=== PATIENT | female | born 1945 | race Caucasian/White ===

== ENCOUNTER 2018-08-21 08:25 | Inpatient (IN) | payer MEDICARE, OTHER ==
[~2018-08-21] VITALS: Ht 149.9 cm; Wt 70.9 kg
--- NOTE | 2018-08-21 08:45 | ED Neurological Problem ---
General Chief Complaint: Neurological Problems Stated Complaint: LT SIDE NUMBNESS/TINGLING Nursing Triage Note: Patient reports she woke up this morning at 0400 with tingling in her left foot. She states she also has some numbness on the left side of her face, but this is not new for her. Nursing Sepsis Screen: No Definite Risk Source: patient, EMS Exam Limitations: no limitations History of Present Illness Date Seen by Provider: Aug 21, 2018 Time Seen by Provider: 08:31 Timing/Duration: 4-6 hours Severity: mild 73-year-old female who noticed left ankle numbness and tingling when she woke up approximately 4 AM, prior to going to bed she was normal. She has noted an increase in ankle swelling over the past 1 week. States that she has chronic left facial numbness that is unchanged. She was hospitalized approximately [address] [facility] for chest pain evaluation. At that time her medications were changed, she was not discharged with a diuretic but states that she received one her to transfer up there. Denies any injury to her left ankle or left foot. Her blood sugars have been running "good" described as 120-140, per EMS they were in the 240 range. She denies any left sided weakness , right-sided weakness, visual deficits, speech difficulties, or coordination difficulty. Allergies and Home Medications Allergies Coded Allergies: morphine (Verified Adverse Reaction, Intermediate, sedation, 08/21/18) Uncoded Allergies: TETANUS VACCINATION (Adverse Reaction, Intermediate, swelling, 08/21/18) Patient Home Medication List Home Medication List Reviewed: Yes Review of Systems Review of Systems Constitutional: chills; No fever, No weakness Eyes: Denies Blindness, Denies Blurred Vision, Denies Decreased Acuity, Denies Vision Changes Respiratory: No cough, No dyspnea on exertion, No orthopnea, No short of breath Cardiovascular: No chest pain; edema; No palpitations, No syncope Gastrointestinal: No abdominal pain, No nausea, No vomiting Genitourinary: No dysuria, No nocturia : No Musculoskeletal: No joint pain, No muscle pain Skin: No pruritus, No rash Psychiatric/Neurological: See HPI; Denies Headache; Numbness; Denies Petit Mal Seizures; Tingling; Denies Tonic Clonic Seizures, Denies Unable to Move Lower Ext, Denies Unable to Move Upper Ext, Denies Weakness Endocrine: Intolerance to Cold; Denies Intolerance to Heat, Denies Increased Hunger, Denies Increased Thrist, Denies Increased Urine, Denies Unexplained Weight Gain, Denies Unexplaned Weight Loss Past Uroshda-Dlhasb-Mvjusk Hx Past Med/Social Hx: Reviewed Nursing Past Med/Soc Hx Patient Social History Recent Foreign Travel: No Contact w/Someone Who Travel: No Recent Infectious Disease Expo: No Physical Exam Vital Signs Vital Signs - First Documented 08/21/18 08:38 Temp 96.8 Pulse 76 Resp 22 Pulse Ox 96 O2 Delivery Room Air Capillary Refill : Less Than 3 Seconds Height, Weight, BMI Height: 4'11.00" Weight: 154lbs. oz. 69.057549nl; BMI Method:Stated General Appearance: WD/WN, no apparent distress HEENT: PERRL/EOMI, normal ENT inspection, TMs normal, pharynx normal Neck: non-tender, full range of motion, supple, normal inspection Respiratory: chest non-tender, lungs clear, normal breath sounds, no respiratory distress, no accessory muscle use, respiratory distress Cardiovascular: normal peripheral pulses, regular rate, rhythm, no edema, no gallop, no JVD, no murmur Gastrointestinal: normal bowel sounds, non tender, soft, no organomegaly, no pulsatile mass, hernia (Epigastric region freely reducible, moderate in size, not painful) Back: no CVA tenderness Extremities: normal range of motion, non-tender, normal inspection, no calf tenderness; No calf tenderness; pedal edema (2+ bilateral lower extremity, left leg is slightly larger than the right) Neurologic/Psychiatric: hydro pneumatic tester II-XII nml as tested, no motor/sensory deficits, alert, normal mood/affect, oriented x 3 Coordination/Gait: normal finger to nose, other (Normal leg coordination) Motor/Sensory: no motor deficit, no sensory deficit, no pronator drift Skin: normal color, warm/dry Stroke Onset of Symptoms Symptoms onset unknown: Yes NIH Stroke Scale Assessment Select: Initial Level of Consciousness: 0=Alert (0), Level of Consciousness- Questions: 0=Answers both month/age (0), LOC Commands: 0=Performs both tasks (0) , Visual Glasgow: 0=No visual loss (0), Facial Movement (Facial Paresis): 0= Normal symmetrical mnt (0), Motor Function-Arms Right: 0=No drift (0), Motor Function-Arms Left: 0=No drift (0), Motor Function-Legs Right: 0=No drift (0), Motor Function-Legs Left: 0=No drift (0), Limb Ataxia: 0=Absent (0), Sensory: 0= Normal:no loss (0), Best Language: 0=No aphasia (0), Dysarthria: 0=Normal (0), Extinction & Inattention: 0=No abnormality (0), Total: 0 Stroke Thrombolytic Exclusion TPA Contraindication: Yes (Unknown time of onset) Progress/Results/Core Measures Results/Orders Lab Results Laboratory Tests Test 08/21/18 08:50 Range/Units White Blood Count 6.7 4.3-11.0 10^3/uL Red Blood Count 3.25 L 4.35-5.85 10^6/uL Hemoglobin 10.1 L 11.5-16.0 G/DL Hematocrit 30 L 35-52 % Mean Corpuscular Volume 93 80-99 FL Mean Corpuscular Hemoglobin 31 25-34 PG Mean Corpuscular Hemoglobin Concent 33 32-36 G/DL Red Cell Distribution Width 13.7 10.0-14.5 % Platelet Count 190 130-400 10^3/uL Mean Platelet Volume 10.9 H 7.4-10.4 FL Neutrophils (%) (Auto) 756 H 42-75 % Lymphocytes (%) (Auto) 16 12-44 % Monocytes (%) (Auto) 6 0-12 % Eosinophils (%) (Auto) 3 0-10 % Basophils (%) (Auto) 0 0-10 % Neutrophils # (Auto) 5.1 1.8-7.8 X 10^3 Lymphocytes # (Auto) 1.1 1.0-4.0 X 10^3 Monocytes # (Auto) 0.4 0.0-1.0 X 10^3 Eosinophils # (Auto) 0.2 0.0-0.3 10^3/uL Basophils # (Auto) 0.0 0.0-0.1 10^3/uL Sodium Level 134 L 135-145 MMOL/L Potassium Level 4.5 3.6-5.0 MMOL/L Chloride Level 100 98-107 MMOL/L Carbon Dioxide Level 13 L 21-32 MMOL/L Anion Gap 21 H 5-14 MMOL/L Blood Urea Nitrogen 28 H 7-18 MG/DL Creatinine 1.29 0.60-1.30 MG/DL Estimat Glomerular Filtration Rate 41 BUN/Creatinine Ratio 22 Glucose Level 339 H 70-105 MG/DL Calcium Level 9.1 8.5-10.1 MG/DL Corrected Calcium 9.4 8.5-10.1 MG/DL Total Bilirubin 0.4 0.1-1.0 MG/DL Aspartate Amino Transf (AST/SGOT) 26 5-34 U/L Alanine Aminotransferase (ALT/SGPT) 25 0-55 U/L Alkaline Phosphatase 152 H 40-136 U/L Troponin T 22 H <=10 NG/L B-Type Natriuretic Peptide 1029.0 H <100.0 PG/ML Total Protein 7.4 6.4-8.2 GM/DL Albumin 3.6 3.2-4.5 GM/DL My Orders Orders - REX MORELOS MD Chest 1 View Ap/Pa Only (08/21/18 08:45) Ekg Tracing (08/21/18 08:45) Monitor-Rhythm Ecg Trace Only (08/21/18 08:45) BNP (08/21/18 08:45) Cbc With Automated Diff (08/21/18 08:45) Comprehensive Metabolic Panel (08/21/18 08:45) Urinalysis (08/21/18 08:45) Ankle 3 View Left (08/21/18 08:45) Furosemide Injection (Lasix Injection) (08/21/18 09:30) Medications Given in ED Current Medications Medications Dose Ordered Sig/[place] Route Start Time Stop Time Status Last Admin Dose Admin Furosemide 40 mg ONCE ONCE IVP 08/21/18 09:30 08/21/18 09:31 DC 08/21/18 10:02 40 MG Vital Signs/I&O 08/21/18 08:38 Temp 96.8 Pulse 76 Resp 22 B/P (MAP) Pulse Ox 96 O2 Delivery Room Air Progress Progress Note : Progress Note With left ankle numbness and tingling she noticed when she woke up this morning at 4 AM. Onset could be 4 AM but isn't certain, in any event given the unclear onset and her examination she is not a candidate for TPA. I suspect that her tingling is more likely due to her edema in her legs and her diabetes. Patient with bilateral lower extremity edema, acute pulmonary edema on chest x- ray, elevated BNP. Treat with Lasix 40 mg IV x1. Initial ECG Impression Date: Aug 21, 2018 Initial ECG Impression Time: 09:14 Initial ECG Rate: 70 Initial ECG Comparisson: No Previous ECG Available Comment Sinus rhythm with PACs, 70 bpm, normal axis, normal intervals, no hypertrophy, Q waves in V1 unclear age, poor R to R progression. Departure Communication (Admissions) Time/Spoke to Admitting Phy: 10:10 Family Conversation Discussed with patient results/findings and reason for admission Discussed with Dr. Monahan, of [facility], who accepts the patient for admission. Med/ Tele Impression Primary Impression: Pedal edema Additional Impressions: Acute CHF Numbness and tingling of foot Disposition: ADMITTED INPATIENT Condition: Stable Admissions Decision to Admit Reason: Admit from ER (General) Decision to Admit/Date: Aug 21, 2018 Time/Decision to Admit Time: 10:03 Transfer Method of Transfer: EMS REX MORELOS MD Aug 21, 2018 08:44
[2018-08-21 09:01] LABS: WHITE BLOOD COUNT 6.7 10^3/uL (4.3-11.0)
[2018-08-21 09:02] LABS: BASOPHILS % (AUTO) 0 % (0-10); EOSINOPHILS # (AUTO) 0.2 10^3/uL (0.0-0.3); EOSINOPHILS % (AUTO) 3 % (0-10); HEMATOCRIT 30 % (35-52); HEMOGLOBIN 10.1 G/DL (11.5-16.0); LYMPHOCYTES # (AUTO) 1.1 X 10^3 (1.0-4.0); LYMPHOCYTES % (AUTO) 16 % (12-44); MEAN CORPUSCULAR HEMOGLOBIN 31 PG (25-34); MEAN CORPUSCULAR HGB CONC 33 G/DL (32-36); MEAN CORPUSCULAR VOLUME 93 FL (80-99); MEAN PLATELET VOLUME 10.9 FL (7.4-10.4); MONOCYTES # (AUTO) 0.4 X 10^3 (0.0-1.0); MONOCYTES % (AUTO) 6 % (0-12); NEUTROPHILS # (AUTO) 5.1 X 10^3 (1.8-7.8); NEUTROPHILS % (AUTO) 756 % (42-75); PLATELET COUNT 190 10^3/uL (130-400); RED CELL DISTRIBUTION WIDTH 13.7 % (10.0-14.5)
[2018-08-21 09:30] LABS: CREATININE SERUM 1.29 MG/DL (0.60-1.30); POTASSIUM 4.5 MMOL/L (3.6-5.0)
[2018-08-21] MEDS ORDERED: FUROSEMIDE 40 MG/4 ML INJ (LASIX) IVP ONE (09:30)
[2018-08-21 09:31] LABS: ALBUMIN 3.6 GM/DL (3.2-4.5); BILIRUBIN,TOTAL 0.4 MG/DL (0.1-1.0); CALCIUM 9.1 MG/DL (8.5-10.1); TOTAL PROTEIN 7.4 GM/DL (6.4-8.2)
--- NOTE | 2018-08-21 09:48 | Diagnostic Imaging Report ---
INDICATION: Numbness and tingling left side, shaky. TECHNIQUE: Single view chest 8:59 AM. CORRELATION STUDY: None FINDINGS: Patient is poststernotomy. There is a cardiac enlargement. Sternal wires are fragmented. Presence of pulmonary vascular congestion, mild perihilar edema. Mild prominent interstitial markings favorable of a component of edema. No definitive consolidating infiltrate. IMPRESSION: 1. Findings compatible with congestive heart failure. Patient is poststernotomy. Dictated by: Dictated on workstation # [id number]
--- NOTE | 2018-08-21 09:49 | Diagnostic Imaging Report ---
INDICATION: Swelling and tingling of the left foot and ankle. TECHNIQUE: Three views of the left ankle CORRELATION STUDY: None FINDINGS: There is generalized soft tissue edema present. Vascular clips in the distal medial leg. The visualized distal tibia and fibula intact. Ankle mortise maintained with the talar dome intact. Moderately prominent plantar calcaneal spur formation present. There is suggestion of some pes planus alignment. IMPRESSION: Negative for acute bony abnormality of the ankle. Generalized soft tissue swelling. Dictated by: Dictated on workstation # [id number]
[2018-08-21 11:35] VITALS: BP 167/71
--- NOTE | 2018-08-21 11:35 | NUR ---
MAURICIO SCOTT I admitted to room 405-1, with an admitting diagnosis of chf, on 08/21/18 from [facility] ED, accompanied by ems.MAURICIO SCOTT I introduced to surroundings, call light, bed controls, phone, TV, temperature control, lights, meal times, smoking policy, visitor policy, side rail policy, bathrooms and showers. Patient Rights given to patient in the handbook. MAURICIO SCOTT I verbalizes understanding that [facility] is not responsible for the loss or damage to any personal effects or valuables that are kept in the patients posession during their hospitalization. The Patient's Care Plans were discussed with the patient as well as Discharge Planning. MAURICIO SCOTT I verbalizes understanding of Interdisciplinary Patient Education. Patient and/or family were informed about the Rapid Response Team and its purpose.
[2018-08-21] MEDS ORDERED: CATHETER FLUSH 10 ML SYR IV PRN (14:15)
[2018-08-21] MEDS: inSUlin ASPART (NovoLOG) 1 UNIT/0.01 ML (CHARGE PER UNIT) SC SCH ×3 (15:09→20:43)
[2018-08-21 15:37] VITALS: BP 167/73
[2018-08-21] MEDS ORDERED: GLIP10TA13 PO (16:33)
[2018-08-21] MEDS ORDERED: LATA2.5D5 OD (16:33)
[2018-08-21] MEDS ORDERED: PANT40TA3 PO (16:33)
[2018-08-21] MEDS ORDERED: CARV25TA PO (16:33)
[2018-08-21] MEDS ORDERED: ACET-2267 PO (16:33)
[2018-08-21] MEDS ORDERED: INSU100I29 SC (16:33)
[2018-08-21] MEDS ORDERED: ATOR40TA70 PO (16:33)
[2018-08-21] MEDS ORDERED: AMLO10TA7 PO (16:33)
[2018-08-21] MEDS ORDERED: ASPI-983 PO (16:33)
[2018-08-21] MEDS ORDERED: HYDR-3923 PO (16:33)
--- NOTE | 2018-08-21 16:50 | NUR ---
HAD A MED LIST FAXED OVER FROM [facility] IN [place] WELL THE COPY OF THE DISCHARGE ORDERS FROM THAT [facility] IN [place] HAD ON FILE. I WENT OVER THAT PAPERWORK WITH HER WELL THE EXT MED HX. [facility] STOPPED HER [place] PENDING PCP FOLLOW UP AND IMPROVEMENT OF HER CREATININE, SHE STATES THIS HAS NOT BEEN RESTARTED YET, I DID NOT PUT IT ON THE MED REC. THEY ALSO STOPPED HER METOPROLOL, SHE WAS TAKING 300MG DAILY, 1 200 AND 1 100MG. SHE HAS NOT BEEN TAKING THIS SINCE HER DISCHARGE FROM . SHE WAS STARTED ON AMLODIPINE 10MG DAILY FROM AND AT HER APPOINTMENT WITH [facility] IN [place] THEY TOLD HER TO TAKE 1/2 TAB DAILY TO SEE IF THAT HELPED WITH HER NEGATIVE SYMPTOMS SHE WAS REPORTED. SHE STATES SHE HAS BEEN DOING 1/2 TAB SINCE THEN. SHE HAS NOT NOTICED AN INCREASE IN HER BLOOD PRESSURE BUT HAS NOT NOTICED A DECREASE IN HER NEGATIVE SYMPTOMS EITHER. SHE WAS STARTED ON LIPITOR AND TOLD TO TAKE IT IN THE AM. SHE STATES SHE USED TO TAKE THIS MEDICATION SEVERAL MONTHS TO A YEAR AGO BUT TOOK IT AT NIGHT.
[2018-08-21] MEDS ORDERED: hydrOXYzine (VISTARIL) 25 MG capsule/tablet PO PRN (18:15)
[2018-08-21] MEDS ORDERED: ACETAMINOPHEN 500 MG TAB (TYLENOL) PO PRN (18:30)
[2018-08-21] MEDS ORDERED: ONDANSETRON 4 MG (ZOFRAN) ORAL DISSOLVE TAB PO PRN (19:00)
[2018-08-21 19:09] VITALS: BP 185/81
[2018-08-21] MEDS: CARVEDILOL 12.5 MG (COREG) TABLET PO SCH (21:00)
[2018-08-21] MEDS ORDERED: inSUlin DETERMIR 1 UNIT/0.01 ML (LEVEMIR) CHARGE PER UNIT SQ SCH (21:00)
[2018-08-21] MEDS ORDERED: LATANOPROST 0.005% (XALATAN) OPHTH SOLN 2.5 ML OD SCH (21:00)
[2018-08-21] MEDS: hydrALAZINE (APRESOLINE) 25 MG TAB PO SCH (21:00)
[2018-08-21] MEDS: CATHETER FLUSH 10 ML SYR IV SCH (21:06)
[2018-08-22] VITALS: BP 117/67
[2018-08-22 04:00] VITALS: BP 145/65
[2018-08-22 04:41] LABS: BASOPHILS % (AUTO) 0 % (0-10); EOSINOPHILS # (AUTO) 0.2 10^3/uL (0.0-0.3); EOSINOPHILS % (AUTO) 2 % (0-10); HEMATOCRIT 28 % (35-52); HEMOGLOBIN 9.1 G/DL (11.5-16.0); LYMPHOCYTES % (AUTO) 24 % (12-44); MEAN CORPUSCULAR HEMOGLOBIN 30 PG (25-34); MEAN CORPUSCULAR HGB CONC 33 G/DL (32-36); MEAN CORPUSCULAR VOLUME 92 FL (80-99); MEAN PLATELET VOLUME 11.2 FL (7.4-10.4); MONOCYTES # (AUTO) 0.8 X 10^3 (0.0-1.0); MONOCYTES % (AUTO) 10 % (0-12); NEUTROPHILS # (AUTO) 5.3 X 10^3 (1.8-7.8); NEUTROPHILS % (AUTO) 65 % (42-75); PLATELET COUNT 206 10^3/uL (130-400); RED CELL DISTRIBUTION WIDTH 13.6 % (10.0-14.5); WHITE BLOOD COUNT 8.3 10^3/uL (4.3-11.0)
[2018-08-22 05:21] LABS: POTASSIUM 3.8 MMOL/L (3.6-5.0)
[2018-08-22 05:22] LABS: ALBUMIN 3.3 GM/DL (3.2-4.5); BILIRUBIN,TOTAL 0.3 MG/DL (0.1-1.0); CALCIUM 9.4 MG/DL (8.5-10.1); CREATININE SERUM 1.6 MG/DL (0.60-1.30); TOTAL PROTEIN 6.4 GM/DL (6.4-8.2)
[2018-08-22] MEDS: inSUlin ASPART (NovoLOG) 1 UNIT/0.01 ML (CHARGE PER UNIT) SC SCH ×2 (05:37→12:02)
--- NOTE | 2018-08-22 05:44 | NUR ---
Pt 0400 blood sugar from labs is 70. Pt diaphoretic upon assessment by this RN. 120 mL orange juice et protein snack administered.
[2018-08-22] MEDS: CATHETER FLUSH 10 ML SYR IV SCH ×2 (06:47→15:20)
[2018-08-22 07:51] VITALS: BP 144/64
[2018-08-22] MEDS ORDERED: ENOXAPARIN 30 MG/0.3 ML (LOVENOX) SYR SC SCH (08:30)
[2018-08-22] MEDS ORDERED: ENOXAPARIN 40 MG/0.4 ML (LOVENOX) SYR SC SCH (08:30)
[2018-08-22] MEDS ORDERED: PANTOPRAZOLE 40 MG (PROTONIX) TAB PO SCH (09:00)
[2018-08-22] MEDS ORDERED: amLODIPine 5 MG (NORVASC) TAB PO SCH (09:00)
[2018-08-22] MEDS ORDERED: ASPIRIN E.C. 81 MG (ECOTRIN) TAB PO SCH (09:00)
[2018-08-22] MEDS: hydrALAZINE (APRESOLINE) 25 MG TAB PO SCH (10:07)
[2018-08-22] MEDS: CARVEDILOL 12.5 MG (COREG) TABLET PO SCH (10:07)
[2018-08-22 12:35] VITALS: BP 151/67
[2018-08-22] MEDS ORDERED: FURO-125 PO (12:40)
--- NOTE | 2018-08-22 12:43 | Discharge Instructions ---
Discharge [facility] Discharge Medications New, Converted or Re-Newed RX: Transmitted to Pharmacy New Medications: Furosemide (Lasix) 20 Mg Tablet 20 MG PO DAILY, #7 TAB 0 Refills Continued Medications: Acetaminophen (Tylenol Extra Strength) 500 Mg Tablet 1000 MG PO Q6H PRN for PAIN-MILD, TAB TAKES 2 (500MG) TABLETS Amlodipine Besylate (Amlodipine Besylate) 10 Mg Tablet 5 MG PO DAILY, TAB TAKES 1/2 (10MG) TABLET Aspirin (Aspirin EC) 81 Mg Tablet.dr 81 MG PO DAILY, TAB Atorvastatin Calcium (Atorvastatin Calcium) 40 Mg Tablet 40 MG PO DAILY, TAB Carvedilol (Carvedilol) 25 Mg Tablet 25 MG PO BID, TAB Glipizide (Glipizide) 10 Mg Tablet 20 MG PO BID, TAB TAKES 2 (10MG) TABLETS Hydralazine HCl (Hydralazine HCl) 25 Mg Tablet 75 MG PO BID, TAB TAKES 3 (25MG) TABLETS Insulin Detemir (Levemir Flextouch) 100 Unit/1 Ml Insuln.pen 15 UNITS SC HS, EA Latanoprost (Latanoprost) 2.5 Ml Drops 1 DROP OD HS, EA Pantoprazole Sodium (Pantoprazole Sodium) 40 Mg Tablet.dr 40 MG PO DAILY, TAB Patient Instructions Goal/Follow Up Appt: Follow up with Diana Christopher at [facility] on Monday at 9:20 am. Patient Instructions: Have labs drawn at clinic tomorrow or Monday to recheck kidney function and heart numbers to determine whether to continue lasix. Return to The Hospital For: Fever, inability to keep down medications, chest pain, shortness of breath, decreased urination Activity & Diet Discharge Diet: ADA Diet, Cardiac Diet Copy Copies To 1: JULISSA Holland BETHANY N MD Aug 22, 2018 12:43
[2018-08-22] MEDS ORDERED: HYDR-3923 PO (12:45)
--- NOTE | 2018-08-22 14:22 | Short Stay Summary ---
History of Present Illness History of Present Illness Reason for visit/HPI 73 yo female went to ER due to tingling in her right foot. She was found to have swelling and acute exacerbation of CHF. She states she has had some intermittent tingling, currently has none. She was recently hospitalized at [facility] and had negative stress testing and echo with combined systolic and diastolic dysfunction. She is not on diuretics in general. She has an appointment with Cardiology at in about 2 weeks, as well as follow up CT and visit with Surgery for her hernia. She does note chronic renal insufficiency, but does not recall having been told she had anemia in the past. Date of Admission Aug 21, 2018 at 12:45 Date of Discharge Aug 22, 2018 Time Seen by Provider: 11:05 Attending Physician Di Monahan MD Admitting Physician Sherry,Local Physician Consult Allergies and Home Medications Allergies Coded Allergies: morphine (Verified Adverse Reaction, Intermediate, sedation, 08/21/18) Uncoded Allergies: TETANUS VACCINATION (Adverse Reaction, Intermediate, swelling, 08/21/18) Home Medications Acetaminophen 500 Mg Tablet, 1,000 MG PO Q6H PRN for PAIN-MILD, (Reported) TAKES 2 (500MG) TABLETS Amlodipine Besylate 10 Mg Tablet, 5 MG PO DAILY, (Reported) TAKES 1/2 (10MG) TABLET Aspirin 81 Mg Tablet.dr, 81 MG PO DAILY, (Reported) Atorvastatin Calcium 40 Mg Tablet, 40 MG PO DAILY, (Reported) Carvedilol 25 Mg Tablet, 25 MG PO BID, (Reported) Furosemide 20 Mg Tablet, 20 MG PO DAILY Prescribed by: DI MONAHAN on 08/22/18 1240 Glipizide 10 Mg Tablet, 20 MG PO BID, (Reported) TAKES 2 (10MG) TABLETS Hydralazine HCl 25 Mg Tablet, 75 MG PO BID, (Reported) TAKES 3 (25MG) TABLETS Hydralazine HCl 25 Mg Tablet, 25 MG PO TID PRN for ANXIETY Prescribed by: DI MONAHAN on 08/22/18 1245 Insulin Detemir 100 Unit/1 Ml Insuln.pen, 15 UNITS SC HS, (Reported) Latanoprost 2.5 Ml Drops, 1 DROP OD HS, (Reported) Pantoprazole Sodium 40 Mg Tablet., 40 MG PO DAILY, (Reported) Patient Home Medication List Home Medication List Reviewed: Yes Past Dooabqq-Vnmkbv-Jivshd Hx Patient Social History Alcohol Use: Denies Use Recreational Drug Use: No Smoking Status: Never a Smoker 2nd Hand Smoke Exposure: No Recent Foreign Travel: No Contact w/other who traveled: No Recent Hopitalizations: No Recent Infectious Disease Expo: No Immunizations Up To Date Date of Pneumonia Vaccine: Apr 23, 2018 Date of Influenza Vaccine: Apr 23, 2018 Seasonal Allergies Seasonal Allergies: No Surgeries Yes Cardiac Respiratory No Cardiovascular Yes Chronic Edema/Swelling, Coronary Artery Disease, Hypertension Neurological No Genitourinary No Gastrointestinal Yes Abdominal Hernia Musculoskeletal Yes Arthritis Endocrine History of Endocrine Disorders: Yes Endocrine Disorders: Diabetes, Insulin dep Are Your Blood Sugars Over 250: No HEENT History of HEENT Disorders: Yes HEENT Disorders: Glaucoma Loss of Vision: Denies Hearing Impairment: Denies Cancer No Psychosocial History of Psychiatric Problem: No Integumentary History of Skin or Integumenta: No Blood Transfusions History of Blood Disorders: No Family Medical History Significant Family History: No Pertinent Family Hx Review of Systems Constitutional: No fever EENTM: No nose congestion Respiratory: No cough, No short of breath Cardiovascular: No chest pain Gastrointestinal: No abdominal pain, No constipation, No diarrhea, No nausea, No vomiting Genitourinary: no symptoms reported Musculoskeletal: no symptoms reported Skin: no symptoms reported Psychiatric/Neurological: Anxiety Physical Exam Vital Signs Vital Signs - First Documented 08/21/18 08:38 Temp 96.8 Pulse 76 Resp 22 Pulse Ox 96 O2 Delivery Room Air Capillary Refill : Less Than 3 Seconds Height, Weight, BMI Height: 4'11.00" Weight: 156lbs. 6.0oz. 70.851257lj; 31.5 BMI Method:Stated General Appearance: No Apparent Distress Respiratory: Lungs Clear, Normal Breath Sounds Cardiovascular: Regular Rate, Rhythm, No Murmur, Normal Peripheral Pulses (2+ pedal pulses bilaterally) Gastrointestinal: Normal Bowel Sounds, Soft, Other (large bulbous epigastric region hernia) Extremity: Pedal Edema (trace) Neurologic/Psychiatric: Alert, Normal Mood/Affect Skin: Normal Color, Warm/Dry Clinical Quality Measures AMI/AHF: Ejection Fraction %: 50 D/C Medications Addressed: Beta frankie, Diuretic Reason ANKIT-I/ARB not given: Renal Function-worsening, Renal Disease/dysfunction DVT/VTE Risk/Contraindication: Risk Factor Score Per Nursin RFS Level Per Nursing on Admit: 4+=Very High Stroke: Symptoms onset unknown: Yes Short Stay Diagnosis Discharge Diagnosis-Short Stay Admission Diagnosis: CHF exacerbation Chronic kidney disease Anemia Neuropathy Final Discharge Diagnosis: CHF exacerbation- BNP elevated, initial troponin slightly elevated, recheck normal, no hypoxia, minimal edema after lasix given. Had negative ischemic work-up last month at and has Cardiology follow up scheduled there in the next 2 weeks. Will d/c with 20 mg lasix daily for the next week, but recheck labs in a couple of days due to chronic renal insufficiency. CKD- initially had high anion gap acidosis, resolved this am, recheck labs outpatient given lasix use. Anemia- she does not recall previous work-up, suspect is related to CKD/chronic disease, but needs further evaluation outpatient. Neuropathy- believe her tingling in her leg may have been related to mechanical stretch from swelling, resolved this am. Conclusion Labs Laboratory Tests 08/21/18 17:15: Glucometer 185H 08/21/18 20:40: Glucometer 153H 08/21/18 20:59: Troponin I < 0.028 08/22/18 04:05: White Blood Count 8.3, Red Blood Count 3.00L, Hemoglobin 9.1L, Hematocrit 28L, Mean Corpuscular Volume 92, Mean Corpuscular Hemoglobin 30, Mean Corpuscular Hemoglobin Concent 33, Red Cell Distribution Width 13.6, Platelet Count 206, Mean Platelet Volume 11.2H, Neutrophils (%) (Auto) 65, Lymphocytes (%) (Auto) 24 , Monocytes (%) (Auto) 10, Eosinophils (%) (Auto) 2, Basophils (%) (Auto) 0, Neutrophils # (Auto) 5.3, Lymphocytes # (Auto) 2.0, Monocytes # (Auto) 0.8, Eosinophils # (Auto) 0.2, Basophils # (Auto) 0.0, Sodium Level 137, Potassium Level 3.8, Chloride Level 105, Carbon Dioxide Level 23, Anion Gap 9, Blood Urea Nitrogen 30H, Creatinine 1.60H, Estimat Glomerular Filtration Rate 32, BUN/ Creatinine Ratio 19, Glucose Level 70, Calcium Level 9.4, Corrected Calcium 10.0 , Total Bilirubin 0.3, Aspartate Amino Transf (AST/SGOT) 31, Alanine Aminotransferase (ALT/SGPT) 24, Alkaline Phosphatase 109, Total Protein 6.4, Albumin 3.3 08/22/18 06:26: Glucometer 109 08/22/18 11:47: Glucometer 179H Conclusion/Plan See discharge diagnosis Copy Copies To 1: JULISSA Holladn BETHANY N MD Aug 22, 2018 14:22
--- NOTE | 2018-08-23 13:27 | Physician Query Clarification ---
PQ-CHF Specificity The medical record reflects the following clinical scenario: History/Risk Factors: Per records from [facility] [place] - Acute on Chronic combined systolic/diastolic CHF Clinical Findings: BNP 1029.0 Treatment: Lasix 40 mg IV Question: Can you further specify the acuity &/or type of CHF per the clinical indicators above? Please document a response below PHYSICIAN RESPONSE Acuity: Acute on Chronic Type: Systolic & Diastolic In responding to this query, please exercise your independent professional judgment. The purpose of this communication is to more accurately reflect the complexity of your patients condition. The fact that a question is asked does not imply that any particular answer is desired or expected. Thank you for your timely response to this clarification. Requestors name: Magalie Tavarez THIS PHYSICIAN QUERY FORM IS A PERMANENT PART OF THE MEDICAL RECORD DUSTY TAVAREZ Aug 23, 2018 13:27 DI PUTNAM MD Aug 23, 2018 20:49
== END 2018-08-22 16:30 | disposition home or self-care (01) | DRG 291 ==
LOC: ER FS 08:30 → 4TH 12:45
PROVIDERS: ADMIT Family Medicine; ATTEND Family Medicine
DX: I13.0 Hypertensive heart and chronic kidney disease with heart failure and stage 1 through stage 4 chronic kidney disease, or unspecified chronic kidney disease (principal); I50.43 Acute on chronic combined systolic (congestive) and diastolic (congestive) heart failure; N18.9 Chronic kidney disease, unspecified; D63.1 Anemia in chronic kidney disease; I25.10 Atherosclerotic heart disease of native coronary artery without angina pectoris; E11.9 Type 2 diabetes mellitus without complications; Z79.4 Long term (current) use of insulin; G62.9 Polyneuropathy, unspecified
CPT/HCPCS: 36415; 71045; 73610; 80053; 82962; 83880; 84484; 85025; 93005; 93041; G0378

== ENCOUNTER 2019-08-27 11:17 | Emergency (ER) | payer MEDICARE ==
[~2019-08-27] VITALS: Ht 152.4 cm; Wt 67.0 kg
[~2019-08-27 11:17] MED LIST: ACET-2267 PO; AMLO10TA7 PO; ASPI-983 PO; ATOR40TA70 PO; CARV25TA PO; FURO-125 PO; GLIP10TA13 PO; HYDR-3923 PO; INSU100I29 SC; LATA2.5D5 OD; PANT40TA3 PO
[2019-08-27] MEDS ORDERED: ASPIRIN 81 MG CHEW (CHILDREN'S ASA) PO ONE (11:30)
[2019-08-27 11:43] LABS: BASOPHILS % (AUTO) 0 % (0-10); EOSINOPHILS % (AUTO) 2 % (0-10); HEMATOCRIT 30 % (35-52); LYMPHOCYTES % (AUTO) 14 % (12-44); MEAN CORPUSCULAR HEMOGLOBIN 31 PG (25-34); MEAN CORPUSCULAR HGB CONC 33 G/DL (32-36); MEAN CORPUSCULAR VOLUME 92 FL (80-99); MEAN PLATELET VOLUME 10.8 FL (7.4-10.4); MONOCYTES % (AUTO) 5 % (0-12); NEUTROPHILS % (AUTO) 80 % (42-75); PLATELET COUNT 213 10^3/uL (130-400); RED CELL DISTRIBUTION WIDTH 13.2 % (10.0-14.5); WHITE BLOOD COUNT 8.2 10^3/uL (4.3-11.0)
[2019-08-27 11:44] LABS: EOSINOPHILS # (AUTO) 0.1 10^3/uL (0.0-0.3); LYMPHOCYTES # (AUTO) 1.1 X 10^3 (1.0-4.0); MONOCYTES # (AUTO) 0.4 X 10^3 (0.0-1.0); NEUTROPHILS # (AUTO) 6.5 X 10^3 (1.8-7.8)
--- NOTE | 2019-08-27 11:45 | ED Chest Pain ---
General Chief Complaint: Chest Pain Stated Complaint: AG ARM PAIN; CHEST PAIN Source: patient Exam Limitations: no limitations History of Present Illness Date Seen by Provider: Aug 27, 2019 Time Seen by Provider: 11:25 Initial Comments The patient is a 74-year-old female with history of hypertension, hyperlipidemia, and insulin-dependent diabetes who states that she workup today and noticed some epigastric slight discomfort as well as some soreness to her left arm. She reports a history of CABG. She says that she has a history of a hernia in her upper abdomen and does sometimes have a similar discomfort and also says that she has arthritis in both of her arms and sometimes have a similar discomfort in her arms. Took a single 81 mg aspirin this morning. She denies diaphoresis, nausea or vomiting, chest pain, fevers or chills, shortness of breath currently, dizziness, palpitations, or syncope. She says that when she was walking yesterday she felt a little short of breath. She denies any shortness of breath currently. 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 NTG SL ORNAMENTAL IRON WORKER APPRENTICE: No Associated Symptoms: shortness of breath (yesterday not today) Allergies and Home Medications Allergies Coded Allergies: morphine (Verified Adverse Reaction, Intermediate, sedation, 08/21/18) Uncoded Allergies: TETANUS VACCINATION (Adverse Reaction, Intermediate, swelling, 08/21/18) Home Medications Acetaminophen 500 Mg Tablet, 1,000 MG PO Q6H PRN for PAIN-MILD, (Reported) TAKES 2 (500MG) TABLETS Amlodipine Besylate 10 Mg Tablet, 5 MG PO DAILY, (Reported) TAKES 1/2 (10MG) TABLET Aspirin 81 Mg Tablet.dr, 81 MG PO DAILY, (Reported) Atorvastatin Calcium 40 Mg Tablet, 40 MG PO DAILY, (Reported) Carvedilol 25 Mg Tablet, 25 MG PO BID, (Reported) Furosemide 20 Mg Tablet, 20 MG PO DAILY Prescribed by: DI PUTNAM on 08/22/18 1240 Glipizide 10 Mg Tablet, 20 MG PO BID, (Reported) TAKES 2 (10MG) TABLETS Hydralazine HCl 25 Mg Tablet, 75 MG PO BID, (Reported) TAKES 3 (25MG) TABLETS Hydralazine HCl 25 Mg Tablet, 25 MG PO TID PRN for ANXIETY Prescribed by: DI PUTNAM on 08/22/18 1245 Insulin Detemir 100 Unit/1 Ml Insuln.pen, 15 UNITS SC HS, (Reported) Latanoprost 2.5 Ml Drops, 1 DROP OD HS, (Reported) Pantoprazole Sodium 40 Mg Tablet.dr, 40 MG PO DAILY, (Reported) Patient Home Medication List Home Medication List Reviewed: Yes Review of Systems Review of Systems Constitutional: no symptoms reported EENTM: No Symptoms Reported Respiratory: Shortness of Air (yesterday, not currently) Gastrointestinal: Abdominal Pain (epigastric abdominal discomfort) Genitourinary: No Symptoms Reported Musculoskeletal: no symptoms reported Skin: no symptoms reported Psychiatric/Neurological: No Symptoms Reported Endocrine: No Symptoms Reported Hematologic/Lymphatic: No Symptoms Reported All Other Systems Reviewed Negative Unless Noted: Yes Past Hnhqgjl-Imbhug-Eiiyxl Hx Past Med/Social Hx: Reviewed Nursing Past Med/Soc Hx Patient Social History 2nd Hand Smoke Exposure: No Recent Foreign Travel: No Contact w/Someone Who Travel: No Recent Hopitalizations: No Immunizations Up To Date Date of Pneumonia Vaccine: Apr 23, 2018 Date of Influenza Vaccine: Apr 23, 2018 Seasonal Allergies Seasonal Allergies: No Past Medical History Surgeries: Yes Cardiac Respiratory: No Cardiac: Yes Chronic Edema/Swelling, Coronary Artery Disease, Hypertension Neurological: No Genitourinary: No Gastrointestinal: Yes Abdominal Hernia Musculoskeletal: Yes Arthritis Endocrine: Yes Diabetes, Insulin dep HEENT: Yes Glaucoma Loss of Vision: Denies Hearing Impairment: Denies Cancer: No Psychosocial: No Integumentary: No Blood Disorders: No Family Medical History No Pertinent Family Hx Physical Exam Vital Signs Vital Signs - First Documented Capillary Refill : Height, Weight, BMI Height: 4'11.00" Weight: 156lbs. 6.0oz. 70.983377bh; 31.5 BMI Method:Stated General Appearance: No Apparent Distress, WD/WN HEENT: PERRL/EOMI, Pharynx Normal Respiratory: Chest Non Tender, Lungs Clear, Normal Breath Sounds, No Accessory Muscle Use, No Respiratory Distress Cardiovascular: Regular Rate, Rhythm, No Edema, No JVD Gastrointestinal: Normal Bowel Sounds, No Organomegaly, No Pulsatile Mass, Non Tender, Soft Extremity: Normal Capillary Refill, Non Tender, No Calf Tenderness, Pedal Edema (2+ b/l) Neurologic/Psychiatric: Alert, Oriented x3, No Motor/Sensory Deficits, Normal Mood/Affect Skin: Normal Color, Warm/Dry Progress/Results/Core Measures Results/Orders Lab Results Laboratory Tests Test 08/27/19 11:25 08/27/19 14:10 Range/Units White Blood Count 8.2 4.3-11.0 10^3/uL Red Blood Count 3.24 L 4.35-5.85 10^6/uL Hemoglobin 10.0 L 11.5-16.0 G/DL Hematocrit 30 L 35-52 % Mean Corpuscular Volume 92 80-99 FL Mean Corpuscular Hemoglobin 31 25-34 PG Mean Corpuscular Hemoglobin Concent 33 32-36 G/DL Red Cell Distribution Width 13.2 10.0-14.5 % Platelet Count 213 130-400 10^3/uL Mean Platelet Volume 10.8 H 7.4-10.4 FL Neutrophils (%) (Auto) 80 H 42-75 % Lymphocytes (%) (Auto) 14 12-44 % Monocytes (%) (Auto) 5 0-12 % Eosinophils (%) (Auto) 2 0-10 % Basophils (%) (Auto) 0 0-10 % Neutrophils # (Auto) 6.5 1.8-7.8 X 10^3 Lymphocytes # (Auto) 1.1 1.0-4.0 X 10^3 Monocytes # (Auto) 0.4 0.0-1.0 X 10^3 Eosinophils # (Auto) 0.1 0.0-0.3 10^3/uL Basophils # (Auto) 0.0 0.0-0.1 10^3/uL Prothrombin Time 12.9 12.2-14.7 SEC INR Comment 0.9 0.8-1.4 Activated Partial Thromboplast Time 32 24-35 SEC Sodium Level 135 135-145 MMOL/L Potassium Level 4.6 3.6-5.0 MMOL/L Chloride Level 101 98-107 MMOL/L Carbon Dioxide Level 19 L 21-32 MMOL/L Anion Gap 15 H 5-14 MMOL/L Blood Urea Nitrogen 25 H 7-18 MG/DL Creatinine 1.48 H 0.60-1.30 MG/DL Estimat Glomerular Filtration Rate 34 BUN/Creatinine Ratio 17 Glucose Level 210 H 70-105 MG/DL Calcium Level 9.8 8.5-10.1 MG/DL Corrected Calcium 9.8 8.5-10.1 MG/DL Magnesium Level 1.6 1.6-2.4 MG/DL Total Bilirubin 0.4 0.1-1.0 MG/DL Aspartate Amino Transf (AST/SGOT) 19 5-34 U/L Alanine Aminotransferase (ALT/SGPT) 17 0-55 U/L Alkaline Phosphatase 158 H 40-136 U/L Troponin I < 0.30 < 0.30 <0.30 NG/ML Pro-B-Type Natriuretic Peptide 1634.0 H <75.0 PG/ML Total Protein 7.9 6.4-8.2 GM/DL Albumin 4.0 3.2-4.5 GM/DL My Orders Orders - CHERRY FUENTES DO Cbc With Automated Diff (08/27/19 11:23) Magnesium (08/27/19 11:23) Chest 1 View Ap/Pa Only (08/27/19 11:23) Ekg Tracing (08/27/19 11:23) Comprehensive Metabolic Panel (08/27/19 11:23) Protime With Inr (08/27/19 11:23) Partial Thromboplastin Time (08/27/19 11:23) O2 (08/27/19 11:23) Monitor-Rhythm Ecg Trace Only (08/27/19 11:23) Ed Iv/Invasive Line Start (08/27/19 11:23) Creatine Kinase Mb (08/27/19 11:23) Troponin I Fs (08/27/19 11:23) Probnp Fs (08/27/19 11:23) Aspirin Chewable Tablet (Baby Aspirin Ch (08/27/19 11:30) Troponin I Fs (08/27/19 14:02) Furosemide Injection (Lasix Injection) (08/27/19 15:15) Medications Given in ED Current Medications Medications Dose Ordered Sig/[place] Route Start Time Stop Time Status Last Admin Dose Admin Aspirin 243 mg ONCE ONCE PO 08/27/19 11:30 08/27/19 12:35 DC 08/27/19 11:36 243 MG Vital Signs/I&O 08/27/19 08/27/19 11:20 11:20 Temp 36.1 Pulse 72 Resp 16 B/P (MAP) 124/93 (103) Pulse Ox 95 O2 Delivery Room Air Room Air Progress Progress Note : Progress Note @1510 - Patient updated on lab and imaging results. She has not had any chest pain since arrival and is asking to go home. Workup today fails to reveal any emergent pathology. The patient is smiling and appears comfortable. Advised the patient to follow up with her PCP in the next 1-2 days and to return to the Emergency Department immediately for new or worsening symptoms. EKG : Comment @1125 - Normal sinus rhythm, rate of 71, left axis deviation is present, no acute ischemic findings noted, no STEMI, reviewed and interpreted by myself Departure Impression Primary Impression: Atypical chest pain Disposition: HOME, SELF-CARE Condition: Stable Departure-Patient Inst. Decision time for Depature: 15:16 Referrals: NO,LOCAL PHYSICIAN (PCP) Primary Care Physician [facility] Patient Instructions: Chest Pain That Is Not Caused by the Heart (DC) Add. Discharge Instructions: Follow-up with your composite laminator and/or PCP in the next 1-2 days. Return to the emergency Department immediately for new or worsening symptoms. Continue to take your home medications as prescribed. CHERRY FUENTES DO Aug 27, 2019 11:45
[2019-08-27] MEDS ORDERED: BRIN8DRO (11:53)
[2019-08-27] MEDS ORDERED: LOSA25TA41 (11:53)
[2019-08-27 12:08] LABS: INR 0.9 (0.8-1.4); PROTHROMBIN TIME PATIENT 12.9 SEC (12.2-14.7)
--- NOTE | 2019-08-27 12:16 | Diagnostic Imaging Report ---
INDICATION: Chest pain. Frontal chest obtained at 11:59 a.m. and compared to 08/21/2018. There is poststernotomy change with borderline cardiomegaly. There is mild central vascular prominence. There is no sacha consolidation or pneumothorax or pleural fluid. IMPRESSION: Stable chronic changes compared to 08/21/2018. No acute abnormality. Dictated by: Dictated on workstation # [id number]
[2019-08-27 12:27] LABS: BILIRUBIN,TOTAL 0.4 MG/DL (0.1-1.0); CALCIUM 9.8 MG/DL (8.5-10.1); CREATININE SERUM 1.48 MG/DL (0.60-1.30); MAGNESIUM 1.6 MG/DL (1.6-2.4); POTASSIUM 4.6 MMOL/L (3.6-5.0); TOTAL PROTEIN 7.9 GM/DL (6.4-8.2)
[2019-08-27] MEDS ORDERED: NS IV 1000 ML 1,000 ML IV SCH (12:30)
[2019-08-27] MEDS ORDERED: methylPREDNISolone 125 MG (Solu-MEDROL) VIAL IVP ONE (12:30)
[2019-08-27] MEDS ORDERED: RT-ALBUTEROL/IPRATROPIUM 3 ML (DUONEB) VIAL INH ONE (12:30)
[2019-08-27] MEDS ORDERED: cefTRIAXone FOR IV USE 1,000 MG in WATER (STERILE) FOR INJECTION 10 ML IV ONE (12:30)
[2019-08-27] MEDS ORDERED: AZITHROMYCIN 250 MG TAB (ZITHROMAX) PO ONE (12:30)
[2019-08-27] MEDS ORDERED: FUROSEMIDE 40 MG/4 ML INJ (LASIX) IVP ONE (15:15)
[2019-08-27 15:25] LABS: CREATINE KINASE MB 1.3 NG/ML (<6.6)
[2019-08-27 15:53] VITALS: BP 141/51
--- OUTSIDE RECORDS SUMMARY | 2019-08-29 13:25 | XMS REPORT ---
Author Author Sara OMER Organization [facility] Address [address] [place] [address] Care Team Providers Care Speech Language Specialist Name Role Phone HEATHER OMER Unavailable PROBLEMS Type Condition ICD9-CM Code ZQX50-RX Code Onset Dates Condition S tatus SNOMED Code Problem Hypertension 401.9 Aug, 0 3834 1003 Problem CAD (coronary artery disease) 414.00 Aug, 14 0 06841298 Problem Hypertension I10 Aug, 0 3834 1003 Problem CAD (coronary artery disease) I25.10 Aug, 14 0 41492992 Problem Chronic diastolic congestive heart failure I50.32 Active 794596694 Problem OA (osteoarthritis) M19.90 Aug, 0 265218709 Problem Hypertensive urgency I16.0 Jan, 0 493800279 Problem Chronic systolic congestive heart failure I50.22 Active 233306010 Problem Diabetes mellitus with hyperglycemia 250.00 Jun, 0 991897303 Problem Diabetes mellitus with hyperglycemia E11.65 Jun, 0 [id number] Problem Diabetes mellitus type 2, controlled, without complica tions E11.9 October, 0 775105218 Problem Type 2 diabetes mellitus with other specified complication E11.69 Active 13482499 Problem Hypertensive urgency 401.9 Jan, 0 652252073 Problem OA (osteoarthritis) 715.90 Aug, 0 392370824 Problem Anxiety F41.9 Active 76860036 Problem S/P CABG x 3 Z95.1 Aug, 0 3992 73541 Problem S/P CABG x 3 V45.81 Aug, 0 3992 29530 Problem Diabetes mellitus type 2, controlled, without complica tions 250.00 October, 0 754659963 Problem retirement current use of insulin Z79.4 Active 718559145 Problem Pure hypercholesterolemia E78.00 Acti ve 827561004 Problem CKD (chronic kidney disease) stage 3, GFR 30-59 ml/min N18.3 Active 726964533 Problem Essential hypertension I10 Active 35731246 ALLERGIES No Information ENCOUNTERS Encounter Location Date Diagnosis [facility] [place] [facility] [address] [place] [address] Sep, UTI (lower urinary tract infection) N39. 0 and UTI symptoms R39.[address] [address] Sep, [facility] [address] [place] [address] Sep, [address] [address] Sep, [facility] [address] [facility] [id number] [address] [place] [phone] Aug, [address] [address] Aug, Essential hypertension I10 ; Diabetes me llitus type 2, controlled, without complications E11.9 ; Chronic diastolic congestive heart failure I50.32 and Anxiety F41.[address] [address] Aug, CKD (chronic kidney disease) stage 3, GF R 30-59 ml/min N18.3 and Chronic systolic congestive heart failure I50.22 [facility] [address] [facility] [id number] [address] [place] [phone] Aug, CKD (chronic kidney disease) stage 3, GFR 30-59 ml/min N18.3 and Chronic systolic congestive heart failure I50.[address] [address] Aug, [address] [address] Jul, [address] [address] Jul, [address] [address] Jul, Essential hypertension I10 ; Vanesa morton R45.0 ; Type 2 diabetes mellitus with other specified complication E11.69 ; retirement current use of insulin Z79.4 ; CKD (chronic kidney disease) stage 3, GFR 30-59 ml/min N18.3 and Pure hypercholesterolemia E78.00 [facility] [address] [place] [address] Jul, Jittery feeling R45.0 [facility] [address] [id number] [address] [place] [phone] Jul, [facility] [address] [id number] [address] [place] [phone] Jul, [facility] [address] [facility] [id number] [address] [place] [phone] Jun, [facility] [address] [id number] [address] [place] [phone] Jun, [facility] [address] [facility] [id number] [address] [place] [phone] Jun, [facility] [address] [id number] [address] [place] [phone] May, [facility] [address] [facility] [id number] [address] [place] [phone] May, [facility] [address] [facility] [id number] [address] [place] [phone] Apr, IMMUNIZATIONS No Known Immunizations SOCIAL HISTORY Never Assessed REASON FOR VISIT Lab (walk-in) PLAN OF CARE VITAL SIGNS MEDICATIONS No Known Medications RESULTS No Results PROCEDURES Procedure Date Ordered Result Body Site NATRIURETIC PEPTIDE August 24, 2018 BASIC METABOLIC PANEL August 24, 2018 INSTRUCTIONS MEDICATIONS ADMINISTERED No Known Medications MEDICAL (GENERAL) HISTORY Type Description Date Medical History congestive heart failure Medical History coronary artery disease Medical History type II diabetes Medical History hyperlipidemia Medical History hypertension Medical History osteoarthritis Medical History hernia Medical History Chronic Kidney disease stage 3 Medical History Glaucoma Medical History History of coronary artery bypass graft x 3 Surgical History coronary artery bypass graft Surgical History tubal ligation Surgical History cataract-lens implants Surgical History hernia repair=-- abd mesh 2018 Hospitalization History [facility] 07/18/2018 Hospitalization History acute HCF, pleural edema 08/21/18
--- OUTSIDE RECORDS SUMMARY | 2019-08-29 13:25 | XMS REPORT | Continuity of Care Document ---
Author Organization Unknown Address Unknown Phone Unavailable Allergies Active Description Code Type Severity Reaction Onset Reported/Identified Relationship to Patient Clinical Status Yes morphine [id number] Drug Allergy Moderate sedation 08/21/2018 Yes TETANUS VACCINATION TETANUS VACCINATIO N Moderate swelling 08/21/2018 Medications There is no data. 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 08/22/2018 DI PUTNAM MD, Ot N18 .9 CHRONIC KIDNEY DISEASE, UNSPECIFIED 08/22/2018 DI PUTNAM MD Ot R20 .0 ANESTHESIA OF SKIN 08/22/2018 DI PUTNAM MD Ot Z79 .4 LONGTERM (CURRENT) USE OF INSULIN 08/22/2018 DI PUTNAM MD, Ot D63 .1 ANEMIA IN CHRONIC KIDNEY DISEASE 08/22/2018 DI PUTNAM MD, Ot E11.40 TYPE 2 DIABETES MELLITUS WITH DIABETIC N 08/22/2018 DI PUTNAM MD, Ot E11 .9 TYPE 2 DIABETES MELLITUS WITHOUT COMPLIC 08/22/2018 DI PUTNAM MD, Ot G62 .9 POLYNEUROPATHY, UNSPECIFIED 08/22/2018 DI PUTNAM MD Ot 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 Results Test Result Range Complete blood count (CBC) with automate d white blood cell (WBC) differential - 08/21/18 08:50 Blood leukocytes automated count (number/volume) 6.7 10*3/uL 4.3-11.0 Blood erythrocytes automated count (number/volume) 3.25 10*6/uL 4.35-5.85 Venous blood hemoglobin measurement (mass/volume) 10.1 g/dL 11.5-16.0 Blood hematocrit (volume fraction) 30 % 35-52 Automated erythrocyte mean corpuscular volume 93 [ foz_us] 80-99 Automated erythrocyte mean corpuscular h emoglobin (mass per erythrocyte) 31 pg 25-34 Automated erythrocyte mean corpuscular h emoglobin concentration measurement (mass/volume) 33 g/dL 32-36 Automated erythrocyte distribution width ratio 13. 7 % 10.0- 14.5 Automated blood platelet count (count/volume) 190 10*3/uL 130-400 Automated blood platelet mean volume measurement 10.9 [foz_us] 7.4-10.4 Automated blood neutrophils/100 leukocytes 756 % 42-75 Automated blood lymphocytes/100 leukocytes 16 % 12-44 Blood monocytes/100 leukocytes 6 % 0-12 Automated blood eosinophils/100 leukocytes 3 % 0-10 Automated blood basophils/100 leukocytes 0 % 0-10 Blood neutrophils automated count (number/volume) 5.1 10*3 1.8-7.8 Blood lymphocytes automated count (number/volume) 1.1 10*3 1.0-4.0 Blood monocytes automated count (number/volume) 0. 4 10*3 0.0-1.0 Automated eosinophil count 0.2 10*3/uL 0 .0-0.3 Automated blood basophil count (count/volume) 0.0 10*3/uL 0.0-0.1 Comprehensive metabolic panel - 08/21/18 08:50 Serum or plasma sodium measurement (moles/volume) 134 mmol/L 135-145 Serum or plasma potassium measurement (moles/volume) 4.5 mmol/L 3.6-5.0 Serum or plasma chloride measurement (moles/volume) 100 mmol/L 98-107 Carbon dioxide 13 mmol/L 21-32 Serum or plasma anion gap determination (moles/volume) 21 mmol/L 5-14 Serum or plasma urea nitrogen measurement (mass/volume ) 28 mg/dL 7-18 Serum or plasma creatinine measurement (mass/volume) 1.29 mg/dL 0.60-1.30 Serum or plasma urea nitrogen/creatinine mass ratio 22 NRG Serum or plasma creatinine measurement w ith calculation of estimated glomerular filtration rate 41 NRG Serum or plasma glucose measurement (mass/volume) 339 mg/dL 70-105 Serum or plasma calcium measurement (mass/volume) 9.1 mg/dL 8.5-10.1 Serum or plasma total bilirubin measurement (mass/volu me) 0.4 mg/dL 0.1-1.0 Serum or plasma alkaline phosphatase lila surement (enzymatic activity/volume) 152 U/L 40-136 Serum or plasma aspartate aminotransfera se measurement (enzymatic activity/volume) 26 U/L 5-34 Serum or plasma alanine aminotransferase measurement (enzymatic activity/volume) 25 U/L 0-55 Serum or plasma protein measurement (mass/volume) 7.4 g/dL 6.4-8.2 Serum or plasma albumin measurement (mass/volume) 3.6 g/dL 3.2-4.5 CALCIUM CORRECTED 9.4 mg/dL 8.5-10.1 TROPONIN T - 08/21/18 08:50 TROPONIN T 22 % <=10 Serum or plasma lithium measurement (mol es/volume) - 08/21/18 08:50 BNP level 1029.0 pg/mL <100.0 Capillary blood glucose measurement by g lucometer (mass/volume) - 08/21/18 13:50 Capillary blood glucose measurement by glucometer (mas s/volume) 220 mg/dL 70-110 Capillary blood glucose measurement by g lucometer (mass/volume) - 08/21/18 17:15 Capillary blood glucose measurement by glucometer (mas s/volume) 185 mg/dL 70-110 Capillary blood glucose measurement by g lucometer (mass/volume) - 08/21/18 20:40 Capillary blood glucose measurement by glucometer (mas s/volume) 153 mg/dL 70-110 Serum or plasma troponin i.cardiac measu rement (mass/volume) - 08/21/18 20:59 Serum or plasma troponin i.cardiac measurement (mass/v olume) < ng/mL <0.028 Complete blood count (CBC) with automate d white blood cell (WBC) differential - 08/22/18 04:05 Blood leukocytes automated count (number/volume) 8.3 10*3/uL 4.3-11.0 Blood erythrocytes automated count (number/volume) 3.00 10*6/uL 4.35-5.85 Venous blood hemoglobin measurement (mass/volume) 9.1 g/dL 11.5-16.0 Blood hematocrit (volume fraction) 28 % 35-52 Automated erythrocyte mean corpuscular volume 92 [ foz_us] 80-99 Automated erythrocyte mean corpuscular h emoglobin (mass per erythrocyte) 30 pg 25-34 Automated erythrocyte mean corpuscular h emoglobin concentration measurement (mass/volume) 33 g/dL 32-36 Automated erythrocyte distribution width ratio 13. 6 % 10.0- 14.5 Automated blood platelet count (count/volume) 206 10*3/uL 130-400 Automated blood platelet mean volume measurement 11.2 [foz_us] 7.4-10.4 Automated blood neutrophils/100 leukocytes 65 % 42-75 Automated blood lymphocytes/100 leukocytes 24 % 12-44 Blood monocytes/100 leukocytes 10 % 0-12 Automated blood eosinophils/100 leukocytes 2 % 0-10 Automated blood basophils/100 leukocytes 0 % 0-10 Blood neutrophils automated count (number/volume) 5.3 10*3 1.8-7.8 Blood lymphocytes automated count (number/volume) 2.0 10*3 1.0-4.0 Blood monocytes automated count (number/volume) 0. 8 10*3 0.0-1.0 Automated eosinophil count 0.2 10*3/uL 0 .0-0.3 Automated blood basophil count (count/volume) 0.0 10*3/uL 0.0-0.1 Comprehensive metabolic panel - 03/06/19 04:05 Serum or plasma sodium measurement (moles/volume) 137 mmol/L 135-145 Serum or plasma potassium measurement (moles/volume) 3.8 mmol/L 3.6-5.0 Serum or plasma chloride measurement (moles/volume) 105 mmol/L 98-107 Carbon dioxide 23 mmol/L 21-32 Serum or plasma anion gap determination (moles/volume) 9 mmol/L 5-14 Serum or plasma urea nitrogen measurement (mass/volume ) 30 mg/dL 7-18 Serum or plasma creatinine measurement (mass/volume) 1.60 mg/dL 0.60-1.30 Serum or plasma urea nitrogen/creatinine mass ratio 19 NRG Serum or plasma creatinine measurement w ith calculation of estimated glomerular filtration rate 32 NRG Serum or plasma glucose measurement (mass/volume) 70 mg/dL 70-105 Serum or plasma calcium measurement (mass/volume) 9.4 mg/dL 8.5-10.1 Serum or plasma total bilirubin measurement (mass/volu me) 0.3 mg/dL 0.1-1.0 Serum or plasma alkaline phosphatase lila surement (enzymatic activity/volume) 109 U/L 40-136 Serum or plasma aspartate aminotransfera se measurement (enzymatic activity/volume) 31 U/L 5-34 Serum or plasma alanine aminotransferase measurement (enzymatic activity/volume) 24 U/L 0-55 Serum or plasma protein measurement (mass/volume) 6.4 g/dL 6.4-8.2 Serum or plasma albumin measurement (mass/volume) 3.3 g/dL 3.2-4.5 CALCIUM CORRECTED 10.0 mg/dL 8.5-10.1 Capillary blood glucose measurement by g lucometer (mass/volume) - 08/22/18 06:26 Capillary blood glucose measurement by glucometer (mas s/volume) 109 mg/dL 70-110 Capillary blood glucose measurement by g lucometer (mass/volume) - 08/22/18 11:47 Capillary blood glucose measurement by glucometer (mas s/volume) 179 mg/dL 70-110 BMP - 08/24/18 08:00 GLUCOSE 54 mg/dL 65-139 UREA NITROGEN (BUN) 29 mg/dL 7-25 CREATININE 1.55 mg/dL 0.60-0.93 eGFR NON-AFR. MOLDOVAN 33 mL/min/1.73m2 > OR = 60 eGFR 38 mL/min/1.73m2 > OR = 60 BUN/CREATININE RATIO 19 (calc) 6-22 SODIUM 141 mmol/L 135-146 POTASSIUM 4.5 mmol/L 3.5-5.3 CHLORIDE 103 mmol/L 98-110 CARBON DIOXIDE 26 mmol/L 20-32 CALCIUM 9.0 mg/dL 8.6-10.4 BNP - 08/24/18 08:00 B TYPE NATRIURETIC PEPTIDE (BNP) 115 pg/mL <100 CULTURE, URINE - 10/05/18 09:31 CULTURE, URINE, ROUTINE SEE NOTE NRG LIPID PANEL - 12/12/18 08:18 CHOLESTEROL, TOTAL 113 mg/dL <200 HDL CHOLESTEROL 46 mg/dL >50 TRIGLYCERIDES 141 mg/dL <150 LDL-CHOLESTEROL 45 mg/dL (calc) NRG CHOL/HDLC RATIO 2.5 (calc) <5.0 NON HDL CHOLESTEROL 67 mg/dL (calc) <130 CMP - 12/12/18 08:18 GLUCOSE 79 mg/dL 65-99 UREA NITROGEN (BUN) 23 mg/dL 7-25 CREATININE 1.74 mg/dL 0.60-0.93 eGFR NON-AFR. MOLDOVAN 29 mL/min/1.73m2 > OR = 60 eGFR 33 mL/min/1.73m2 > OR = 60 BUN/CREATININE RATIO 13 (calc) 6-22 SODIUM 137 mmol/L 135-146 POTASSIUM 4.1 mmol/L 3.5-5.3 CHLORIDE 103 mmol/L 98-110 CARBON DIOXIDE 23 mmol/L 20-32 CALCIUM 8.3 mg/dL 8.6-10.4 PROTEIN, TOTAL 7.1 g/dL 6.1-8.1 ALBUMIN 3.7 g/dL 3.6-5.1 GLOBULIN 3.4 g/dL (calc) 1.9-3.7 ALBUMIN/GLOBULIN RATIO 1.1 (calc) 1.0-2. 5 BILIRUBIN, TOTAL 0.5 mg/dL 0.2-1.2 ALKALINE PHOSPHATASE 99 U/L 33-130 AST 18 U/L 10-35 ALT 12 U/L 6-29 CBC - 12/12/18 08:18 WHITE BLOOD CELL COUNT 7.0 Thousand/uL 3 .8-10.8 RED BLOOD CELL COUNT 3.23 Million/uL 3.8 0-5.10 HEMOGLOBIN 10.0 g/dL 11.7-15.5 HEMATOCRIT 30.1 % 35.0-45.0 MCV 93.2 fL 80.0-100.0 MCH 31.0 pg 27.0-33.0 MCHC 33.2 g/dL 32.0-36.0 RDW 12.7 % 11.0-15.0 PLATELET COUNT 235 Thousand/uL 140-400 MPV 11.6 fL 7.5-12.5 ABSOLUTE NEUTROPHILS 4627 cells/uL 1500- 7800 ABSOLUTE LYMPHOCYTES 1533 cells/uL 850-3 900 ABSOLUTE MONOCYTES 574 cells/uL 200-950 ABSOLUTE EOSINOPHILS 224 cells/uL 15-500 ABSOLUTE BASOPHILS 42 cells/uL 0-200 NEUTROPHILS 66.1 % NRG LYMPHOCYTES 21.9 % NRG MONOCYTES 8.2 % NRG EOSINOPHILS 3.2 % NRG BASOPHILS 0.6 % NRG LIPID PANEL - 08/06/19 08:57 CHOLESTEROL, TOTAL 113 mg/dL <200 HDL CHOLESTEROL 48 mg/dL > OR = 50 TRIGLYCERIDES 148 mg/dL <150 LDL-CHOLESTEROL 42 mg/dL (calc) NRG CHOL/HDLC RATIO 2.4 (calc) <5.0 NON HDL CHOLESTEROL 65 mg/dL (calc) <130 CMP - 08/06/19 08:57 GLUCOSE 63 mg/dL 65-99 UREA NITROGEN (BUN) 18 mg/dL 7-25 CREATININE 1.64 mg/dL 0.60-0.93 eGFR NON-AFR. MOLDOVAN 30 mL/min/1.73m2 > OR = 60 eGFR 35 mL/min/1.73m2 > OR = 60 BUN/CREATININE RATIO 11 (calc) 6-22 SODIUM 141 mmol/L 135-146 POTASSIUM 3.7 mmol/L 3.5-5.3 CHLORIDE 107 mmol/L 98-110 CARBON DIOXIDE 23 mmol/L 20-32 CALCIUM 9.5 mg/dL 8.6-10.4 PROTEIN, TOTAL 7.7 g/dL 6.1-8.1 ALBUMIN 4.2 g/dL 3.6-5.1 GLOBULIN 3.5 g/dL (calc) 1.9-3.7 ALBUMIN/GLOBULIN RATIO 1.2 (calc) 1.0-2. 5 BILIRUBIN, TOTAL 0.4 mg/dL 0.2-1.2 ALKALINE PHOSPHATASE 158 U/L 37-153 AST 17 U/L 10-35 ALT 13 U/L 6-29 CBC - 08/06/19 08:57 WHITE BLOOD CELL COUNT 8.3 Thousand/uL 3 .8-10.8 RED BLOOD CELL COUNT 3.69 Million/uL 3.8 0-5.10 HEMOGLOBIN 11.2 g/dL 11.7-15.5 HEMATOCRIT 34.2 % 35.0-45.0 MCV 92.7 fL 80.0-100.0 MCH 30.4 pg 27.0-33.0 MCHC 32.7 g/dL 32.0-36.0 RDW 12.5 % 11.0-15.0 PLATELET COUNT 215 Thousand/uL 140-400 MPV 12.2 fL 7.5-12.5 ABSOLUTE NEUTROPHILS 6018 cells/uL 1500- 7800 ABSOLUTE LYMPHOCYTES 1610 cells/uL 850-3 900 ABSOLUTE MONOCYTES 440 cells/uL 200-950 ABSOLUTE EOSINOPHILS 183 cells/uL 15-500 ABSOLUTE BASOPHILS 50 cells/uL 0-200 NEUTROPHILS 72.5 % NRG LYMPHOCYTES 19.4 % NRG MONOCYTES 5.3 % NRG EOSINOPHILS 2.2 % NRG BASOPHILS 0.6 % NRG A1C - 08/06/19 08:57 HEMOGLOBIN A1c 6.7 % of total Hgb <5.7 Complete blood count (CBC) with automate d white blood cell (WBC) differential - 08/27/19 11:25 Blood leukocytes automated count (number/volume) 8.2 10*3/uL 4.3-11.0 Blood erythrocytes automated count (number/volume) 3.24 10*6/uL 4.35-5.85 Venous blood hemoglobin measurement (mass/volume) 10.0 g/dL 11.5-16.0 Blood hematocrit (volume fraction) 30 % 35-52 Automated erythrocyte mean corpuscular volume 92 [ foz_us] 80-99 Automated erythrocyte mean corpuscular h emoglobin (mass per erythrocyte) 31 pg 25-34 Automated erythrocyte mean corpuscular h emoglobin concentration measurement (mass/volume) 33 g/dL 32-36 Automated erythrocyte distribution width ratio 13. 2 % 10.0- 14.5 Automated blood platelet count (count/volume) 213 10*3/uL 130-400 Automated blood platelet mean volume measurement 10.8 [foz_us] 7.4-10.4 Automated blood neutrophils/100 leukocytes 80 % 42-75 Automated blood lymphocytes/100 leukocytes 14 % 12-44 Blood monocytes/100 leukocytes 5 % 0-12 Automated blood eosinophils/100 leukocytes 2 % 0-10 Automated blood basophils/100 leukocytes 0 % 0-10 Blood neutrophils automated count (number/volume) 6.5 10*3 1.8-7.8 Blood lymphocytes automated count (number/volume) 1.1 10*3 1.0-4.0 Blood monocytes automated count (number/volume) 0. 4 10*3 0.0-1.0 Automated eosinophil count 0.1 10*3/uL 0 .0-0.3 Automated blood basophil count (count/volume) 0.0 10*3/uL 0.0-0.1 PT panel in platelet poor plasma by coag ulation assay - 08/27/19 11:25 Prothrombin time (PT) in platelet poor plasma by coagu lation assay 12.9 s 12.2-14.7 INR in platelet poor plasma or blood by coagulation as say 0.9 0.8-1.4 Activated partial thromboplastin time (a PTT) in platelet poor plasma bycoagulation assay - 08/27/19 11:25 Activated partial thromboplastin time (a PTT) in platelet poor plasma bycoagulation assay 32 s 24-35 TROPONIN I FS - 08/27/19 11:25 TROPONIN I FS < 0.30 <0.30 PROBNP FS - 08/27/19 11:25 PROBNP FS 1634.0 pg/mL <75.0 Comprehensive metabolic panel - 08/27/19 11:25 Serum or plasma sodium measurement (moles/volume) 135 mmol/L 135-145 Serum or plasma potassium measurement (moles/volume) 4.6 mmol/L 3.6-5.0 Serum or plasma chloride measurement (moles/volume) 101 mmol/L 98-107 Carbon dioxide 19 mmol/L 21-32 Serum or plasma anion gap determination (moles/volume) 15 mmol/L 5-14 Serum or plasma urea nitrogen measurement (mass/volume ) 25 mg/dL 7-18 Serum or plasma creatinine measurement (mass/volume) 1.48 mg/dL 0.60-1.30 Serum or plasma urea nitrogen/creatinine mass ratio 17 NRG Serum or plasma creatinine measurement w ith calculation of estimated glomerular filtration rate 34 NRG Serum or plasma glucose measurement (mass/volume) 210 mg/dL 70-105 Serum or plasma calcium measurement (mass/volume) 9.8 mg/dL 8.5-10.1 Serum or plasma total bilirubin measurement (mass/volu me) 0.4 mg/dL 0.1-1.0 Serum or plasma alkaline phosphatase lila surement (enzymatic activity/volume) 158 U/L 40-136 Serum or plasma aspartate aminotransfera se measurement (enzymatic activity/volume) 19 U/L 5-34 Serum or plasma alanine aminotransferase measurement (enzymatic activity/volume) 17 U/L 0-55 Serum or plasma protein measurement (mass/volume) 7.9 g/dL 6.4-8.2 Serum or plasma albumin measurement (mass/volume) 4.0 g/dL 3.2-4.5 CALCIUM CORRECTED 9.8 mg/dL 8.5-10.1 Magnesium - 08/27/19 11:25 Magnesium 1.6 mg/dL 1.6-2.4 Serum or plasma creatine kinase MB measu rement (enzymatic activity/volume) - 08/27/19 11:25 Serum or plasma creatine kinase MB measu rement (enzymatic activity/volume) 1.3 ng/mL <6.6 TROPONIN I FS - 08/27/19 14:10 TROPONIN I FS < 0.30 <0.30 Encounters ACCT No. Visit Date/Time Discharge Status Pt. Type Provider Facility Loc./Unit Complaint [id number] 08/06/2019 07:30:00 08/06/2019 23:59: 59 [facility] Outpatient MARIA EUGENIA HURLEY [facility] [id number] 08/06/2019 07:30:00 Document Registration [id number] 12/12/2018 13:20:00 Document Registration [id number] 10/05/2018 09:00:00 Document Registration [id number] 08/24/2018 08:15:00 Document Registration [id number] 08/27/2019 11:21:00 020 15:53:00 DIS Emergency GINA CAREY DO [facility] ER FS AG ARM PAIN; CHEST ISI N [id number] 08/21/2018 11:35:00 019 12:45:00 DIS Inpatient DI PUTNAM MD [facility] 4TH ACUTE HCF,PLEURAL EDEMA
== END 2019-08-27 15:53 | disposition home or self-care (01) ==
LOC: EDUNIT# 11:17 → ER FS 11:21
DX: R07.89 Other chest pain (principal); I10 Essential (primary) hypertension; I25.10 Atherosclerotic heart disease of native coronary artery without angina pectoris; E11.9 Type 2 diabetes mellitus without complications; Z88.5 Allergy status to narcotic agent; Z88.7 Allergy status to serum and vaccine; Z79.82 Long term (current) use of aspirin; Z79.4 Long term (current) use of insulin
CPT/HCPCS: 36415; 71045; 80053; 82553; 83735; 83880; 84484; 85025; 85610; 85730; 93005; 93041

== ENCOUNTER → 2019-10-03 | Outpatient (CLI) | payer MEDICARE ==
[~2019-10-03] MED LIST changes: +BRIN8DRO; +LOSA25TA41
--- NOTE | 2019-10-03 09:02 | Diagnostic Imaging Report ---
Indication: Fall 2 weeks ago with right hip and shoulder pain. Time of exam 8:51 AM 2 views right shoulder were obtained. There is significant glenohumeral joint degenerative change. Acromial humeral space is maintained. The acromial clavicular line are normal. No fracture or dislocation is detected. IMPRESSION: Degenerative changes. No acute bony abnormality is detected. Dictated by: Dictated on workstation # [id number]
--- NOTE | 2019-10-03 09:02 | Diagnostic Imaging Report ---
INDICATION: Right hip pain status post recent fall COMPARISON: None. FINDINGS: 2 views of the right hip were obtained and show no fractures, dislocations, or other acute bony abnormalities. Joint spaces are well maintained throughout. The soft tissues appear unremarkable. No radiopaque foreign bodies are identified. IMPRESSION: Unremarkable radiographic exam of the right hip. Dictated by: Dictated on workstation # [id number]
== END ==
LOC: RAD FS 08:38
PROVIDERS: ATTEND Nurse Practitioner
DX: M79.604 Pain in right leg (principal); M19.011 Primary osteoarthritis, right shoulder; W19.XXXA Unspecified fall, initial encounter
CPT/HCPCS: 73030; 73502

== ENCOUNTER 2021-02-14 05:17 | Emergency (ER) | payer MEDICARE ==
[~2021-02-14 05:17] MED LIST changes: +AMLO-251 PO; -AMLO10TA7 PO; +ASPI-1238 PO; -ASPI-983 PO; -PANT40TA3 PO; +PANT40TA52 PO
--- OUTSIDE RECORDS SUMMARY | 2021-02-14 05:22 | XMS REPORT | Clinical Summary ---
Author Author [facility] Organization [facility] Address Unknown Phone Unavailable Care Team Providers Care Utility Division Project Manager Name Role Phone EstradaMarilee Unavailable Unavailable Diana Greene APRN PCP Source Comments Some departments are not documenting in the electronic medical record. If you d o not see the information that you expected, contact Release of Information in [facility] [place] Information Management department at [phone] for further assistan ce in locating additional records.[facility] Allergies Comments Active Allergy Reactions Severity Noted Date Metformin DIARRHEA Low 04/03/2014 Tetanus Vaccines And ANAPHYLAXIS High 4 Toxoid Medications End Date Status Medication Sig Dispensed Refills Start Date Active aspirin EC 81 mg tablet Take 81 mg by 0 mouth daily. Active pantoprazole DR Take 40 mg by 0 (PROTONIX) 40 mg tablet mouth daily. Active glipiZIDE (GLUCOTROL) 10 Take 20 mg by 0 mg tablet mouth twice daily. Active hydrALAZINE (APRESOLINE) Take 100 mg 0 07/05 25 mg tablet by mouth 9 twice daily. Active latanoprost (XALATAN) Apply 1 drop 0 07/16/19 1 0.005 % ophthalmic to right eye 9 solution as directed at bedtime daily. Active insulin detemir(+) Inject 15 0 (LEVEMIR U-100 INSULIN) Units under 100 unit/mL the skin at bedtime daily. Active acetaminophen (TYLENOL) Take 1,000 mg 0 500 mg tablet by mouth every 6 hours as needed for Pain. Max of 4,000 mg of acetaminophen in 24 hours. Active furosemide (LASIX) 20 mg Take 1 tablet 0 08/27 tablet by mouth as 9 Needed. Active sodium chloride (SALINE Apply 1-2 0 NASAL MIST) 0.65 % nasal sprays to spray each nostril as directed as Needed. Active bisacodyl (DULCOLAX) 10 Insert or 10 0 mg rectal suppository Apply one suppository 9 suppository to rectal area as directed daily. Active lidocaine (LIDODERM) 5 % Apply one 30 patch 0 0 topical patch patch to two 9 patches topically to affected area daily. Apply patch for 12 hours, then remove for 12 hours before repeating. Active oxyCODONE (ROXICODONE, Take one 40 tablet 0 OXY-IR) 5 mg tablet tablet to 9 three tablets by mouth every 4 hours as needed Active polyethylene glycol 3350 Take one 12 each 3 0 (MIRALAX) 17 g packet packet by 9 mouth twice daily. Active senna (SENOKOT) 8.6 mg Take two 90 tablet 3 tablet tablets by 9 mouth twice daily. Active atorvastatin (LIPITOR) 40 Take one 90 tablet 0 08/05/202 mg tablet tablet by 0 mouth daily. PLEASE MAKE APPT WITH DR. DIAZ FOR MORE REFILLS Active amLODIPine (NORVASC) 10 Take 1 tablet 30 tablet 0 09/08/202 mg tablet by mouth once 0 daily Active carvediloL (COREG) 25 mg TAKE 1 TABLET 60 tablet 0 tablet BY MOUTH 0 TWICE DAILY WITH FOOD PLEASE MAKE APPOINTMENT WITH DR. 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 09/21/15 KELLE's: Bilaterally resting AB I were borderline normal. After exercise bilaterally, KELLE became mildly reduced. Palpitations 10/07/2015 Overview: Formatting of this note might be differ ent from the original. 09/21/15 Holter Monitor: Predominantly sinus rhythm with average heart rate of 76 beats per minute. Rare PVC' s and PAC's. No sustained arrhythmias noted. . CAD (coronary artery disease) 08/27/2015 Overview: Formatting of this note might be differ ent from the original. 07/24/12 Lexiscan ([facility]): Small partia lly reversible perfusion defect in the intra apical wall of the left ventr icle with EF 49%. 07/25/12 Cath ([facility]): Multivessel CAD 07/26/12 CABG X 3 ([facility]): SALINAS to LAD, LISS 'T' to OMB, SVG from aorta to PDA (2 arterial, 1 venous graft) 09/21/15 Carotid Doppler: No significa nt stenosis in B/L common and internal carotid arteries. Mild plaque in both carotid arteries. 09/21/15 Echo: EF 45% with abnormal se ptal motion. Mild LA dilatation. Mild MV regurgitation. Equivocal PFO. PAP=35 mmHg. Immunizations Name Administration Dates Next Due Flu Vaccine =>3 YO 03/20/2009 (Historical) Pneumococcal Vaccine 05/05/2003 (23-Caitlyn Adult) Surgical History Surgery Date Site/Laterality Comments CATARACT REMOVAL left eye/ summer 2002 UPPER GASTROINTESTINAL ENDOSCOPY FRACTURE SURGERY distal L rain 03-11-09 TUBAL LIGATION HERNIA REPAIR 09/24/2018 N/A OPEN INCISIONAL HERNIA REPAIR WITH MESH performed by [facility] Medical devices from this surgery are i n the Implants section. DEBRIDEMENT 09/24/2018 N/A IMPLANTATION OF MESH performed by Micah [facility] MD [facility] Medical devices from this surgery are i n the Implants section. Medical History Medical History Date Comments Glaucoma Hypertension Hyperlipidemia Diabetes 1.5, managed as type 2 (HCC) DJD (degenerative joint disease) knee, back, and ne ck Cataract Spinal stenosis OA (osteoarthritis) Family History Medical History Relation Name Comments Heart Failure Brother Heart Failure Brother Hypertension Brother Stroke Father Stroke Mother Cancer Sister Relation Name Status Comments Brother Alive Brother Alive Brother Brother Brother Father CVA (Age 80) Mother CVA (Age 80) Sister Alive Sister Social History Date Tobacco Use Types Packs/Day Years Used Quit: 07/19/1975 Former Smoker Cigarettes Smokeless Tobacco: Never Used Comments Alcohol Use Standard Drinks/Week Never 0 (1 standard drink = 0.6 o z pure alcohol) Alcohol Habits Answer Date Recorded How often do you have a drink containing alcohol? Never 09/14/2018 How many drinks containing alcohol do you have on No t asked a typical day when you are drinking? How often do you have six or more drinks on one Not asked occasion? Sex Assigned at Date Recorded Not on file Last Filed Vital Signs Reading Time Taken Comments Vital Sign 148/59 10/09/2018 1:04 PM CDT Blood Pressure 78 10/09/2018 1:04 PM CDT Pulse 36.4 C (97.6 F) 10/09/2018 1:04 PM CDT Temperature 18 10/09/2018 1:04 PM CDT Respiratory Rate 94% 10/09/2018 1:04 PM CDT Oxygen Saturation - - Inhaled Oxygen Concentration 65.8 kg (145 lb) 10/09/2018 1:04 PM CDT Weight 152.4 cm (5') 10/09/2018 1:04 PM CDT Height 28.32 10/09/2018 1:04 PM CDT Body Mass Index Plan of Treatment Health Maintenance Due Date Last Done Comments DILATED EYE EXAM 1963 DTAP/TDAP VACCINES (1 - 1963 Tdap) FOOT EXAM 1963 HEPATITIS C SCREENING 1963 SHINGLES RECOMBINANT 1995 VACCINE (1 of 2) PHYSICAL (COMPREHENSIVE) 06/28/2008 06/28/2007 EXAM OSTEOPOROSIS 2010 SCREENING/MONITORING PNEUMONIA (PPSV23) 2010 05/05/2003 VACCINE (2 of 2 - PPSV23) HBA1C 01/15/2019 07/18/2018, 07/16/2015 INFLUENZA VACCINE 03/19/2021 03/20/2009, 03/20/2009 Implants Device Identifier Shelf Expiration Date Model / Serial / L ot Implanted Type Area Manufactur er 10/16/2022 [id number] / [id number] / [id number] Mesh [employer] Parietene [id number] N/A: Abdomen COVID IEN Monofilament Sterile - [id number] Implanted: Qty: 1 on 09/24/2018 by Micah Gunter Jr., MD at [facility] Results Not on filefrom Last 3 Months Advance Directives Patient Counsel Explanation Type Date Recorded Advance Directive/DPOA Date Inactivated Comments Code Status Date Activated 09/27/2018 5:57 PM Full Code 09/24/2018 5:30 PM Provider has discussed Code Status No, more discussi on w/Patient or Family? needed 07/21/2018 4:25 PM Full Code 07/18/2018 4:56 PM Provider has discussed Code Status No, more discussi on w/Patient or Family? needed
--- OUTSIDE RECORDS SUMMARY | 2021-02-14 05:22 | XMS REPORT | Encounter Summary ---
Author Author [facility] Organization [facility] Address Unknown Phone Unavailable Care Team Providers Care Planer Chain Offbearer Name Role Phone PCP Unavailable Encounter Details Care Team Description Date Type Department Provider, Generic External Data 01/19/2021 [facility] DW Load [facility] Social History Date Tobacco Use Types Packs/Day Years Used Never Assessed Sex Assigned at Date Recorded Not on file documented as of this encounter Last Filed Vital Signs Not on filedocumented in this encounter Functional Status Date of Assessment Functional Status Response Is the person deaf or does he/she have serious difficulty hearing? Is this person blind or does he/she hav e serious difficulty seeing even when wearing gla sses? Does this person have serious difficult y walking or climbing stairs? Does this person have difficulty dressi ng or bathing? Because of a physical, mental, or emoti onal condition, does this person have diffic ulty doing errands alone such as visiting a doctor 's office or shopping? Date of Assessment Cognitive Status Response Because of a physical, mental, or emoti onal condition, does this person have seriou s difficulty concentrating, remembering, or making decisions? documented as of this encounter Patient Instructions Not on filedocumented in this encounter Miscellaneous Notes * [facility] Clinical Documentation - Generic External Data Provider - 01/19/2021 12:00 AM EDT KAYLIE Data load Electronically signed by Interface, [facility] Incoming General Repair Mechanic Interface at 08/2020 1:24 PM EDT * Case Communication - Generic External Data Provider - 01/19/2021 12:00 AM EDT The member [phone], 75 years, female, CKD Stage 3, last eGFR not available, last ACR not available has these comorbidities: [ Congestive Heart Failure, Ischemic Heart Disease, Hypertension, Diabetes ]. The member has medium risk of Renal Replacement Therapy and medium risk of hospitalization in the coming three years. The member had 1 emergency department visits in the past two years. Their risk of emergency department visit in the coming six months is low. Watch for [ Complications of Diabetes,]. Electronically signed by Antwon, Polly Incoming General Repair Mechanic Interface at 08/2020 1:24 PM EDT documented in this encounter Plan of Treatment Not on filedocumented as of this encounter Goals Not on filedocumented as of this encounter Procedures Not on filedocumented in this encounter Results Not on filedocumented in this encounter Visit Diagnoses Not on filedocumented in this encounter Administered Medications Not on filedocumented in this encounter Additional Health Concerns Not on filedocumented as of this encounter
--- NOTE | 2021-02-14 05:30 | ED Back Pain ---
General Chief Complaint: Back Problems Stated Complaint: LOWER BACK PAIN History of Present Illness Date Seen by Provider: Feb 14, 2021 Time Seen by Provider: 05:25 Initial Comments 76-year-old female presents with left back/flank pain. Pain started yesterday. She tried Aleve and a muscle relaxer with no relief. Reports the pain scan in the mid upper back. She has some pain down in her left leg. Patient denies any dysuria, fever, chills, nausea or vomiting. Patient reports that she is having a hard time getting comfortable and sleeping. She denies any fever, cough, diarrhea or constipation. She reports she has had some back pain in the past but this is a little bit worse. Allergies and Home Medications Allergies Coded Allergies: morphine (Verified Adverse Reaction, Intermediate, sedation, 08/21/18) Uncoded Allergies: TETANUS VACCINATION (Adverse Reaction, Intermediate, swelling, 08/21/18) Home Medications Acetaminophen 500 Mg Tablet, 1,000 MG PO Q6H PRN for PAIN-MILD, (Reported) TAKES 2 (500MG) TABLETS Amlodipine Besylate 10 Mg Tablet, 5 MG PO DAILY, (Reported) TAKES 1/2 (10MG) TABLET Aspirin 81 Mg Tablet.dr, 81 MG PO DAILY, (Reported) Atorvastatin Calcium 40 Mg Tablet, 40 MG PO DAILY, (Reported) Carvedilol 25 Mg Tablet, 25 MG PO BID, (Reported) Furosemide 20 Mg Tablet, 20 MG PO DAILY Prescribed by: DI PUTNAM on 08/22/18 1240 Glipizide 10 Mg Tablet, 20 MG PO BID, (Reported) TAKES 2 (10MG) TABLETS Hydralazine HCl 25 Mg Tablet, 75 MG PO BID, (Reported) TAKES 3 (25MG) TABLETS Hydralazine HCl 25 Mg Tablet, 25 MG PO TID PRN for ANXIETY Prescribed by: DI PUTNAM on 08/22/18 1245 Insulin Detemir 100 Unit/1 Ml Insuln.pen, 15 UNITS SC HS, (Reported) Latanoprost 2.5 Ml Drops, 1 DROP OD HS, (Reported) Pantoprazole Sodium 40 Mg Tablet.dr, 40 MG PO DAILY, (Reported) Patient Home Medication List Home Medication List Reviewed: Yes Review of Systems Constitutional: No chills, No fever Respiratory: No cough, No short of breath Cardiovascular: No chest pain, No palpitations Gastrointestinal: No nausea, No vomiting Genitourinary: No dysuria Musculoskeletal: back pain Skin: no symptoms reported Psychiatric/Neurological: No Symptoms Reported Past Ajxtkxw-Tssfvb-Vjzosj Hx Seasonal Allergies Seasonal Allergies: No Past Medical History Surgeries: Yes Cardiac, CABG, Orthopedic Respiratory: No Cardiac: Yes (CHF?) Chronic Edema/Swelling, Coronary Artery Disease, Hypertension Neurological: No Genitourinary: No Gastrointestinal: Yes Abdominal Hernia Musculoskeletal: Yes Arthritis Endocrine: Yes Diabetes, Insulin dep HEENT: Yes Glaucoma Loss of Vision: Denies Hearing Impairment: Denies Cancer: No Psychosocial: No Integumentary: No Blood Disorders: No Family Medical History No Pertinent Family Hx Physical Exam Vital Signs Vital Signs - First Documented 02/14/21 05:18 Temp 36.4 Pulse 77 Resp 18 B/P (MAP) 167/62 (97) Pulse Ox 95 O2 Delivery Room Air Capillary Refill : Height, Weight, BMI Height: 4'11.00" Weight: 156lbs. 6.0oz. 70.798071gj; 28.00 BMI Method:Stated General Appearance: No Apparent Distress, WD/WN HEENT: Moist Mucous Membranes Neck: Non Tender, Supple Cardiovascular: Regular Rate, Rhythm, No Edema Respiratory: Lungs Clear, Normal Breath Sounds Gastrointestinal: Non Tender, Soft Back: No Vertebral Tenderness, CVA Tenderness (L) Extremity: Normal Capillary Refill Neurologic/Psychiatric: Alert, Normal Mood/Affect, stonemason helper II-XII Norm as Tested Skin: Normal Color, Warm/Dry Progress/Results/Core Measures Results/Orders Lab Results Laboratory Tests Test 02/14/21 05:31 02/14/21 06:00 Range/Units White Blood Count 11.3 H 4.3-11.0 10^3/uL Red Blood Count 3.52 L 3.80-5.11 10^6/uL Hemoglobin 10.8 L 11.5-16.0 g/dL Hematocrit 33 L 35-52 % Mean Corpuscular Volume 93 80-99 fL Mean Corpuscular Hemoglobin 31 25-34 pg Mean Corpuscular Hemoglobin Concent 33 32-36 g/dL Red Cell Distribution Width 12.3 10.0-14.5 % Platelet Count 184 130-400 10^3/uL Mean Platelet Volume 11.6 9.0-12.2 fL Immature Granulocyte % (Auto) 0 % Neutrophils (%) (Auto) 87 H 42-75 % Lymphocytes (%) (Auto) 8 L 12-44 % Monocytes (%) (Auto) 4 0-12 % Eosinophils (%) (Auto) 1 0-10 % Basophils (%) (Auto) 0 0-10 % Neutrophils # (Auto) 9.9 H 1.8-7.8 X 10^3 Lymphocytes # (Auto) 0.9 L 1.0-4.0 X 10^3 Monocytes # (Auto) 0.4 0.0-1.0 X 10^3 Eosinophils # (Auto) 0.1 0.0-0.3 10^3/uL Basophils # (Auto) 0.0 0.0-0.1 10^3/uL Immature Granulocyte # (Auto) 0.0 0.0-0.1 10^3/uL Neutrophils % (Manual) 86 % Lymphocytes % (Manual) 14 % Sodium Level 130 L 135-145 MMOL/L Potassium Level 5.0 3.6-5.0 MMOL/L Chloride Level 98 98-107 MMOL/L Carbon Dioxide Level 17 L 21-32 MMOL/L Anion Gap 15 H 5-14 MMOL/L Blood Urea Nitrogen 23 H 7-18 MG/DL Creatinine 1.27 0.60-1.30 MG/DL Estimat Glomerular Filtration Rate 41 BUN/Creatinine Ratio 18 Glucose Level 192 H 70-105 MG/DL Calcium Level 8.7 8.5-10.1 MG/DL Corrected Calcium 9.0 8.5-10.1 MG/DL Total Bilirubin 0.6 0.1-1.0 MG/DL Aspartate Amino Transf (AST/SGOT) 28 5-34 U/L Alanine Aminotransferase (ALT/SGPT) 17 0-55 U/L Alkaline Phosphatase 112 40-136 U/L C-Reactive Protein 15.45 H <0.50 MG/DL Total Protein 7.8 6.4-8.2 GM/DL Albumin 3.6 3.2-4.5 GM/DL Urine Color YELLOW Urine Clarity CLOUDY Urine pH 5.5 5-9 Urine Specific Cecil <=1.005 1.016-1.022 Urine Protein TRACE H NEGATIVE Urine Glucose (UA) NEGATIVE NEGATIVE Urine Ketones NEGATIVE NEGATIVE Urine Nitrite NEGATIVE NEGATIVE Urine Bilirubin NEGATIVE NEGATIVE Urine Urobilinogen 0.2 < = 1.0 MG/DL Urine Leukocyte Esterase 3+ H NEGATIVE Urine RBC (Auto) NEGATIVE NEGATIVE Urine RBC NONE /HPF Urine WBC >100 H /HPF Urine Squamous Epithelial Cells 10-25 H /HPF Urine Crystals NONE /LPF Urine Bacteria MODERATE H /HPF Urine Casts NONE /LPF Urine Mucus MODERATE H /LPF Urine Culture Indicated YES My Orders Orders - DIAMOND,IMMANUEL L DO Cbc With Automated Diff (02/14/21 05:31) Ua Culture If Indicated (02/14/21 05:31) Crp Fs (02/14/21 05:31) Ct Abdomen/Pelvis Wo (02/14/21 05:31) Ketorolac Injection (Toradol Injection) (02/14/21 05:31) Manual Differential (02/14/21 05:31) Comprehensive Metabolic Panel (02/14/21 06:16) Urine Culture (02/14/21 06:00) Vital Signs/I&O 02/14/21 05:18 Temp 36.4 Pulse 77 Resp 18 B/P (MAP) 167/62 (97) Pulse Ox 95 O2 Delivery Room Air Progress Progress Note : Progress Note Patient's pain seems to be more flank than actually low back pain. She did get significantly better with the Toradol and pain is resolved. Patient's urine is suspicious for a urinary tract infection. I will treat her for UTI with the pain being probably a combination of a UTI and osteoarthritis in her back. Patient should follow-up with her primary care provider if her symptoms become more recurrent and worsening. Patient stable discharged home Departure Impression Primary Impression: Lumbar radiculopathy Additional Impression: Acute cystitis Qualified Codes: N30.01 - Acute cystitis with hematuria Disposition: HOME, SELF-CARE Condition: Stable Departure-Patient Inst. Referrals: [facility] (PCP/Family) Primary Care Physician Patient Instructions: Urinary Tract Infections in Adults, Low Back Pain (DC) Add. Discharge Instructions: Voltaren (diclofenac) cream as directed on package 4% lidocaine with menthol cream gel or patch as directed on package as needed for pain Follow-up with your primary care provider in a couple days if symptoms or not im proving or worsen All discharge instructions reviewed with patient and/or family. Voiced understanding. Scripts Nitrofurantoin Macrocrystal (Nitrofurantoin) 100 Mg Capsule 100 MG PO BID, #14 CAP 0 Refills Prov: DIAMOND,IMMANUEL L DO 02/14/21 IMMANUEL DIAMOND DO Feb 14, 2021 05:30
[2021-02-14] MEDS ORDERED: KETOROLAC 30 MG/ML VIAL IVP STA (05:31)
[2021-02-14 05:54] LABS: BASOPHILS % (AUTO) 0 % (0-10); EOSINOPHILS # (AUTO) 0.1 10^3/uL (0.0-0.3); EOSINOPHILS % (AUTO) 1 % (0-10); HEMATOCRIT 33 % (35-52); HEMOGLOBIN 10.8 g/dL (11.5-16.0); LYMPHOCYTES # (AUTO) 0.9 X 10^3 (1.0-4.0); LYMPHOCYTES % (AUTO) 8 % (12-44); MEAN CORPUSCULAR HEMOGLOBIN 31 pg (25-34); MEAN CORPUSCULAR HGB CONC 33 g/dL (32-36); MEAN CORPUSCULAR VOLUME 93 fL (80-99); MEAN PLATELET VOLUME 11.6 fL (9.0-12.2); MONOCYTES # (AUTO) 0.4 X 10^3 (0.0-1.0); MONOCYTES % (AUTO) 4 % (0-12); NEUTROPHILS # (AUTO) 9.9 X 10^3 (1.8-7.8); NEUTROPHILS % (AUTO) 87 % (42-75); PLATELET COUNT 184 10^3/uL (130-400); WHITE BLOOD COUNT 11.3 10^3/uL (4.3-11.0)
[2021-02-14 06:15] LABS: COLOR,URINE YELLOW
[2021-02-14 06:16] LABS: BACTERIA,URINE MODERATE /HPF; BILIRUBIN,URINE NEGATIVE (NEGATIVE); CLARITY,URINE CLOUDY; GLUCOSE, URINE (UA) NEGATIVE (NEGATIVE); KETONES,URINE NEGATIVE (NEGATIVE); LEUKOCYTE ESTERASE ,URINE 3+ (NEGATIVE); NITRITE,URINE NEGATIVE (NEGATIVE); PH,URINE 5.5 (5-9); PROTEIN,URINE TRACE (NEGATIVE); WBC,URINE >100 /HPF
[2021-02-14 06:21] LABS: LYMPHOCYTES % (MANUAL) 14 %; NEUTROPHILS % (MANUAL) 86 %
[2021-02-14 06:31] LABS: ALBUMIN 3.6 GM/DL (3.2-4.5); BILIRUBIN,TOTAL 0.6 MG/DL (0.1-1.0); CALCIUM 8.7 MG/DL (8.5-10.1); CREATININE SERUM 1.27 MG/DL (0.60-1.30); TOTAL PROTEIN 7.8 GM/DL (6.4-8.2)
[2021-02-14] MEDS ORDERED: NITR100C PO (06:54)
[2021-02-14 07:07] VITALS: BP 162/63
--- NOTE | 2021-02-14 07:21 | Diagnostic Imaging Report ---
PROCEDURE: CT abdomen and pelvis without contrast. TECHNIQUE: Multiple contiguous axial images were obtained through the abdomen and pelvis without the use of intravenous contrast. Auto Exposure Controls were utilized during the CT exam to meet ALARA standards for radiation dose reduction. INDICATION: Left flank pain COMPARISON: None FINDINGS: There is dependent atelectasis and scarring in the lung bases. There is a moderate sized hiatal hernia. The liver demonstrates no focal lesions. The spleen appears normal. The pancreas appears normal. The gallbladder demonstrates calcified stones, the largest measuring up to 1.9 cm in diameter. The gallbladder appears distended but no surrounding edema is seen. The adrenal glands appear normal. The kidneys demonstrate no hydronephrosis or calculi. No hydroureter is seen. The left kidney is externally rotated. The bowel loops are nondistended without obstruction. The appendix is not definitively seen but no secondary findings of appendicitis are identified. There is diverticulosis of the colon without diverticulitis. No free air is seen. There are degenerative changes in the spine with right convex curvature. There is a small amount of free fluid in the pelvis. No free air seen. IMPRESSION: 1. Cholelithiasis without pericholecystic edema. 2. Moderate hiatal hernia. 3. Colonic diverticulosis without diverticulitis. 4. Small amount of free fluid. Dictated by: Dictated on workstation # [id number]
== END 2021-02-14 06:59 | disposition home or self-care (01) ==
LOC: ER FS 05:17
DX: M54.16 Radiculopathy, lumbar region (principal); N30.00 Acute cystitis without hematuria; I10 Essential (primary) hypertension; I25.10 Atherosclerotic heart disease of native coronary artery without angina pectoris; E11.9 Type 2 diabetes mellitus without complications; Z79.82 Long term (current) use of aspirin; Z79.899 Other long term (current) drug therapy; Z79.4 Long term (current) use of insulin
CPT/HCPCS: 36415; 74176; 80053; 81000; 85007; 85027; 86141; 87088; 96374

== ENCOUNTER 2021-02-18 17:38 | Emergency (ER) | payer MEDICARE ==
--- NOTE | 2021-02-18 18:01 | ED General ---
General Chief Complaint: Glucose Problems Stated Complaint: LOW BLOOD SUGAR Nursing Triage Note: NOT RESPONDING. PTS FAMILY CALLED EMS BC PT WAS NOT VERBAL AND RESPONDING BUT AWAKE. PTS BLOOD SUGAR WAS 43. SHE HAD NOT EATEN A MEAL SINCE 100 THIS AM AND HAD A BANANA AND CANDY BAR THIS AFTERNOON. History of Present Illness Date Seen by Provider: Feb 18, 2021 Time Seen by Provider: 17:45 Initial Comments 76-year-old female brought in by EMS. Patient was called because she was not right responding and awake and was nonverbal. When EMS arrived her blood sugar was 43. Patient was treated with 1 amp of D50. Upon arrival to the ER patient is back to her baseline. Patient admits she is not eating a meal since 10:00 this morning. Around 1 1 she had a banana and a candy bar. Patient took her diabetic medication at 10:00. She denies any other systemic complaints. Allergies and Home Medications Allergies Coded Allergies: morphine (Verified Adverse Reaction, Intermediate, sedation, 08/21/18) Uncoded Allergies: TETANUS VACCINATION (Adverse Reaction, Intermediate, swelling, 08/21/18) Patient Home Medication List Home Medication List Reviewed: Yes Acetaminophen (Tylenol Extra Strength) 500 Mg Tablet, 1,000 MG PO Q6H PRN for PAIN-MILD, (Reported) Entered as Reported by: HEATHER PEARL on 08/21/18 1633 Amlodipine Besylate (Amlodipine Besylate) 10 Mg Tablet, 5 MG PO DAILY, (Reported) Entered as Reported by: HEATHER PEARL on 08/21/18 1633 Aspirin (Aspirin EC) 81 Mg Tablet.dr, 81 MG PO DAILY, (Reported) Entered as Reported by: HEATHER PEARL on 08/21/18 1633 Atorvastatin Calcium (Atorvastatin Calcium) 40 Mg Tablet, 40 MG PO DAILY, (Reported) Entered as Reported by: HEATHER PEARL on 08/21/18 1633 Brinzolamide/Brimonidine Tart (Simbrinza 1%-0.2% Eye Drops) 8 Ml Drops.susp, (Reported) Entered as Reported by: SOFIA SMITH on 08/27/19 1153 Carvedilol (Carvedilol) 25 Mg Tablet, 25 MG PO BID, (Reported) Entered as Reported by: HEATHER PEARL on 08/21/18 1633 Furosemide (Lasix) 20 Mg Tablet, 20 MG PO DAILY Prescribed by: DI PUTNAM on 08/22/18 1240 Glipizide (Glipizide) 10 Mg Tablet, 20 MG PO BID, (Reported) Entered as Reported by: HEATHER PEARL on 08/21/18 1633 Hydralazine HCl (Hydralazine HCl) 25 Mg Tablet, 75 MG PO BID, (Reported) Entered as Reported by: HEATHER PEARL on 08/21/18 1633 Hydralazine HCl (Hydralazine HCl) 25 Mg Tablet, 25 MG PO TID PRN for ANXIETY Prescribed by: DI PUTNAM on 08/22/18 1245 Insulin Detemir (Levemir Flextouch) 100 Unit/1 Ml Insuln.pen, 15 UNITS SC HS, (Reported) Entered as Reported by: HEATHER PEARL on 08/21/18 1633 Latanoprost (Latanoprost) 2.5 Ml Drops, 1 DROP OD HS, (Reported) Entered as Reported by: HEATHER PEARL on 08/21/18 1633 Losartan Potassium (Losartan Potassium) 25 Mg Tablet, (Reported) Entered as Reported by: SOFIA SMITH on 08/27/19 1153 Nitrofurantoin Macrocrystal (Nitrofurantoin) 100 Mg Capsule, 100 MG PO BID Prescribed by: IMMANUEL DIAMOND on 02/14/21 0654 Pantoprazole Sodium (Pantoprazole Sodium) 40 Mg Tablet.dr, 40 MG PO DAILY, (Reported) Entered as Reported by: HEATHER PEARL on 08/21/18 1633 Review of Systems Review of Systems Constitutional: see HPI EENTM: no symptoms reported Respiratory: no symptoms reported Cardiovascular: no symptoms reported Gastrointestinal: no symptoms reported Musculoskeletal: no symptoms reported Skin: no symptoms reported Psychiatric/Neurological: See HPI Hematologic/Lymphatic: No Symptoms Reported Immunological/Allergic: no symptoms reported Past Roozihz-[id number]-Wklhkr Hx Seasonal Allergies Seasonal Allergies: No Past Medical History Surgeries: Yes Cardiac, CABG, Orthopedic Respiratory: No Cardiac: Yes (CHF?) Chronic Edema/Swelling, Coronary Artery Disease, Hypertension Neurological: No Genitourinary: No Gastrointestinal: Yes Abdominal Hernia Musculoskeletal: Yes Arthritis Endocrine: Yes Diabetes, Insulin dep HEENT: Yes Glaucoma Loss of Vision: Denies Hearing Impairment: Denies Cancer: No Psychosocial: No Integumentary: No Blood Disorders: No Family Medical History No Pertinent Family Hx Physical Exam Vital Signs Vital Signs - First Documented 02/18/21 17:44 Temp 35.4 Pulse 67 Resp 18 B/P (MAP) 148/49 (82) Pulse Ox 94 O2 Delivery Room Air Capillary Refill : Less Than 3 Seconds Height, Weight, BMI Height: 4'11.00" Weight: 156lbs. 6.0oz. 70.930745mg; 28.00 BMI Method:Stated General Appearance: No Apparent Distress, WD/WN HEENT: PERRL/EOMI, TMs Normal Neck: Non Tender, Supple Respiratory: Lungs Clear, Normal Breath Sounds Cardiovascular: Regular Rate, Rhythm, No Edema Gastrointestinal: Non Tender, Soft Extremity: Normal Capillary Refill, Normal Inspection Neurologic/Psychiatric: Alert, Oriented x3, No Motor/Sensory Deficits Skin: Normal Color, Warm/Dry Progress/Results/Core Measures Suspected Sepsis SIRS Temperature: Pulse: 67 Respiratory Rate: 18 Laboratory Tests 02/18/21 16:52: White Blood Count 6.4 Blood Pressure 148 /49 Mean: 82 Laboratory Tests 02/18/21 16:52: Platelet Count 202 02/18/21 18:28: Creatinine 1.47H, Total Bilirubin 0.4 Results/Orders Lab Results Laboratory Tests Test 02/18/21 16:52 02/18/21 17:43 02/18/21 18:03 02/18/21 18:28 Range/Units White Blood Count 6.4 4.3-11.0 10^3/uL Red Blood Count 3.37 L 3.80-5.11 10^6/uL Hemoglobin 10.3 L 11.5-16.0 g/dL Hematocrit 31 L 35-52 % Mean Corpuscular Volume 91 80-99 fL Mean Corpuscular Hemoglobin 31 25-34 pg Mean Corpuscular Hemoglobin Concent 34 32-36 g/dL Red Cell Distribution Width 12.1 10.0-14.5 % Platelet Count 202 130-400 10^3/uL Mean Platelet Volume 10.5 9.0-12.2 fL Immature Granulocyte % (Auto) 1 % Neutrophils (%) (Auto) 75 42-75 % Lymphocytes (%) (Auto) 13 12-44 % Monocytes (%) (Auto) 9 0-12 % Eosinophils (%) (Auto) 2 0-10 % Basophils (%) (Auto) 0 0-10 % Neutrophils # (Auto) 4.8 1.8-7.8 X 10^3 Lymphocytes # (Auto) 0.8 L 1.0-4.0 X 10^3 Monocytes # (Auto) 0.6 0.0-1.0 X 10^3 Eosinophils # (Auto) 0.2 0.0-0.3 10^3/uL Basophils # (Auto) 0.0 0.0-0.1 10^3/uL Immature Granulocyte # (Auto) 0.0 0.0-0.1 10^3/uL Glucometer 173 H 70-110 MG/DL Urine Color YELLOW Urine Clarity SL CLOUDY Urine pH 6.0 5-9 Urine Specific [place] 1.015 L 1.016-1.022 Urine Protein 2+ H NEGATIVE Urine Glucose (UA) TRACE H NEGATIVE Urine Ketones NEGATIVE NEGATIVE Urine Nitrite NEGATIVE NEGATIVE Urine Bilirubin NEGATIVE NEGATIVE Urine Urobilinogen 0.2 < = 1.0 MG/DL Urine Leukocyte Esterase 2+ H NEGATIVE Urine RBC (Auto) NEGATIVE NEGATIVE Urine RBC NONE /HPF Urine WBC 25-50 H /HPF Urine Squamous Epithelial Cells 10-25 H /HPF Urine Crystals NONE /LPF Urine Bacteria FEW H /HPF Urine Casts NONE /LPF Urine Mucus NEGATIVE /LPF Urine Culture Indicated YES Sodium Level 131 L 135-145 MMOL/L Potassium Level 4.0 3.6-5.0 MMOL/L Chloride Level 96 L 98-107 MMOL/L Carbon Dioxide Level 22 21-32 MMOL/L Anion Gap 13 5-14 MMOL/L Blood Urea Nitrogen 25 H 7-18 MG/DL Creatinine 1.47 H 0.60-1.30 MG/DL Estimat Glomerular Filtration Rate 35 BUN/Creatinine Ratio 17 Glucose Level 213 H 70-105 MG/DL Calcium Level 8.4 L 8.5-10.1 MG/DL Corrected Calcium 9.0 8.5-10.1 MG/DL Total Bilirubin 0.4 0.1-1.0 MG/DL Aspartate Amino Transf (AST/SGOT) 88 H 5-34 U/L Alanine Aminotransferase (ALT/SGPT) 73 H 0-55 U/L Alkaline Phosphatase 285 H 40-136 U/L Total Protein 7.4 6.4-8.2 GM/DL Albumin 3.2 3.2-4.5 GM/DL My Orders Orders - IMMANUEL DIAMOND DO Accucheck Stat ONCE (02/18/21 17:42) Cbc With Automated Diff (02/18/21 17:42) Comprehensive Metabolic Panel (02/18/21 17:42) Ua Culture If Indicated (02/18/21 17:42) Urine Culture (02/18/21 18:03) Vital Signs/I&O 02/18/21 02/18/21 17:44 19:25 Temp 35.4 35.4 Pulse 67 62 Resp 18 18 B/P (MAP) 148/49 (82) 146/51 Pulse Ox 94 93 O2 Delivery Room Air Room Air Capillary Refill : Less Than 3 Seconds Blood Pressure Mean: 82 Point of Care Testing Finger Stick Blood Glucose: 173 Progress Note : Progress Note Patient's blood sugar remained in appropriate range while in the ER. We did give her something to eat. I also discussed with her the need to take her prescribed antibiotics for her urinary tract infection. She is to follow with her primary care provider in the next few days for recheck of her symptoms. Patient stable and discharged home Departure Impression Primary Impression: Hypoglycemia associated with diabetes Additional Impression: Acute cystitis Qualified Codes: N30.00 - Acute cystitis without hematuria Disposition: HOME, SELF-CARE Condition: Stable Departure-Patient Inst. Referrals: [facility] [place] Primary Care Physician Patient Instructions: HYPOGLYCEMIA, Urinary Tract Infection, Adult ED Add. Discharge Instructions: Please take your already prescribed medication for your urinary tract infection Be sure to eat balanced meals to keep your blood sugar up while taking diabetic medication All discharge instructions reviewed with patient and/or family. Voiced understanding. IMMANUEL DIAMOND DO Feb 18, 2021 18:00
[2021-02-18 18:02] LABS: HEMATOCRIT 31 % (35-52); HEMOGLOBIN 10.3 g/dL (11.5-16.0); MEAN CORPUSCULAR HEMOGLOBIN 31 pg (25-34); MEAN CORPUSCULAR HGB CONC 34 g/dL (32-36); MEAN CORPUSCULAR VOLUME 91 fL (80-99); WHITE BLOOD COUNT 6.4 10^3/uL (4.3-11.0)
[2021-02-18 18:03] LABS: BASOPHILS % (AUTO) 0 % (0-10); EOSINOPHILS # (AUTO) 0.2 10^3/uL (0.0-0.3); EOSINOPHILS % (AUTO) 2 % (0-10); LYMPHOCYTES # (AUTO) 0.8 X 10^3 (1.0-4.0); LYMPHOCYTES % (AUTO) 13 % (12-44); MEAN PLATELET VOLUME 10.5 fL (9.0-12.2); MONOCYTES # (AUTO) 0.6 X 10^3 (0.0-1.0); MONOCYTES % (AUTO) 9 % (0-12); NEUTROPHILS # (AUTO) 4.8 X 10^3 (1.8-7.8); NEUTROPHILS % (AUTO) 75 % (42-75); PLATELET COUNT 202 10^3/uL (130-400)
[2021-02-18 18:09] LABS: BILIRUBIN,URINE NEGATIVE (NEGATIVE); CLARITY,URINE SL CLOUDY; COLOR,URINE YELLOW; GLUCOSE, URINE (UA) TRACE (NEGATIVE); KETONES,URINE NEGATIVE (NEGATIVE); LEUKOCYTE ESTERASE ,URINE 2+ (NEGATIVE); NITRITE,URINE NEGATIVE (NEGATIVE); PROTEIN,URINE 2+ (NEGATIVE)
[2021-02-18 18:17] LABS: BACTERIA,URINE FEW /HPF; WBC,URINE 25-50 /HPF
[2021-02-18 18:58] LABS: BILIRUBIN,TOTAL 0.4 MG/DL (0.1-1.0); CALCIUM 8.4 MG/DL (8.5-10.1); CREATININE SERUM 1.47 MG/DL (0.60-1.30); TOTAL PROTEIN 7.4 GM/DL (6.4-8.2)
[2021-02-18 18:59] LABS: ALBUMIN 3.2 GM/DL (3.2-4.5)
[2021-02-18 19:25] VITALS: BP 146/51
== END 2021-02-18 19:25 | disposition home or self-care (01) ==
LOC: EDUNIT# 17:38 → ER FS 17:39
DX: E11.649 Type 2 diabetes mellitus with hypoglycemia without coma (principal); N30.00 Acute cystitis without hematuria; I10 Essential (primary) hypertension; H40.9 Unspecified glaucoma; I25.10 Atherosclerotic heart disease of native coronary artery without angina pectoris; Z79.4 Long term (current) use of insulin; Z79.82 Long term (current) use of aspirin; Z79.899 Other long term (current) drug therapy
CPT/HCPCS: 36415; 80053; 81000; 82947; 85025; 87088

== ENCOUNTER → 2021-02-18 | Outpatient (CLI) | payer MEDICARE ==
[~2021-02-18] MED LIST changes: +NITR100C PO
--- NOTE | 2021-02-23 13:03 | Holter Monitor ---
HOLTER MONITOR DATE OF PROCEDURE: 02/18/2021. INDICATION: Irregular heartbeat. PROCEDURE: A 24-hour Holter monitor was obtained for a total of 24 hours. The study quality is adequate. RESULTS: 1. Baseline sinus rhythm with an average heart rate of 64 bpm, ranging from 45- 89 bpm while in sinus rhythm. 2. There were rare (133), isolated premature supraventricular complexes, 2 supraventricular couplets and one 5 beat run of paroxysmal atrial tachycardia at a heart rate of 141 bpm. 3. There were occasional (577), isolated premature ventricular complexes and one ventricular couplet. 4. There were no pauses exceeding 2 seconds in duration. 5. No cardiac symptoms were reported in the patient diary. IMPRESSION: 1. This is a 24-hour Holter monitor report. 2. Baseline sinus rhythm with an average heart rate of 64 bpm, ranging from 45- 89 bpm while in sinus rhythm with rare, isolated premature supraventricular complexes and occasional, isolated premature ventricular complexes as well as 2 supraventricular couplets, one ventricular couplet, and one 5 beat run of paroxysmal atrial tachycardia at a heart rate of 141 bpm. 3. No cardiac symptoms were reported in the patient diary. Certain portions of this document may have been dictated utilizing voice recognition technology. Inherent to this technology, typographical and grammatical errors may exist. As much as I am diligent to identify and correct these mistakes, some errors may remain in the document. COSTA AGUIAR JR, MD Feb 23, 2021 13:03
== END ==
LOC: CARD 09:00
PROVIDERS: ATTEND Internal Medicine Cardiovascular Disease
DX: I08.3 Combined rheumatic disorders of mitral, aortic and tricuspid valves (principal); I25.10 Atherosclerotic heart disease of native coronary artery without angina pectoris
CPT/HCPCS: 93225; 93226; 93306

== ENCOUNTER 2021-02-28 10:04 | Inpatient (IN) | payer MEDICARE ==
[~2021-02-28] VITALS: Ht 152 cm; Wt 62.7 kg
[~2021-02-28 10:04] MED LIST changes: -BRIN8DRO; +BRIN8DRO OU
--- NOTE | 2021-02-28 10:32 | ED General ---
General Chief Complaint: General Problems/Pain Stated Complaint: PREV FALL,PAIN IN LEGS,NO APET,N/V,PREV UTI Source of Information: Patient, Other (DAUGHTER) History of Present Illness Date Seen by Provider: Feb 28, 2021 Time Seen by Provider: 10:12 Initial Comments PT ARRIVES VIA POV FROM HOME, WITH DAUGHTER PT LIVES ALONE, DAUGHTER LIVES IN , BUT COMES DOWN ON WEEKENDS AND STAYS WITH HER PT WAS DX WITH UTI A COUPLE OF WEEKS AGO--SEEN AT [facility] 02/14/21 AND GIVEN RX FOR MACROBID PT ONLY TOOK ABOUT HALF OF THE MEDICATIONS BECAUSE SHE HAS BEEN HAVING NAUSEA AND VOMITING AND CAN'T KEEP ANYTHING DOWN, AND IS NOT EATING. DAUGHTER DID GET HER TO DRINK AN ENSURE YESTERDAY PT HAS FALLEN 3 TIMES IN THE LAST FEW DAYS--PT DENIES HITTING HER HEAD AT ANY TIME OR HAVING ANY INJURIES FROM THE FALLS PT WALKS WITH A CANE, AND STATES THAT BOTH OF HER LEGS HURT--BUT STATES SHE HAS ARTHRITIS AND THEY ALWAYS HURT, AND DENIES ANY INJURY TO HER LEGS FROM THE FALLS. STATES HER LEGS JUST GET WEAK AND SHE FALLS PT IS ON ASPIRIN 81 MG BUT NO OTHER BLOOD THINNERS PT WAS SEEN AT [facility] 02/18/21 FOR HYPOGLYCEMIA--PT IS DIABETIC ON GLIPIZIDE--HAD TAKEN HER MEDICATION BUT HAD NOT BEEN EATING PT HAS NOT BEEN TAKING HER GLIPIZIDE SINCE THAT VISIT. 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 AGUIAR Allergies and Home Medications Allergies Coded Allergies: morphine (Verified Adverse Reaction, Intermediate, sedation, 08/21/18) Uncoded Allergies: TETANUS VACCINATION (Adverse Reaction, Intermediate, swelling, 08/21/18) Patient Home Medication List Home Medication List Reviewed: Yes Acetaminophen (Tylenol Extra Strength) 500 Mg Tablet, 1,000 MG PO Q6H PRN for PAIN-MILD, (Reported) Entered as Reported by: HEATHER PEARL on 08/21/18 5315 Amlodipine Besylate (Amlodipine Besylate) 10 Mg Tablet, 5 MG PO DAILY, (Reported) Entered as Reported by: HEATHER PEARL on 08/21/18 163 Aspirin (Aspirin EC) 81 Mg Tablet.dr, 81 MG PO DAILY, (Reported) Entered as Reported by: HEATHER PEARL on 08/21/18 163 Atorvastatin Calcium (Atorvastatin Calcium) 40 Mg Tablet, 40 MG PO DAILY, (Reported) Entered as Reported by: HEATHER PEARL on 08/21/18 163 Brinzolamide/Brimonidine Tart (Simbrinza 1%-0.2% Eye Drops) 8 Ml Drops.susp, (Reported) Entered as Reported by: SOFIA SMITH on 08/27/19 1153 Carvedilol (Carvedilol) 25 Mg Tablet, 25 MG PO BID, (Reported) Entered as Reported by: HEATHER PEARL on 08/21/18 163 Furosemide (Lasix) 20 Mg Tablet, 20 MG PO DAILY Prescribed by: DI PUTNAM on 08/22/18 1240 Glipizide (Glipizide) 10 Mg Tablet, 20 MG PO BID, (Reported) Entered as Reported by: HEATHER PEARL on 08/21/18 163 Hydralazine HCl (Hydralazine HCl) 25 Mg Tablet, 75 MG PO BID, (Reported) Entered as Reported by: HEATHER PEARL on 08/21/18 163 Hydralazine HCl (Hydralazine HCl) 25 Mg Tablet, 25 MG PO TID PRN for ANXIETY Prescribed by: DI PUTNAM on 08/22/18 1245 Insulin Detemir (Levemir Flextouch) 100 Unit/1 Ml Insuln.pen, 15 UNITS SC HS, (Reported) Entered as Reported by: HEATHER PEARL on 08/21/18 163 Latanoprost (Latanoprost) 2.5 Ml Drops, 1 DROP OD HS, (Reported) Entered as Reported by: HEATHER PEARL on 08/21/18 163 Losartan Potassium (Losartan Potassium) 25 Mg Tablet, (Reported) Entered as Reported by: SOFIA SMITH on 08/27/19 1153 Nitrofurantoin Macrocrystal (Nitrofurantoin) 100 Mg Capsule, 100 MG PO BID Prescribed by: IMMANUEL DIAMOND on 02/14/21 0654 Pantoprazole Sodium (Pantoprazole Sodium) 40 Mg Tablet.dr, 40 MG PO DAILY, (Reported) Entered as Reported by: HEATHER PEARL on 08/21/18 1873 Review of Systems Review of Systems Constitutional: see HPI; No dizziness, No fever; weakness EENTM: no symptoms reported Respiratory: no symptoms reported; No cough, No short of breath Cardiovascular: no symptoms reported; No chest pain Gastrointestinal: see HPI, loss of appetite, nausea, vomiting Musculoskeletal: see HPI Skin: no symptoms reported Psychiatric/Neurological: No Symptoms Reported; Denies Headache, Denies Numbness, Denies Paresthesia Hematologic/Lymphatic: No Symptoms Reported Immunological/Allergic: no symptoms reported Past Nvnpjlm-Kdtivo-Aeqcpc Hx Seasonal Allergies Seasonal Allergies: No Past Medical History Surgery/Hospitalization HX: HOLTER MONITOR 02/18/21 IMPRESSION: 1. This is a 24-hour Holter monitor report. 2. Baseline sinus rhythm with an average heart rate of 64 bpm, ranging from 45-89 bpm while in sinus rhythm with rare, isolated premature supraventricular complexes and occasional, isolated premature ventricular complexes as well as 2 supraventricular couplets, one ventricular couplet, and one 5 beat run of paroxysmal atrial tachycardia at a heart rate of 141 bpm. 3. No cardiac symptoms were reported in the patient diary. Certain portions of this document may have been dictated utilizing voice recognition technology. Inherent to this technology, typographical and grammatical errors may exist. As much as I am diligent to identify and correct these mistakes, some errors may remain in the document. 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 History: Menopausal Genitourinary: Yes Bladder Infection Gastrointestinal: Yes (GALLSTONES NOTED ON CT; KNOWN HERNIA-NO SURGERY) Abdominal Hernia, Gall Bladder Disease Musculoskeletal: Yes (WALKS WITH CANE) Arthritis Endocrine: Yes (ON INSULIN IN PAST, BUT NOT TAKEN IT FOR SEVERAL MONTHS, PER PT 02/28/21) Diabetes, Insulin dep, Diabetes, Non-Insulin dep HEENT: Yes Glaucoma Loss of Vision: Denies Hearing Impairment: Denies Cancer: No Psychosocial: No Integumentary: No Blood Disorders: No Family Medical History No Pertinent Family Hx Physical Exam Vital Signs Vital Signs - First Documented 02/28/21 10:09 Temp 36.5 Pulse 67 Resp 18 B/P (MAP) 129/53 (78) Pulse Ox 94 Capillary Refill : Height, Weight, BMI Height: 4'11.00" Weight: 156lbs. 6.0oz. 70.470328ig; 28.00 BMI Method:Stated General Appearance: No Apparent Distress, WD/WN, Other (SOME MILD GENERALIZED WEAKNESS) HEENT: PERRL/EOMI, Other (ORAL MUCOSA SLIGHTLY DRY) Neck: Full Range of Motion, Normal Inspection, Non Tender, Supple Respiratory: Chest Non Tender, Normal Breath Sounds, No Accessory Muscle Use, No Respiratory Distress Cardiovascular: Regular Rate, Rhythm, No Edema, No JVD, No Murmur, Normal Peripheral Pulses Gastrointestinal: Non Tender, Soft Back: No CVA Tenderness Extremity: Normal Inspection, Non Tender, No Pedal Edema Neurologic/Psychiatric: Alert, Oriented x3, No Motor/Sensory Deficits, Normal Mood/Affect, 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 II-XII Norm as Tested Skin: Normal Color, Warm/Dry Progress/Results/Core Measures Suspected Sepsis SIRS Temperature: Pulse: Respiratory Rate: Laboratory Tests 02/28/21 10:14: White Blood Count 11.7H Blood Pressure / Mean: Laboratory Tests 02/28/21 10:14: Creatinine 2.41H, INR Comment 0.9, Platelet Count 154, Total Bilirubin 0.9 Results/Orders Lab Results Laboratory Tests Test 02/28/21 10:14 02/28/21 10:20 02/28/21 10:33 02/28/21 10:34 Range/Units White Blood Count 11.7 H 4.3-11.0 10^3/uL Red Blood Count 3.54 L 3.80-5.11 10^6/uL Hemoglobin 10.8 L 11.5-16.0 g/dL Hematocrit 32 L 35-52 % Mean Corpuscular Volume 92 80-99 fL Mean Corpuscular Hemoglobin 31 25-34 pg Mean Corpuscular Hemoglobin Concent 33 32-36 g/dL Red Cell Distribution Width 12.5 10.0-14.5 % Platelet Count 154 130-400 10^3/uL Mean Platelet Volume 11.6 9.0-12.2 fL Immature Granulocyte % (Auto) 1 % Neutrophils (%) (Auto) 82 H 42-75 % Lymphocytes (%) (Auto) 13 12-44 % Monocytes (%) (Auto) 2 0-12 % Eosinophils (%) (Auto) 2 0-10 % Basophils (%) (Auto) 0 0-10 % Neutrophils # (Auto) 9.6 H 1.8-7.8 10^3/uL Lymphocytes # (Auto) 1.5 1.0-4.0 10^3/uL Monocytes # (Auto) 0.2 0.0-1.0 10^3/uL Eosinophils # (Auto) 0.2 0.0-0.3 10^3/uL Basophils # (Auto) 0.0 0.0-0.1 10^3/uL Immature Granulocyte # (Auto) 0.1 0.0-0.1 10^3/uL Erythrocyte Sedimentation Rate 33 H 0-30 MM/HR Prothrombin Time 13.0 12.2-14.7 SEC INR Comment 0.9 0.8-1.4 Activated Partial Thromboplast Time 49 H 24-35 SEC Sodium Level 130 L 135-145 MMOL/L Potassium Level 4.4 3.6-5.0 MMOL/L Chloride Level 96 L 98-107 MMOL/L Carbon Dioxide Level 20 L 21-32 MMOL/L Anion Gap 14 5-14 MMOL/L Blood Urea Nitrogen 71 H 7-18 MG/DL Creatinine 2.41 H 0.60-1.30 MG/DL Estimat Glomerular Filtration Rate 20 BUN/Creatinine Ratio 29 Glucose Level 121 H 70-105 MG/DL Calcium Level 8.1 L 8.5-10.1 MG/DL Corrected Calcium 8.8 8.5-10.1 MG/DL Magnesium Level 1.7 1.6-2.4 MG/DL Total Bilirubin 0.9 0.1-1.0 MG/DL Aspartate Amino Transf (AST/SGOT) 25 5-34 U/L Alanine Aminotransferase (ALT/SGPT) 47 0-55 U/L Alkaline Phosphatase 270 H 40-136 U/L Troponin I < 0.028 <0.028 NG/ML C-Reactive Protein High Sensitivity 19.28 H 0.00-0.50 MG/DL Total Protein 7.3 6.4-8.2 GM/DL Albumin 3.1 L 3.2-4.5 GM/DL Amylase Level 58 25-125 U/L Lipase 27 8-78 U/L Beta-Hydroxybutyrate (Chem panel) 0.75 H 0.00-0.27 MMOL/L Procalcitonin 46.70 H <0.10 NG/ML TSH [place] Testing 1.86 0.35-4.94 UIU/ML Urine Color YELLOW Urine Clarity CLEAR Urine pH 6.0 5-9 Urine Specific [place] 1.010 L 1.016-1.022 Urine Protein NEGATIVE NEGATIVE Urine Glucose (UA) NEGATIVE NEGATIVE Urine Ketones NEGATIVE NEGATIVE Urine Nitrite NEGATIVE NEGATIVE Urine Bilirubin NEGATIVE NEGATIVE Urine Urobilinogen 0.2 < = 1.0 MG/DL Urine Leukocyte Esterase NEGATIVE NEGATIVE Urine RBC (Auto) NEGATIVE NEGATIVE Urine RBC NONE /HPF Urine WBC RARE /HPF Urine Squamous Epithelial Cells 0-2 /HPF Urine Crystals NONE /LPF Urine Bacteria NEGATIVE /HPF Urine Casts NONE /LPF Urine Mucus NEGATIVE /LPF Urine Culture Indicated NO Glucometer 111 H 70-110 MG/DL SARS-CoV-2 RNA (RT-PCR) Not Detected Not Detecte My Orders Orders - ASHLI MATUTE DO Accucheck Stat ONCE (02/28/21 10:24) Ed Iv/Invasive Line Start (02/28/21 10:24) Ekg Tracing (02/28/21 10:24) Monitor-Rhythm Ecg Trace Only (02/28/21 10:24) Straight Cath For Spec.-Adult (02/28/21 10:24) Chest 1 View, Ap/Pa Only (02/28/21 10:24) Amylase (02/28/21 10:24) Cbc With Automated Diff (02/28/21 10:24) Comprehensive Metabolic Panel (02/28/21 10:24) Lipase (02/28/21 10:24) Magnesium (02/28/21 10:24) Protime With Inr (02/28/21 10:24) Partial Thromboplastin Time (02/28/21 10:24) Thyroid Analyzer (02/28/21 10:24) Ua Culture If Indicated (02/28/21 10:24) Troponin I (02/28/21 10:24) Ed Iv/Invasive Line Start (02/28/21 10:24) Procalcitonin (Pct) (02/28/21 10:24) Hs C Reactive Protein (02/28/21 10:24) Erythrocyte Sedimentation Rate (02/28/21 10:24) Covid 19 Inhouse Test (02/28/21 10:24) Isolation Central Supply Req (02/28/21 10:24) Pelvis (02/28/21 10:41) Ed Iv/Invasive Line Start (02/28/21 10:42) Ns Iv 1000 Ml (Sodium Chloride 0.9%) (02/28/21 10:45) Beta Hydroxybutyrate (02/28/21 10:42) Hemoglobin A1c (02/28/21 10:42) Ct Head Wo (02/28/21 10:53) Vital Signs/I&O 02/28/21 10:09 Temp 36.5 Pulse 67 Resp 18 B/P (MAP) 129/53 (78) Pulse Ox 94 Capillary Refill : Progress Note : Progress Note COVID-19 TESTING PERFORMED ACCUCHECK 111 IV FLUIDS GIVEN NO COMPLAINTS OF NAUSEA OR ANY COMPLAINTS OF ANY KIND DURING ER STAY NO DETERIORATION IN PT'S CONDITION DURING ER STAY VITALS STABLE REVIEWED CT OF ABDOMEN/PELVIS FROM 02/14/21--CHOLELITHIASIS NOTED, HIATAL HERNIA, BUT NO ACUTE FINDINGS. ECG Initial ECG Impression Date: Feb 28, 2021 Initial ECG Impression Time: 10:29 Initial ECG Rate: 64 Initial ECG Rhythm: Normal Sinus Diagnostic Imaging Comments CT HEAD--PER RADIOLOGIST REPORT AT 1136 Discussion: Diffuse brain volume loss is likely age related. White matter hypoattenuation is nonspecific though not greater than expected for age related chronic small vessel ischemic disease. Chronic lacunar infarct noted within the left basal ganglia. No acute intracranial hemorrhage, mass, midline shift, hydrocephalus. The orbits, sinuses, left mastoid air cell, and calvarium are unremarkable. Right mastoid air cell effusion, otomastoiditis not excluded. There does appear to be fluid within the inner also on the right. Impression: 1. Suspect right-sided otomastoiditis. 2. No acute intracranial abnormality identified. PELVIS XRAY--PER RADIOLOGIST REPORT AT 1149 Discussion: 2 AP views of the pelvis were obtained. Degenerative disease is noted within the lumbar spine. Probable cholelithiasis is present. Phleboliths are noted within the pelvis. Extensive vascular calcifications are noted diffusely. No displaced fracture or dislocation. Impression: 1. Chronic changes as discussed. No fracture identified within the pelvis. CXR--PER RADIOLOGIST REPORT AT 1149 FINDINGS: Postsurgical changes of a median sternotomy again noted. The cardiac silhouette is at upper limits of normal in size, though stable. No significant pulmonary vascular congestion. The lungs are clear of focal pulmonary opacity. No significant pleural effusion. No pneumothorax. Scattered osseous degenerative changes. Several calcifications are seen within the right upper abdomen, felt to relate to gallstones. IMPRESSION: Cholelithiasis. No acute cardiopulmonary abnormality with postsurgical and chronic findings as above. Reviewed: Reviewed by Me Departure Communication (Admissions) 1100--SPOKE WITH DR. BEAN, ACCEPTS PT FOR ADMIT. Impression Primary Impression: Acute renal failure Additional Impressions: Dehydration Nausea & vomiting Diabetes mellitus, type 2 CAD WITH HX OF CABG Hyponatremia Generalized weakness Frequent falls POSSIBLE RIGHT MASTOIDITIS Cholelithiasis Disposition: ADMITTED INPATIENT Condition: Stable Admissions Decision to Admit Reason: Admit from ER (General) Decision to Admit/Date: Feb 28, 2021 Time/Decision to Admit Time: 11:00 Departure-Patient Inst. Referrals: [facility] (PCP/Family) Primary Care Physician ASHLI MATUTE DO Feb 28, 2021 10:32
[2021-02-28 10:33] LABS: BASOPHILS % (AUTO) 0 % (0-10); EOSINOPHILS # (AUTO) 0.2 10^3/uL (0.0-0.3); EOSINOPHILS % (AUTO) 2 % (0-10); HEMATOCRIT 32 % (35-52); HEMOGLOBIN 10.8 g/dL (11.5-16.0); LYMPHOCYTES # (AUTO) 1.5 10^3/uL (1.0-4.0); LYMPHOCYTES % (AUTO) 13 % (12-44); MEAN CORPUSCULAR HEMOGLOBIN 31 pg (25-34); MEAN CORPUSCULAR HGB CONC 33 g/dL (32-36); MEAN CORPUSCULAR VOLUME 92 fL (80-99); MEAN PLATELET VOLUME 11.6 fL (9.0-12.2); MONOCYTES # (AUTO) 0.2 10^3/uL (0.0-1.0); MONOCYTES % (AUTO) 2 % (0-12); NEUTROPHILS # (AUTO) 9.6 10^3/uL (1.8-7.8); NEUTROPHILS % (AUTO) 82 % (42-75); PLATELET COUNT 154 10^3/uL (130-400); WHITE BLOOD COUNT 11.7 10^3/uL (4.3-11.0)
[2021-02-28 10:38] LABS: ALBUMIN 3.1 GM/DL (3.2-4.5); CHLORIDE 96 MMOL/L (98-107); POTASSIUM 4.4 MMOL/L (3.6-5.0); SODIUM 130 MMOL/L (135-145)
[2021-02-28 10:38] LABS: BILIRUBIN,URINE NEGATIVE (NEGATIVE); CLARITY,URINE CLEAR; COLOR,URINE YELLOW; GLUCOSE, URINE (UA) NEGATIVE (NEGATIVE); KETONES,URINE NEGATIVE (NEGATIVE); LEUKOCYTE ESTERASE ,URINE NEGATIVE (NEGATIVE); NITRITE,URINE NEGATIVE (NEGATIVE); PROTEIN,URINE NEGATIVE (NEGATIVE)
[2021-02-28 10:39] LABS: CALCIUM 8.1 MG/DL (8.5-10.1); INR 0.9 (0.8-1.4)
[2021-02-28 10:40] LABS: AMYLASE 58 U/L (25-125); GLUCOSE 121 MG/DL (70-105)
[2021-02-28 10:41] LABS: TOTAL PROTEIN 7.3 GM/DL (6.4-8.2)
[2021-02-28 10:42] LABS: BILIRUBIN,TOTAL 0.9 MG/DL (0.1-1.0); CARBON DIOXIDE 20 MMOL/L (21-32)
[2021-02-28 10:44] LABS: ALKALINE PHOSPHATASE 270 U/L (40-136); CREATININE SERUM 2.41 MG/DL (0.60-1.30); GFR ESTIMATED 20
[2021-02-28 10:45] LABS: BUN/CREATININE RATIO 29
[2021-02-28] MEDS ORDERED: NS IV 1000 ML 1,000 ML IV SCH (10:45)
[2021-02-28 10:47] LABS: ALANINE AMINOTRANSFERASE 47 U/L (0-55); MAGNESIUM 1.7 MG/DL (1.6-2.4)
[2021-02-28 10:48] LABS: LIPASE 27 U/L (8-78)
[2021-02-28 10:48] LABS: BACTERIA,URINE NEGATIVE /HPF; WBC,URINE RARE /HPF
[2021-02-28 10:49] LABS: SQUAMOUS EPITHELIAL CELL,UR 0-2 /HPF
[2021-02-28 10:59] LABS: ERYTHROCYTE SEDIMENTATION RATE 33 MM/HR (0-30)
[2021-02-28 11:08] LABS: TSH (THYROID ANALYZER) 1.86 UIU/ML (0.35-4.94)
--- NOTE | 2021-02-28 11:29 | Diagnostic Imaging Report ---
Procedure: CT head without contrast. Technique: Multiple contiguous axial images were obtained through the brain without the use of intravenous contrast. Auto Exposure Controls were utilized during the CT exam to meet ALARA standards for radiation dose reduction. Indication: History of urinary tract infections with worsening weakness and falls, altered mental status. Comparison: None. Discussion: Diffuse brain volume loss is likely age related. White matter hypoattenuation is nonspecific though not greater than expected for age related chronic small vessel ischemic disease. Chronic lacunar infarct noted within the left basal ganglia. No acute intracranial hemorrhage, mass, midline shift, hydrocephalus. The orbits, sinuses, left mastoid air cell, and calvarium are unremarkable. Right mastoid air cell effusion, otomastoiditis not excluded. There does appear to be fluid within the inner also on the right. Impression: 1. Suspect right-sided otomastoiditis. 2. No acute intracranial abnormality identified. Dictated by: Dictated on workstation # [id number]
--- NOTE | 2021-02-28 11:48 | Diagnostic Imaging Report ---
INDICATION: Weakness, nausea, vomiting COMPARISON: 08/27/2019 TECHNIQUE: Single radiograph of the chest dated 02/28/2021. FINDINGS: Postsurgical changes of a median sternotomy again noted. The cardiac silhouette is at upper limits of normal in size, though stable. No significant pulmonary vascular congestion. The lungs are clear of focal pulmonary opacity. No significant pleural effusion. No pneumothorax. Scattered osseous degenerative changes. Several calcifications are seen within the right upper abdomen, felt to relate to gallstones. IMPRESSION: Cholelithiasis. No acute cardiopulmonary abnormality with postsurgical and chronic findings as above. Dictated by: Dictated on workstation # [id number]
--- NOTE | 2021-02-28 11:48 | Diagnostic Imaging Report ---
Indication: Pelvic pain with urinary tract infection. Comparison: None. Discussion: 2 AP views of the pelvis were obtained. Degenerative disease is noted within the lumbar spine. Probable cholelithiasis is present. Phleboliths are noted within the pelvis. Extensive vascular calcifications are noted diffusely. No displaced fracture or dislocation. Impression: 1. Chronic changes as discussed. No fracture identified within the pelvis. Dictated by: Dictated on workstation # [id number]
--- NOTE | 2021-02-28 11:55 | History & Physical-Hospitalist ---
History of Present Illness HPI/Chief Complaint Chief complaint: Acute renal failure History of present illness: This is a 76-year-old white female who lives alone who presents to the ER with nausea and vomiting since Macrobid initiated for UTI at the [facility]. She was found to be severely volume depleted with nausea and vomiting and acute kidney injury requiring IV fluid and supportive care. Repeat UA showed no evidence of infection. Source: patient Exam Limitations: no limitations Date Seen 02/28/21 Time Seen by a Provider: 12:00 Attending Physician Tiff Gonzalez DO [facility] [place] Referring Physician Date of Admission Feb 28, 2021 at 11:00 Home Medications & Allergies Home Medications Reviewed patient Home Medication Reconciliation performed by pharmacy medication reconciliations is technician and/or nursing. Patients Allergies have been reviewed. Allergies Allergies Coded Allergies morphine (Verified Adverse Reaction, Intermediate, sedation, 02/28/21) Uncoded Allergies TETANUS VACCINATION ( Adverse Reaction, Intermediate, swelling, 08/21/18) Past Utnapnl-Btgqey-Bciimh Hx Patient Social History Marrital Status: single Employed/Student: retired Tobacco Use?: No Smoking Status: Never a Smoker Substance use?: No Alcohol Use?: No Pt feels they are or have been: No Immunizations Up To Date Date of Influenza Vaccine: Apr 09, 2019 First/Initial COVID19 Vaccinat: 09/06 Second COVID19 Vaccination Dinesh: 09/19 Date of Pneumonia Vaccine: Apr 23, 2018 Seasonal Allergies Seasonal Allergies: No Current Status Advance Directives: No Primary Language: Ivorian Preferred Spoken Language: Ivorian Sensory deficits: Vision impairment Implanted or Applied Medical D: None Past Medical History Surgeries: Cardiac, CABG, Orthopedic Chronic Edema/Swelling, Coronary Artery Disease, High Cholesterol, Hypertension [employer] History: Menopausal Bladder Infection Abdominal Hernia, Gall Bladder Disease Arthritis Diabetes, Insulin dep, Diabetes, Non-Insulin dep Glaucoma Loss of Vision: Denies Hearing Impairment: Denies Blood Disorders: No Family Medical History No Pertinent Family Hx Review of Systems Constitutional: see HPI EENTM: no symptoms reported Respiratory: no symptoms reported Cardiovascular: no symptoms reported Gastrointestinal: nausea, vomiting Genitourinary: no symptoms reported Musculoskeletal: no symptoms reported Skin: no symptoms reported Psychiatric/Neurological: No Symptoms Reported All Other Systems Reviewed Negative Unless Noted: Yes Physical Exam Physical Exam Vital Signs Vital Signs - First Documented 02/28/21 02/28/21 10:09 12:00 Temp 36.5 Pulse 67 Resp 18 B/P (MAP) 129/53 (78) Pulse Ox 94 O2 Delivery Room Air Capillary Refill : Less Than 3 Seconds Height, Weight, BMI Height: 4'11.00" Weight: 156lbs. 6.0oz. 70.377473uz; 24.00 BMI Method:Stated General Appearance: No Apparent Distress, Chronically ill Eyes: Right Eye Normal Inspection, Right Eye PERRL HEENT: PERRL/EOMI, Normal ENT Inspection, Pharynx Normal, Moist Mucous Membranes Neck: Full Range of Motion, Normal Inspection, Non Tender Respiratory: Chest Non Tender, Lungs Clear, Normal Breath Sounds, No Accessory Muscle Use, No Respiratory Distress Cardiovascular: Regular Rate, Rhythm, No Edema, No Gallop, No JVD, No Murmur, Normal Peripheral Pulses Gastrointestinal: Normal Bowel Sounds, No Organomegaly, No Pulsatile Mass, Non Tender, Soft Back: Normal Inspection, No CVA Tenderness, No Vertebral Tenderness Extremity: Normal Capillary Refill, Normal Inspection, Normal Range of Motion, Non Tender, No Calf Tenderness, No Pedal Edema Neurologic/Psychiatric: Alert, Oriented x3, No Motor/Sensory Deficits, Normal Mood/Affect Skin: Normal Color, Warm/Dry Lymphatic: No Adenopathy Results Results/Procedures Labs Laboratory Tests 02/28/21 10:14 Patient resulted labs reviewed. Assessment/Plan Admission Diagnosis Assessment: Acute kidney injury Nausea and vomiting Recent UTI Acute mastoiditis with elevated pro calcitonin initiated Rocephin Gallstones on CT scan consulting Dr. Gunn Plan: IV fluids Supportive care Arun Gunn consult Admission Status: Inpatient Order (span 2 midnights) Reason for Inpatient Admission: Acute kidney injury TIFF GONZALEZ DO Feb 28, 2021 11:55
[2021-02-28 12:00] VITALS: BP 132/58
[2021-02-28] MEDS ORDERED: ONDANSETRON 4 MG/2 ML (SDV) Z0FRAN IV PRN (12:15)
[2021-02-28] MEDS: NS IV 1000 ML 1,000 ML IV SCH ×3 (13:00→20:00)
[2021-02-28] MEDS ORDERED: MELATONIN 3 MG TABLET PO PRN (13:30)
[2021-02-28] MEDS ORDERED: ACETAMINOPHEN 500 MG TAB (TYLENOL) PO PRN (13:30)
[2021-02-28] MEDS ORDERED: LOPERAMIDE 2 MG (IMODIUM) TABLET PO PRN (13:30)
[2021-02-28] MEDS ORDERED: DOCUSATE SODIUM 100 MG (COLACE) CAP PO PRN (13:30)
[2021-02-28] MEDS ORDERED: ALPRAZolam 0.25 MG (XANAX) TAB PO PRN (13:30)
[2021-02-28] MEDS ORDERED: HYDROcodone/APAP 5 MG/325 MG (LORTAB) TAB PO PRN (13:30)
[2021-02-28] MEDS ORDERED: diphenhydrAMINE 25 MG TAB (BENADRYL) PO PRN (13:30)
[2021-02-28] MEDS: cefTRIAXone 1,000 MG in WATER (STERILE) FOR INJECTION 10 ML IV SCH (13:43)
[2021-02-28] MEDS ORDERED: ACETAMINOPHEN 325 MG TABLET PO PRN (13:45)
--- NOTE | 2021-02-28 15:45 | Consultation - Surgery ---
CISCO DONAHUE MED STUDENT 02/28/21 1545: History of Present Illness History of Present Illness Patient Consulted On(nikki/time) 02/28/21 15:39 Date Seen by Provider: Feb 28, 2021 Time Seen by Provider: 15:30 Reason for Visit: weakness History of Present Illness surgery consult for: cholelithiasis 76 y/o female presented to ED with a chief complaint of weakness that started a couple of days ago. She states she was trying to go the the bathroom but couldn't make it and had an accident on the floor. She mopped the floor then slipped. She states she landed on her back and denies losing consciousness. She states she has a history of falls and fell 4-5 mo ago when she took a misstep off the stairs of her porch. She also complaints of N/V due to her UTI medications that she had 2 weeks ago. She has decreased appetite due to nausea. She is not taking her diabetic medication because she's been having low blood sugars recently. She complains of pain in her knees from arthritis. Patient aaron es abdominal pains or N/V associated with eating. Allergies and Home Medications Allergies Coded Allergies: morphine (Verified Adverse Reaction, Intermediate, sedation, 02/28/21) Uncoded Allergies: TETANUS VACCINATION (Adverse Reaction, Intermediate, swelling, 08/21/18) Patient Home Medication List Acetaminophen (Tylenol Extra Strength) 500 Mg Tablet, 1,000 MG PO Q6H PRN for PAIN-MILD, (Reported) Entered as Reported by: HEATHER PEARL on 08/21/18 1633 Amlodipine Besylate (Amlodipine Besylate) 10 Mg Tablet, 5 MG PO DAILY, (Reported) Entered as Reported by: HEATHER PEARL on 08/21/18 1633 Aspirin (Aspirin EC) 81 Mg Tablet.dr, 81 MG PO DAILY, (Reported) Entered as Reported by: HEATHER PEARL on 08/21/18 1633 Atorvastatin Calcium (Atorvastatin Calcium) 40 Mg Tablet, 40 MG PO DAILY, (Reported) Entered as Reported by: HEATHER PEARL on 08/21/18 1633 Brinzolamide/Brimonidine Tart (Simbrinza 1%-0.2% Eye Drops) 8 Ml Drops.susp, (Reported) Entered as Reported by: SOFIA SMITH on 08/27/19 1153 Carvedilol (Carvedilol) 25 Mg Tablet, 25 MG PO BID, (Reported) Entered as Reported by: HEATHER PAERL on 08/21/18 1633 Furosemide (Lasix) 20 Mg Tablet, 20 MG PO DAILY Prescribed by: DI PUTNAM on 08/22/18 1240 Glipizide (Glipizide) 10 Mg Tablet, 20 MG PO BID, (Reported) Entered as Reported by: HEATHER PEARL on 08/21/18 1633 Hydralazine HCl (Hydralazine HCl) 25 Mg Tablet, 75 MG PO BID, (Reported) Entered as Reported by: HEATHER PEARL on 08/21/18 1633 Hydralazine HCl (Hydralazine HCl) 25 Mg Tablet, 25 MG PO TID PRN for ANXIETY Prescribed by: DI PUTNAM on 08/22/18 1245 Insulin Detemir (Levemir Flextouch) 100 Unit/1 Ml Insuln.pen, 15 UNITS SC HS, (Reported) Entered as Reported by: HEATHER PEARL on 08/21/18 1633 Latanoprost (Latanoprost) 2.5 Ml Drops, 1 DROP OD HS, (Reported) Entered as Reported by: HEATHER PEARL on 08/21/18 1633 Losartan Potassium (Losartan Potassium) 25 Mg Tablet, (Reported) Entered as Reported by: SOFIA SMITH on 08/27/19 1153 Nitrofurantoin Macrocrystal (Nitrofurantoin) 100 Mg Capsule, 100 MG PO BID Prescribed by: IMMANUEL DIAMOND on 02/14/21 0654 Pantoprazole Sodium (Pantoprazole Sodium) 40 Mg Tablet.dr, 40 MG PO DAILY, (Reported) Entered as Reported by: HEATHER PEARL on 08/21/18 1633 Past Daitwxl-Oybytj-Sdpzgf Hx Patient Social History Smoking Status: Former Smoker (1ppd for 16 yrs) Former Smoker, Quit: Jun 19, 1979 Type Used: Cigarettes 2nd Hand Smoke Exposure: No Recent Hopitalizations: No Alcohol Use?: No Have you traveled recently?: No Immunizations Up To Date Date of Pneumonia Vaccine: Apr 23, 2018 Date of Influenza Vaccine: Apr 09, 2019 Seasonal Allergies Seasonal Allergies: No Surgeries History of Surgeries: Yes Surgeries: Cardiac, CABG, Orthopedic Respiratory History of Respiratory Disorde: No Cardiovascular History of Cardiac Disorders: Yes (CHF?; CABG) Cardiac Disorders: Chronic Edema/Swelling, Coronary Artery Disease, High Cholesterol, Hypertension Neurological History of Neurological Disord: No Reproductive System : No 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 (in 30's) Genitourinary History of Genitourinary Disor: Yes Genitourinary Disorders: Bladder Infection Gastrointestinal History of Gastrointestinal Di: Yes (GALLSTONES NOTED ON CT; KNOWN HERNIA-NO SURGERY; kidney disease) Gastrointestinal Disorders: Abdominal Hernia, Gall Bladder Disease Musculoskeletal History of Musculoskeletal Dis: Yes (WALKS WITH CANE) Musculoskeletal Disorders: Arthritis Endocrine History of Endocrine Disorders: Yes (ON INSULIN IN PAST, BUT NOT TAKEN IT FOR SEVERAL MONTHS, PER PT 02/28/21) Endocrine Disorders: Diabetes, Insulin dep, Diabetes, Non-Insulin dep HEENT History of HEENT Disorders: Yes HEENT Disorders: Glaucoma Loss of Vision: Denies Hearing Impairment: Denies Cancer History of Cancer: No Psychosocial History of Psychiatric Problem: No Integumentary History of Skin or Integumenta: No Blood Transfusions History of Blood Disorders: No Family Medical History Significant Family History: Heart Disease (brother - [place]), Lung Disease (sister), Stroke (mom and dad at 82 y/o) Review of Systems-General Constitutional: No chills, No diaphoresis, No dizziness, No fever; weakness, other (decreased appetite) EENTM: hearing loss, blurred vision (d/t glaucoma) Respiratory: cough (allergies); No dyspnea on exertion, No short of breath Cardiovascular: No chest pain; edema (ankles) Gastrointestinal: No abdominal pain, No constipation; diarrhea; No hematemesis Genitourinary: No dysuria, No frequency Musculoskeletal: joint pain (arthritis), muscle pain (arms), neck pain Skin: No change in color Psychiatric/Neurological: Denies Anxiety, Denies Depressed; Headache Physical Exam-General Problems Physical Exam Vital Signs Vital Signs - First Documented 02/28/21 02/28/21 10:09 12:00 Temp 36.5 Pulse 67 Resp 18 B/P (MAP) 129/53 (78) Pulse Ox 94 O2 Delivery Room Air Capillary Refill : Less Than 3 Seconds General Appearance: no apparent distress Eyes: Bilateral Eye PERRL, Bilateral Eye EOMI HEENT: No scleral icterus (R), No scleral icterus (L); other (hard of hearing) Neck: non-tender, full range of motion, supple Respiratory: chest non-tender, lungs clear, normal breath sounds, no respiratory distress, no accessory muscle use Cardiovascular: regular rate, rhythm, no murmur Gastrointestinal: normal bowel sounds, non tender, soft Extremities: non-tender, no pedal edema, no calf tenderness, normal capillary refill Neurologic/Psychiatric: roller stainer II-XII nml as tested, no motor/sensory deficits, alert, normal mood/affect, oriented x 3 Skin: warm/dry (loose skin), ecchymosis (bruising on back of hands from IV needles) Data Review Labs Laboratory Tests 02/28/21 10:14: White Blood Count 11.7H, Red Blood Count 3.54L, Hemoglobin 10.8L, Hematocrit 32L , Mean Corpuscular Volume 92, Mean Corpuscular Hemoglobin 31, Mean Corpuscular Hemoglobin Concent 33, Red Cell Distribution Width 12.5, Platelet Count 154, Mean Platelet Volume 11.6, Immature Granulocyte % (Auto) 1, Neutrophils (%) (Auto) 82H, Lymphocytes (%) (Auto) 13, Monocytes (%) (Auto) 2, Eosinophils (%) (Auto) 2, Basophils (%) (Auto) 0, Neutrophils # (Auto) 9.6H, Lymphocytes # (Auto) 1.5, Monocytes # (Auto) 0.2, Eosinophils # (Auto) 0.2, Basophils # (Auto) 0.0, Immature Granulocyte # (Auto) 0.1, Erythrocyte Sedimentation Rate 33H, Prothrombin Time 13.0, INR Comment 0.9, Activated Partial Thromboplast Time 49H, Sodium Level 130L, Potassium Level 4.4, Chloride Level 96L, Carbon Dioxide Level 20L, Anion Gap 14, Blood Urea Nitrogen 71H, Creatinine 2.41H, Estimat Glomerular Filtration Rate 20, BUN/Creatinine Ratio 29, Glucose Level 121H, Calcium Level 8.1L, Corrected Calcium 8.8, Magnesium Level 1.7, Total Bilirubin 0.9, Aspartate Amino Transf (AST/SGOT) 25, Alanine Aminotransferase (ALT/SGPT) 47, Alkaline Phosphatase 270H, Troponin I < 0.028, C-Reactive Protein High Sensitivity 19.28H , Total Protein 7.3, Albumin 3.1L, Amylase Level 58, Lipase 27, Beta- Hydroxybutyrate (Chem panel) 0.75H, Procalcitonin 46.70H, TSH [place] Testing 1.86 02/28/21 10:20: Urine Color YELLOW, Urine Clarity CLEAR, Urine pH 6.0, Urine Specific [place] 1.010L, Urine Protein NEGATIVE, Urine Glucose (UA) NEGATIVE, Urine Ketones NEGATIVE, Urine Nitrite NEGATIVE, Urine Bilirubin NEGATIVE, Urine Urobilinogen 0.2, Urine Leukocyte Esterase NEGATIVE, Urine RBC (Auto) NEGATIVE, Urine RBC NONE, Urine WBC RARE, Urine Squamous Epithelial Cells 0-2, Urine Crystals NONE, Urine Bacteria NEGATIVE, Urine Casts NONE, Urine Mucus NEGATIVE, Urine Culture Indicated NO 02/28/21 10:33: Glucometer 111H 02/28/21 10:34: SARS-CoV-2 RNA (RT-PCR) Not Detected Radiology [facility] REC#: [id number] PT STATUS: ADM IN : 1945 PHYSICIAN: ASHLI MATUTE DO ADMIT DATE: 02/28/21 Signed Date of Exam:02/28/21 CHEST 1 VIEW, AP/PA ONLY INDICATION: Weakness, nausea, vomiting COMPARISON: 08/27/2019 TECHNIQUE: Single radiograph of the chest dated 02/28/2021. FINDINGS: Postsurgical changes of a median sternotomy again noted. The cardiac silhouette is at upper limits of normal in size, though stable. No significant pulmonary vascular congestion. The lungs are clear of focal pulmonary opacity. No significant pleural effusion. No pneumothorax. Scattered osseous degenerative changes. Several calcifications are seen within the right upper abdomen, felt to relate to gallstones. IMPRESSION: Cholelithiasis. No acute cardiopulmonary abnormality with postsurgical and chronic findings as above. Dictated by: Dictated on workstation # [id number] Dict: 02/28/21 1130 Trans: 02/28/21 142 [facility] [id number] Interpreted by: ANYI GONZALES MD Electronically signed by: ANYI GONZALES MD 02/28/21 142 NAME: [facility] REC#: [id number] PT STATUS: ADM IN : 1945 PHYSICIAN: ASHLI MATUTE DO ADMIT DATE: 02/28/21 Signed Date of Exam:02/28/21 PELVIS Indication: Pelvic pain with urinary tract infection. Comparison: None. Discussion: 2 AP views of the pelvis were obtained. Degenerative disease is noted within the lumbar spine. Probable cholelithiasis is present. Phleboliths are noted within the pelvis. Extensive vascular calcifications are noted diffusely. No displaced fracture or dislocation. Impression: 1. Chronic changes as discussed. No fracture identified within the pelvis. Dictated by: Dictated on workstation # [id number] Dict: 02/28/21 1131 Trans: 02/28/21 1545 CV [id number] Interpreted by: COSTA BRAVO MD Electronically signed by: COSTA BRAVO MD 02/28/21 1545 NAME: MAURICIO SCOTT I [facility] REC#: [id number] PT STATUS: ADM IN : 1945 PHYSICIAN: ASHLI MATUTE DO ADMIT DATE: 02/28/21 Signed Date of Exam:02/28/21 CT HEAD WO Procedure: CT head without contrast. Technique: Multiple contiguous axial images were obtained through the brain without the use of intravenous contrast. Auto Exposure Controls were utilized during the CT exam to meet ALARA standards for radiation dose reduction. Indication: History of urinary tract infections with worsening weakness and falls, altered mental status. Comparison: None. Discussion: Diffuse brain volume loss is likely age related. White matter hypoattenuation is nonspecific though not greater than expected for age related chronic small vessel ischemic disease. Chronic lacunar infarct noted within the left basal ganglia. No acute intracranial hemorrhage, mass, midline shift, hydrocephalus. The orbits, sinuses, left mastoid air cell, and calvarium are unremarkable. Right mastoid air cell effusion, otomastoiditis not excluded. There does appear to be fluid within the inner also on the right. Impression: 1. Suspect right-sided otomastoiditis. 2. No acute intracranial abnormality identified. Dictated by: Dictated on workstation # [id number] Dict: 02/28/21 1119 Trans: 02/28/21 1544 CVB [id number] Interpreted by: COSTA BRAVO MD Electronically signed by: COSTA BRAVO MD 02/28/21 1544 Assessment/Plan Assessment/Plan Assessment/Plan weakness/fall leukocytosis, elevated CRP, elevated procal, hypoalbuminemia incidental gallstones as seen on imaging hx of arthritis, DM, HTN, HLD, decreased kidney fxn (GFR 20) Plan is no surgery at this time. CXR and pelvic x-ray showed incidental gallstones. Patient has no symptoms related to cholecystitis such as N/V related to eating and stones on previous CT are smaller than 3 cm. If patient develops symptoms, consider surgery. WINIFRED MAY DO 02/28/21 1640: History of Present Illness History of Present Illness Time Seen by Provider: 16:22 History of Present Illness Surgery asked to consult regarding N/V and cholelithiasis. HPI per ED: PT ARRIVES VIA POV FROM HOME, WITH DAUGHTER. PT LIVES ALONE, DAUGHTER LIVES IN , BUT COMES DOWN ON WEEKENDS AND STAYS WITH HER PT WAS DX WITH UTI A COUPLE OF WEEKS AGO--SEEN AT [facility] 02/14/21 AND GIVEN RX FOR MACROBID. PT ONLY TOOK ABOUT HALF OF THE MEDICATIONS BECAUSE SHE HAS BEEN HAVING NAUSEA AND VOMITING AND CAN'T KEEP ANYTHING DOWN, AND IS NOT EATING. DAUGHTER DID GET HER TO DRINK AN ENSURE YESTERDAY PT HAS FALLEN 3 TIMES IN THE LAST FEW DAYS--PT DENIES HITTING HER HEAD AT ANY TIME OR HAVING ANY INJURIES FROM THE FALLS PT WALKS WITH A CANE, AND STATES THAT BOTH OF HER LEGS HURT--BUT STATES SHE HAS ARTHRITIS AND THEY ALWAYS HURT, AND DENIES ANY INJURY TO HER LEGS FROM THE FALLS. STATES HER LEGS JUST GET WEAK AND SHE FALLS, PT IS ON ASPIRIN 81 MG BUT NO OTHER BLOOD THINNERS PT WAS SEEN AT [facility] 02/18/21 FOR HYPOGLYCEMIA--PT IS DIABETIC ON GLIPIZIDE--HAD TAKEN HER MEDICATION BUT HAD NOT BEEN EATING PT HAS NOT BEEN TAKING HER GLIPIZIDE SINCE THAT VISIT. PT HAS BEEN ON INSULIN IN THE PAST, BUT NOT TAKEN IT FOR SEVERAL MONTHS When seen, pt denied any current abdominal pain of nausea/vomiting. Allergies and Home Medications Allergies Coded Allergies: morphine (Verified Adverse Reaction, Intermediate, sedation, 02/28/21) Uncoded Allergies: TETANUS VACCINATION (Adverse Reaction, Intermediate, swelling, 08/21/18) Patient Home Medication List Home Medication List Reviewed: Yes Acetaminophen (Tylenol Extra Strength) 500 Mg Tablet, 1,000 MG PO Q6H PRN for PAIN-MILD, (Reported) Entered as Reported by: HEATHER PEARL on 08/21/18 1633 Amlodipine Besylate (Amlodipine Besylate) 10 Mg Tablet, 5 MG PO DAILY, (Reported) Entered as Reported by: HEATHER PEARL on 08/21/18 1633 Aspirin (Aspirin EC) 81 Mg Tablet.dr, 81 MG PO DAILY, (Reported) Entered as Reported by: HEATHER PEARL on 08/21/18 163 Atorvastatin Calcium (Atorvastatin Calcium) 40 Mg Tablet, 40 MG PO DAILY, (Reported) Entered as Reported by: HEATHER PEARL on 08/21/18 1633 Brinzolamide/Brimonidine Tart (Simbrinza 1%-0.2% Eye Drops) 8 Ml Drops.susp, (Reported) Entered as Reported by: SOFIA SMITH on 08/27/19 1153 Carvedilol (Carvedilol) 25 Mg Tablet, 25 MG PO BID, (Reported) Entered as Reported by: HEATHER PEARL on 08/21/18 1633 Furosemide (Lasix) 20 Mg Tablet, 20 MG PO DAILY Prescribed by: DI PUTNAM on 08/22/18 1240 Glipizide (Glipizide) 10 Mg Tablet, 20 MG PO BID, (Reported) Entered as Reported by: HEATHER PEARL on 08/21/18 163 Hydralazine HCl (Hydralazine HCl) 25 Mg Tablet, 75 MG PO BID, (Reported) Entered as Reported by: HEATHER PEARL on 08/21/18 163 Hydralazine HCl (Hydralazine HCl) 25 Mg Tablet, 25 MG PO TID PRN for ANXIETY Prescribed by: DI PUTNAM on 08/22/18 1245 Insulin Detemir (Levemir Flextouch) 100 Unit/1 Ml Insuln.pen, 15 UNITS SC HS, (Reported) Entered as Reported by: HEATHER PEARL on 08/21/18 1633 Latanoprost (Latanoprost) 2.5 Ml Drops, 1 DROP OD HS, (Reported) Entered as Reported by: HEATHER PEARL on 08/21/18 1633 Losartan Potassium (Losartan Potassium) 25 Mg Tablet, (Reported) Entered as Reported by: SOFIA SMITH on 08/27/19 1153 Nitrofurantoin Macrocrystal (Nitrofurantoin) 100 Mg Capsule, 100 MG PO BID Prescribed by: IMMANUEL DIAMOND on 02/14/21 0654 Pantoprazole Sodium (Pantoprazole Sodium) 40 Mg Tablet.dr, 40 MG PO DAILY, (Reported) Entered as Reported by: HEATHER PEARL on 08/21/18 1633 Past Jsqjbzy-Azbrda-Ovlxgd Hx Patient Social History Smoking Status: Former Smoker (1ppd for 16 yrs) Type Used: Cigarettes Surgeries History of Surgeries: Yes Surgeries: Abdominal, CABG, Orthopedic, Tubal Ligation Respiratory History of Respiratory Disorde: No Cardiovascular History of Cardiac Disorders: Yes Cardiac Disorders: Coronary Artery Disease, High Cholesterol, Hypertension Neurological History of Neurological Disord: No Genitourinary History of Genitourinary Disor: No Gastrointestinal History of Gastrointestinal Di: Yes (GALLSTONES NOTED ON CT; KNOWN HERNIA-NO SURGERY; kidney disease) Gastrointestinal Disorders: Abdominal Hernia Musculoskeletal History of Musculoskeletal Dis: Yes Musculoskeletal Disorders: Arthritis Endocrine History of Endocrine Disorders: Yes Endocrine Disorders: Diabetes, Insulin dep HEENT History of HEENT Disorders: Yes HEENT Disorders: Glaucoma Hearing Impairment: Hard of Hearing Cancer History of Cancer: No Psychosocial History of Psychiatric Problem: No Integumentary History of Skin or Integumenta: No Family Medical History Significant Family History: Heart Disease (brother - [place]), Lung Disease (sister), Stroke (mom and dad at 82 y/o) Review of Systems-General Constitutional: No chills, No diaphoresis, No dizziness, No fever; weakness, other (decreased appetite) EENTM: hearing loss Respiratory: cough (allergies); No dyspnea on exertion, No short of breath Cardiovascular: No chest pain; edema (ankles) Gastrointestinal: No abdominal pain, No constipation; diarrhea; No hematemesis Genitourinary: No dysuria, No frequency; other (recent UTI) Musculoskeletal: joint pain (arthritis), muscle pain (arms), neck pain Skin: No change in color, No change in hair/nails Psychiatric/Neurological: Denies Anxiety, Denies Depressed; Headache; Denies Tremors Physical Exam-General Problems Physical Exam General Appearance: no apparent distress, thin Eyes: Bilateral Eye PERRL, Bilateral Eye EOMI HEENT: No scleral icterus (R), No scleral icterus (L); other (hard of hearing) Neck: non-tender, supple Respiratory: chest non-tender, lungs clear, normal breath sounds, no respiratory distress, no accessory muscle use Cardiovascular: regular rate, rhythm, no murmur Gastrointestinal: normal bowel sounds, non tender, soft Rectal: deferred Back: no CVA tenderness, no vertebral tenderness Extremities: non-tender, no pedal edema, no calf tenderness, normal capillary refill Neurologic/Psychiatric: roller stainer II-XII nml as tested, no motor/sensory deficits, alert, normal mood/affect, oriented x 3 Skin: warm/dry (loose skin), ecchymosis (bruising on back of hands from IV needles) Lymphatic: no adenopathy (neck, axilla or groin) Assessment/Plan Assessment/Plan Assessment/Plan Weakness/fall Leukocytosis, elevated CRP, elevated procal, hypoalbuminemia Cholelithiasis without Cholecystitis hx of arthritis, DM, HTN, HLD, decreased kidney fxn (GFR 20) Pt had incidental finding of gallstones, no signs or symptoms due to cholecystitis. N/V secondary to UTI meds. No indication for surgery at this time. CXR and pelvic x-ray showed incidental gallstones. CT showed stones 1.9cm; if stones were 3 cm or larger that would be an indication for surgery even without symptoms. If patient develops symptoms, consider surgery. Supervisory-Addendum Brief Verification & Attestation Participated in pt care: history, MDM, physical Personally performed: exam, history, MDM, supervision of care Care discussed with: Medical Student Procedures: n/a Verification and Attestation of Medical Student E/M Service A medical student performed and documented this service. I then reviewed and verified all information documented by the medical student and made modifications to such information, when appropriate. I personally performed a physical exam, medical decision making and then discussed any differences between the notes and made revisions as necessary to create one note. Winifred May , 02/28/21 , 16:43 CISCO DONAHUE MED STUDENT Feb 28, 2021 15:45 WINIFRED MAY DO Feb 28, 2021 16:40
[2021-02-28 15:59] VITALS: BP 130/60
[2021-02-28] MEDS: inSUlin ASPART (NovoLOG) 1 UNIT/0.01 ML (CHARGE PER UNIT) SC SCH ×2 (16:06→21:40)
[2021-02-28] MEDS: CALCIUM CARBONATE 500 MG (TUMS) TAB.CHEW PO PRN (19:54)
[2021-02-28] MEDS: polyethylene glycoL POWDER 17 GM (MIRALAX) PACK PO SCH (19:55)
[2021-02-28] MEDS: SENNA W/DOCUSATE (SENOKOT S) TABLET PO SCH (19:55)
[2021-02-28 21:00] VITALS: BP 129/58
[2021-02-28 23:37] VITALS: BP 125/69
[2021-03-01] MEDS: NS IV 1000 ML 1,000 ML IV SCH ×3 (02:42→17:29)
[2021-03-01 03:29] VITALS: BP 119/66
[2021-03-01] MEDS: inSUlin ASPART (NovoLOG) 1 UNIT/0.01 ML (CHARGE PER UNIT) SC SCH ×4 (05:08→20:39)
[2021-03-01 06:37] LABS: BASOPHILS % (AUTO) 0 % (0-10); LYMPHOCYTES # (AUTO) 1.4 10^3/uL (1.0-4.0)
[2021-03-01 06:39] LABS: EOSINOPHILS # (AUTO) 0.1 10^3/uL (0.0-0.3); EOSINOPHILS % (AUTO) 2 % (0-10); HEMATOCRIT 25 % (35-52); LYMPHOCYTES % (AUTO) 21 % (12-44); MEAN CORPUSCULAR HEMOGLOBIN 30 pg (25-34); MEAN CORPUSCULAR HGB CONC 32 g/dL (32-36); MEAN CORPUSCULAR VOLUME 93 fL (80-99); MEAN PLATELET VOLUME 11.8 fL (9.0-12.2); MONOCYTES # (AUTO) 0.3 10^3/uL (0.0-1.0); MONOCYTES % (AUTO) 4 % (0-12); NEUTROPHILS # (AUTO) 4.9 10^3/uL (1.8-7.8); NEUTROPHILS % (AUTO) 73 % (42-75); PLATELET COUNT 134 10^3/uL (130-400); WHITE BLOOD COUNT 6.7 10^3/uL (4.3-11.0)
[2021-03-01 06:55] LABS: HEMOGLOBIN 8.2 g/dL (11.5-16.0)
[2021-03-01 07:00] LABS: CALCIUM 7.3 MG/DL (8.5-10.1)
[2021-03-01 07:05] LABS: CREATININE SERUM 1.77 MG/DL (0.60-1.30)
[2021-03-01 07:39] VITALS: BP 158/72
--- NOTE | 2021-03-01 07:47 | Progress Note ---
JULIAN LUNDY 03/01/21 0747: Subjective Date Seen by a Provider: Mar 01, 2021 Time Seen by a Provider: 07:56 Subjective/Events-last exam Patient is 76 yo female hospitalized yesterday morning for acute kidney injury after starting antibiotics to treat a UTI. The antibiotics the patient was taking caused her to vomit and she arrived to the [facility] yesterday dehydrated and with acute kidney injury. Patient has a history of arthritis, CAD, bypass surgery, glaucoma, diabetes, hearing loss. Had echocardiography done and was diagnosed with arotic sclerosis, pulmonary valve regurgitation, tricuspid valve regurgitation, and enlarged atria. Last time the patient threw up was about 22:00 last night. Is receiving normal saline. Was diagnosed with mastoiditis after a CT was done and started on IV ceftriaxone yesterday. Patient says she had an ear infection a few weeks ago that was treated with antibiotics. Patient states they are having some acid reflux but says they are feeling much better today. Patient understands why they are in the hospital and did not have any concerns at this time. Review of Systems General: No Chills, No Fatigue HEENT: No Head Aches, No Visual Changes, No Eye Pain, No Ear Pain, No Sinus Congestion Pulmonary: No Dyspnea, No Cough Cardiovascular: No: Chest Pain, Palpitations, Orthopnea Gastrointestinal: No: Nausea, Vomiting, Abdominal Pain, Diarrhea, Constipation Genitourinary: No Dysuria, No Retention Musculoskeletal: leg pain (Patient has arthritis in the back of her leg that has bothered her for years); No: arm pain, back pain Neurological: No: Weakness Focused Exam Respiratory: Lungs Clear, Normal Breath Sounds, No Accessory Muscle Use, No Respiratory Distress Cardiovascular: Systolic Murmur Capillary Refill: Less Than 3 Seconds Peripheral Pulses: 3+ Radial Pulses (R) Skin: normal color Objective Exam Last Set of Vital Signs Vital Signs Date Time Temp Pulse Resp B/P (MAP) Pulse Ox O2 Delivery O2 Flow Rate FiO2 03/01/21 03:29 36.6 69 18 119/66 (83) 95 Room Air Capillary Refill : Less Than 3 Seconds I&O Intake and Output 03/01/21 00:00 Intake Total 1795 ml Output Total 200 ml Balance 1595 ml Intake Oral 785 ml IV Total 1010 ml Output Urine Total 200 ml # Bowel Movements 1 Daily Weight Change Unsure General: Alert, Oriented X3, Cooperative, No Acute Distress HEENT: Atraumatic Neck: Supple Lungs: Clear to Auscultation Heart: Other (Patient had a systolic murmur most likely due to her aortic sclerosis) Abdomen: Normal Bowel Sounds Extremities: No Clubbing, No Cyanosis, Normal Pulses Skin: No Rashes Neuro: Normal Speech Psych/Mental Status: Mental Status NL, Mood NL Results Lab Laboratory Tests 02/28/21 10:14: White Blood Count 11.7H, Red Blood Count 3.54L, Hemoglobin 10.8L, Hematocrit 32L , Mean Corpuscular Volume 92, Mean Corpuscular Hemoglobin 31, Mean Corpuscular Hemoglobin Concent 33, Red Cell Distribution Width 12.5, Platelet Count 154, Mean Platelet Volume 11.6, Immature Granulocyte % (Auto) 1, Neutrophils (%) (Auto) 82H, Lymphocytes (%) (Auto) 13, Monocytes (%) (Auto) 2, Eosinophils (%) (Auto) 2, Basophils (%) (Auto) 0, Neutrophils # (Auto) 9.6H, Lymphocytes # (Auto) 1.5, Monocytes # (Auto) 0.2, Eosinophils # (Auto) 0.2, Basophils # (Auto) 0.0, Immature Granulocyte # (Auto) 0.1, Erythrocyte Sedimentation Rate 33H, Prothrombin Time 13.0, INR Comment 0.9, Activated Partial Thromboplast Time 49H, Sodium Level 130L, Potassium Level 4.4, Chloride Level 96L, Carbon Dioxide Level 20L, Anion Gap 14, Blood Urea Nitrogen 71H, Creatinine 2.41H, Estimat Glomerular Filtration Rate 20, BUN/Creatinine Ratio 29, Glucose Level 121H, Calcium Level 8.1L, Corrected Calcium 8.8, Magnesium Level 1.7, Total Bilirubin 0.9, Aspartate Amino Transf (AST/SGOT) 25, Alanine Aminotransferase (ALT/SGPT) 47, Alkaline Phosphatase 270H, Troponin I < 0.028, C-Reactive Protein High Sensitivity 19.28H , Total Protein 7.3, Albumin 3.1L, Amylase Level 58, Lipase 27, Beta- Hydroxybutyrate (Chem panel) 0.75H, Procalcitonin 46.70H, TSH [place] Testing 1.86 02/28/21 10:20: Urine Color YELLOW, Urine Clarity CLEAR, Urine pH 6.0, Urine Specific [place] 1.010L, Urine Protein NEGATIVE, Urine Glucose (UA) NEGATIVE, Urine Ketones NEGATIVE, Urine Nitrite NEGATIVE, Urine Bilirubin NEGATIVE, Urine Urobilinogen 0.2, Urine Leukocyte Esterase NEGATIVE, Urine RBC (Auto) NEGATIVE, Urine RBC NONE, Urine WBC RARE, Urine Squamous Epithelial Cells 0-2, Urine Crystals NONE, Urine Bacteria NEGATIVE, Urine Casts NONE, Urine Mucus NEGATIVE, Urine Culture Indicated NO 02/28/21 10:33: Glucometer 111H 02/28/21 10:34: SARS-CoV-2 RNA (RT-PCR) Not Detected 02/28/21 16:02: Glucometer 154H 02/28/21 21:24: Glucometer 173H 03/01/21 05:01: Glucometer 116H 03/01/21 06:00: White Blood Count 6.7, Red Blood Count 2.72L, Hemoglobin 8.2#L, Hematocrit 25L, Mean Corpuscular Volume 93, Mean Corpuscular Hemoglobin 30, Mean Corpuscular Hemoglobin Concent 32, Red Cell Distribution Width 12.8, Platelet Count 134, [place] n Platelet Volume 11.8, Immature Granulocyte % (Auto) 1, Neutrophils (%) (Auto) 73, Lymphocytes (%) (Auto) 21, Monocytes (%) (Auto) 4, Eosinophils (%) (Auto) 2, Basophils (%) (Auto) 0, Neutrophils # (Auto) 4.9, Lymphocytes # (Auto) 1.4, Monocytes # (Auto) 0.3, Eosinophils # (Auto) 0.1, Basophils # (Auto) 0.0, Immature Granulocyte # (Auto) 0.0, Percent Immature Platelet Fraction 6.1, Sodium Level 135, Potassium Level 4.0, Chloride Level 106, Carbon Dioxide Level 18L, Anion Gap 11, Blood Urea Nitrogen 55H, Creatinine 1.77H, Estimat Glomerular Filtration Rate 28, BUN/Creatinine Ratio 31, Glucose Level 124H, Calcium Level 7.3L Assessment/Plan Assessment/Plan Assess & Plan/Chief Complaint Acute kidney injury: Decrease her normal saline because her creatine has gone down and she is no longer dehydrated. Will continue to monitor kidney function. Mastoiditis: Patient will be treated with IV ceftriaxone while she is in the hospital. Diagnosis/Problems Diagnosis/Problems (1) Acute renal failure Onset Date: ~ 02/28/2021 Status: Acute Assessment & Plan: IV normal saline was decreased Qualifiers: Qualified Codes: N17.9 - Acute kidney failure, unspecified (2) Mastoiditis of right side Onset Date: ~ 02/28/2021 Status: Acute Assessment & Plan: Patient will continue to take IV ceftriaxone. DI PUTNAM MD 03/01/21 1346: Supervisory-Addendum Brief Verification & Attestation Participated in pt care: history, MDM, physical Personally performed: exam, history, MDM Care discussed with: Medical Student Procedures: n/a I personally saw and examined patient today and agree with documentation. Patient has systolic murmur and doesn't recall being told of that in past, but chart review shows echo 02/19/2021 with aortic sclerosis and multiple valve regurg and normal EF. She also has history of combined systolic and diastolic CHF in the past which appears stable at this time. MATT improving, but not yet resolved, decrease IVF to avoid pulmonary edema. JULIAN LUNDY Mar 01, 2021 07:47 DI PUTNAM MD Mar 01, 2021 13:46
--- NOTE | 2021-03-01 08:11 | Progress Note - Surgery ---
CISCO DONAHUE MED STUDENT 03/01/21 0811: Subjective Date Seen by a Provider: Mar 01, 2021 Time Seen by a Provider: 07:30 Subjective/Events-last exam surgery consult for: incidental gallstones seen on imaging (CT and x-ray) Patient is resting comfortably in bed. She complains of poor sleep and not being able to get comfortable due to back and leg pain. She states she vomited last night. She has been eating solid food. She denies weakness, PANG, or SOB. Her last BM was 2d ago and she denies any blood in her stool at that time. She is ambulating and has no difficulty with urination. She has required blood products after her coronary bypass. Review of Systems General: No Chills, No Fatigue, No Malaise HEENT: No Head Aches, No Visual Changes, No Eye Pain Pulmonary: No Dyspnea, No Cough Cardiovascular: No: Chest Pain, Palpitations Gastrointestinal: Vomiting; No: Abdominal Pain, Diarrhea, Constipation, Melena Genitourinary: No Dysuria, No Frequency Musculoskeletal: neck pain, back pain (from fall), leg pain (from fall) Neurological: No: Weakness, Numbness Objective Exam Vital Signs Date Time Temp Pulse Resp B/P (MAP) Pulse Ox O2 Delivery O2 Flow Rate FiO2 03/01/21 07:10 53 03/01/21 03:29 36.6 69 18 119/66 (83) 95 Room Air 03/01/21 01:00 62 02/28/21 23:37 36.4 72 18 125/69 (87) 95 Room Air 02/28/21 21:00 36.6 68 18 129/58 (81) 93 Room Air 02/28/21 19:45 Room Air 02/28/21 19:00 62 02/28/21 15:59 36.5 67 18 130/60 (83) 93 Room Air 02/28/21 14:23 Room Air 02/28/21 12:00 36.4 61 18 132/58 (82) 94 Room Air 02/28/21 11:25 36.5 67 18 129/53 94 02/28/21 10:09 36.5 67 18 129/53 (78) 94 I & O 03/01/21 07:00 Intake Total 2995 ml Output Total 600 ml Balance 2395 ml Capillary Refill : Less Than 3 Seconds General Appearance: No Apparent Distress, Chronically ill HEENT: PERRL/EOMI, Other ([place]) Neck: Full Range of Motion, Normal Inspection, Non Tender, Supple Respiratory: Chest Non Tender, Lungs Clear, Normal Breath Sounds, No Accessory Muscle Use, No Respiratory Distress Cardiovascular: Regular Rate, Rhythm, No Edema, No Murmur, Normal Peripheral Pulses Gastrointestinal: normal bowel sounds, non tender, soft Extremity: Normal Capillary Refill, Normal Inspection, Normal Range of Motion, Non Tender, No Calf Tenderness, No Pedal Edema Neurologic/Psychiatric: Alert, Oriented x3, No Motor/Sensory Deficits, Normal Mood/Affect Skin: Normal Color, Warm/Dry Lymphatic: No Adenopathy Results Lab Laboratory Tests 02/28/21 10:14: White Blood Count 11.7H, Red Blood Count 3.54L, Hemoglobin 10.8L, Hematocrit 32L , Mean Corpuscular Volume 92, Mean Corpuscular Hemoglobin 31, Mean Corpuscular Hemoglobin Concent 33, Red Cell Distribution Width 12.5, Platelet Count 154, Mean Platelet Volume 11.6, Immature Granulocyte % (Auto) 1, Neutrophils (%) (Auto) 82H, Lymphocytes (%) (Auto) 13, Monocytes (%) (Auto) 2, Eosinophils (%) (Auto) 2, Basophils (%) (Auto) 0, Neutrophils # (Auto) 9.6H, Lymphocytes # (Auto) 1.5, Monocytes # (Auto) 0.2, Eosinophils # (Auto) 0.2, Basophils # (Auto) 0.0, Immature Granulocyte # (Auto) 0.1, Erythrocyte Sedimentation Rate 33H, Prothrombin Time 13.0, INR Comment 0.9, Activated Partial Thromboplast Time 49H, Sodium Level 130L, Potassium Level 4.4, Chloride Level 96L, Carbon Dioxide Level 20L, Anion Gap 14, Blood Urea Nitrogen 71H, Creatinine 2.41H, Estimat Glomerular Filtration Rate 20, BUN/Creatinine Ratio 29, Glucose Level 121H, Calcium Level 8.1L, Corrected Calcium 8.8, Magnesium Level 1.7, Total Bilirubin 0.9, Aspartate Amino Transf (AST/SGOT) 25, Alanine Aminotransferase (ALT/SGPT) 47, Alkaline Phosphatase 270H, Troponin I < 0.028, C-Reactive Protein High Sensitivity 19.28H , Total Protein 7.3, Albumin 3.1L, Amylase Level 58, Lipase 27, Beta- Hydroxybutyrate (Chem panel) 0.75H, Procalcitonin 46.70H, TSH [place] Testing 1.86 02/28/21 10:20: Urine Color YELLOW, Urine Clarity CLEAR, Urine pH 6.0, Urine Specific [place] 1.010L, Urine Protein NEGATIVE, Urine Glucose (UA) NEGATIVE, Urine Ketones NEGATIVE, Urine Nitrite NEGATIVE, Urine Bilirubin NEGATIVE, Urine Urobilinogen 0.2, Urine Leukocyte Esterase NEGATIVE, Urine RBC (Auto) NEGATIVE, Urine RBC NONE, Urine WBC RARE, Urine Squamous Epithelial Cells 0-2, Urine Crystals NONE, Urine Bacteria NEGATIVE, Urine Casts NONE, Urine Mucus NEGATIVE, Urine Culture Indicated NO 02/28/21 10:33: Glucometer 111H 02/28/21 10:34: SARS-CoV-2 RNA (RT-PCR) Not Detected 02/28/21 16:02: Glucometer 154H 02/28/21 21:24: Glucometer 173H 03/01/21 05:01: Glucometer 116H 03/01/21 06:00: White Blood Count 6.7, Red Blood Count 2.72L, Hemoglobin 8.2#L, Hematocrit 25L, Mean Corpuscular Volume 93, Mean Corpuscular Hemoglobin 30, Mean Corpuscular Hemoglobin Concent 32, Red Cell Distribution Width 12.8, Platelet Count 134, Mean Platelet Volume 11.8, Immature Granulocyte % (Auto) 1, Neutrophils (%) (Auto) 73, Lymphocytes (%) (Auto) 21, Monocytes (%) (Auto) 4, Eosinophils (%) (Auto) 2, Basophils (%) (Auto) 0, Neutrophils # (Auto) 4.9, Lymphocytes # (Auto) 1.4, Monocytes # (Auto) 0.3, Eosinophils # (Auto) 0.1, Basophils # (Auto) 0.0, Immature Granulocyte # (Auto) 0.0, Percent Immature Platelet Fraction 6.1, Sodium Level 135, Potassium Level 4.0, Chloride Level 106, Carbon Dioxide Level 18L, Anion Gap 11, Blood Urea Nitrogen 55H, Creatinine 1.77H, Estimat Glomerular Filtration Rate 28, BUN/Creatinine Ratio 31, Glucose Level 124H, Calcium Level 7.3L Assessment/Plan Assessment/Plan Assessment/Plan Weakness/fall Leukocytosis, elevated CRP, elevated procal, hypoalbuminemia Cholelithiasis without Cholecystitis anemia - significant trend down from 10.8 to 8.2 hx of arthritis, DM, HTN, HLD, decreased kidney fxn (GFR 20) Plan is to trend Hgb. If it continues to decline, consider colonoscopy to look for source of bleed. Pt had incidental finding of gallstones on pelvic and CXR, no signs or symptoms due to cholecystitis. N/V secondary to UTI meds. No indication for gallbladder surgery at this time. CT showed stones 1.9cm; if stones were 3 cm or larger that would be an indication for surgery even without symptoms. If patient develops symptoms, consider surgery. NICO MAY DO 03/01/21 1644: Subjective Time Seen by a Provider: 15:21 Subjective/Events-last exam Pt seen and examined, sitting up in chair; comfortable. Stated she had some vomiting today, but said it was due to the salad and strawberries. Review of Systems General: No Chills HEENT: No Head Aches, No Visual Changes Pulmonary: No Dyspnea, No Cough Cardiovascular: No: Chest Pain, Palpitations Gastrointestinal: Vomiting; No: Abdominal Pain, Diarrhea, Constipation, Melena Objective Exam General Appearance: No Apparent Distress, Chronically ill Respiratory: Lungs Clear, Normal Breath Sounds, No Accessory Muscle Use, No Respiratory Distress Cardiovascular: Regular Rate, Rhythm, No Murmur Gastrointestinal: non tender, soft, no organomegaly Assessment/Plan Assessment/Plan Assessment/Plan Cholelithiasis without Cholecystitis Nausea and vomiting - I am not convinced this is from her gallstones, will monitor continue soft diet Weakness/fall Leukocytosis, elevated CRP, elevated procal, hypoalbuminemia anemia - significant trend down from 10.8 to 8.2 hx of arthritis, DM, HTN, HLD, decreased kidney fxn (GFR 20) Plan is to trend Hgb. If it continues to decline, consider colonoscopy to look for source of bleed. Pt had incidental finding of gallstones on pelvic and CXR, no signs or symptoms due to cholecystitis. N/V secondary to UTI meds. No indication for gallbladder surgery at this time. CT showed stones 1.9cm; if stones were 3 cm or larger that would be an indication for surgery even without symptoms. If patient develops symptoms, consider surgery. Supervisory-Addendum Brief Verification & Attestation Participated in pt care: history, MDM, physical Personally performed: exam, history, MDM, supervision of care Care discussed with: Medical Student Procedures: n/a Verification and Attestation of Medical Student E/M Service A medical student performed and documented this service. I then reviewed and verified all information documented by the medical student and made modifications to such information, when appropriate. I personally performed a physical exam, medical decision making and then discussed any differences between the notes and made revisions as necessary to create one note. Nico May , 03/01/21 , 16:44 CISCO DONAHUE MED STUDENT Mar 01, 2021 08:11 NICO MAY DO Mar 01, 2021 16:44
[2021-03-01] MEDS: polyethylene glycoL POWDER 17 GM (MIRALAX) PACK PO SCH ×2 (09:22→20:39)
[2021-03-01] MEDS: SENNA W/DOCUSATE (SENOKOT S) TABLET PO SCH ×2 (09:23→20:41)
[2021-03-01] MEDS: CALCIUM CARBONATE 500 MG (TUMS) TAB.CHEW PO PRN (09:37)
[2021-03-01] MEDS ORDERED: GLIP10TA13 PO (10:13)
[2021-03-01] MEDS ORDERED: LATA7.5D OD (10:13)
[2021-03-01] MEDS ORDERED: BRIN8DRO OD (10:13)
[2021-03-01] MEDS ORDERED: LOSA50TA63 PO (10:13)
[2021-03-01] MEDS ORDERED: FLUT9.9S NS (10:13)
[2021-03-01] MEDS ORDERED: TIZA-169 PO (10:13)
[2021-03-01] MEDS ORDERED: MONT10TA32 PO (10:13)
[2021-03-01] MEDS ORDERED: FAMO40TA6 PO (10:13)
--- NOTE | 2021-03-01 10:54 | Progress Note ---
JULIAN LUNDY Mar 01, 2021 10:54
[2021-03-01 11:00] VITALS: BP 145/68
[2021-03-01] MEDS ORDERED: FLUTICASONE NASAL SPRAY (FLONASE) 16 GM BTL NS PRN (12:00)
[2021-03-01] MEDS: cefTRIAXone 1,000 MG in WATER (STERILE) FOR INJECTION 10 ML IV SCH (12:46)
--- NOTE | 2021-03-01 13:25 | Occupational Therapy Eval ---
OT Evaluation-General/PLF Medical Diagnosis Admission Date Feb 28, 2021 at 11:00 Medical Diagnosis: Acute renal failure, n/v, dehydration Onset Date: Feb 28, 2021 Therapy Diagnosis Therapy Diagnosis: Mod I ADLs Height/Weight Height (Feet): 4 Height (Inches): 11.00 Weight (Pounds): 156 Weight (Ounces): 6.0 Precautions Precautions/Isolations: Fall Prevention, Standard Precautions Referral Physician: Elly Monahan MD Referral Reason: Evaluation/Treatment Medical History Pertinent Medical History: Arthritis, CABG, CAD, DM, HTN Additional Medical History Glaucoma Current History Pt presents to ER with nausea and vomiting. Found to be severely volume depleted with n/v and acute kidney injury. Per patient, she lives alone in a single story home with a ramp entrance. She was indep with I/ADLs and was not using any AD prior to admission. She still drives. She has supportive family in the area. Social History Home: Single Level Current Living Status: Alone Entry Into Home: Ramp ADL-Prior Level of Function SCALE: Activities may be completed with or without assistive devices. 3-Wwqfwytkvw-hkurvmz completes the activity by him/herself with no assistance from a helper. 5-Set-up or Clean-up Assistance-helper sets up or cleans up; patient completes activity. [place] assists only prior to or following the activity. 4-Supervision or Touching Assistance-helper provides verbal cues and/or touching/steadying and/or contact guard assistance as patient completes activity. Assistance may be provided throughout the activity or intermittently. 3-Partial/Moderate Assistance-helper does LESS THAN HALF the effort. [place] lifts, holds or supports trunk or limbs, but provides less than half the effort. 2-Substantial/Maximal Assistance-helper does MORE THAN HALF the effort. [place] lifts or holds trunk or limbs and provides more than half the effort. 5-Huetcfmxy-lfsipz does ALL the effort. Patient does none of the effort to complete the activity. Or, the assistance of 2 or more helpers is required for the patient to complete the activity. If activity was not attempted, code reason: 7-Patient Refused. 9-Not Applicable-not attempted and the patient did not perform the activity before the current illness, exacerbation or injury. 10-Not Attempted due to Environmental Limitations-(lack of equipment, weather restraints, etc.). 88-Not Attempted due to Medical Conditions or Safety Concerns. Self Care: Independent Functional Cognition: Independent DME/Equipment Comments Pt reports that she does not have any grab bars in her bathroom, but the landlord has agreed to install them if she wants them. Drive Self: Yes OT Current Status Subjective Pt denies any pain but does report discomfort in the back of her knees, L>R. Upon palpation, pt with significant lumps on back of knees, L>R. Mental Status/Objective Patient Orientation: Person, Place, Time, Situation Attachments: IV Current Glasses/Contacts: Yes Hearing Aids: No Hand Dominance: Right Upper Extremity ROM WFL Upper Extremity Strength 4/5 throughout ADL-Treatment Eating (QC): 6 Lower Body Dressing (QC): 4 (supervision) On/Off Footwear (QC): 6 Toileting Hygiene (QC): 4 (supervison) Pt sitting in chair eating lunch at OT arrival. Agreeable to eval. Pt able to demonstrate ability to don/doff socks with use of figure 4 method, no assist needed. Sit<>stand, indep. No unsteadiness noted with zero UE support. Pt able to ambulate to/from bathroom with use of walker and SBA for management of IV pole. Cues for walker management, yet pt does not use at home. Pt able to ambulate short distance without assistive device with close supervision for safety only. Education OT Patient Education: Energy conservation, Progress toward Goal/Update tx plan, Purpose of tx/functional activities Teaching Recipient: Patient Teaching Methods: Discussion Response to Teaching: Verbalize Understanding, Return Demonstration OT Fci Goals Fci Goals 1=Demonstrate adherence to instructed precautions during ADL tasks. 2=Patient will verbalize/demonstrate understanding of assistive devices/modifications for ADL. 3=Patient will improve strength/tolerance for activity to enable patient to perform ADL's. OT Education/Plan Problem List/Assessment Assessment: No Skilled OT Needs ID'd At this time Pt is SBA/supervision secondary to IV pole/management. No skilled OT services warranted. Discharge Recommendations Plan/Recommendations: Discharge/Goals Met Therapy Discharge Recommendati: Home & Family Equpiment Recommendations-D/C: Rails on Tub/Shower Treatment Plan/Plan of Care Treatment,Training & Education: Yes Patient would benefit from OT for education, treatment and training to promote independence in ADL's, mobility, safety and/or upper extremity function for ADL's. Plan of Care: ADL Retraining, Functional Mobility Comment Education on energy conservation and shower safety. Treatment Duration: Mar 01, 2021 Frequency: 1 time per week Estimated Hrs Per Day: .25 hour per day Agreement: Yes Time/GCodes Start Time: 13:00 Stop Time: 13:15 Total Time Billed (hr/min): 15 Billed Treatment Time 1 visit, Zoila Duval OT Mar 01, 2021 13:25
--- NOTE | 2021-03-01 15:07 | Physical Therapy Evaluation ---
PT Evaluation-General Medical Diagnosis Admission Date Feb 28, 2021 at 11:00 Medical Diagnosis: Acute renal failure, n/v, dehydration Onset Date: Feb 28, 2021 Therapy Diagnosis Therapy Diagnosis: impaired mobility, strength, endurance Height/Weight Height (Feet): 4 Height (Inches): 11.00 Weight (Pounds): 156 Weight (Ounces): 6.0 Precautions Precautions/Isolations: Fall Prevention, Standard Precautions Referral Physician: Elly Monahan MD Reason for Referral: Evaluation/Treatment Medical History Pertinent Medical History: Arthritis, CABG, CAD, DM, HTN Additional Medical History Past Medical History Surgeries: Cardiac, CABG, Orthopedic Chronic Edema/Swelling, Coronary Artery Disease, High Cholesterol, Hypertension 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 4-Ynpvaaurdb-dymwuyt completes the activity by him/herself with no assistance from a helper. 5-Set-up or Clean-up Assistance-helper sets up or cleans up; patient completes activity. Bracey assists only prior to or following the activity. 4-Supervision or Touching Assistance-helper provides verbal cues and/or touching/steadying and/or contact guard assistance as patient completes activity. Assistance may be provided throughout the activity or intermittently. 3-Partial/Moderate Assistance-helper does LESS THAN HALF the effort. Bracey lifts, holds or supports trunk or limbs, but provides less than half the effort. 2-Substantial/Maximal Assistance-helper does MORE THAN HALF the effort. Bracey lifts or holds trunk or limbs and provides more than half the effort. 4-Lqxqdodni-ibliqp does ALL the effort. Patient does none of the effort to complete the activity. Or, the assistance of 2 or more helpers is required for the patient to complete the activity. If activity was not attempted, code reason: 7-Patient Refused. 9-Not Applicable-not attempted and the patient did not perform the activity before the current illness, exacerbation or injury. 10-Not Attempted due to Environmental Limitations-(lack of equipment, weather restraints, etc.). 88-Not Attempted due to Medical Conditions or Safety Concerns. Bed Mobility: 6 Transfers (B,C,W/C): 6 Gait: 6 Prior Devices Use: Walker PT Evaluation-Current Subjective Patient in recliner pre tx, agrees to PT, has no pain at rest. Patient states she has a lump behind her left knee, upon palpation it seems to be a Batuista's cyst. Pt/Family Goals to be independent at home Objective Patient Orientation: Person, Place, Situation Attachments: Hazel Catheter, IV ROM/Strength ROM Lower Extremities WNL Strength Lower Extremities LLE (hip flexion 3/5, knee flexion 3+/5, knee extension 3+/5, dorsiflexion 4/5), RLE (hip flexion 3/5, knee flexion 3+/5, knee extension 3+/5, dorsiflexion 4/5) Sensory Hearing: Functional Hand Dominance: Right Sensation Right Lower Extremit: Intact Sensation Left Lower Extremity: Intact Transfers Sit to Stand (QC): 4 Chair/Dia-jk-Rxhvo Xfer(QC): 4 Gait Does the Patient Walk?: Yes Mode of Locomotion: Walk Anticipated Mode of Locomotion: Walk Walk 10 feet (QC): 4 Walk 50 ft with 2 Turns(QC): 4 Walk 150 ft (QC): 4 Distance: 180' Gait Assistive Device: FWW Comments/Gait Description slow but steady ambulation, after getting back to her chair she states she is glad she is back because she feels like her legs are about to "give out". Balance Sitting Static: Normal Sitting Dynamic: Normal Standing Static: Good Standing Dynamic: Good Treatment BLE seated exercises x20 (AP, LAQ) Assessment/Needs Patient in recliner post tx with nurse call, phone, tray, all needs met. Patient has impaired mobility, strength, endurance. CGA with transfers and ambulation. 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 Time Frame: Mar 08, 2021 Roll Left & Right (QC): 6 Sit to Lying (QC): 6 Lying-Sitting on Side/Bed(QC): 6 Sit to Stand (QC): 5 Chair/Qhm-zw-Vygss Xfer(QC): 5 Walk 10 feet (QC): 5 Walk 50ft with 2 Turns (QC): 5 Walk 150 ft (QC): 5 PT Plan Problem List Problem List: Activity Tolerance, Functional Strength, Safety, Balance, Gait, Transfer, Bed Mobility, ROM Treatment/Plan Treatment Plan: Continue Plan of Care Treatment Plan: Bed Mobility, Education, Functional Activity José Antonio, Functional Strength, Gait, Safety, Therapeutic Exercise, Transfers Treatment Duration: Mar 08, 2021 Frequency: 6 times per week Estimated Hrs Per Day: .25 hour per day Patient and/or Family Agrees t: Yes Safety Risks/Education Patient Education: Gait Training, Transfer Techniques, Correct Positioning, Safety Issues Teaching Recipient: Patient Teaching Methods: Demonstration, Discussion Response to Teaching: Reinforcement Needed Discharge Recommendations Plan Patient will perform bed mobility and transfer training, balance and endurance training, functional strengthening, gait training, and education, to improve functional mobility and independence at home. Therapy Discharge Recommendati: Scheduled Assistance, Home & Family, Post Acute PT Time/GCodes Time In: 1355 Time Out: 1408 Total Billed Treatment Time: 13 Total Billed Treatment 1 visit WILLAM ROSE PT Mar 01, 2021 15:07
[2021-03-01 16:00] VITALS: BP 141/66
[2021-03-01 20:00] VITALS: BP 124/62
[2021-03-01] MEDS: MONTELUKAST 10 MG (SINGULAIR) TAB PO SCH (20:41)
[2021-03-01] MEDS ORDERED: FAMOTIDINE 20 MG (PEPCID) TABLET PO SCH (21:00)
[2021-03-02] VITALS (7 sets, daily range): BP systolic 130–167; BP diastolic 54–92
[2021-03-02] MEDS: NS IV 1000 ML 1,000 ML IV SCH ×2 (04:24→17:29)
[2021-03-02] MEDS: inSUlin ASPART (NovoLOG) 1 UNIT/0.01 ML (CHARGE PER UNIT) SC SCH ×4 (05:26→20:48)
[2021-03-02 06:04] LABS: HEMOGLOBIN 7.8 g/dL (11.5-16.0); MEAN PLATELET VOLUME 11.3 fL (9.0-12.2); WHITE BLOOD COUNT 5.5 10^3/uL (4.3-11.0)
[2021-03-02 06:16] LABS: ALBUMIN 2.6 GM/DL (3.2-4.5); POTASSIUM 3.9 MMOL/L (3.6-5.0)
[2021-03-02 06:17] LABS: CALCIUM 7.6 MG/DL (8.5-10.1)
[2021-03-02 06:18] LABS: TOTAL PROTEIN 5.8 GM/DL (6.4-8.2)
[2021-03-02 06:20] LABS: BILIRUBIN,TOTAL 0.5 MG/DL (0.1-1.0)
[2021-03-02 06:22] LABS: CREATININE SERUM 1.39 MG/DL (0.60-1.30)
[2021-03-02] MEDS: SENNA W/DOCUSATE (SENOKOT S) TABLET PO SCH ×2 (08:34→20:48)
[2021-03-02] MEDS: polyethylene glycoL POWDER 17 GM (MIRALAX) PACK PO SCH ×2 (08:34→20:48)
[2021-03-02] MEDS: LATANOPROST 0.005% (XALATAN) OPHTH SOLN 2.5 ML OD SCH (08:34)
[2021-03-02] MEDS: ASPIRIN E.C. 81 MG (ECOTRIN) TAB PO SCH (08:34)
--- NOTE | 2021-03-02 08:54 | Progress Note - Surgery ---
CISCO DONAHUE MED STUDENT 03/02/21 0854: Subjective Date Seen by a Provider: Mar 02, 2021 Time Seen by a Provider: 08:30 Subjective/Events-last exam surgery consult for: weakness/fall/ N/V Patient is sitting comfortably in bed. She states she slept very well and had no acute events over night. She vomited yesterday after eating a salad but denies any N/V or abdominal pain today. She states spicy foods such as sausage feel like they get stuck in her throat on the way down and scrape the sides. She will cough a little with it. She denies previous occurrences and states it has only happened while in the hospital. She had an EGD 20 years ago that showed reflux when she was having reflux symptoms. She takes [id number] at home. She denies having a prior colonoscopy. She denies a family history of colon cancer. She lives at home by herself. Review of Systems General: No Chills, No Night Sweats, No Fatigue, No Malaise HEENT: No Head Aches, No Visual Changes, No Eye Pain, No Ear Pain Pulmonary: No Dyspnea; Cough Cardiovascular: No: Chest Pain, Palpitations, Orthopnea Gastrointestinal: Other (sensation of food caught in throat but no sensation of swelling); No: Nausea, Vomiting, Abdominal Pain Genitourinary: No Dysuria, No Frequency Musculoskeletal: back pain (from fall) Neurological: No: Weakness, Numbness Objective Exam Vital Signs Date Time Temp Pulse Resp B/P (MAP) Pulse Ox O2 Delivery O2 Flow Rate FiO2 03/02/21 08:00 35.5 65 24 156/68 (97) 95 Room Air 03/02/21 06:40 51 03/02/21 04:08 36.4 65 18 130/65 (86) 94 03/02/21 01:00 64 03/02/21 00:28 36.4 67 18 131/54 (79) 96 03/01/21 20:56 Room Air 03/01/21 20:00 36.6 65 16 124/62 (82) 94 03/01/21 19:00 76 03/01/21 16:00 36.4 63 16 141/66 (91) 93 03/01/21 13:37 63 03/01/21 11:00 36.8 68 18 145/68 (93 95 Room Air I & O 03/02/21 07:00 Intake Total 1150 ml Output Total 2325 ml Balance -1175 ml Capillary Refill : Less Than 3 Seconds General Appearance: No Apparent Distress, Chronically ill HEENT: PERRL/EOMI, Other ([place]) Neck: Full Range of Motion, Normal Inspection, Non Tender, Supple Respiratory: Lungs Clear, Normal Breath Sounds, No Accessory Muscle Use, No Respiratory Distress Cardiovascular: Regular Rate, Rhythm, No Murmur Peripheral Pulses: 3+ Radial Pulses (R) Gastrointestinal: non tender, soft, no organomegaly Extremity: Normal Capillary Refill, Normal Inspection, Normal Range of Motion, Non Tender, No Calf Tenderness, No Pedal Edema Neurologic/Psychiatric: Alert, Oriented x3, No Motor/Sensory Deficits, Normal Mood/Affect Skin: Normal Color, Warm/Dry Lymphatic: No Adenopathy Results Lab Laboratory Tests 03/01/21 10:51: Glucometer 138H 03/01/21 15:39: Glucometer 154H 03/01/21 20:38: Glucometer 136H 03/02/21 05:17: Glucometer 85 03/02/21 05:45: White Blood Count 5.5, Red Blood Count 2.57L, Hemoglobin 7.8L, Hematocrit 24L, Mean Corpuscular Volume 95, Mean Corpuscular Hemoglobin 30, Mean Corpuscular Hemoglobin Concent 32, Red Cell Distribution Width 12.7, Platelet Count 125L, Mean Platelet Volume 11.3, Percent Immature Platelet Fraction 5.1, Sodium Level 137, Potassium Level 3.9, Chloride Level 110H, Carbon Dioxide Level 19L, Anion Gap 8, Blood Urea Nitrogen 35H, Creatinine 1.39H, Estimat Glomerular Filtration Rate 37, BUN/Creatinine Ratio 25, Glucose Level 87, Calcium Level 7.6L, Corrected Calcium 8.7, Total Bilirubin 0.5, Aspartate Amino Transf (AST/SGOT) 19, Alanine Aminotransferase (ALT/SGPT) 24, Alkaline Phosphatase 168H, Total Protein 5.8L, Albumin 2.6L Assessment/Plan Assessment/Plan Assessment/Plan Cholelithiasis without Cholecystitis Nausea and vomiting and throat irritation - I am not convinced this is from her gallstones, will monitor continue soft diet. avoid spicy/triggering foods Weakness/fall Leukocytosis, elevated CRP, elevated procal, hypoalbuminemia anemia - trending down 8.2 -> 7.8 hx of arthritis, DM, HTN, HLD, decreased kidney fxn (GFR 20) Plan is to trend Hgb. If it continues to decline, consider colonoscopy to look for source of bleed. If stable, can preform as outpatient as no hx of colonoscopies. Restart famotidine for reflux symptoms. Pt had incidental finding of gallstones on pelvic and CXR, no signs or symptoms due to cholecystitis. N/V secondary to UTI meds. No indication for gallbladder surgery at this time. CT showed stones 1.9cm; if stones were 3 cm or larger that would be an indication for surgery even without symptoms. If patient develops symptoms, consider surgery. NICO GUNN DO 03/02/21 1334: Subjective Time Seen by a Provider: 11:44 Subjective/Events-last exam Pt seen and examined, was sleeping but easily arousable. States she was doing fine today. Nurse states Hg dropped a little and they are trying to get Hemoccult on pt. Review of Systems General: Fatigue Pulmonary: No Dyspnea; Cough Cardiovascular: No: Chest Pain, Palpitations Gastrointestinal: Other (sensation of food caught in throat but no sensation of swelling); No: Nausea, Vomiting, Abdominal Pain Objective Exam General Appearance: No Apparent Distress, Chronically ill Respiratory: Lungs Clear, Normal Breath Sounds, No Accessory Muscle Use, No Respiratory Distress Cardiovascular: Regular Rate, Rhythm, No Murmur Gastrointestinal: non tender, soft, no organomegaly Assessment/Plan Assessment/Plan Assessment/Plan Cholelithiasis without Cholecystitis Nausea and vomiting and throat irritation - I am not convinced this is from her gallstones, will monitor continue soft diet. avoid spicy/triggering foods Weakness/fall Leukocytosis, elevated CRP, elevated procal, hypoalbuminemia anemia - trending down 8.2 -> 7.8 hx of arthritis, DM, HTN, HLD, decreased kidney fxn (GFR 20) Plan is to trend Hgb. If it continues to decline, consider EGD/colonoscopy to look for source of bleed. If stable, can preform as outpatient. Restart famotidine for reflux symptoms. Pt had incidental finding of gallstones on pelvic and CXR, no signs or symptoms due to cholecystitis. N/V secondary to UTI meds. No indication for gallbladder surgery at this time. CT showed stones 1.9cm; if stones were 3 cm or larger that would be an indication for surgery even without symptoms. If patient develops symptoms, consider surgery. Supervisory-Addendum Brief Verification & Attestation Participated in pt care: history, MDM, physical Personally performed: exam, history, MDM, supervision of care Care discussed with: Medical Student Procedures: n/a Verification and Attestation of Medical Student E/M Service A medical student performed and documented this service. I then reviewed and verified all information documented by the medical student and made modifications to such information, when appropriate. I personally performed a physical exam, medical decision making and then discussed any differences between the notes and made revisions as necessary to create one note. Nico Gunn , 03/02/21 , 13:34 CISCO DONAHUE MED STUDENT Mar 02, 2021 08:54 NICO GUNN DO Mar 02, 2021 13:34
[2021-03-02] MEDS ORDERED: NON-FORMULARY MEDICATION 1 EA EA (Latanoprost/Pf (Latanoprost 0.005% Eye Drop) 1 DROP) OD SCH (09:00)
[2021-03-02] MEDS ORDERED: DORZOLAMIDE 2% 10 ML BTL (TRUSOPT) OD SCH (09:00)
--- NOTE | 2021-03-02 12:55 | Progress Note ---
JULIAN LUNDY 03/02/21 1255: Subjective Subjective/Events-last exam The patients is 76yo female who was hospitalized due to acute kidney injury and dehydration. Her kidney function continues to improve and she is more hydrated now. She was also diagnosed with mastoiditis when she was in the hospital and was started on antibiotics for that. Patient says she is feeling better today and seemed to have more energy. She is wanting to get out of the hospital before she leaves for a family trip on 03/06. She says she has been having mild right ear pain as well as hearing loss. Denies any congestion or other facial pain. She was started on antibiotics for the mastoiditis two days ago. Review of Systems General: No Chills, No Fatigue; Appetite HEENT: No Head Aches, No Visual Changes, No Eye Pain; Ear Pain (Right ear pain that comes and goes which the patient says is mild) Pulmonary: No Cough Cardiovascular: No: Chest Pain, Palpitations Gastrointestinal: Vomiting (Patient vomited 600 ml last night after having heart burn), Constipation (Hasn't had a bowel movement since Monday); No: Nausea Genitourinary: No Dysuria, No Incontinence Musculoskeletal: other (Left knee pain that is tolerable) Neurological: No: Weakness, Confusion Focused Exam Respiratory: Lungs Clear, Normal Breath Sounds, No Accessory Muscle Use Cardiovascular: Systolic Murmur Capillary Refill: Less Than 3 Seconds Peripheral Pulses: 3+ Radial Pulses (L) Skin: normal color Objective Exam Last Set of Vital Signs Vital Signs Date Time Temp Pulse Resp B/P (MAP) Pulse Ox O2 Delivery O2 Flow Rate FiO2 03/02/21 12:00 35.2 65 16 162/72 (102) 94 Room Air Capillary Refill : Less Than 3 Seconds I&O Intake and Output 03/02/21 00:00 Intake Total 2150 ml Output Total 2425 ml Balance -275 ml Intake Oral 1150 ml IV Total 1000 ml Output Urine Total 1825 ml Emesis 600 ml # Emeses 1 General: Alert, Oriented X3, Cooperative HEENT: Atraumatic Neck: Supple Lungs: Clear to Auscultation Heart: Regular Rate, Other (Systolic murmur) Abdomen: Normal Bowel Sounds Extremities: No Clubbing, No Cyanosis Skin: No Rashes Neuro: Normal Speech Psych/Mental Status: Mental Status NL, Mood NL Results/Procedures Lab Laboratory Tests 03/01/21 15:39: Glucometer 154H 03/01/21 20:38: Glucometer 136H 03/02/21 05:17: Glucometer 85 03/02/21 05:45: White Blood Count 5.5, Red Blood Count 2.57L, Hemoglobin 7.8L, Hematocrit 24L, Mean Corpuscular Volume 95, Mean Corpuscular Hemoglobin 30, Mean Corpuscular Hemoglobin Concent 32, Red Cell Distribution Width 12.7, Platelet Count 125L, Mean Platelet Volume 11.3, Percent Immature Platelet Fraction 5.1, Sodium Level 137, Potassium Level 3.9, Chloride Level 110H, Carbon Dioxide Level 19L, Anion G ap 8, Blood Urea Nitrogen 35H, Creatinine 1.39H, Estimat Glomerular Filtration Rate 37, BUN/Creatinine Ratio 25, Glucose Level 87, Calcium Level 7.6L, Corrected Calcium 8.7, Total Bilirubin 0.5, Aspartate Amino Transf (AST/SGOT) 19, Alanine Aminotransferase (ALT/SGPT) 24, Alkaline Phosphatase 168H, Total Protein 5.8L, Albumin 2.6L 03/02/21 11:04: Glucometer 138H Radiology Assessment/Plan Assessment/Plan Admission Dx Acute kidney injury Admission Status: Inpatient Order (span 2 midnights) (1) Acute renal failure Onset Date: ~ 02/28/2021 Status: Acute Assessment & Plan: Patient kidney function continues to improve. The third and final day of antibiotics was today. Qualifiers: Qualified Codes: N17.9 - Acute kidney failure, unspecified (2) Dehydration Onset Date: ~ 02/28/2021 Status: Acute Assessment & Plan: Patient is on 125 ml of normal saline and continues to drink water as well. Saline will be decreased to 100 ml. (3) Mastoiditis of right side Onset Date: ~ 02/28/2021 Status: Acute Assessment & Plan: IV ceftriaxone was finished today. ENT is being consulted to see if patient can be discharged today. ELLY MONAHAN MD 03/02/21 1710: Objective Exam General: Alert, No Acute Distress Lungs: Clear to Auscultation, Normal Air Movement Heart: Regular Rate, Other (systolic murmur with no radiation) Neuro: Normal Speech, Other (facial movement and strength intact) Psych/Mental Status: Mood NL Assessment/Plan Assessment/Plan (1) Acute renal failure Onset Date: ~ 02/28/2021 Status: Acute Assessment & Plan: Patient kidney function continues to improve. Decrease NS to 75 mls/hr to avoid fluid overload. Qualifiers: Qualified Codes: N17.9 - Acute kidney failure, unspecified (2) Dehydration Onset Date: ~ 02/28/2021 Status: Acute Assessment & Plan: Improved, decreasing IVF to 75 mls/hr. (3) Mastoiditis of right side Onset Date: ~ 02/28/2021 Status: Acute Assessment & Plan: IV ceftriaxone. Given that she has continued vomiting last night and her intermittent right ear pain and hearing loss and falls, will consult ENT to see if any further recommendations at this time. (4) Cholelithiasis Status: Acute Assessment & Plan: Surgery consulted, symptoms not thought to be related, no treatment at this time. (5) Nausea & vomiting Status: Acute Assessment & Plan: Thought to be related to outpatient antibiotics, but did have a recurrent episode last night. ENT eval as noted above. (6) Diabetes mellitus, type 2 Status: Chronic Assessment & Plan: Sliding scale insulin only initiated given vomiting and poor intake initially and MATT on glipizide at home. (7) Hypertension Status: Chronic Permanent Comment: 06/2018 Renal artery doppler unremarkable at [facility]. Last Edited By: Elly Monahan on Aug 21, 2018 21:03 Assessment & Plan: Blood pressure initially low, home meds held. Resume carvedilol today, resume others as tolerated. (8) Anemia Status: Chronic Assessment & Plan: Chronic anemia noted, but has acute worsening this hospitalization. Check stool occult blood and monitor closely. Qualifiers: Qualified Codes: N18.31 - Chronic kidney disease, stage 3a; D63.1 - Anemia in chronic kidney disease (9) GERD (gastroesophageal reflux disease) Status: Chronic Assessment & Plan: Resumed home famotidine. (10) Coronary artery disease Status: Chronic Permanent Comment: Stress testing at [facility] 07/19/2018 unremarkable. Last Edited By: Elly Monahan on Aug 21, 2018 21:01 Assessment & Plan: Aspirin. Carvedilol. (11) Chronic renal insufficiency Assessment & Plan: Cr 1.43 outpatient in November 2020 Qualifiers: Qualified Codes: N18.31 - Chronic kidney disease, stage 3a (12) DVT prophylaxis Status: Acute Assessment & Plan: Heparin Supervisory-Addendum Brief Verification & Attestation Participated in pt care: history, MDM, physical Personally performed: exam, history, MDM Care discussed with: Medical Student Procedures: n/a I personally saw and examined patient, see my exam and problem list for my exam and assessment/plan today. Agree with student documentation of subjective section. JULIAN LUNDY Mar 02, 2021 12:55 ELLY MONAHAN MD Mar 02, 2021 17:10
[2021-03-02] MEDS: cefTRIAXone 1,000 MG in WATER (STERILE) FOR INJECTION 10 ML IV SCH (13:44)
--- NOTE | 2021-03-02 20:31 | Progress Note ---
Standard Progress Note Progress Notes/Assess & Plan Date Seen by a Provider: Mar 02, 2021 Time Seen by a Provider: 20:00 Progress/Assessment & Plan ENT-Michele Patient seen and evaluated ct- head of 02/28 reviewed-ct showed right greater than left fluid in middle ear and mastoid. NO evidence of inctracranial extension no swelling seen on ct Patient reports symptoms started two months ago with ear infection and subsequent decreased hearing bilaterally stilll has intermittent sharp shooting pains on right side treated with z-ofelia initially and now with IV ceftriaxone which is a great choice. Overall pain better, emesis better in hospital for treatment of uti and kidney problems-probably going home in am Exam Ears-no swelling or tenderness seen in mastoid region on either side. Canals showed no swelling or drainage Tm's intact with fluid bilaterally-more on the right side-no sign of acute infection IMP: Bilatearl Serous OM Rec: 1. HOme on antbiotics-ceftin 250mg bid for ten days 2. I can see in the office around noon on monday and place tubes in her ears. She is planning on flying on monday and the tubes would help her hear better and also equalie the pressure with descent 3. 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
[2021-03-02] MEDS: MONTELUKAST 10 MG (SINGULAIR) TAB PO SCH (20:46)
[2021-03-02] MEDS ORDERED: NON-FORMULARY MEDICATION 1 EA EA (Carvedilol 25 MG) PO SCH (21:00)
[2021-03-02] MEDS ORDERED: FAMOTIDINE 20 MG (PEPCID) TABLET PO SCH (21:00)
[2021-03-03 03:40] VITALS: BP 154/65
[2021-03-03] MEDS: inSUlin ASPART (NovoLOG) 1 UNIT/0.01 ML (CHARGE PER UNIT) SC SCH ×2 (05:30→10:46)
[2021-03-03 05:52] LABS: HEMOGLOBIN 7.7 g/dL (11.5-16.0); MEAN PLATELET VOLUME 11.2 fL (9.0-12.2); WHITE BLOOD COUNT 4.8 10^3/uL (4.3-11.0)
[2021-03-03 06:01] LABS: POTASSIUM 3.9 MMOL/L (3.6-5.0)
[2021-03-03 06:02] LABS: CALCIUM 7.5 MG/DL (8.5-10.1)
[2021-03-03 06:06] LABS: CREATININE SERUM 1.11 MG/DL (0.60-1.30)
[2021-03-03] MEDS: NS IV 1000 ML 1,000 ML IV SCH (06:10)
[2021-03-03 07:22] VITALS: BP 169/71
--- NOTE | 2021-03-03 07:23 | Progress Note - Surgery ---
CISCO DONAHUE MED STUDENT 03/03/21 0723: Subjective Date Seen by a Provider: Mar 03, 2021 Time Seen by a Provider: 07:20 Subjective/Events-last exam surgery consult for: fall/gallstones/anemia Patient is resting comfortably in bed. She states her only complaint is increased frequency and softness of BM due to stool softeners. She denies N/V, SOB, or weakness. She is tolerating her diet without any more sensations of food scratching down her throat. She is ambulating and urinating without difficulty. She states Dr. Bautista spoke to her yesterday about fluid behind her ears and he would place tubes in around noon today. She was told she may be discharged today to see Dr. Bautista then go on vacation in a couple of days. Review of Systems General: No Chills, No Night Sweats, No Fatigue, No Malaise HEENT: No Head Aches, No Visual Changes, No Eye Pain Pulmonary: No Dyspnea, No Cough Cardiovascular: No: Chest Pain, Palpitations Gastrointestinal: Diarrhea (due to stool softeners); No: Nausea, Vomiting, Abdominal Pain Genitourinary: No Dysuria, No Frequency Musculoskeletal: back pain Neurological: No: Weakness, Numbness Objective Exam Vital Signs Date Time Temp Pulse Resp B/P (MAP) Pulse Ox O2 Delivery O2 Flow Rate FiO2 03/03/21 03:40 36.5 62 18 154/65 (94) 95 Room Air 03/03/21 01:00 58 03/02/21 23:36 36.6 71 20 155/92 (113) 94 Room Air 03/02/21 20:45 Room Air 03/02/21 19:52 90 03/02/21 19:47 36.5 70 18 167/81 (109) 94 Room Air 03/02/21 16:00 36.2 68 18 158/76 (103) 95 Room Air 03/02/21 13:00 80 03/02/21 12:00 35.2 65 16 162/72 (102) 94 Room Air 03/02/21 09:00 Room Air 03/02/21 08:00 35.5 65 24 156/68 (97) 95 Room Air I & O 03/03/21 07:00 Intake Total 1110 ml Output Total 700 ml Balance 410 ml Capillary Refill : Less Than 3 Seconds General Appearance: No Apparent Distress, Chronically ill HEENT: PERRL/EOMI, Other ([place]) Neck: Full Range of Motion, Normal Inspection, Non Tender, Supple Respiratory: Lungs Clear, Normal Breath Sounds, No Accessory Muscle Use, No Respiratory Distress Cardiovascular: Regular Rate, Rhythm, No Murmur Peripheral Pulses: 3+ Radial Pulses (R), 3+ Radial Pulses (L) Gastrointestinal: non tender, soft, no organomegaly Extremity: Normal Capillary Refill, Normal Inspection, Normal Range of Motion, Non Tender, No Calf Tenderness, No Pedal Edema Neurologic/Psychiatric: Alert, Oriented x3, No Motor/Sensory Deficits, Normal Mood/Affect Skin: Normal Color, Warm/Dry Lymphatic: No Adenopathy Results Lab Laboratory Tests 03/02/21 11:04: Glucometer 138H 03/02/21 13:40: Stool Occult Blood Immunoassay NEGATIVE 03/02/21 15:14: Glucometer 130H 03/02/21 20:05: Glucometer 148H 03/03/21 05:24: Glucometer 99 03/03/21 05:25: White Blood Count 4.8, Red Blood Count 2.54L, Hemoglobin 7.7L, Hematocrit 24L, Mean Corpuscular Volume 95, Mean Corpuscular Hemoglobin 30, Mean Corpuscular Hemoglobin Concent 32, Red Cell Distribution Width 12.8, Platelet Count 119L, Mean Platelet Volume 11.2, Percent Immature Platelet Fraction 4.6, Sodium Level 136, Potassium Level 3.9, Chloride Level 112H, Carbon Dioxide Level 16L, Anion Gap 8, Blood Urea Nitrogen 21H, Creatinine 1.11, Estimat Glomerular Filtration Rate 48, BUN/Creatinine Ratio 19, Glucose Level 107H, Calcium Level 7.5L Assessment/Plan Assessment/Plan Assessment/Plan Cholelithiasis without Cholecystitis Nausea and vomiting and throat irritation - I am not convinced this is from her gallstones, will monitor continue soft diet. avoid spicy/triggering foods Weakness/fall Leukocytosis, elevated CRP, elevated procal, hypoalbuminemia anemia - stable 12/24 ->7.7 serous otitis media - followed by Dr. Bautista hx of arthritis, DM, HTN, HLD, decreased kidney fxn (GFR 20) Stool occult blood negative and Hgb stable at 7.7. No surgery is needed at this time. Patient was told she would be discharged to see Dr. Bautista today in his office for tube placement. If Hgb continues to decline, consider EGD/colonoscopy to look for source of bleed. If stable, can preform as outpatient. Continue famotidine for reflux symptoms. Pt had incidental finding of gallstones on pelvic and CXR, no signs or symptoms due to cholecystitis. N/V secondary to UTI meds. No indication for gallbladder surgery at this time. CT showed stones 1.9cm; if stones were 3 cm or larger that would be an indication for surgery even without symptoms. If patient develops symptoms, consider surgery. WINIFRED MAY DO 03/03/21 1835: Supervisory-Addendum Brief Verification & Attestation Participated in pt care: other (pt left before I saw her) Personally performed: other (pt left before I saw her) Care discussed with: Medical Student Procedures: n/a pt left before I saw her CISCO DONAHUE Ming MED STUDENT Mar 03, 2021 07:23 WINIFRED MAY DO Mar 03, 2021 18:35
--- NOTE | 2021-03-03 08:05 | Progress Note ---
JULIAN LUNDY 03/03/21 0805: Subjective Subjective/Events-last exam Sara is a 76yo F patient being hospitalized for dehydration and acute kidney injury. She was also being treated for mastoiditis while in the hospital. Patient says she is feeling better today. Is wanting to get out of the hospital today to go to the ENT for an appointment. Patient spoke to the ENT yesterday who said she was okay to be discharged but she needed to have tubes placed in her ears. She is feeling much better today but is still having some right ear pain that is tolerable. Patient denies any new symptoms. She is wanting to go home so that she is able to go on a family trip this Monday. A surgeon talked to her yesterday about having a colonoscopy done to see if that is causing her anemia. Patient was given an oral laxative yesterday because she had not had a bowel movement since the 12, patient says she normally goes to the bathroom once every few days so she wasn't concerned. Review of Systems HEENT: No Head Aches, No Visual Changes; Ear Pain (Right ear will hurt every now and then but it is tolerable), Sinus Congestion (From allergies) Pulmonary: No Cough Cardiovascular: No: Chest Pain, Palpitations Gastrointestinal: No: Nausea, Vomiting, Diarrhea, Constipation Genitourinary: No Dysuria, No Incontinence Neurological: No: Weakness, Change in speech, Confusion Focused Exam Respiratory: Chest Non Tender, Lungs Clear, Normal Breath Sounds, No Accessory Muscle Use Cardiovascular: Regular Rate, Rhythm, No Edema, Systolic Murmur Capillary Refill: Less Than 3 Seconds Peripheral Pulses: 3+ Radial Pulses (L) Skin: normal color Objective Exam Last Set of Vital Signs Vital Signs Date Time Temp Pulse Resp B/P (MAP) Pulse Ox O2 Delivery O2 Flow Rate FiO2 03/03/21 07:22 36.1 78 16 169/71 (103) 96 Room Air Capillary Refill : Less Than 3 Seconds I&O Intake and Output 03/03/21 00:00 Intake Total 1110 ml Output Total 1000 ml Balance 110 ml Intake Oral 1100 ml IV Total 10 ml Output Urine Total 1000 ml General: Alert, Oriented X3, Cooperative HEENT: Atraumatic Neck: Supple Lungs: Clear to Auscultation, Normal Air Movement Heart: Regular Rate, Other (Systolic murmur) Abdomen: Normal Bowel Sounds Extremities: No Clubbing, No Cyanosis, No Edema Skin: No Rashes Neuro: Normal Speech, Normal Tone Psych/Mental Status: Mental Status NL, Mood NL Results/Procedures Lab Laboratory Tests 03/02/21 11:04: Glucometer 138H 03/02/21 13:40: Stool Occult Blood Immunoassay NEGATIVE 03/02/21 15:14: Glucometer 130H 03/02/21 20:05: Glucometer 148H 03/03/21 05:24: Glucometer 99 03/03/21 05:25: White Blood Count 4.8, Red Blood Count 2.54L, Hemoglobin 7.7L, Hematocrit 24L, Mean Corpuscular Volume 95, Mean Corpuscular Hemoglobin 30, Mean Corpuscular Hemoglobin Concent 32, Red Cell Distribution Width 12.8, Platelet Count 119L, Mean Platelet Volume 11.2, Percent Immature Platelet Fraction 4.6, Sodium Level 136, Potassium Level 3.9, Chloride Level 112H, Carbon Dioxide Level 16L, Anion Gap 8, Blood Urea Nitrogen 21H, Creatinine 1.11, Estimat Glomerular Filtration Rate 48, BUN/Creatinine Ratio 19, Glucose Level 107H, Calcium Level 7.5L Radiology Assessment/Plan Assessment/Plan Admission Dx Dehydration and acute kidney injury Admission Status: Other (Patient being discharged today) (1) Acute renal failure Onset Date: ~ 02/28/2021 Status: Resolved Assessment & Plan: Patient kidney function continues to improve. Patient was taken off of IV fluids today to avoid fluid overload. Qualifiers: Qualified Codes: N17.9 - Acute kidney failure, unspecified (2) Dehydration Onset Date: ~ 02/28/2021 Status: Resolved Assessment & Plan: Improved, taking patient off of IV fluids as stated above. (3) Mastoiditis of right side Onset Date: ~ 02/28/2021 Status: Acute Assessment & Plan: IV ceftriaxone. ENT was consulted and thought the patient could be discharged on 03/03. ENT was concerned about the fluid in the patients ear so an appointment was set up for the patient to come to the ENT office in [place] on 03/03 to have tubes placed in her ears. (4) Cholelithiasis Status: Acute Assessment & Plan: Surgery consulted, symptoms not thought to be related, no treatment at this time. (5) Nausea & vomiting Status: Resolved Assessment & Plan: Has not had nausea or vomitting since Monday evening. ENT was evaluated and will be seeing the patient in the ENT office. (6) Diabetes mellitus, type 2 Status: Chronic Assessment & Plan: Sliding scale insulin only initiated given vomiting and poor intake initially and MATT on glipizide at home. (7) Hypertension Status: Chronic Permanent Comment: 06/2018 Renal artery doppler unremarkable at [facility]. Last Edited By: Di Monahan on Aug 21, 2018 21:03 Assessment & Plan: Blood pressure was elevated this morning. Carvedilol, amlodipine, and losartan were resumed today from her home medications. (8) Anemia Status: Chronic Assessment & Plan: Stool occult was negative. Surgery met with the patient to discuss setting up a colonoscopy. An EGD might be done as well if the colonoscopy is inconclusive. Qualifiers: Qualified Codes: N18.31 - Chronic kidney disease, stage 3a; D63.1 - Anemia in chronic kidney disease (9) GERD (gastroesophageal reflux disease) Status: Chronic Assessment & Plan: Resumed home famotidine. (10) Coronary artery disease Status: Chronic Permanent Comment: Stress testing at [facility] 07/19/2018 unremarkable. Last Edited By: Di Monahan on Aug 21, 2018 21:01 Assessment & Plan: Aspirin. Carvedilol. (11) Chronic renal insufficiency Status: Chronic Assessment & Plan: The patient's Cr was 1.43 as an outpatient in November 2020 which seems to be her baseline. Patient was at Cr 1.11 today and it seems appropriate for discharge. Qualifiers: Qualified Codes: N18.31 - Chronic kidney disease, stage 3a (12) DVT prophylaxis Status: Acute Assessment & Plan: Heparin DI MONAHAN MD 03/06/21 1621: Supervisory-Addendum Brief Verification & Attestation Participated in pt care: history, MDM, physical Personally performed: exam, history, MDM Care discussed with: Medical Student Procedures: n/a I did not confirm this note, please see discharge summary for my notes today. JULIAN LUNDY Mar 03, 2021 08:05 DI MONAHAN MD Mar 06, 2021 16:21
[2021-03-03] MEDS ORDERED: BRIMONIDINE 0.2% (ALPHAGAN) OPHTH SOLN 5 ML BTL OD SCH (09:00)
[2021-03-03] MEDS ORDERED: DORZOLAMIDE 2% 10 ML BTL (TRUSOPT) OD SCH (09:00)
[2021-03-03] MEDS ORDERED: LOSARTAN 50 MG (COZAAR) TAB PO SCH (09:00)
--- NOTE | 2021-03-03 09:07 | Physical Therapy Daily Note ---
PT Daily Note-Current Subjective Pt in recliner upon arrival w/ nursing in room. Pt agrees to tx and has no c/o pain. Mental Status Patient Orientation: Person, Place, Time, Situation Transfers SCALE: Activities may be completed with or without assistive devices. 8-Qznbpkffiu-ycfnykq completes the activity by him/herself with no assistance from a helper. 5-Set-up or Clean-up Assistance-helper sets up or cleans up; patient completes activity. [place] assists only prior to or following the activity. 4-Supervision or Touching Assistance-helper provides verbal cues and/or touching/steadying and/or contact guard assistance as patient completes activity. Assistance may be provided throughout the activity or intermittently. 3-Partial/Moderate Assistance-helper does LESS THAN HALF the effort. [place] lifts, holds or supports trunk or limbs, but provides less than half the effort. 2-Substantial/Maximal Assistance-helper does MORE THAN HALF the effort. [place] lifts or holds trunk or limbs and provides more than half the effort. 6-Cjkzcdjoz-ubcrha does ALL the effort. Patient does none of the effort to complete the activity. Or, the assistance of 2 or more helpers is required for the patient to complete the activity. If activity was not attempted, code reason: 7-Patient Refused. 9-Not Applicable-not attempted and the patient did not perform the activity before the current illness, exacerbation or injury. 10-Not Attempted due to Environmental Limitations-(lack of equipment, weather restraints, etc.). 88-Not Attempted due to Medical Conditions or Safety Concerns. Sit to Stand (QC): 5 Gait Training Does the Patient Walk?: Yes Distance: 200' Walk 10 feet (QC): 5 Walk 50 ft with 2 Turns(QC): 5 Walk 150 ft (QC): 5 Gait Persons Needed: 1 Gait Assistive Device: FWW Pt amb w/ FWW and SBA. Pt has shuffling gait, but overall stable. Treatments Pt sit to stand from recliner SBA, and amb 200' in hallways w/ TUBE LANCER following w/ IV. Pt returns to recliner post amb, at this time her breakfast is brought in. Pt stays in recliner and was left with all needs met, call light in hand. 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 PT Nursing Home Goals Time Frame: Mar 08, 2021 Roll Left & Right (QC): 6 Sit to Lying (QC): 6 Lying-Sitting on Side/Bed(QC): 6 Sit to Stand (QC): 5 Chair/Lyh-vr-Dfwom Xfer(QC): 5 Walk 10 feet (QC): 5 Walk 50ft with 2 Turns (QC): 5 Walk 150 ft (QC): 5 PT Plan Treatment/Plan Treatment Plan: Continue Plan of Care Treatment Plan: Bed Mobility, Education, Functional Activity José Antonio, Functional Strength, Gait, Safety, Therapeutic Exercise, Transfers Treatment Duration: Mar 08, 2021 Frequency: 6 times per week Estimated Hrs Per Day: .25 hour per day Patient and/or Family Agrees t: Yes Time/GCodes Time In: 835 Time Out: 843 Total Billed Treatment Time: 8 Total Billed Treatment 1, GT SHRUTI MARINO TUBE LANCER Mar 03, 2021 09:07
[2021-03-03] MEDS: SENNA W/DOCUSATE (SENOKOT S) TABLET PO SCH (09:08)
[2021-03-03] MEDS: ASPIRIN E.C. 81 MG (ECOTRIN) TAB PO SCH (09:08)
[2021-03-03] MEDS: polyethylene glycoL POWDER 17 GM (MIRALAX) PACK PO SCH (09:08)
[2021-03-03] MEDS: LATANOPROST 0.005% (XALATAN) OPHTH SOLN 2.5 ML OD SCH (09:10)
[2021-03-03] MEDS ORDERED: CEFU250T80 PO (09:52)
--- NOTE | 2021-03-03 09:53 | Discharge Summary ---
Discharge [facility] Discharge Medications New, Converted or Re-Newed RX: Transmitted to Pharmacy New Medications: Cefuroxime Axetil (Cefuroxime) 250 Mg Tablet 250 MG PO BID, #20 TAB 0 Refills Continued Medications: Acetaminophen (Tylenol Extra Strength) 500 Mg Tablet 1000 MG PO Q6H PRN for PAIN-MILD, TAB TAKES 2 (500MG) TABLETS Amlodipine Besylate (Amlodipine Besylate) 10 Mg Tablet 10 MG PO HS, TAB Aspirin (Aspirin EC) 81 Mg Tablet.dr 81 MG PO DAILY, TAB Brinzolamide/Brimonidine Tart (Simbrinza 1%-0.2% Eye Drops) 8 Ml Drops.susp 1 DROP OU DAILY, DROP Brinzolamide/Brimonidine Tart (Simbrinza 1%-0.2% Eye Drops) 8 Ml Drops.susp 1 DROP OD HS, DROPS Carvedilol (Carvedilol) 25 Mg Tablet 25 MG PO BID, TAB Famotidine (Famotidine) 40 Mg Tablet 40 MG PO HS, TAB Fluticasone Propionate (Flonase Allergy Relief) 9.9 Ml [place].susp 1 SPRAY NS DAILY PRN for CONGESTION, #1 EACH Glipizide (Glipizide) 10 Mg Tablet 20 MG PO DAILY PRN for BLOOD SUGAR, TAB TAKES 2 (10MG) TABLETS Glipizide (Glipizide) 10 Mg Tablet 10 MG PO HS PRN for BLOOD SUGAR, TAB Hydralazine HCl (Hydralazine HCl) 25 Mg Tablet 75 MG PO BID, TAB TAKES 3 (25MG) TABLETS Latanoprost/Pf (Latanoprost 0.005% Eye Drop) 7.5 Ml Drops 1 DROP OD DAILY, DROP Losartan Potassium (Losartan Potassium) 50 Mg Tablet 50 MG PO DAILY, TAB Montelukast Sodium (Montelukast Sodium) 10 Mg Tablet 10 MG PO HS, TAB Tizanidine HCl (Tizanidine HCl) 2 Mg Tablet 2 MG PO DAILY PRN for MUSCLE SPASMS, TAB Patient Instructions Goal/Follow Up Appt: Follow up with primary doctor within 7 days of discharge. Follow up with Dr. Bautista today as planned. Return to The [facility] For: Fever, inability to keep down medications, dizziness, headache Activity & Diet Discharge Diet: ADA Diet Activity as Tolerated: Yes DI PUTNAM MD Mar 03, 2021 09:53
[2021-03-03 10:55] VITALS: BP 169/71
[2021-03-03] MEDS ORDERED: amLODIPine 10 MG (NORVASC) TAB PO SCH (21:00)
--- NOTE | 2021-03-04 22:50 | Discharge Summary ---
Discharge Summary Hospital Course Problems/Diagnosis: (1) Acute renal failure Onset Date: ~ 02/28/2021 Status: Resolved Resolution Date/Time: 03/03/21 @ 15:58 Assessment & Plan: Resolved with IV rehydration. Qualifiers: Qualified Codes: N17.9 - Acute kidney failure, unspecified (2) Dehydration Onset Date: ~ 02/28/2021 Status: Resolved Resolution Date/Time: 03/03/21 @ 15:59 Assessment & Plan: Resolved with IV rehydration. (3) Mastoiditis of right side Onset Date: ~ 02/28/2021 Status: Acute Assessment & Plan: IV ceftriaxone. ENT was consulted and thought the patient could be discharged on 03/03. ENT was concerned about the fluid in the patients ear so an appointment was set up for the patient to come to the ENT office in [place] on 03/03 to have tubes placed in her ears. (4) Cholelithiasis Status: Acute Assessment & Plan: Surgery consulted, symptoms not thought to be related, no treatment at this time. (5) Nausea & vomiting Status: Resolved Resolution Date/Time: 03/02/21 @ 16:00 Assessment & Plan: Has not had nausea or vomitting since Monday evening. ENT was evaluated and will be seeing the patient in the ENT office. (6) Diabetes mellitus, type 2 Status: Chronic Assessment & Plan: Sliding scale insulin only initiated given vomiting and poor intake initially and MATT on glipizide at home. (7) Hypertension Status: Chronic Assessment & Plan: Blood pressure was elevated this morning. Carvedilol, amlodipine, and losartan were resumed today from her home medications when blood pressure improved. (8) Anemia Status: Chronic Assessment & Plan: Stool occult was negative. Surgery met with the patient to discuss setting up a colonoscopy. An EGD might be done as well if the colonoscopy is inconclusive. Qualifiers: Qualified Codes: N18.31 - Chronic kidney disease, stage 3a; D63.1 - Anemia in chronic kidney disease (9) GERD (gastroesophageal reflux disease) Status: Chronic Assessment & Plan: Resumed home famotidine. (10) Coronary artery disease Status: Chronic Assessment & Plan: Aspirin. Carvedilol. (11) Chronic renal insufficiency Status: Chronic Assessment & Plan: The patient's Cr was 1.43 as an outpatient in November 2020 which seems to be her baseline. Patient was at Cr 1.11 today and it seems appropriate for discharge. Qualifiers: Qualified Codes: N18.31 - Chronic kidney disease, stage 3a Hospital Course Date of Admission: Feb 28, 2021 at 11:00 Admission Diagnosis : [facility] Date of Discharge: 03/04/21 Discharge Diagnosis: See problem list Hospital Course: See problem list Labs and Pending Lab Test: Home Meds Active Cefuroxime (Cefuroxime Axetil) 250 Mg Tablet 250 Mg PO BID Reported Tizanidine HCl 2 Mg Tablet 2 Mg PO DAILY PRN Losartan Potassium 50 Mg Tablet 50 Mg PO DAILY Famotidine 40 Mg Tablet 40 Mg PO HS Montelukast Sodium 10 Mg Tablet 10 Mg PO HS Flonase Allergy Relief (Fluticasone Propionate) 9.9 Ml [place].susp 1 [place] NS DAILY PRN Latanoprost 0.005% Eye Drop (Latanoprost/Pf) 7.5 Ml Drops 1 Drop OD DAILY Simbrinza 1%-0.2% Eye Drops (Brinzolamide/Brimonidine Tart) 8 Ml Drops.susp 1 Drop OD HS Glipizide 10 Mg Tablet 10 Mg PO HS PRN Simbrinza 1%-0.2% Eye Drops (Brinzolamide/Brimonidine Tart) 8 Ml Drops.susp 1 Drop OU DAILY Tylenol Extra Strength (Acetaminophen) 500 Mg Tablet 1,000 Mg PO Q6H PRN TAKES 2 (500MG) TABLETS Aspirin EC (Aspirin) 81 Mg Tablet.dr 81 Mg PO DAILY Glipizide 10 Mg Tablet 20 Mg PO DAILY PRN TAKES 2 (10MG) TABLETS Carvedilol 25 Mg Tablet 25 Mg PO BID Amlodipine Besylate 10 Mg Tablet 10 Mg PO HS Hydralazine HCl 25 Mg Tablet 75 Mg PO BID TAKES 3 (25MG) TABLETS Assessment/Pt DC Instructions Follow up with ENT same day as d/c. Follow up with primary provider within a week of discharge. Discharge Diet: ADA Diet Activity as Tolerated: Yes Discharge Physical Examination Allergies: Coded Allergies: morphine (Verified Adverse Reaction, Intermediate, sedation, 02/28/21) Uncoded Allergies: TETANUS VACCINATION (Adverse Reaction, Intermediate, swelling, 08/21/18) General Appearance: No Apparent Distress, WD/WN Respiratory: Lungs Clear, Normal Breath Sounds Cardiovascular: Regular Rate, Rhythm, No Murmur Neurologic/Psychiatric: Alert, Normal Mood/Affect DI PUTNAM MD Mar 04, 2021 22:50
== END 2021-03-03 10:55 | disposition home or self-care (01) | DRG 683 ==
LOC: EDUNIT# 10:04 → ER 10:09 → 4TH 11:00
PROVIDERS: ADMIT Internal Medicine; ATTEND Family Medicine
DX: N17.9 Acute kidney failure, unspecified (principal); H70.001 Acute mastoiditis without complications, right ear; I13.0 Hypertensive heart and chronic kidney disease with heart failure and stage 1 through stage 4 chronic kidney disease, or unspecified chronic kidney disease; I50.40 Unspecified combined systolic (congestive) and diastolic (congestive) heart failure; E86.0 Dehydration; H65.93 Unspecified nonsuppurative otitis media, bilateral; D64.9 Anemia, unspecified; E11.22 Type 2 diabetes mellitus with diabetic chronic kidney disease; Z20.822 Contact with and (suspected) exposure to COVID-19; N18.9 Chronic kidney disease, unspecified; K80.80 Other cholelithiasis without obstruction; R11.2 Nausea with vomiting, unspecified; E88.09 Other disorders of plasma-protein metabolism, not elsewhere classified; H90.6 Mixed conductive and sensorineural hearing loss, bilateral; I25.10 Atherosclerotic heart disease of native coronary artery without angina pectoris; E78.00 Pure hypercholesterolemia, unspecified; E78.5 Hyperlipidemia, unspecified; H40.9 Unspecified glaucoma; M17.0 Bilateral primary osteoarthritis of knee; Z79.4 Long term (current) use of insulin; Z87.891 Personal history of nicotine dependence; Z91.81 History of falling; Z95.1 Presence of aortocoronary bypass graft; Z79.82 Long term (current) use of aspirin; T37.8X5A Adverse effect of other specified systemic anti-infectives and antiparasitics, initial encounter; Z88.6 Allergy status to analgesic agent; Z88.7 Allergy status to serum and vaccine
CPT/HCPCS: 36415; 51701; 70450; 71045; 72170; 80048; 80053; 81000; 82010; 82150; 82274; 82947; 83036; 83690; 83735; 84145; 84443; 84484; 85025; 85027; 85610; 85652; 85730; 86141; 87636; 93005; 93041

== ENCOUNTER → 2021-09-27 | Outpatient (CLI) | payer MEDICARE ==
[~2021-09-27] MED LIST changes: +BRIN8DRO OD; +CEFU250T80 PO; +FAMO40TA6 PO; +FLUT9.9S NS; +LATA7.5D OD; +LOSA50TA63 PO; +MONT-40 PO; +TIZA-169 PO
== END ==
LOC: CARD 11:00
PROVIDERS: ATTEND Internal Medicine Cardiovascular Disease
DX: R00.8 Other abnormalities of heart beat (principal)
CPT/HCPCS: 93225; 93226

== ENCOUNTER 2021-10-24 13:55 | Emergency (ER) | payer MEDICARE ==
[~2021-10-24] VITALS: Ht 154.9 cm; Wt 59.8 kg
--- NOTE | 2021-10-24 13:58 | ED Neurological Problem ---
General Stated Complaint: SLURRED SPEECH; AMS History of Present Illness Date Seen by Provider: October 24, 2021 Time Seen by Provider: 13:57 Initial Comments 76-year-old female brought in by family because she seems like she is having some difficulty getting through her sentences when she is speaking. They describe it as slurred however is more that she is just having difficulty get through them. Patient reports that for the last couple days she is just felt terrible. She is got cough, some generalized malaise, generalized body aches seems just a little off per family. Patient's had a little bit of diarrhea. Patient reports that she feels really warm and febrile with some chills. Denies any chest pain. That she does not have any focal weakness. Occasional nausea but no vomiting. Allergies and Home Medications Allergies Coded Allergies: morphine (Verified Adverse Reaction, Intermediate, sedation, 02/28/21) Uncoded Allergies: TETANUS VACCINATION (Adverse Reaction, Intermediate, swelling, 08/21/18) Patient Home Medication List Home Medication List Reviewed: Yes Acetaminophen (Tylenol Extra Strength) 500 Mg Tablet, 1,000 MG PO Q6H PRN for PAIN-MILD, (Reported) Entered as Reported by: HEATHER PEARL on 08/21/18 1633 Amlodipine Besylate (Amlodipine Besylate) 10 Mg Tablet, 10 MG PO HS, (Reported) Entered as Reported by: HEATHER PEARL on 08/21/18 1633 Aspirin (Aspirin EC) 81 Mg Tablet.dr, 81 MG PO DAILY, (Reported) Entered as Reported by: HEATHER PEARL on 08/21/18 1633 Brinzolamide/Brimonidine Tart (Simbrinza 1%-0.2% Eye Drops) 8 Ml Drops.susp, 1 DROP OU DAILY, (Reported) Entered as Reported by: SOFIA SMITH on 08/27/19 1153 Brinzolamide/Brimonidine Tart (Simbrinza 1%-0.2% Eye Drops) 8 Ml Drops.susp, 1 DROP OD HS, (Reported) Entered as Reported by: RON SMITH on 03/01/21 1013 Carvedilol (Carvedilol) 25 Mg Tablet, 25 MG PO BID, (Reported) Entered as Reported by: HEATHER PEARL on 08/21/18 1633 Cefuroxime Axetil (Cefuroxime) 250 Mg Tablet, 250 MG PO BID Prescribed by: DI PUTNAM on 03/03/21 0952 Famotidine (Famotidine) 40 Mg Tablet, 40 MG PO HS, (Reported) Entered as Reported by: RON SMITH on 03/01/21 1013 Fluticasone Propionate (Flonase Allergy Relief) 9.9 Ml [place].susp, 1 SPRAY NS DAILY PRN for CONGESTION, (Reported) Entered as Reported by: RON SMITH on 03/01/21 1013 Glipizide (Glipizide) 10 Mg Tablet, 20 MG PO DAILY PRN for BLOOD SUGAR, (Reported) Entered as Reported by: HEATHER PEARL on 08/21/18 163 Glipizide (Glipizide) 10 Mg Tablet, 10 MG PO HS PRN for BLOOD SUGAR, (Reported) Entered as Reported by: RON SMITH on 03/01/21 101 Hydralazine HCl (Hydralazine HCl) 25 Mg Tablet, 75 MG PO BID, (Reported) Entered as Reported by: HEATHER PEARL on 08/21/18 1633 Latanoprost/Pf (Latanoprost 0.005% Eye Drop) 7.5 Ml Drops, 1 DROP OD DAILY, (Reported) Entered as Reported by: RON SMITH on 03/01/21 101 Losartan Potassium (Losartan Potassium) 50 Mg Tablet, 50 MG PO DAILY, (Reported) Entered as Reported by: RON SMITH on 03/01/21 101 Montelukast Sodium (Montelukast Sodium) 10 Mg Tablet, 10 MG PO HS, (Reported) Entered as Reported by: RON SMITH on 03/01/21 101 Tizanidine HCl (Tizanidine HCl) 2 Mg Tablet, 2 MG PO DAILY PRN for MUSCLE SPASMS, (Reported) Entered as Reported by: RON SMITH on 03/01/21 101 Review of Systems Review of Systems Constitutional: fever, malaise, weakness Eyes: No Symptoms Reported Respiratory: cough, short of breath Cardiovascular: No chest pain, No palpitations Gastrointestinal: No abdominal pain, No nausea, No vomiting Genitourinary: no symptoms reported Musculoskeletal: no symptoms reported Skin: no symptoms reported Psychiatric/Neurological: No Symptoms Reported Endocrine: No Symptoms Reported Hematologic/Lymphatic: No Symptoms Reported Physical Exam Vital Signs Vital Signs - First Documented 10/24/21 14:00 Temp 37.9 Pulse 87 Resp 24 B/P (MAP) 143/57 (85) Pulse Ox 92 O2 Delivery Nasal Cannula Capillary Refill : Height, Weight, BMI Height: '" Weight: lbs. oz. kg; BMI Method: General Appearance: mild distress Neck: full range of motion, supple Respiratory: no respiratory distress, no accessory muscle use, decreased breath sounds (mild bases ), crackles (RLL ), other (Get some mild dysmetric with activity or talking) Cardiovascular: normal peripheral pulses, regular rate, rhythm Gastrointestinal: non tender, soft Extremities: normal range of motion Neurologic/Psychiatric: alert, normal mood/affect, oriented x 3 [place] Nerves: normal speech Motor/Sensory: other (generalized weakness ) Skin: normal color, warm/dry Focused Exam Lactate Level 10/24/21 14:10: Lactic Acid Level 1.47 Lactic Acid Level Laboratory Tests Test 10/24/21 14:10 Lactic Acid Level 1.47 MMOL/L (0.50-2.00) Progress/Results/Core Measures Results/Orders Lab Results Laboratory Tests Test 10/24/21 14:10 Range/Units White Blood Count 17.8 H 4.3-11.0 10^3/uL Red Blood Count 3.01 L 3.80-5.11 10^6/uL Hemoglobin 9.1 L 11.5-16.0 g/dL Hematocrit 27 L 35-52 % Mean Corpuscular Volume 91 80-99 fL Mean Corpuscular Hemoglobin 30 25-34 pg Mean Corpuscular Hemoglobin Concent 33 32-36 g/dL Red Cell Distribution Width 14.6 H 10.0-14.5 % Platelet Count 173 130-400 10^3/uL Mean Platelet Volume 10.6 9.0-12.2 fL Immature Granulocyte % (Auto) 0 % Neutrophils (%) (Auto) 87 H 42-75 % Lymphocytes (%) (Auto) 8 L 12-44 % Monocytes (%) (Auto) 5 0-12 % Eosinophils (%) (Auto) 0 0-10 % Basophils (%) (Auto) 0 0-10 % Neutrophils # (Auto) 15.5 H 1.8-7.8 10^3/uL Lymphocytes # (Auto) 1.4 1.0-4.0 10^3/uL Monocytes # (Auto) 0.8 0.0-1.0 10^3/uL Eosinophils # (Auto) 0.0 0.0-0.3 10^3/uL Basophils # (Auto) 0.0 0.0-0.1 10^3/uL Immature Granulocyte # (Auto) 0.1 0.0-0.1 10^3/uL Neutrophils % (Manual) 86 % Lymphocytes % (Manual) 10 % Monocytes % (Manual) 1 % Band Neutrophils 3 % Sodium Level 139 135-145 MMOL/L Potassium Level 4.0 3.6-5.0 MMOL/L Chloride Level 107 98-107 MMOL/L Carbon Dioxide Level 20 L 21-32 MMOL/L Anion Gap 12 5-14 MMOL/L Blood Urea Nitrogen 32 H 7-18 MG/DL Creatinine 1.56 H 0.60-1.30 MG/DL Estimat Glomerular Filtration Rate 34 BUN/Creatinine Ratio 21 Glucose Level 139 H 70-105 MG/DL Lactic Acid Level 1.47 0.50-2.00 MMOL/L Calcium Level 8.4 L 8.5-10.1 MG/DL Corrected Calcium 9.0 8.5-10.1 MG/DL Total Bilirubin 0.7 0.1-1.0 MG/DL Aspartate Amino Transf (AST/SGOT) 28 5-34 U/L Alanine Aminotransferase (ALT/SGPT) 17 0-55 U/L Alkaline Phosphatase 95 40-136 U/L C-Reactive Protein 3.34 H <0.50 MG/DL Total Protein 7.2 6.4-8.2 GM/DL Albumin 3.2 3.2-4.5 GM/DL Influenza Type A Antigen NEGATIVE NEGATIVE Influenza Type B Antigen NEGATIVE NEGATIVE My Orders Orders - DIAMOND,IMMANUEL L DO Cbc With Automated Diff (10/24/21 14:04) Comprehensive Metabolic Panel (10/24/21 14:04) Lactic Acid Analyzer (10/24/21 14:04) Ua Culture If Indicated (10/24/21 14:04) Blood Culture (10/24/21 14:04) Crp Fs (10/24/21 14:04) Influenza A & B Antigens (10/24/21 14:04) Chest 1 View Ap/Pa Only (10/24/21 14:04) Acetaminophen Tablet (Tylenol Tablet) (10/24/21 14:30) Manual Differential (10/24/21 14:10) Azithromycin Injection (Zithromax Inject (10/24/21 14:31) Ceftriaxone 1 Gm Pre-Mix (Rocephin 1 Gm (10/24/21 14:31) Medications Given in ED Current Medications Medications Dose Ordered Sig/[place] Route Start Time Stop Time Status Last Admin Dose Admin Acetaminophen 500 mg ONCE ONCE PO 10/24/21 14:30 10/24/21 14:31 DC 10/24/21 14:48 500 MG Vital Signs/I&O 10/24/21 14:00 Temp 37.9 Pulse 87 Resp 24 B/P (MAP) 143/57 (85) Pulse Ox 92 O2 Delivery Nasal Cannula Progress Progress Note : Progress Note Patient with a right lower lobe pneumonia. Patient is feeling significantly better following placing some oxygen. Patient no longer gets her a couple sentences and needs to take a break to get her breath. Patient was given Rocephin and azithromycin in the ER for her community-acquired pneumonia. Patient to be transferred to [facility] to be admitted to Dr. Gonzalez. Patient stable upon transfer Diagnostic Imaging Diagonstic Imaging: Xray Plain Films/CT/US/NM/MRI: chest Comments Date of Exam:10/24/21 CHEST 1 VIEW AP/PA ONLY INDICATION: Cough and shortness of breath. TECHNIQUE: Single view chest 2:16 PM. CORRELATION STUDY: 02/28/2021 FINDINGS: Poststernotomy change. Superior sternal wires are fragmented but stable. Cardiac enlargement prominent mediastinum. Vasculature overall increased. Scattered bilateral pulmonary infiltrate-like opacities noted most pronounced at the right lower lung field. Probable small effusions. IMPRESSION: 1. Cardiac enlargement and pulmonary vascular congestion and perihilar edema suggestive of fluid overload or failure. 2. Asymmetric bilateral pulmonary parenchymal opacities most pronounced right lung base. While may reflect asymmetric edema does raise concern for potential multilobe pneumonia but most pronounced at the right lung base. Departure Impression Primary Impression: Right lower lobe pneumonia Qualified Codes: J18.9 - Pneumonia, unspecified organism Disposition: 62 DISC/XFER TO IRF Condition: Stable Transfer Transfer Reason: Patient preference Time Spoke to Accepting Phy: 15:40 Transfer Facility: [facility] Method of Transfer: EMS IMMANUEL DIAMOND DO October 24, 2021 13:58
[2021-10-24 14:25] LABS: BASOPHILS % (AUTO) 0 % (0-10); EOSINOPHILS % (AUTO) 0 % (0-10); HEMATOCRIT 27 % (35-52); HEMOGLOBIN 9.1 g/dL (11.5-16.0); LYMPHOCYTES # (AUTO) 1.4 10^3/uL (1.0-4.0); LYMPHOCYTES % (AUTO) 8 % (12-44); MEAN CORPUSCULAR HEMOGLOBIN 30 pg (25-34); MEAN CORPUSCULAR HGB CONC 33 g/dL (32-36); MEAN CORPUSCULAR VOLUME 91 fL (80-99); MEAN PLATELET VOLUME 10.6 fL (9.0-12.2); MONOCYTES # (AUTO) 0.8 10^3/uL (0.0-1.0); MONOCYTES % (AUTO) 5 % (0-12); NEUTROPHILS # (AUTO) 15.5 10^3/uL (1.8-7.8); NEUTROPHILS % (AUTO) 87 % (42-75); PLATELET COUNT 173 10^3/uL (130-400); WHITE BLOOD COUNT 17.8 10^3/uL (4.3-11.0)
[2021-10-24] MEDS ORDERED: ACETAMINOPHEN 500 MG TAB (TYLENOL) PO ONE (14:30)
[2021-10-24] MEDS ORDERED: AZITHROMYCIN INJECTION 500 MG in NS (IVPB) 250 ML IV STA (14:31)
[2021-10-24] MEDS ORDERED: cefTRIAXone 1 GM PRE-MIX 50 ML IV STA (14:31)
--- NOTE | 2021-10-24 14:36 | Diagnostic Imaging Report ---
INDICATION: Cough and shortness of breath. TECHNIQUE: Single view chest 2:16 PM. CORRELATION STUDY: 02/28/2021 FINDINGS: Poststernotomy change. Superior sternal wires are fragmented but stable. Cardiac enlargement prominent mediastinum. Vasculature overall increased. Scattered bilateral pulmonary infiltrate-like opacities noted most pronounced at the right lower lung field. Probable small effusions. IMPRESSION: 1. Cardiac enlargement and pulmonary vascular congestion and perihilar edema suggestive of fluid overload or failure. 2. Asymmetric bilateral pulmonary parenchymal opacities most pronounced right lung base. While may reflect asymmetric edema does raise concern for potential multilobe pneumonia but most pronounced at the right lung base. Dictated by: Dictated on workstation # [id number]
[2021-10-24 14:42] LABS: CREATININE SERUM 1.56 MG/DL (0.60-1.30)
[2021-10-24 14:43] LABS: ALBUMIN 3.2 GM/DL (3.2-4.5); BILIRUBIN,TOTAL 0.7 MG/DL (0.1-1.0); CALCIUM 8.4 MG/DL (8.5-10.1); TOTAL PROTEIN 7.2 GM/DL (6.4-8.2)
[2021-10-24 15:40] LABS: BAND NEUTROPHILS 3 %; LYMPHOCYTES % (MANUAL) 10 %; NEUTROPHILS % (MANUAL) 86 %
[2021-10-24 15:41] LABS: MONOCYTES % (MANUAL) 1 %
[2021-10-24] MEDS ORDERED: LACTATED RINGERS 1,000 ML IV STA (15:43)
[2021-10-24 16:38] VITALS: BP 134/56
== END 2021-10-24 16:35 | disposition short-term general hospital (02) ==
LOC: EDUNIT# 13:55 → ER FS 13:57
DX: J18.9 Pneumonia, unspecified organism (principal)
CPT/HCPCS: 36415; 71045; 80053; 83605; 85007; 85027; 86141; 87040; 87804

== ENCOUNTER 2021-11-10 17:31 | Emergency (ER) | payer MEDICARE ==
[2021-11-10 17:59] LABS: BASOPHILS % (AUTO) 0 % (0-10); EOSINOPHILS % (AUTO) 0 % (0-10); HEMATOCRIT 29 % (35-52); HEMOGLOBIN 9.4 g/dL (11.5-16.0); LYMPHOCYTES # (AUTO) 1.9 10^3/uL (1.0-4.0); LYMPHOCYTES % (AUTO) 10 % (12-44); MEAN CORPUSCULAR HEMOGLOBIN 30 pg (25-34); MEAN CORPUSCULAR HGB CONC 33 g/dL (32-36); MEAN CORPUSCULAR VOLUME 92 fL (80-99); MEAN PLATELET VOLUME 10.4 fL (9.0-12.2); MONOCYTES # (AUTO) 0.9 10^3/uL (0.0-1.0); MONOCYTES % (AUTO) 4 % (0-12); NEUTROPHILS # (AUTO) 16.8 10^3/uL (1.8-7.8); NEUTROPHILS % (AUTO) 85 % (42-75); PLATELET COUNT 274 10^3/uL (130-400); WHITE BLOOD COUNT 19.8 10^3/uL (4.3-11.0)
[2021-11-10] MEDS ORDERED: FUROSEMIDE 40 MG/4 ML INJ (LASIX) IVP ONE (18:00)
--- NOTE | 2021-11-10 18:04 | Diagnostic Imaging Report ---
INDICATION: Shortness of breath. EXAMINATION: Frontal chest was obtained at 5:357 p.m. COMPARISON: 10/24/2021. FINDINGS: There is cardiomegaly and post sternotomy change with central vascular congestion and interstitial edema. The right infrahilar infiltrate is improved compared to the prior study. There is no pneumothorax or gross pleural fluid. IMPRESSION: Cardiomegaly with central vascular congestion with chronic interstitial edema. Consolidation in right base has improved compared to the prior study. Dictated by: Dictated on workstation # [id number]
[2021-11-10 18:11] LABS: PROTHROMBIN TIME PATIENT 13.9 SEC (12.2-14.7)
--- NOTE | 2021-11-10 18:14 | ED Respiratory ---
General Chief Complaint: Respiratory Problems Stated Complaint: SOA Nursing Triage Note: PTS OXYGEN TANK RAN OUT AT SOME POINT WHILE AT THE CLINIC AND HER OXYGEN SATS WERE LOW AND SHE WAS BROUGHT TO THE ER. SHE REPORTS SOME SOB AT HOME SO SHE DROVE TO THE CLINIC. SHE HAS NO IDEA WHEN HER PORTABLE TANK RAN OUT OF OXYGEN. SATS 97% ON HER NORMAL 2L. Source: patient Exam Limitations: no limitations History of Present Illness Date Seen by Provider: November 10, 2021 Time Seen by Provider: 17:34 Initial Comments 76-year-old female with past medical history of diabetes, hypertension, CAD, and chronic hypoxic respiratory failure on 2 L baseline oxygen coming in feeling more short of breath. She previously was not on oxygen prior to last month. She was admitted to the hospital early October for pneumonia. She is still taking cefdinir and says she has roughly 3 days left. She presented to the clinic today to be seen because she is still feeling short of breath, and only brought 1 oxygen tank with her. Unfortunately, that did not have any providers to see her, and they only had mental health today. Her oxygen tank ran out and she began feeling more short of breath so she presented to the ER. Says she had a mild cough which is slightly improving. Denies any chest pain, fever, abdominal pain, nausea, vomiting, diarrhea, focal weakness or numbness, rash, or any other concerns. She believes she takes a water pill, says she is never had a blood clot, and says she does not take any blood thinners. Allergies and Home Medications Allergies Coded Allergies: morphine (Verified Adverse Reaction, Intermediate, sedation, 02/28/21) Uncoded Allergies: TETANUS VACCINATION (Adverse Reaction, Intermediate, swelling, 08/21/18) Patient Home Medication List Home Medication List Reviewed: Yes Acetaminophen (Tylenol Extra Strength) 500 Mg Tablet, 1,000 MG PO Q6H PRN for PAIN-MILD, (Reported) Entered as Reported by: HEATHER PEARL on 08/21/18 1633 Amlodipine Besylate (Amlodipine Besylate) 10 Mg Tablet, 10 MG PO HS, (Reported) Entered as Reported by: HEATHER PEARL on 08/21/18 1633 Aspirin (Aspirin EC) 81 Mg Tablet.dr, 81 MG PO DAILY, (Reported) Entered as Reported by: HEATHER PEARL on 08/21/18 1633 Brinzolamide/Brimonidine Tart (Simbrinza 1%-0.2% Eye Drops) 8 Ml Drops.susp, 1 DROP OU DAILY, (Reported) Entered as Reported by: SOFIA SMITH on 08/27/19 1153 Brinzolamide/Brimonidine Tart (Simbrinza 1%-0.2% Eye Drops) 8 Ml Drops.susp, 1 DROP OD HS, (Reported) Entered as Reported by: RON SMITH on 03/01/21 1013 Carvedilol (Carvedilol) 25 Mg Tablet, 25 MG PO BID, (Reported) Entered as Reported by: HEATHER PEARL on 08/21/18 1633 Cefuroxime Axetil (Cefuroxime) 250 Mg Tablet, 250 MG PO BID Prescribed by: DI PUTNAM on 03/03/21 0952 Famotidine (Famotidine) 40 Mg Tablet, 40 MG PO HS, (Reported) Entered as Reported by: RON SMITH on 03/01/21 1013 Fluticasone Propionate (Flonase Allergy Relief) 9.9 Ml Everest.susp, 1 SPRAY NS DAILY PRN for CONGESTION, (Reported) Entered as Reported by: RON SMITH on 03/01/21 1013 Glipizide (Glipizide) 10 Mg Tablet, 20 MG PO DAILY PRN for BLOOD SUGAR, (Reported) Entered as Reported by: HEATHER PEARL on 08/21/18 1633 Glipizide (Glipizide) 10 Mg Tablet, 10 MG PO HS PRN for BLOOD SUGAR, (Reported) Entered as Reported by: RON SMITH on 03/01/21 1013 Hydralazine HCl (Hydralazine HCl) 25 Mg Tablet, 75 MG PO BID, (Reported) Entered as Reported by: HEATHER PEARL on 08/21/18 1633 Latanoprost/Pf (Latanoprost 0.005% Eye Drop) 7.5 Ml Drops, 1 DROP OD DAILY, (Reported) Entered as Reported by: RON SMITH on 03/01/21 1013 Losartan Potassium (Losartan Potassium) 50 Mg Tablet, 50 MG PO DAILY, (Reported) Entered as Reported by: RON SMITH on 03/01/21 1013 Montelukast Sodium (Montelukast Sodium) 10 Mg Tablet, 10 MG PO HS, (Reported) Entered as Reported by: RON SMITH on 03/01/21 1013 Tizanidine HCl (Tizanidine HCl) 2 Mg Tablet, 2 MG PO DAILY PRN for MUSCLE SPASMS, (Reported) Entered as Reported by: RON SMITH on 03/01/21 1013 Review of Systems Review of Systems Constitutional: No chills, No fever EENTM: No blurred vision Respiratory: cough, short of breath Cardiovascular: No chest pain Gastrointestinal: No abdominal pain, No nausea, No vomiting Genitourinary: no symptoms reported Musculoskeletal: no symptoms reported Skin: no symptoms reported Psychiatric/Neurological: No Symptoms Reported Hematologic/Lymphatic: No Symptoms Reported Immunological/Allergic: no symptoms reported All Other Systems Reviewed Negative Unless Noted: Yes Past Emoekaf-Tsaubd-Qkhfxh Hx Patient Social History Tobacco Use?: Yes Tobacco type used: Cigarettes Smoking Status: Former Smoker Use of E-Cig and/or Vaping dev: No Substance use?: No Alcohol Use?: No Pt feels they are or have been: No Immunizations Up To Date First/Initial COVID19 Vaccinat: August 2020 Second COVID19 Vaccination Dinesh: September 2020 Third COVID19 Vaccination Date: August 2020 Seasonal Allergies Seasonal Allergies: No Past Medical History Surgery/Hospitalization HX: DM, CAD Surgeries: Yes Abdominal, CABG, Orthopedic, Tubal Ligation Respiratory: No Cardiac: Yes Coronary Artery Disease, High Cholesterol, Hypertension Neurological: No MANAGER ANALYTICAL History: Menopausal Genitourinary: No Bladder Infection Gastrointestinal: Yes (GALLSTONES NOTED ON CT; KNOWN HERNIA-NO SURGERY; kidney disease) Abdominal Hernia Musculoskeletal: Yes Arthritis Endocrine: Yes Diabetes, Insulin dep HEENT: Yes Glaucoma Loss of Vision: Denies Hearing Impairment: Hard of Hearing Cancer: No Psychosocial: No Integumentary: No Blood Disorders: No Family Medical History Heart Disease, Lung Disease, Stroke Physical Exam Vital Signs - First Documented Capillary Refill : Less Than 3 Seconds Height: 4'11.00" Weight: 156lbs. 6.0oz. [id number]; 24.00 BMI Method:Stated General Appearance: WD/WN, no apparent distress Eyes: Bilateral Eye Normal Inspection HEENT: PERRL/EOMI, normal ENT inspection, pharynx normal Neck: non-tender, full range of motion, supple, normal inspection Respiratory: chest non-tender, no respiratory distress, no accessory muscle use, crackles Cardiovascular: no murmur, tachycardia Gastrointestinal: normal bowel sounds, non tender, soft; No distended, No guarding, No rebound Extremities: normal range of motion, non-tender, no calf tenderness, normal capillary refill, pedal edema (2+) Neurologic/Psychiatric: no motor/sensory deficits, alert, normal mood/affect Skin: normal color, warm/dry Lymphatic: no adenopathy Progress/Results/Core Measures Suspected Sepsis SIRS Temperature: Pulse: 123 Respiratory Rate: 16 Laboratory Tests 11/10/21 17:52: White Blood Count 19.8H Blood Pressure 154 /76 Mean: 102 Laboratory Tests 11/10/21 17:52: Creatinine 1.71H, INR Comment 1.0, Platelet Count 274, Total Bilirubin 0.6 Results/Orders Lab Results Laboratory Tests Test 11/10/21 17:52 11/10/21 19:19 Range/Units White Blood Count 19.8 H 4.3-11.0 10^3/uL Red Blood Count 3.10 L 3.80-5.11 10^6/uL Hemoglobin 9.4 L 11.5-16.0 g/dL Hematocrit 29 L 35-52 % Mean Corpuscular Volume 92 80-99 fL Mean Corpuscular Hemoglobin 30 25-34 pg Mean Corpuscular Hemoglobin Concent 33 32-36 g/dL Red Cell Distribution Width 14.7 H 10.0-14.5 % Platelet Count 274 130-400 10^3/uL Mean Platelet Volume 10.4 9.0-12.2 fL Immature Granulocyte % (Auto) 1 % Neutrophils (%) (Auto) 85 H 42-75 % Lymphocytes (%) (Auto) 10 L 12-44 % Monocytes (%) (Auto) 4 0-12 % Eosinophils (%) (Auto) 0 0-10 % Basophils (%) (Auto) 0 0-10 % Neutrophils # (Auto) 16.8 H 1.8-7.8 10^3/uL Lymphocytes # (Auto) 1.9 1.0-4.0 10^3/uL Monocytes # (Auto) 0.9 0.0-1.0 10^3/uL Eosinophils # (Auto) 0.0 0.0-0.3 10^3/uL Basophils # (Auto) 0.0 0.0-0.1 10^3/uL Immature Granulocyte # (Auto) 0.1 0.0-0.1 10^3/uL Neutrophils % (Manual) 75 % Lymphocytes % (Manual) 8 % Monocytes % (Manual) 3 % Eosinophils % (Manual) 0 % Basophils % (Manual) 0 % Band Neutrophils 14 % Platelet Estimate NORMAL Macrocytosis 1+ Prothrombin Time 13.9 12.2-14.7 SEC INR Comment 1.0 0.8-1.4 Activated Partial Thromboplast Time 38 H 24-35 SEC D-Dimer 3.35 H 0.00-0.49 UG/ML Sodium Level 137 135-145 MMOL/L Potassium Level 4.6 3.6-5.0 MMOL/L Chloride Level 102 98-107 MMOL/L Carbon Dioxide Level 20 L 21-32 MMOL/L Anion Gap 15 H 5-14 MMOL/L Blood Urea Nitrogen 36 H 7-18 MG/DL Creatinine 1.71 H 0.60-1.30 MG/DL Estimat Glomerular Filtration Rate 31 BUN/Creatinine Ratio 21 Glucose Level 115 H 70-105 MG/DL Calcium Level 8.8 8.5-10.1 MG/DL Corrected Calcium 9.1 8.5-10.1 MG/DL Total Bilirubin 0.6 0.1-1.0 MG/DL Aspartate Amino Transf (AST/SGOT) 26 5-34 U/L Alanine Aminotransferase (ALT/SGPT) 14 0-55 U/L Alkaline Phosphatase 99 40-136 U/L Troponin I < 0.30 <0.30 NG/ML Pro-B-Type Natriuretic Peptide 5993.0 H <75.0 PG/ML Total Protein 8.0 6.4-8.2 GM/DL Albumin 3.6 3.2-4.5 GM/DL My Orders Orders - FELICITAS JAIN MD Cbc With Automated Diff (11/10/21 17:42) Chest 1 View Ap/Pa Only (11/10/21 17:42) Ekg Tracing (11/10/21 17:42) Comprehensive Metabolic Panel (11/10/21 17:42) Protime With Inr (11/10/21 17:42) Partial Thromboplastin Time (11/10/21 17:42) O2 (11/10/21 17:42) Monitor-Rhythm Ecg Trace Only (11/10/21 17:42) Ed Iv/Invasive Line Start (11/10/21 17:42) Fibrin Degradation Products (11/10/21 17:42) Troponin I Fs (11/10/21 17:42) Probnp Fs (11/10/21 17:42) Furosemide Injection (Lasix Injection) (11/10/21 18:00) Manual Differential (11/10/21 17:52) Iohexol Injection (Omnipaque 350 Mg/Ml 1 (11/10/21 18:45) Received Contrast (Hold Metformin- Contr (11/10/21 18:45) Ns (Ivpb) (Sodium Chloride 0.9% Ivpb Bag (11/10/21 18:45) Ct Angio Chest W (11/10/21 18:34) Covid 19 Inhouse Test (11/10/21 19:09) Influenza A & B Antigens (11/10/21 19:09) Medications Given in ED Current Medications Medications Dose Ordered Sig/[place] Route Start Time Stop Time Status Last Admin Dose Admin Furosemide 40 mg ONCE ONCE IVP 11/10/21 18:00 11/10/21 18:01 DC 11/10/21 18:01 40 MG Iohexol 100 ml ONCE ONCE IV 11/10/21 18:45 11/10/21 18:46 DC 11/10/21 19:00 80 ML Sodium Chloride 100 ml ONCE ONCE IV 11/10/21 18:45 11/10/21 18:46 DC 11/10/21 19:00 100 ML Vital Signs/I&O 11/10/21 11/10/21 11/10/21 17:35 17:35 17:35 Temp 37.5 Pulse 123 Resp 16 B/P (MAP) 154/76 (102) Pulse Ox 97 97 O2 Delivery Nasal Cannula Nasal Cannula Nasal Cannula O2 Flow Rate 2.00 2.00 2.00 Capillary Refill : Less Than 3 Seconds Blood Pressure Mean: 102 Progress Note : Progress Note 76-year-old female with above history coming in feeling short of breath in the setting of running out of her oxygen. ABCs were intact and vitals were stable on presentation when she was placed back on her baseline 2 L oxygen. Bilateral crackles on lung exam. Chest x-ray looks consistent with pulmonary edema. Tr oponin is negative but BNP is almost 6000 which is the highest its ever been here. I gave her an IV dose of Lasix. D-dimer also elevated so CTA was performed. This was negative for blood clot. She does have some opacities, which could be the clearing pneumonia, I will put her on a course of is azithromycin just in case there is a new process. I told her to double her Lasix and begin taking potassium. Her heart rate continues to be around 120 sinus. I offered the patient admission to the hospital, but she says she would like to go home as she feels back to her baseline. I told her if she feels worse at all she needs to call 911 and come right back to the ER. COVID test sent and is pending. She says she has a stress test tomorrow so she will have follow-up with a provider. ECG Initial ECG Impression Date: November 10, 2021 Initial ECG Impression Time: 17:45 Initial ECG Rate: 123 Initial ECG Rhythm: Normal Sinus Comment Narrow QRS, borderline left axis deviation, low voltage in the leads, no significant ST changes or T wave abnormalities, appears similar to prior EKG Diagnostic Imaging Diagonstic Imaging: Xray Plain Films/CT/US/NM/MRI: chest Comments [facility]. [place], [place] NAME: MAURICIO SCOTT I [facility] REC#: [id number] PT STATUS: REG ER : 1945 PHYSICIAN: FELICITAS JAIN MD ADMIT DATE: 11/10/21/ER FS Draft Date of Exam:11/10/21 CHEST 1 VIEW AP/PA ONLY INDICATION: Shortness of breath. EXAMINATION: Frontal chest was obtained at 5:357 p.m. COMPARISON: 10/24/2021. FINDINGS: There is cardiomegaly and post sternotomy change with central vascular congestion and interstitial edema. The right infrahilar infiltrate is improved compared to the prior study. There is no pneumothorax or gross pleural fluid. IMPRESSION: Cardiomegaly with central vascular congestion with chronic interstitial edema. Consolidation in right base has improved compared to the prior study. Dictated on workstation # [id number] Dict: 11/10/21 1800 Trans: 11/10/21 1801 [facility] [id number] Interpreted by: FABIAN BARTON MD Electronically signed by: [facility]. [place], [place] NAME: MAURICIO SCOTT I [facility] REC#: [id number] PT STATUS: REG ER : 1945 PHYSICIAN: FELICITAS JAIN MD ADMIT DATE: 11/10/21/ER FS Signed Date of Exam:11/10/21 CT ANGIO CHEST W INDICATION: Shortness of breath, positive d-dimer. TECHNIQUE: Multiple contiguous axial images were obtained through the chest after uneventful bolus administration of intravenous contrast. 3D reconstructed CTA MIP acquisitions were also performed. Auto Exposure Controls were utilized during the CT exam to meet ALARA standards for radiation dose reduction. COMPARISON: There is no prior chest CT for comparison. FINDINGS: The pulmonary parenchymal vessels are well-opacified with no CT evidence of pulmonary emboli. The thoracic aorta shows no evidence of aneurysm or dissection. Great vessel origins are patent and without stenosis. There are coronary artery calcifications present. There is cardiomegaly. There are no enlarged mediastinal or hilar nodes. There is a moderate size hiatal hernia. There are moderate-sized bilateral pleural effusions, right greater than left. There is no significant pericardial fluid. There is diffuse edema in the subcutaneous tissues compatible with anasarca. A small amount of ascites is seen around the liver. Incidental gallstones are present. Lung parenchymal windows demonstrate motion artifact. There is some bibasilar atelectasis with some minimal patchy perihilar infiltrates. IMPRESSION: No CT evidence of pulmonary emboli or aortic dissection or aneurysm. Cardiomegaly with coronary artery calcifications. Bilateral pleural effusions, right greater than left, and small amount of ascites around the liver. Diffuse edema and subcutaneous fat compatible with anasarca. Moderate size hiatal hernia. Bibasilar atelectasis with some patchy bilateral perihilar infiltrates. Dictated by: Dictated on workstation # [id number] Dict: 11/10/211904 Trans: 11/10/211929 [facility] [id number] Interpreted by: FABIAN BARTON MD Electronically signed by: FABIAN BARTON MD 11/10/211929 Departure Impression Primary Impression: Shortness of breath Additional Impressions: Pneumonia Qualified Codes: J18.9 - Pneumonia, unspecified organism Respiratory failure Qualified Codes: J96.11 - Chronic respiratory failure with hypoxia Disposition: 01 HOME, SELF-CARE Condition: Stable Departure-Patient Inst. Decision time for Depature: 19:36 Referrals: YULY CIFUENTES MD (PCP) Primary Care Physician [facility] (Family) Primary Care Physician Patient Instructions: Community-Acquired Pneumonia in Adults Add. Discharge Instructions: Your pneumonia is getting better, but we will put you on another antibiotic since it is not all the way gone. It also looks like he had too much fluid on your lungs. Double the dose of your Lasix for the next 2 weeks, and begin taking a potassium supplement with that. Follow-up with your heart doctor in the next couple days if you are not feeling better. If you are feeling worse at all, call 911 or come back to the ER. Scripts Potassium Chloride (Potassium Chloride) 20 Meq Tablet.er 20 MEQ PO DAILY for 14 Days, #14 TAB Prov: FELICITAS JAIN MD 11/10/21 Azithromycin (Azithromycin) 250 Mg Tablet 250 MG PO DAILY for 5 Days, #5 TAB 0 Refills Prov: FELICITAS JAIN MD 11/10/21 FELICITAS JAIN MD November 10, 2021 18:14
[2021-11-10 18:21] LABS: ALBUMIN 3.6 GM/DL (3.2-4.5); BILIRUBIN,TOTAL 0.6 MG/DL (0.1-1.0); CALCIUM 8.8 MG/DL (8.5-10.1); CREATININE SERUM 1.71 MG/DL (0.60-1.30); POTASSIUM 4.6 MMOL/L (3.6-5.0)
[2021-11-10 18:33] LABS: BAND NEUTROPHILS 14 %; BASOPHILS % (MANUAL) 0 %; EOSINOPHILS % (MANUAL) 0 %; LYMPHOCYTES % (MANUAL) 8 %; MONOCYTES % (MANUAL) 3 %; NEUTROPHILS % (MANUAL) 75 %; PLATELET ESTIMATE NORMAL
[2021-11-10] MEDS ORDERED: IOHEXOL 350 MG/ML 100 ML (OMNIPAQUE 350) VIAL IV ONE (18:45)
[2021-11-10] MEDS ORDERED: NS 100 ML (IVPB) BAG IV ONE (18:45)
[2021-11-10] MEDS ORDERED: HOLD METFORMIN - RECEIVED CONTRAST 20 ML VIAL IV SCH (18:45)
--- NOTE | 2021-11-10 19:21 | Diagnostic Imaging Report ---
INDICATION: Shortness of breath, positive d-dimer. TECHNIQUE: Multiple contiguous axial images were obtained through the chest after uneventful bolus administration of intravenous contrast. 3D reconstructed CTA MIP acquisitions were also performed. Auto Exposure Controls were utilized during the CT exam to meet ALARA standards for radiation dose reduction. COMPARISON: There is no prior chest CT for comparison. FINDINGS: The pulmonary parenchymal vessels are well-opacified with no CT evidence of pulmonary emboli. The thoracic aorta shows no evidence of aneurysm or dissection. Great vessel origins are patent and without stenosis. There are coronary artery calcifications present. There is cardiomegaly. There are no enlarged mediastinal or hilar nodes. There is a moderate size hiatal hernia. There are moderate-sized bilateral pleural effusions, right greater than left. There is no significant pericardial fluid. There is diffuse edema in the subcutaneous tissues compatible with anasarca. A small amount of ascites is seen around the liver. Incidental gallstones are present. Lung parenchymal windows demonstrate motion artifact. There is some bibasilar atelectasis with some minimal patchy perihilar infiltrates. IMPRESSION: No CT evidence of pulmonary emboli or aortic dissection or aneurysm. Cardiomegaly with coronary artery calcifications. Bilateral pleural effusions, right greater than left, and small amount of ascites around the liver. Diffuse edema and subcutaneous fat compatible with anasarca. Moderate size hiatal hernia. Bibasilar atelectasis with some patchy bilateral perihilar infiltrates. Dictated by: Dictated on workstation # [id number]
[2021-11-10] MEDS ORDERED: POTA-51 PO (19:38)
[2021-11-10] MEDS ORDERED: AZIT250T12 PO (19:38)
[2021-11-10 19:45] VITALS: BP 150/90
[2021-11-10] MEDS ORDERED: AZITHROMYCIN 250 MG TAB (ZITHROMAX) PO ONE (19:45)
== END 2021-11-10 19:45 | disposition home or self-care (01) ==
LOC: EDUNIT# 17:31 → ER FS 17:33
DX: J18.9 Pneumonia, unspecified organism (principal); J96.11 Chronic respiratory failure with hypoxia; E11.9 Type 2 diabetes mellitus without complications; Z87.891 Personal history of nicotine dependence; Z99.81 Dependence on supplemental oxygen; Z79.4 Long term (current) use of insulin; Z79.899 Other long term (current) drug therapy
CPT/HCPCS: 36415; 71045; 71275; 80053; 83880; 84484; 85007; 85027; 85379; 85610; 85730; 87636; 87804; 93005; 93041; Q9967

== ENCOUNTER → 2021-11-11 | Outpatient (CLI) | payer MEDICARE ==
[~2021-11-11] VITALS: Ht 154 cm; Wt 63.0 kg
[~2021-11-11] MED LIST changes: +AZIT250T12 PO; +POTA-51 PO; +REGADENOSON 0.4 MG/5 ML SYR (LEXISCAN) IV ONE
[2021-11-11] MEDS: CATHETER FLUSH 10 ML SYR IVP PRN ×2 (08:14→09:26)
--- NOTE | 2021-11-13 08:14 | NUCLEAR STRESS TEST ---
REGADENOSON NUCLEAR STRESS Date of procedure: 11/11/2021. Primary care provider: Kelsey Mishra MD Admitting physician: Don Colin Jr., MD. INDICATION: Coronary artery disease without angina. BASELINE ELECTROCARDIOGRAM: Atrial fibrillation with a ventricular rate of 105 beats per minutes with low voltage in diffuse leads, poor R wave progression, and nonspecific ST-T wave changes STRESS TEST PROCEDURE: The patient was administered 0.4 mg of intravenous Regadenoson. The resting heart rate was 105 bpm and the peak heart rate was 117 bpm. The resting blood pressure was 152/86 mmHg and the minimum blood pressure was 141/80 mmHg. This represents a [] heart rate and a [] blood pressure response to Regadenoson with resting hypertension. The test was stopped due to the protocol. There was no chest discomfort during the test. The patient was in atrial fibrillation for the duration of the test. There were no significant stress induced electrocardiogram changes. NUCLEAR PROCEDURE: The patient was administered 10.5 mCi of intravenous technetium 99m Tetrofosmin at rest for the rest images. The patient was subsequently administered 30.7 mCi of intravenous technetium 99m Tetrofosmin at peak stress for the stress images. Following an appropriate wait after each injection, imaging was obtained. The images were subsequently processed and reformatted in the usual views. Gated imaging was obtained. The image quality was adequate with a mild degree of gastrointestinal attenuation artifact as well as possible gating artifact due to the atrial fibrillation. CT attenuation correction was used as a adjunct to standard imaging. Both the corrected and uncorrected images were reviewed for interpretation. NUCLEAR RESULTS: There was normal myocardial perfusion in all segments without evidence of infarction or ischemia. There was normal left ventricular chamber size with an end-diastolic volume of 64 mL and an end-systolic volume of 36 mL. There was no evidence of transient ischemic dilatation. The TID ratio was 1.12. There was mild global hypokinesis with a calculated ejection fraction of 44%. IMPRESSION: 1. Normal heart rate and blood pressure response to regadenoson with resting hypertension. 2. There was no chest discomfort or electrocardiogram changes during the test. 3. The patient was in atrial fibrillation for the duration of the test. 4. There was normal myocardial perfusion in all segments without evidence of infarction or ischemia. 5. There was mild global hypokinesis with a calculated ejection fraction of 44%. However, due to gating artifact from the atrial fibrillation, this may not be accurate. 6. This is an abnormal result due to the possibly low ejection fraction although the patient has normal myocardial perfusion. Overall, this represents a low risk for possible future coronary ischemic events. Certain portions of this document may have been dictated utilizing voice recognition technology. Inherent to this technology, typographical and grammatical errors may exist. As much as I am diligent to identify and correct these mistakes, some errors may remain in the document. DON COLIN JR, MD November 13, 2021 08:14
== END ==
LOC: CARD 08:30
PROVIDERS: ATTEND Internal Medicine Cardiovascular Disease
DX: I25.10 Atherosclerotic heart disease of native coronary artery without angina pectoris (principal)
CPT/HCPCS: 78452; 93017; A9502

== ENCOUNTER 2021-11-17 13:00 | Observation (INO) | payer MEDICARE ==
[~2021-11-17] VITALS: Ht 154.9 cm; Wt 66.8 kg
[~2021-11-17 13:00] MED LIST changes: -BRIN8DRO OU; -REGADENOSON 0.4 MG/5 ML SYR (LEXISCAN) IV ONE
[2021-11-17] MEDS ORDERED: methylPREDNISolone 125 MG (Solu-MEDROL) VIAL IVP ONE (13:30)
[2021-11-17] MEDS ORDERED: FAMOTIDINE 20MG/2ML IV (PEPCID) IVP ONE (13:30)
[2021-11-17] MEDS ORDERED: diphenhydrAMINE 50 MG/ML INJ (BENADRYL) IM ONE (13:30)
[2021-11-17] MEDS ORDERED: FAMOTIDINE 20MG/2ML IV (PEPCID) ONE (13:36)
[2021-11-17 13:44] LABS: BASOPHILS % (AUTO) 0 % (0-10); EOSINOPHILS # (AUTO) 0.5 10^3/uL (0.0-0.3); EOSINOPHILS % (AUTO) 3 % (0-10); HEMATOCRIT 28 % (35-52); HEMOGLOBIN 9.2 g/dL (11.5-16.0); LYMPHOCYTES # (AUTO) 1.3 10^3/uL (1.0-4.0); LYMPHOCYTES % (AUTO) 8 % (12-44); MEAN CORPUSCULAR HEMOGLOBIN 30 pg (25-34); MEAN CORPUSCULAR HGB CONC 33 g/dL (32-36); MEAN CORPUSCULAR VOLUME 91 fL (80-99); MEAN PLATELET VOLUME 10.5 fL (9.0-12.2); MONOCYTES # (AUTO) 0.6 10^3/uL (0.0-1.0); MONOCYTES % (AUTO) 4 % (0-12); NEUTROPHILS # (AUTO) 13.4 10^3/uL (1.8-7.8); NEUTROPHILS % (AUTO) 84 % (42-75); PLATELET COUNT 221 10^3/uL (130-400); WHITE BLOOD COUNT 16.1 10^3/uL (4.3-11.0)
[2021-11-17 14:01] LABS: BAND NEUTROPHILS 1 %; LYMPHOCYTES % (MANUAL) 5 %; NEUTROPHILS % (MANUAL) 87 %
[2021-11-17 14:02] LABS: EOSINOPHILS % (MANUAL) 6 %
[2021-11-17 14:03] LABS: PLATELET ESTIMATE NORMAL; RBC MORPH NORMAL; REACTIVE LYMPHOCYTES 1 %
[2021-11-17] MEDS ORDERED: NS IV 1000 ML 1,000 ML IV SCH ×2 (14:15→15:15)
--- NOTE | 2021-11-17 14:16 | Diagnostic Imaging Report ---
INDICATION: Shortness of breath. Frontal chest obtained at 2:09 p.m. and compared to 11/10/2021. FINDINGS: There is post-sternotomy change and cardiomegaly. There is central vascular congestion with decrease in interstitial infiltrates. There is no pneumothorax or pleural fluid. IMPRESSION: Improving vascular congestion and interstitial infiltrates compared to 11/10/2021. No new consolidation or pleural fluid. Dictated by: Dictated on workstation # [id number]
[2021-11-17 14:19] LABS: POTASSIUM 4.4 MMOL/L (3.6-5.0)
[2021-11-17 14:20] LABS: BILIRUBIN,TOTAL 0.8 MG/DL (0.1-1.0); CALCIUM 7.8 MG/DL (8.5-10.1); CREATININE SERUM 2.38 MG/DL (0.60-1.30)
[2021-11-17 14:21] LABS: ALBUMIN 2.8 GM/DL (3.2-4.5); TOTAL PROTEIN 6.3 GM/DL (6.4-8.2)
[2021-11-17 15:24] LABS: BILIRUBIN,URINE NEGATIVE (NEGATIVE); CLARITY,URINE CLEAR; COLOR,URINE YELLOW; GLUCOSE, URINE (UA) NEGATIVE (NEGATIVE); KETONES,URINE NEGATIVE (NEGATIVE); LEUKOCYTE ESTERASE ,URINE 1+ (NEGATIVE); NITRITE,URINE NEGATIVE (NEGATIVE); PROTEIN,URINE NEGATIVE (NEGATIVE)
[2021-11-17 15:33] LABS: BACTERIA,URINE TRACE /HPF
[2021-11-17 20:15] VITALS: BP 109/65
[2021-11-17] MEDS ORDERED: ALPRAZolam 0.25 MG (XANAX) TAB PO PRN (20:15)
[2021-11-17] MEDS ORDERED: polyethylene glycoL POWDER 17 GM (MIRALAX) PACK PO PRN (20:15)
[2021-11-17] MEDS ORDERED: ANTACID SUSP 30 ML UDC (MYLANTA) PO PRN (20:15)
[2021-11-17] MEDS ORDERED: ONDANSETRON 4 MG/2 ML (SDV) Z0FRAN IV PRN (20:15)
[2021-11-17] MEDS ORDERED: ONDANSETRON 4 MG (ZOFRAN) ORAL DISSOLVE TAB PO PRN (20:15)
[2021-11-17] MEDS ORDERED: BISACODYL 10 MG SUPP (DULCOLAX) PR PRN (20:15)
[2021-11-17] MEDS ORDERED: HYDROcodone/APAP 5 MG/325 MG (LORTAB) TAB PO PRN (20:15)
[2021-11-17] MEDS ORDERED: HYDROmorphone 2 MG/ML VIAL (DILAUDID) IVP PRN (20:15)
[2021-11-17] MEDS ORDERED: diphenhydrAMINE 50 MG/ML INJ (BENADRYL) IVP PRN ×2 (20:15)
[2021-11-17] MEDS ORDERED: ACETAMINOPHEN 325 MG TABLET PO PRN (20:15)
[2021-11-17] MEDS ORDERED: MELATONIN 3 MG TABLET PO PRN (20:15)
[2021-11-17 20:30] VITALS: BP 105/69
--- NOTE | 2021-11-17 20:38 | ED General ---
General Chief Complaint: Allergic Reaction Stated Complaint: FACIAL SWELLING; RASH Nursing Triage Note: Patient has presented to ER with cc of a rash and swollen face. Patient reports that she woke up with her face swollen this morning, she had taken benadryl last night before going to bed because she has had a rash for several days. She reports starting a new antibiotic last week. She reports that she has had increased falls the past few weeks. Source of Information: Patient Exam Limitations: No Limitations History of Present Illness Date Seen by Provider: Nov 17, 2021 Time Seen by Provider: 13:00 Initial Comments Patient is a 76 yo female currently recovering from pneumonia currently on ceftin who presents with swelling in face and diffuse macular rash on face, torso, and extremities for the past several days. She denies increased shortness of breath, fever, chills or sweats. No other acute symptoms or complaint. No airway swelling, rash, or sweats. Reports B lower extremity swelling. Allergies and Home Medications Allergies Coded Allergies: morphine (Verified Adverse Reaction, Intermediate, sedation, 02/28/21) Uncoded Allergies: TETANUS VACCINATION (Adverse Reaction, Intermediate, swelling, 08/21/18) Patient Home Medication List Home Medication List Reviewed: Yes Acetaminophen (Tylenol Extra Strength) 500 Mg Tablet, 1,000 MG PO Q6H PRN for PAIN-MILD, (Reported) Entered as Reported by: HEATHER PEARL on 08/21/18 1633 Amlodipine Besylate (Amlodipine Besylate) 10 Mg Tablet, 10 MG PO HS, (Reported) Entered as Reported by: HEATHER PEARL on 08/21/18 1633 Aspirin (Aspirin EC) 81 Mg Tablet.dr, 81 MG PO DAILY, (Reported) Entered as Reported by: HEATHER PEARL on 08/21/18 1633 Azithromycin (Azithromycin) 250 Mg Tablet, 250 MG PO DAILY Prescribed by: FELICITAS JAIN on 11/10/21 193 Brinzolamide/Brimonidine Tart (Simbrinza 1%-0.2% Eye Drops) 8 Ml Drops.susp, 1 DROP OU DAILY, (Reported) Entered as Reported by: SOFIA SMITH on 08/27/19 1153 Brinzolamide/Brimonidine Tart (Simbrinza 1%-0.2% Eye Drops) 8 Ml Drops.susp, 1 D ROP OD HS, (Reported) Entered as Reported by: RON SMITH on 03/01/21 1013 Carvedilol (Carvedilol) 25 Mg Tablet, 25 MG PO BID, (Reported) Entered as Reported by: HEATHER PEARL on 08/21/18 163 Cefuroxime Axetil (Cefuroxime) 250 Mg Tablet, 250 MG PO BID Prescribed by: DI PUTNAM on 03/03/21 0952 Famotidine (Famotidine) 40 Mg Tablet, 40 MG PO HS, (Reported) Entered as Reported by: RON SMITH on 03/01/21 1013 Fluticasone Propionate (Flonase Allergy Relief) 9.9 Ml Rufe.susp, 1 SPRAY NS DAILY PRN for CONGESTION, (Reported) Entered as Reported by: ORN SMITH on 03/01/21 101 Glipizide (Glipizide) 10 Mg Tablet, 20 MG PO DAILY PRN for BLOOD SUGAR, (Reported) Entered as Reported by: HEATHER PEARL on 08/21/18 163 Glipizide (Glipizide) 10 Mg Tablet, 10 MG PO HS PRN for BLOOD SUGAR, (Reported) Entered as Reported by: RON SMITH on 03/01/21 101 Hydralazine HCl (Hydralazine HCl) 25 Mg Tablet, 75 MG PO BID, (Reported) Entered as Reported by: HEATHER PEARL on 08/21/18 1633 Latanoprost/Pf (Latanoprost 0.005% Eye Drop) 7.5 Ml Drops, 1 DROP OD DAILY, (Reported) Entered as Reported by: RON SMITH on 03/01/21 101 Losartan Potassium (Losartan Potassium) 50 Mg Tablet, 50 MG PO DAILY, (Reported) Entered as Reported by: RON SMITH on 03/01/21 101 Montelukast Sodium (Montelukast Sodium) 10 Mg Tablet, 10 MG PO HS, (Reported) Entered as Reported by: RON SMITH on 03/01/21 101 Potassium Chloride (Potassium Chloride) 20 Meq Tablet.er, 20 MEQ PO DAILY Prescribed by: FELICITAS JAIN on 11/10/211937 Tizanidine HCl (Tizanidine HCl) 2 Mg Tablet, 2 MG PO DAILY PRN for MUSCLE S PASMS, (Reported) Entered as Reported by: RON SMITH on 03/01/21 1013 Review of Systems Review of Systems Constitutional: see HPI EENTM: see HPI Respiratory: see HPI Cardiovascular: see HPI Gastrointestinal: see HPI Genitourinary: see HPI Musculoskeletal: see HPI Psychiatric/Neurological: See HPI Hematologic/Lymphatic: See HPI Immunological/Allergic: see HPI All Other Systems Reviewed Negative Unless Noted: Yes Past Vaancqd-Zqqehm-Skdjxg Hx Patient Social History Tobacco Use?: No Smoking Status: Former Smoker Use of E-Cig and/or Vaping dev: No Substance use?: No Alcohol Use?: No Pt feels they are or have been: No Immunizations Up To Date Influenza Vaccine Up-to-Date: Yes; Up-to-Date First/Initial COVID19 Vaccinat: August 2020 Second COVID19 Vaccination Dinesh: September 2020 Third COVID19 Vaccination Date: August 2020 Seasonal Allergies Seasonal Allergies: No Past Medical History Surgery/Hospitalization HX: DM, CAD Surgeries: Yes Abdominal, CABG, Orthopedic, Tubal Ligation Respiratory: No Cardiac: Yes Coronary Artery Disease, High Cholesterol, Hypertension Neurological: No COWLMAN History: Menopausal Genitourinary: No Bladder Infection Gastrointestinal: Yes (GALLSTONES NOTED ON CT; KNOWN HERNIA-NO SURGERY; kidney disease) Abdominal Hernia Musculoskeletal: Yes Arthritis Endocrine: Yes Diabetes, Insulin dep HEENT: Yes Glaucoma Loss of Vision: Denies Hearing Impairment: Hard of Hearing Cancer: No Psychosocial: No Integumentary: No Blood Disorders: No Family Medical History Heart Disease, Lung Disease, Stroke Physical Exam Vital Signs Vital Signs - First Documented 11/17/21 13:51 Temp 36.5 Pulse 112 Resp 20 B/P (MAP) 103/43 (63) Pulse Ox 96 O2 Delivery Nasal Cannula Capillary Refill : Height, Weight, BMI Height: 4'11.00" Weight: 156lbs. 6.0oz. [id number]; 27.84 BMI Method:Stated General Appearance: No Apparent Distress, WD/WN, Other (diffuse macular rash) Eyes: Bilateral Eye Normal Inspection, Bilateral Eye PERRL, Bilateral Eye EOMI HEENT: PERRL/EOMI, Normal ENT Inspection, Pharynx Normal, Moist Mucous Membrane s (facial, lip and eyelid swelling. ) Neck: Non Tender, Supple Respiratory: Lungs Clear, Normal Breath Sounds Cardiovascular: Regular Rate, Rhythm Gastrointestinal: Non Tender, Soft Extremity: Normal Capillary Refill Neurologic/Psychiatric: Oriented x3 Skin: Other (diffuce macular rash concentrated on torso, lower extremities, and arms.) Focused Exam Sepsis Stage: Ruled Out Lactate Level 11/17/21 13:18: Lactic Acid Level 2.02*H 11/17/21 15:40: Lactic Acid Level 1.21 Lactic Acid Level Laboratory Tests Test 11/17/21 13:18 11/17/21 15:40 Lactic Acid Level 2.02 MMOL/L (0.50-2.00) *H 1.21 MMOL/L (0.50-2.00) Progress/Results/Core Measures Suspected Sepsis SIRS Temperature: Pulse: 133 Respiratory Rate: 14 Laboratory Tests 11/17/21 13:18: White Blood Count 16.1H Blood Pressure 112 /55 Mean: 74 11/17/21 13:18: Lactic Acid Level 2.02*H 11/17/21 15:40: Lactic Acid Level 1.21 Laboratory Tests 11/17/21 13:18: Creatinine 2.38H, Platelet Count 221, Total Bilirubin 0.8 Results/Orders Lab Results Laboratory Tests Test 11/17/21 13:18 11/17/21 15:20 11/17/21 15:40 11/17/21 15:47 Range/Units White Blood Count 16.1 H 4.3-11.0 10^3/uL Red Blood Count 3.03 L 3.80-5.11 10^6/uL Hemoglobin 9.2 L 11.5-16.0 g/dL Hematocrit 28 L 35-52 % Mean Corpuscular Volume 91 80-99 fL Mean Corpuscular Hemoglobin 30 25-34 pg Mean Corpuscular Hemoglobin Concent 33 32-36 g/dL Red Cell Distribution Width 14.6 H 10.0-14.5 % Platelet Count 221 130-400 10^3/uL Mean Platelet Volume 10.5 9.0-12.2 fL Immature Granulocyte % (Auto) 1 % Neutrophils (%) (Auto) 84 H 42-75 % Lymphocytes (%) (Auto) 8 L 12-44 % Monocytes (%) (Auto) 4 0-12 % Eosinophils (%) (Auto) 3 0-10 % Basophils (%) (Auto) 0 0-10 % Neutrophils # (Auto) 13.4 H 1.8-7.8 10^3/uL Lymphocytes # (Auto) 1.3 1.0-4.0 10^3/uL Monocytes # (Auto) 0.6 0.0-1.0 10^3/uL Eosinophils # (Auto) 0.5 H 0.0-0.3 10^3/uL Basophils # (Auto) 0.0 0.0-0.1 10^3/uL Immature Granulocyte # (Auto) 0.2 H 0.0-0.1 10^3/uL Neutrophils % (Manual) 87 % Lymphocytes % (Manual) 5 % Eosinophils % (Manual) 6 % Band Neutrophils 1 % Reactive Lymphocytes 1 % Platelet Estimate NORMAL Blood Morphology Comment NORMAL Sodium Level 134 L 135-145 MMOL/L Potassium Level 4.4 3.6-5.0 MMOL/L Chloride Level 100 98-107 MMOL/L Carbon Dioxide Level 21 21-32 MMOL/L Anion Gap 13 5-14 MMOL/L Blood Urea Nitrogen 40 H 7-18 MG/DL Creatinine 2.38 H 0.60-1.30 MG/DL Estimat Glomerular Filtration Rate 21 BUN/Creatinine Ratio 17 Glucose Level 181 H 70-105 MG/DL Lactic Acid Level 2.02 *H 1.21 0.50-2.00 MMOL/L Calcium Level 7.8 L 8.5-10.1 MG/DL Corrected Calcium 8.8 8.5-10.1 MG/DL Total Bilirubin 0.8 0.1-1.0 MG/DL Aspartate Amino Transf (AST/SGOT) 21 5-34 U/L Alanine Aminotransferase (ALT/SGPT) 13 0-55 U/L Alkaline Phosphatase 76 40-136 U/L C-Reactive Protein 10.49 H <0.50 MG/DL Pro-B-Type Natriuretic Peptide 309.0 H <75.0 PG/ML Total Protein 6.3 L 6.4-8.2 GM/DL Albumin 2.8 L 3.2-4.5 GM/DL Urine Color YELLOW Urine Clarity CLEAR Urine pH 6.0 5-9 Urine Specific [place] 1.010 L 1.016-1.022 Urine Protein NEGATIVE NEGATIVE Urine Glucose (UA) NEGATIVE NEGATIVE Urine Ketones NEGATIVE NEGATIVE Urine Nitrite NEGATIVE NEGATIVE Urine Bilirubin NEGATIVE NEGATIVE Urine Urobilinogen 0.2 < = 1.0 MG/DL Urine Leukocyte Esterase 1+ H NEGATIVE Urine RBC (Auto) NEGATIVE NEGATIVE Urine RBC NONE /HPF Urine WBC 5-10 H /HPF Urine Squamous Epithelial Cells 5-10 /HPF Urine Crystals NONE /LPF Urine Bacteria TRACE /HPF Urine Casts NONE /LPF Urine Mucus NEGATIVE /LPF Urine Culture Indicated NO Influenza Type A Antigen NEGATIVE NEGATIVE Influenza Type B Antigen NEGATIVE NEGATIVE SARS-CoV-2 RNA (RT-PCR) Not Detected Not Detecte My Orders Orders - FLEX MUSTAFA DO Cbc With Automated Diff (11/17/21 13:15) Comprehensive Metabolic Panel (11/17/21 13:15) Urinalysis (11/17/21 13:15) Diphenhydramine Injection (Benadryl Inje (11/17/21 13:30) Famotidine Injection (Pepcid Injection) (11/17/21 13:30) Methylprednisolone Sod Succ (Solu-Medrol (11/17/21 13:30) Crp Fs (11/17/21 13:27) Famotidine Injection (Pepcid Injection) (11/17/21 13:36) Manual Differential (11/17/21 13:18) Ns Iv 1000 Ml (Sodium Chloride 0.9%) (11/17/21 14:15) Chest 1 View Ap/Pa Only (11/17/21 14:05) Lactic Acid Analyzer (11/17/21 13:18) Blood Culture (11/17/21 15:03) Probnp Fs (11/17/21 15:03) Straight Cath (Urinary) (11/17/21 15:05) Ns Iv 1000 Ml (Sodium Chloride 0.9%) (11/17/21 15:15) Covid 19 Inhouse Test (11/17/21 15:32) Isolation Central Supply Req (11/17/21 15:32) Blood Culture (11/17/21 15:55) Influenza A & B Antigens (11/17/21 16:22) Medications Given in ED Current Medications Medications Dose Ordered Sig/[place] Route Start Time Stop Time Status Last Admin Dose Admin Diphenhydramine HCl 50 mg ONCE ONCE IM 11/17/21 13:30 11/17/21 13:31 DC 11/17/21 13:43 50 MG Famotidine 20 mg ONCE ONCE IVP 11/17/21 13:30 11/17/21 13:31 DC 11/17/21 13:39 20 MG Methylprednisolone Sodium Succinate 125 mg ONCE ONCE IVP 11/17/21 13:30 11/17/21 13:31 DC 11/17/21 13:39 125 MG Vital Signs/I&O 11/17/21 11/17/21 13:51 18:33 Temp 36.5 36.4 Pulse 112 133 Resp 20 14 B/P (MAP) 103/43 (63) 112/55 Pulse Ox 96 93 O2 Delivery Nasal Cannula Nasal Cannula Capillary Refill : Blood Pressure Mean: 74 Departure Communication (Admissions) Patient with diffuse rash concerning for SJS, drug eruption. Elevated CRP, WBC, left shift and elevated lactic acid. IVF given. Vital signs improved. Sepsis considered. No clinical source of infection. Case reviewed with Dr. Gonzalez who accepts. Will hold abx. Impression Primary Impression: Rash Disposition: ADMITTED INPATIENT Condition: Improved Admissions Decision to Admit/Date: Nov 17, 2021 Time/Decision to Admit Time: 16:00 Departure-Patient Inst. Referrals: YULY CIFUENTES MD (PCP) Primary Care Physician [facility] (Family) Primary Care Physician FLEX MUSTAFA DO Nov 17, 2021 20:38
[2021-11-17 20:45] VITALS: BP 108/70
[2021-11-17 21:00] VITALS: BP 106/66
[2021-11-17] MEDS ORDERED: FAMOTIDINE 20MG/2ML IV (PEPCID) IVP SCH (21:00)
[2021-11-17 21:30] VITALS: BP 98/59
[2021-11-17 22:00] VITALS: BP 99/56
[2021-11-17] MEDS: DOCUSATE SODIUM 100 MG (COLACE) CAP PO SCH (22:36)
[2021-11-17] MEDS: NS IV 1000 ML 1,000 ML IV SCH (22:36)
[2021-11-17] MEDS: inSUlin ASPART (NovoLOG) 1 UNIT/0.01 ML (CHARGE PER UNIT) SC SCH (22:37)
[2021-11-18] VITALS: BP 92/54
[2021-11-18] MEDS: diphenhydrAMINE 25 MG TAB (BENADRYL) PO PRN ×2 (03:19→21:35)
[2021-11-18 04:00] VITALS: BP 107/45
[2021-11-18 05:22] LABS: BASOPHILS % (AUTO) 0 % (0-10); EOSINOPHILS % (AUTO) 0 % (0-10); HEMATOCRIT 24 % (35-52); HEMOGLOBIN 7.8 g/dL (11.5-16.0); LYMPHOCYTES # (AUTO) 0.8 10^3/uL (1.0-4.0); LYMPHOCYTES % (AUTO) 9 % (12-44); MEAN CORPUSCULAR HEMOGLOBIN 30 pg (25-34); MEAN CORPUSCULAR HGB CONC 33 g/dL (32-36); MEAN CORPUSCULAR VOLUME 93 fL (80-99); MEAN PLATELET VOLUME 10.6 fL (9.0-12.2); MONOCYTES # (AUTO) 0.2 10^3/uL (0.0-1.0); MONOCYTES % (AUTO) 2 % (0-12); NEUTROPHILS # (AUTO) 8.4 10^3/uL (1.8-7.8); NEUTROPHILS % (AUTO) 89 % (42-75); PLATELET COUNT 172 10^3/uL (130-400); WHITE BLOOD COUNT 9.4 10^3/uL (4.3-11.0)
[2021-11-18 05:45] LABS: ALBUMIN 2.4 GM/DL (3.2-4.5)
[2021-11-18 05:46] LABS: POTASSIUM 4.1 MMOL/L (3.6-5.0)
[2021-11-18 05:47] LABS: CALCIUM 7.4 MG/DL (8.5-10.1)
[2021-11-18 05:48] LABS: TOTAL PROTEIN 5.6 GM/DL (6.4-8.2)
[2021-11-18 05:50] LABS: BILIRUBIN,TOTAL 0.6 MG/DL (0.1-1.0)
[2021-11-18 05:52] LABS: CREATININE SERUM 2.18 MG/DL (0.60-1.30)
[2021-11-18] MEDS: inSUlin ASPART (NovoLOG) 1 UNIT/0.01 ML (CHARGE PER UNIT) SC SCH ×4 (06:29→20:42)
--- NOTE | 2021-11-18 06:29 | History & Physical-Hospitalist ---
History of Present Illness HPI/Chief Complaint CC: Rash HPI: This is a 76 yr old female clinic pt of Kelsey Mishra. Pt presented from [place] ER due to severe rash for one week after taking Ceftin. She had been seen in the ER a couple of weeks before for an upper respiratory illness. But had come back and been started on the medication of which she has continued. At this current time IV fluid and supportive care has been maintained. No evidence of any sepsis. Her rash does appear to be improved. Her creatinine was improved. Will transfer to 4th floor and initiate PT and OT. Source: patient Exam Limitations: no limitations Date Seen 11/18/21 Time Seen by a Provider: 10:30 Attending Physician Kelsey Mishra MD PCP Admitting Physician: Tiff Gonzalez DO Attending Physician: Tiff Gonzalez DO Referring Physician Date of Admission Nov 17, 2021 at 19:54 Home Medications & Allergies Home Medications Reviewed patient Home Medication Reconciliation performed by pharmacy medication reconciliations alarm installation technician and/or nursing. Patients Allergies have been reviewed. Allergies Allergies Coded Allergies morphine (Verified Adverse Reaction, Intermediate, sedation, 02/28/21) Uncoded Allergies TETANUS VACCINATION ( Adverse Reaction, Intermediate, swelling, 08/21/18) Past Jppgwwa-Rvvvab-Beiwdl Hx Patient Social History Marrital Status: single Employed/Student: retired Tobacco Use?: No Smoking Status: Former Smoker Use of E-Cig and/or Vaping dev: No Substance use?: No Alcohol Use?: No Pt feels they are or have been: No Immunizations Up To Date Date of Influenza Vaccine: Apr 09, 2019 First/Initial COVID19 Vaccinat: August 2020 Second COVID19 Vaccination Dinesh: September 2020 Date of Pneumonia Vaccine: Apr 23, 2018 Seasonal Allergies Seasonal Allergies: No Current Status Advance Directives: No Communicates: Verbally Primary Language: Vietnamese Preferred Spoken Language: Vietnamese Is interpretation needed?: No Sensory deficits: Vision impairment, Hearing impairment Implanted or Applied Medical D: None Past Medical History Surgeries: Abdominal, CABG, Orthopedic, Tubal Ligation Pneumonia Atrial Fibrillation, Coronary Artery Disease, High Cholesterol, Hypertension 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 Bladder Infection Abdominal Hernia Arthritis Diabetes, Insulin dep Glaucoma Loss of Vision: Denies Hearing Impairment: Hard of Hearing Blood Disorders: No Family Medical History Heart Disease, Lung Disease, Stroke Review of Systems Constitutional: see HPI, malaise, weakness EENTM: no symptoms reported Respiratory: cough, dyspnea on exertion Cardiovascular: no symptoms reported Gastrointestinal: no symptoms reported Genitourinary: no symptoms reported Musculoskeletal: no symptoms reported Skin: no symptoms reported Psychiatric/Neurological: No Symptoms Reported All Other Systems Reviewed Negative Unless Noted: Yes Physical Exam Physical Exam Vital Signs Vital Signs - First Documented 11/17/21 11/17/21 13:51 20:00 Temp 36.5 Pulse 112 Resp 20 B/P (MAP) 103/43 (63) Pulse Ox 96 O2 Delivery Nasal Cannula O2 Flow Rate 2.00 Capillary Refill : Height, Weight, BMI Height: 4'11.00" Weight: 156lbs. 6.0oz. [id number]; 27.84 BMI Method:Stated General Appearance: No Apparent Distress, Chronically ill Eyes: Right Eye Normal Inspection, Right Eye PERRL HEENT: PERRL/EOMI, Normal ENT Inspection, Pharynx Normal, Moist Mucous Membran es Neck: Full Range of Motion, Normal Inspection, Non Tender Respiratory: Chest Non Tender, Lungs Clear, Normal Breath Sounds, No Accessory Muscle Use, No Respiratory Distress Cardiovascular: Regular Rate, Rhythm, No Edema, No Gallop, No JVD, No Murmur, Normal Peripheral Pulses Gastrointestinal: Normal Bowel Sounds, No Organomegaly, No Pulsatile Mass, Non Tender, Soft Back: Normal Inspection, No CVA Tenderness, No Vertebral Tenderness Extremity: Normal Capillary Refill, Normal Inspection, Normal Range of Motion, Non Tender, No Calf Tenderness, No Pedal Edema Neurologic/Psychiatric: Alert, Oriented x3, No Motor/Sensory Deficits, Normal Mood/Affect Skin: Normal Color, Warm/Dry, Rash (redness with resolving hive-like rash arms and torso) Lymphatic: No Adenopathy Results Results/Procedures Labs Laboratory Tests 11/17/21 13:18 11/18/21 05:11 11/19/21 05:25 Patient resulted labs reviewed. Assessment/Plan Admission Diagnosis Assessment: Rash likely drug reaction from Ceftin Acute kidney injury Recent antibiotic use for pneumonia New onset atrial fibrillation per cycling instructor Dr. Huff in [place] Future anticoagulation with unknown medication per patient Hypertension Hyperlipidemia CAD previous bypass Debility Former smoker Plan: IV fluid Moved to floor Supportive care Admission Status: Observation Diagnosis/Problems Diagnosis/Problems (1) Acute renal failure Onset Date: ~ 02/28/2021 Status: Resolved Resolution Date/Time: 03/03/21 @ 15:58 (2) Rash due to allergy Clinical Quality Measures DVT/VTE Risk/Contraindication: Contraindications-Pharm: Other *list below* Other: anemia and rash TIFF GONZALEZ DO Nov 18, 2021 06:29
[2021-11-18] MEDS: NS IV 1000 ML 1,000 ML IV SCH ×2 (08:05→19:24)
[2021-11-18] MEDS: DOCUSATE SODIUM 100 MG (COLACE) CAP PO SCH ×2 (09:00→20:42)
--- NOTE | 2021-11-18 09:45 | Physical Therapy Evaluation ---
PT Evaluation-General Medical Diagnosis Admission Date Nov 17, 2021 at 19:54 Medical Diagnosis: allergic reaction Onset Date: Nov 17, 2021 Therapy Diagnosis Therapy Diagnosis: generalized weakness/debility Height/Weight Height (Feet): 4 Height (Inches): 11.00 Weight (Pounds): 156 Weight (Ounces): 6.0 Precautions Precautions/Isolations: Fall Prevention, Standard Precautions Weight Bear Status Right Lower Extremity: Right Weight Bearing/Tolerated Left Lower Extremity: Left Weight Bearing/Tolerated Referral Physician: Lisa Reason for Referral: Evaluation/Treatment Medical History Pertinent Medical History: Arthritis, CABG, CAD, DM, HTN, Renal Insufficiency Current History ER secondary to allergic reaction Reviewed History: Yes Social History Home: Single Level Current Living Status: Alone Prior Prior Level of Function SCALE: Activities may be completed with or without assistive devices. 5-Fbuljgazwd-wephiqv completes the activity by him/herself with no assistance from a helper. 5-Set-up or Clean-up Assistance-helper sets up or cleans up; patient completes activity. [place] assists only prior to or following the activity. 4-Supervision or Touching Assistance-helper provides verbal cues and/or touching/steadying and/or contact guard assistance as patient completes activity. Assistance may be provided throughout the activity or intermittently. 3-Partial/Moderate Assistance-helper does LESS THAN HALF the effort. [place] lifts, holds or supports trunk or limbs, but provides less than half the effort. 2-Substantial/Maximal Assistance-helper does MORE THAN HALF the effort. [place] lifts or holds trunk or limbs and provides more than half the effort. 3-Tyqmnixki-dtaxix does ALL the effort. Patient does none of the effort to comp lete the activity. Or, the assistance of 2 or more helpers is required for the patient to complete the activity. If activity was not attempted, code reason: 7-Patient Refused. 9-Not Applicable-not attempted and the patient did not perform the activity before the current illness, exacerbation or injury. 10-Not Attempted due to Environmental Limitations-(lack of equipment, weather restraints, etc.). 88-Not Attempted due to Medical Conditions or Safety Concerns. Bed Mobility: 6 Transfers (B,C,W/C): 6 Gait: 6 Indoor Mobility (Ambulation): Independent Prior Devices Use: Other-see list below Prior Device Use: cane PT Evaluation-Current Subjective Patient reluctantly agrees to PT. Patient states she has had multiple falls in the past week and will be moving in with her daughter soon. Objective Patient Orientation: Person, Time, Situation Attachments: Oxygen, IV ROM/Strength ROM Lower Extremities bilateral LE WFL Strength Lower Extremities 3/5 grossly bilateral LE Integumentary/Posture Integumentary refer to nursing notes Bowel Incontinence: No Posture WFL Neuromuscular (Tone, Coordination, Reflexes) diminished coordination due to weakness Sensory Vision: Wears Glasses Hearing: Functional Transfers Roll Left to Right (QC): 3 Sit to Lying (QC): 3 Lying to Sitting/Side of Bed(Q: 3 Sit to Stand (QC): 3 Chair/Bsu-pe-Gaxrd Xfer(QC): 3 Gait Does the Patient Walk?: Yes Mode of Locomotion: Walk Anticipated Mode of Locomotion: Walk Walk 10 feet (QC): 3 Walk 50 ft with 2 Turns(QC): 3 Walk 150 ft (QC): 3 Distance: 300' Gait Assistive Device: FWW Comments/Gait Description slightly unsteady with PT correct Balance Sitting Static: Fair Sitting Dynamic: Fair Standing Static: Fair Standing Dynamic: Fair (fair-) Assessment/Needs 76 y.o. female, will benefit from skilled PT to address functional strength and mobility to improve current LOF. Patient displays impaired mobility and strength with balance deficits. Rehab Potential: Fair PT Usp Goals Usp Goals PT Geologist Goals Time Frame: Dec 04, 2021 Roll Left & Right (QC): 6 Sit to Lying (QC): 6 Lying-Sitting on Side/Bed(QC): 6 Sit to Stand (QC): 6 Chair/Nsq-tt-Csojd Xfer(QC): 6 Toilet Transfer (QC): 6 Walk 10 feet (QC): 4 Walk 50ft with 2 Turns (QC): 4 Walk 150 ft (QC): 4 PT Plan Problem List Problem List: Activity Tolerance, Functional Strength, Safety, Balance, Gait, Transfer, Bed Mobility Treatment/Plan Treatment Plan: Continue Plan of Care Treatment Plan: Bed Mobility, Education, Functional Activity José Antonio, Functional Strength, Gait, Safety, Therapeutic Exercise, Transfers Treatment Duration: Dec 04, 2021 Frequency: 6 times per week Estimated Hrs Per Day: .25 hour per day Patient and/or Family Agrees t: Yes Safety Risks/Education Patient Education: Safety Issues Teaching Recipient: Patient Teaching Methods: Discussion Response to Teaching: Verbalize Understanding Time/GCodes Time In: 750 Time Out: 807 Total Billed Treatment Time: 17 Total Billed Treatment 1 visit EVModC 17 min MARIELY CAMACHO PT Nov 18, 2021 09:45
--- NOTE | 2021-11-18 10:47 | Occupational Therapy Eval ---
OT Evaluation-General/PLF Medical Diagnosis Admission Date Nov 17, 2021 at 19:54 Medical Diagnosis: allergic reaction Onset Date: Nov 17, 2021 Therapy Diagnosis Therapy Diagnosis: Decreased ADL status and weakness Height/Weight Height (Feet): 4 Height (Inches): 11.00 Weight (Pounds): 156 Weight (Ounces): 6.0 Precautions Precautions/Isolations: Fall Prevention, Standard Precautions Referral Physician: Lisa Referral Reason: Evaluation/Treatment Medical History Pertinent Medical History: Arthritis, CABG, CAD, DM, HTN, Renal Insufficiency Additional Medical History CABG, CAD, HTN, arthritis, abdominal hernia, DM, and glaucoma Current History ED c/o rash and swollen face d/t allergic reaction Reviewed History: Yes Social History Home: Single Level Current Living Status: Alone Entry Into Home: Ramp ADL-Prior Level of Function SCALE: Activities may be completed with or without assistive devices. 0-Vvknxtcjdk-cbblntw completes the activity by him/herself with no assistance from a helper. 5-Set-up or Clean-up Assistance-helper sets up or cleans up; patient completes activity. [place] assists only prior to or following the activity. 4-Supervision or Touching Assistance-helper provides verbal cues and/or touching/steadying and/or contact guard assistance as patient completes activity. Assistance may be provided throughout the activity or intermittently. 3-Partial/Moderate Assistance-helper does LESS THAN HALF the effort. [place] lifts, holds or supports trunk or limbs, but provides less than half the effort. 2-Substantial/Maximal Assistance-helper does MORE THAN HALF the effort. [place] lifts or holds trunk or limbs and provides more than half the effort. 8-Nyqqzxedq-nfzipf does ALL the effort. Patient does none of the effort to complete the activity. Or, the assistance of 2 or more helpers is required for the patient to complete the activity. If activity was not attempted, code reason: 7-Patient Refused. 9-Not Applicable-not attempted and the patient did not perform the activity before the current illness, exacerbation or injury. 10-Not Attempted due to Environmental Limitations-(lack of equipment, weather restraints, etc.). 88-Not Attempted due to Medical Conditions or Safety Concerns. ADL PLOF Comments Pt reports being IND with ADLs and functional mobility using a cane. Self Care: Independent Functional Cognition: Independent DME/Equipment Comments Cane OT Current Status Subjective Pt did not report pain level but said she is feeling better today. Pt agreeable to OT tx. Mental Status/Objective Patient Orientation: Person, Place, Situation Attachments: IV, Telemetry Current Upper Extremity ROM functional with ADLs Upper Extremity Strength 3/5 ADL-Treatment Eating (QC): 6 Toileting Hygiene (QC): 3 (Min A for balance) Other Treatments Pt seated in recliner. She required CGA sit to stand. Pt used FWW and required min A for balance when moving to toilet, CGA to sit on toilet. She completed toileting, able to perform pericare while seated, Min A for balance during clothing management. Pt needed mod A sit to stand off toilet. Pt returned to recliner, positioned to comfort. Post tx, pt in recliner, call light in reach and all needs met. Education OT Patient Education: Correct positioning, Energy conservation, Progress toward Goal/Update tx plan, Purpose of tx/functional activities, Rehab process Teaching Recipient: Patient Teaching Methods: Discussion Response to Teaching: Verbalize Understanding OT Medical Writer Goals Medical Writer Goals Time Frame: Nov 26, 2021 Eating (QC): 6 Oral Hygiene (QC): 6 Toileting Hygiene (QC): 6 Shower/Bathe Self (QC): 4 Upper Body Dressing (QC): 6 Lower Body Dressing (QC): 4 On/Off Footwear (QC): 4 Additional Goals: 1-Demonstrate ADL Tasks, 2-Verbalize Understanding, 3- ImproveStrength/José Antonio 1=Demonstrate adherence to instructed precautions during ADL tasks. 2=Patient will verbalize/demonstrate understanding of assistive devices/modifications for ADL. 3=Patient will improve strength/tolerance for activity to enable patient to perform ADL's. OT Education/Plan Problem List/Assessment Assessment: Decreased Activ Tolerance, Decreased UE Strength, Impaired Funct Balance, Impaired I ADL's, Impaired Self-Care Skills Discharge Recommendations Plan/Recommendations: Continue POC Therapy Discharge Recommendati: Home & Family Treatment Plan/Plan of Care Patient would benefit from OT for education, treatment and training to promote independence in ADL's, mobility, safety and/or upper extremity function for ADL's. Plan of Care: ADL Retraining, Functional Mobility, UE Funct Exercise/Act Treatment Duration: Nov 26, 2021 Frequency: 3 times per week (3-5x/wk) Estimated Hrs Per Day: .25 hour per day Rehab Potential: Fair Time/GCodes Start Time: 10:00 Stop Time: 10:23 Total Time Billed (hr/min): 23 Billed Treatment Time 1, EVM (10'), ADL (13') MARKUS THAO OT Nov 18, 2021 10:47
[2021-11-18 14:33] VITALS: BP 108/59
[2021-11-18 16:00] VITALS: BP 109/59
[2021-11-18 20:00] VITALS: BP 97/57
[2021-11-18] MEDS ORDERED: FAMOTIDINE 20MG/2ML IV (PEPCID) IVP SCH (21:00)
[2021-11-18 23:45] VITALS: BP 94/59
[2021-11-19 04:25] VITALS: BP 112/69
[2021-11-19 05:58] LABS: BASOPHILS % (AUTO) 0 % (0-10); EOSINOPHILS % (AUTO) 0 % (0-10); HEMATOCRIT 24 % (35-52); HEMOGLOBIN 7.7 g/dL (11.5-16.0); LYMPHOCYTES # (AUTO) 1.8 10^3/uL (1.0-4.0); LYMPHOCYTES % (AUTO) 13 % (12-44); MEAN CORPUSCULAR HEMOGLOBIN 30 pg (25-34); MEAN CORPUSCULAR HGB CONC 33 g/dL (32-36); MEAN CORPUSCULAR VOLUME 92 fL (80-99); MEAN PLATELET VOLUME 10.9 fL (9.0-12.2); MONOCYTES # (AUTO) 0.6 10^3/uL (0.0-1.0); MONOCYTES % (AUTO) 4 % (0-12); NEUTROPHILS # (AUTO) 11.1 10^3/uL (1.8-7.8); NEUTROPHILS % (AUTO) 82 % (42-75); PLATELET COUNT 186 10^3/uL (130-400); WHITE BLOOD COUNT 13.6 10^3/uL (4.3-11.0)
[2021-11-19 06:07] LABS: ALBUMIN 2.5 GM/DL (3.2-4.5)
[2021-11-19 06:08] LABS: POTASSIUM 4.2 MMOL/L (3.6-5.0)
[2021-11-19 06:09] LABS: CALCIUM 7.1 MG/DL (8.5-10.1)
[2021-11-19 06:10] LABS: TOTAL PROTEIN 5.4 GM/DL (6.4-8.2)
[2021-11-19 06:12] LABS: BILIRUBIN,TOTAL 0.4 MG/DL (0.1-1.0)
--- NOTE | 2021-11-19 06:12 | Progress Note - Hospitalist ---
Subjective HPI/CC On Admission Date Seen by Provider: Nov 19, 2021 Time Seen by Provider: 11:00 CC: Rash HPI: This is a 76 yr old female clinic pt of Kelsey Mishra. Pt presented from [place] ER due to severe rash for one week after taking Ceftin. She had been seen in the ER a couple of weeks before for an upper respiratory illness. But had come back and been started on the medication of which she has continued. At this current time IV fluid and supportive care has been maintained. No evidence of any sepsis. Her rash does appear to be improved. Her creatinine was improved. Will transfer to 4th floor and initiate PT and OT. Focused Exam Lactate Level 11/17/21 13:18: Lactic Acid Level 2.02*H 11/17/21 15:40: Lactic Acid Level 1.21 Objective Exam Vital Signs Vital Signs Date Time Temp Pulse Resp B/P (MAP) Pulse Ox O2 Delivery O2 Flow Rate FiO2 11/19/21 09:00 Room Air 11/19/21 08:12 36.6 113 18 119/67 (84) 95 11/18/21 12:00 2.00 Capillary Refill : Results/Procedures Lab Laboratory Tests 11/19/21 05:25 Patient resulted labs reviewed. Diagnosis/Problems Diagnosis/Problems (1) Acute renal failure Onset Date: ~ 02/28/2021 Status: Resolved Resolution Date/Time: 03/03/21 @ 15:58 (2) Rash due to allergy Clinical Quality Measures DVT/VTE Risk/Contraindication: Contraindications-Pharm: Other *list below* Other: anemia and rash FARIDA BEAN DO Nov 19, 2021 06:12
[2021-11-19 06:14] LABS: CREATININE SERUM 2.16 MG/DL (0.60-1.30)
[2021-11-19] MEDS: inSUlin ASPART (NovoLOG) 1 UNIT/0.01 ML (CHARGE PER UNIT) SC SCH ×3 (06:39→15:46)
[2021-11-19] MEDS: NS IV 1000 ML 1,000 ML IV SCH (07:34)
--- NOTE | 2021-11-19 08:10 | Diagnostic Imaging Report ---
INDICATION: Pneumonia AP view of the chest is obtained with comparison made to study of 11/17/2021. There is mild cardiomegaly and pulmonary venous congestion. No pneumothorax identified. There has been development of basilar atelectasis and/or pneumonitis, greater on the right. Surgical findings and mediastinum are again noted. IMPRESSION: Cardiomegaly and pulmonary venous congestion may be due to congestive heart failure with superimposed edema or pneumonitis in the lung bases, greater on the right. Dictated by: Dictated on workstation # [id number]
[2021-11-19 08:12] VITALS: BP 119/67
[2021-11-19] MEDS ORDERED: DIPH25CA79 PO (08:28)
[2021-11-19] MEDS ORDERED: DOCU-26 PO (08:28)
[2021-11-19] MEDS ORDERED: ATOR10TA66 PO (08:28)
[2021-11-19] MEDS: DOCUSATE SODIUM 100 MG (COLACE) CAP PO SCH (08:33)
--- NOTE | 2021-11-19 10:40 | Occupational Ther Daily Note ---
OT Current Status-Daily Note Subjective Pt alert, sitting in recliner. Pt agrees to therapy. No c/o pain. Mental Status/Objective Patient Orientation: Person, Place, Time, Situation ADL-Treatment Pt requests to use toilet. SBA using FWW to ambulate and transfer onto toilet. Pt completes hygiene by self on toilet then clothing manipulation using SBA for safety. Pt stood at sink to complete grooming independently using sink to stabilize. After session, pt sitting in recliner with call light/phone in reach. All needs met in room. Therapy Code Descriptions/Definitions Functional [place] Measure: 0=Not Assessed/NA 4=Minimal Assistance 1=Total Assistance 5=Supervision or Setup 2=Maximal Assistance 6=Modified [place] 3=Moderate Assistance 7=Complete IndependenceSCALE: Activities may be completed with or without assistive devices. 2-Jscwwmvbch-jkqyifm completes the activity by him/herself with no assistance from a helper. 5-Set-up or Clean-up Assistance-helper sets up or cleans up; patient completes activity. [place] assists only prior to or following the activity. 4-Supervision or Touching Assistance-helper provides verbal cues and/or touching/steadying and/or contact guard assistance as patient completes activity. Assistance may be provided throughout the activity or intermittently. 3-Partial/Moderate Assistance-helper does LESS THAN HALF the effort. [place] lifts, holds or supports trunk or limbs, but provides less than half the effort. 2-Substantial/Maximal Assistance-helper does MORE THAN HALF the effort. [place] lifts or holds trunk or limbs and provides more than half the effort. 5-Imtjnuufz-omtuqz does ALL the effort. Patient does none of the effort to complete the activity. Or, the assistance of 2 or more helpers is required for the patient to complete the activity. If activity was not attempted, code reason: 7-Patient Refused. 9-Not Applicable-not attempted and the patient did not perform the activity before the current illness, exacerbation or injury. 10-Not Attempted due to Environmental Limitations-(lack of equipment, weather restraints, etc.). 88-Not Attempted due to Medical Conditions or Safety Concerns. Oral Hygiene (QC): 6 Toileting Hygiene (QC): 4 Toilet Transfer (QC): 3 (Min A for sit to stand from toilet.) OT Correction Goals Correction Goals Time Frame: Nov 26, 2021 Eating (QC): 6 Oral Hygiene (QC): 6 Toileting Hygiene (QC): 6 Shower/Bathe Self (QC): 4 Upper Body Dressing (QC): 6 Lower Body Dressing (QC): 4 On/Off Footwear (QC): 4 Additional Goals: 1-Demonstrate ADL Tasks, 2-Verbalize Understanding, 3-Impr oveStrength/José Antonio 1=Demonstrate adherence to instructed precautions during ADL tasks. 2=Patient will verbalize/demonstrate understanding of assistive devices/modifications for ADL. 3=Patient will improve strength/tolerance for activity to enable patient to perform ADL's. OT Education/Plan Problem List/Assessment Assessment: Decreased Activ Tolerance, Decreased UE Strength Discharge Recommendations Plan/Recommendations: Continue POC Treatment Plan/Plan of Care Patient would benefit from OT for education, treatment and training to promote independence in ADL's, mobility, safety and/or upper extremity function for ADL's. Plan of Care: ADL Retraining, Functional Mobility, UE Funct Exercise/Act Treatment Duration: Nov 26, 2021 Frequency: 3 times per week (3-5x/wk) Estimated Hrs Per Day: .25 hour per day Rehab Potential: Fair Time/GCodes Start Time: 10:10 Stop Time: 10:34 Total Time Billed (hr/min): 24 Billed Treatment Time 1 visit-ADL 2 (24 min) MOY RICO Nov 19, 2021 10:40
--- NOTE | 2021-11-19 11:10 | Physical Therapy Daily Note ---
PT Daily Note-Current Subjective Patient sitting in chair upon PT arrival, agreeable to treatment. Transfers SCALE: Activities may be completed with or without assistive devices. 2-Clpynvlftg-zdgtdty completes the activity by him/herself with no assistance from a helper. 5-Set-up or Clean-up Assistance-helper sets up or cleans up; patient completes activity. [place] assists only prior to or following the activity. 4-Supervision or Touching Assistance-helper provides verbal cues and/or touching/steadying and/or contact guard assistance as patient completes activi ty. Assistance may be provided throughout the activity or intermittently. 3-Partial/Moderate Assistance-helper does LESS THAN HALF the effort. [place] lifts, holds or supports trunk or limbs, but provides less than half the effort. 2-Substantial/Maximal Assistance-helper does MORE THAN HALF the effort. [place] lifts or holds trunk or limbs and provides more than half the effort. 0-Wksjbstla-suitqs does ALL the effort. Patient does none of the effort to complete the activity. Or, the assistance of 2 or more helpers is required for the patient to complete the activity. If activity was not attempted, code reason: 7-Patient Refused. 9-Not Applicable-not attempted and the patient did not perform the activity before the current illness, exacerbation or injury. 10-Not Attempted due to Environmental Limitations-(lack of equipment, weather restraints, etc.). 88-Not Attempted due to Medical Conditions or Safety Concerns. Sit to Stand (QC): 3 Chair/Bst-lr-Yrrxr Xfer(QC): 3 Weight Bearing Right Lower Extremity: Right Weight Bearing/Tolerated Left Lower Extremity: Left Weight Bearing/Tolerated Gait Training Does the Patient Walk?: Yes Distance: 250 Walk 10 feet (QC): 4 Walk 50 ft with 2 Turns(QC): 4 Walk 150 ft (QC): 4 Gait Persons Needed: 1 Gait Assistive Device: FWW Assessment Current Status: Fair Progress Patient tolerated treatment well. She ambulates 250 feet with FWW, with SBA and verbal cues for safety, progression, posture and conservation of energy. Reports at midpoint of walk that she is fatigued and "I'm about ready to sit down." Patient in chair post treatment with all needs met, nursing notified, call light in hand. PT Senior Living Goals Senior Living Goals PT Senior Living Goals Time Frame: Dec 04, 2021 Roll Left & Right (QC): 6 Sit to Lying (QC): 6 Lying-Sitting on Side/Bed(QC): 6 Sit to Stand (QC): 6 Chair/Ojx-id-Blrzj Xfer(QC): 6 Toilet Transfer (QC): 6 Walk 10 feet (QC): 4 Walk 50ft with 2 Turns (QC): 4 Walk 150 ft (QC): 4 PT Plan Treatment/Plan Treatment Plan: Continue Plan of Care Treatment Plan: Bed Mobility, Education, Functional Activity José Antonio, Functional Strength, Gait, Safety, Therapeutic Exercise, Transfers Treatment Duration: Dec 04, 2021 Frequency: 6 times per week Estimated Hrs Per Day: .25 hour per day Patient and/or Family Agrees t: Yes Safety Risks/Education Patient Education: Gait Training Teaching Recipient: Patient Teaching Methods: Demonstration, Discussion Response to Teaching: Verbalize Understanding, Return Demonstration Time/GCodes Time In: 1032 Time Out: 1050 Total Billed Treatment Time: 18 Total Billed Treatment Visit, Gait ANNITA FLORES PT Nov 19, 2021 11:10
[2021-11-19] MEDS ORDERED: INSU100I34 SQ (11:29)
[2021-11-19] MEDS ORDERED: PEN-53 MC (11:29)
--- NOTE | 2021-11-19 11:32 | Discharge Summary ---
Discharge Summary Hospital Course Was the Problem List Reviewed?: Yes Problems/Dx: (1) Rash due to allergy (2) Acute renal failure Status: Resolved Hospital Course Date of Admission: Nov 17, 2021 at 19:54 Admission Diagnosis : [facility] [place] Date of Discharge: 11/19/21 Discharge Diagnosis: rash from Ceftin, MATT on CKD, DM OOC started on small amount of insulin at [place], Hypotension due to meds Hospital Course: Pt had an uneventful 3 day hospital course after she was admitted for rash due to Ceftin antibiotic. She was just given IV fluids. She had acute kidney injury and improved back to 2.1. 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 I did discontinue a lot of her bp medication due to hypotension and started her on Basaglar insulin 8 units BID. She will have close follow up with Kelsey Mishra on Monday. Labs and Pending Lab Test: Laboratory Tests 11/18/21 16:19: Glucometer 308H 11/18/21 20:17: Glucometer 267H 11/19/21 05:25: White Blood Count 13.6H, Red Blood Count 2.56L, Hemoglobin 7.7L, Hematocrit 24L, Mean Corpuscular Volume 92, Mean Corpuscular Hemoglobin 30, Mean Corpuscular Hemoglobin Concent 33, Red Cell Distribution Width 14.3, Platelet Count 186, Mean Platelet Volume 10.9, Immature Granulocyte % (Auto) 1, Neutrophils (%) (Auto) 82H, Lymphocytes (%) (Auto) 13, Monocytes (%) (Auto) 4, Eosinophils (%) (Auto) 0, Basophils (%) (Auto) 0, Neutrophils # (Auto) 11.1H, Lymphocytes # (Auto) 1.8, Monocytes # (Auto) 0.6, Eosinophils # (Auto) 0.0, Basophils # (Auto) 0.0, Immature Granulocyte # (Auto) 0.1, Sodium Level 134L, Potassium Level 4.2, Chloride Level 103, Carbon Dioxide Level 18L, Anion Gap 13, Blood Urea Nitrogen 51H, Creatinine 2.16H, Estimat Glomerular Filtration Rate 23, BUN/Creatinine Ratio 24, Glucose Level 178H, Calcium Level 7.1L, Corrected Calcium 8.3L, Total Bilirubin 0.4, Aspartate Amino Transf (AST/SGOT) 24, Alanine Aminotransferase (ALT/SGPT) 19, Alkaline Phosphatase 79, Total Protein 5.4L, Albumin 2.5L, Procalcitonin 0.33H 11/19/21 11:09: Glucometer 161H Microbiology 11/17/21 Blood Culture - Preliminary, Resulted Staph, Coag Neg ([employer]) Home Meds Active Advocate Pen Needle (Pen Needle, Diabetic) 33 Gauge X 5/32" Dis.needle Each MC BID Basaglar Kwikpen U-100 (Insulin Glargine,Hum.rec.anlog) 100 Unit/Ml (3 Ml) Insuln.pen 8 Unit SQ BID Reported Benadryl (Diphenhydramine HCl) 25 Mg Capsule 25 Mg PO HS PRN Stool Softener (Docusate Sodium) 100 Mg Capsule 100 Mg PO DAILY PRN Atorvastatin Calcium 10 Mg Tablet 10 Mg PO HS Tizanidine HCl 2 Mg Tablet 2 Mg PO DAILY PRN Losartan Potassium 50 Mg Tablet 50 Mg PO DAILY Famotidine 40 Mg Tablet 40 Mg PO HS Montelukast Sodium 10 Mg Tablet 10 Mg PO HS Flonase Allergy Relief (Fluticasone Propionate) 9.9 Ml [place].susp 1 [place] NS DAILY PRN Latanoprost 0.005% Eye Drop (Latanoprost/Pf) 7.5 Ml Drops 1 Drop OD DAILY Simbrinza 1%-0.2% Eye Drops (Brinzolamide/Brimonidine Tart) 8 Ml Drops.susp 1 Drop OD DAILY Tylenol Extra Strength (Acetaminophen) 500 Mg Tablet 1,000 Mg PO Q6H PRN TAKES 2 (500MG) TABLETS Aspirin EC (Aspirin) 81 Mg Tablet.dr 81 Mg PO DAILY Carvedilol 25 Mg Tablet 25 Mg PO BID Amlodipine Besylate 10 Mg Tablet 10 Mg PO HS Hydralazine HCl 25 Mg Tablet 75 Mg PO BID TAKES 3 (25MG) TABLETS Assessment/Pt Instructions PCP Monday Discharge Planning: <30 minutes discharge planning Discharge Instructions Discharge Diet: ADA Diet Discharge Physical Examination Vital Signs Vital Signs Date Time Temp Pulse Resp B/P (MAP) Pulse Ox O2 Delivery O2 Flow Rate FiO2 11/19/21 09:00 Room Air 11/19/21 08:12 36.6 113 18 119/67 (84) 95 11/18/21 12:00 2.00 General Appearance: No Apparent Distress, WD/WN, Chronically ill Allergies: Coded Allergies: morphine (Verified Adverse Reaction, Intermediate, sedation, 02/28/21) Uncoded Allergies: TETANUS VACCINATION (Adverse Reaction, Intermediate, swelling, 08/21/18) Discharge Summary Date of Admission Nov 17, 2021 at 19:54 Date of Discharge Discharge Date: Nov 19, 2021 Admission Diagnosis Assessment: Rash likely drug reaction from Ceftin Acute kidney injury Recent antibiotic use for pneumonia New onset atrial fibrillation per chief radiologic technologist Dr. Huff in [place] Future anticoagulation with unknown medication per patient Hypertension Hyperlipidemia CAD previous bypass Debility Former smoker Plan: IV fluid Moved to floor Supportive care Discharge Diagnosis (1) Acute renal failure Onset Date: ~ 02/28/2021 Status: Resolved (2) Rash due to allergy Clinical Quality Measures DVT/VTE Risk/Contraindication: Contraindications-Pharm: Other *list below* Other: anemia and rash FARIDA BEAN DO Nov 19, 2021 11:32
--- NOTE | 2021-11-19 11:32 | D/C HH Face to Face Order ---
D/C Face to Face Orders Reconcile Patient Problems Problems Reviewed?: Yes Instructions for Patient [facility], Patient Instructions/FollowUp: PCP next week to evaluate BP meds and insulin doses Physician to follow Patient: Mishra Discharge Diet for Home: ADA Diet Patient Problems: Rash from Ceftin Kidney failure Diabetes now on insulin Hypotension due to meds Patient Data-Allergies,Ht & Wt Patient Allergies: Coded Allergies: morphine (Verified Adverse Reaction, Intermediate, sedation, 02/28/21) Uncoded Allergies: TETANUS VACCINATION (Adverse Reaction, Intermediate, swelling, 08/21/18) Height (Feet): 4 Height (Inches): 11.00 Weight (Pounds): 156 Weight (Ounces): 6.0 Home Health Need/Face to Face Date of Face to Face: Nov 19, 2021 Clinical Findings: Generalized weakness and fatigue, Instability, Muscle weakness, Shortness of breath, Unsteady gait I have seen Pt epbe-fo-qnjy: Yes Discharged To: Home Diagnosis/Conditions: Debility Patient is Homebound due to: Muscle weakness Homebound Status Due to the above stated illness, injury or surgical procedure (medical condition or diagnosis) and associated clinical findings, the patient is homebound because of his/her inability to leave home except with aid of a supportive device and/or person AND leaving the home requires a considerable and taxing effort or is medically contraindicated. Pt req the following assistanc: [facility] Home Health Nursing Orders Home Health Services Order: Nursing Services, Property Custodian-Evaluate & Treat, Physical Therapy-Evaluate & Treat Home Health Infusion Therapy Line Start Date: Nov 17, 2021 Certify Stmt I certify that this patient is under my care and that I, a nurse practitioner or a physician; a events administrative assistant working with me, had a face to face encounter that - meets the physician face to face encounter requirements with this patient as dated. FARIDA BEAN DO Nov 19, 2021 11:32
[2021-11-19 11:56] VITALS: BP 112/63
[2021-11-19 15:37] VITALS: BP 113/66
[2021-11-19 16:00] VITALS: BP 113/66
== END 2021-11-19 16:00 | disposition home or self-care (01) ==
LOC: EDUNIT# 13:00 → ER FS 13:01 → CSD 19:54 → 4TH 11-18 13:07
PROVIDERS: ADMIT Internal Medicine; ATTEND Internal Medicine
DX: N17.9 Acute kidney failure, unspecified (principal); L27.0 Generalized skin eruption due to drugs and medicaments taken internally; R53.81 Other malaise; I12.9 Hypertensive chronic kidney disease with stage 1 through stage 4 chronic kidney disease, or unspecified chronic kidney disease; N18.9 Chronic kidney disease, unspecified; E11.22 Type 2 diabetes mellitus with diabetic chronic kidney disease; I95.2 Hypotension due to drugs; J18.9 Pneumonia, unspecified organism; E78.5 Hyperlipidemia, unspecified; I25.10 Atherosclerotic heart disease of native coronary artery without angina pectoris; Z87.891 Personal history of nicotine dependence; Z79.4 Long term (current) use of insulin
CPT/HCPCS: 36415; 71045; 80053; 81000; 82947; 83605; 83880; 84145; 85007; 85025; 85027; 86141; 87040; 87636; 87804; 96372; 96376; G0378

== ENCOUNTER 2021-11-25 12:30 | Outpatient (RCR) | payer MEDICARE ==
[~2021-11-25 12:30] MED LIST changes: +ATOR10TA66 PO; +DIPH25CA79 PO; +DOCU-26 PO; +INSU100I34 SQ; +PEN-53 MC
[2021-12-13] MEDS ORDERED: INSU100I29 SQ (15:21)
[2021-12-13] MEDS ORDERED: RIVA15TA PO (15:21)
[2021-12-13] MEDS ORDERED: LOSA50TA63 PO (15:22)
[2021-12-13] MEDS ORDERED: HYDR-3923 PO (15:23)
[2021-12-13] MEDS ORDERED: AMLO-251 PO (15:24)
[2021-12-13] MEDS ORDERED: GLUC1VIA18 SQ (15:28)
[2021-12-13] MEDS ORDERED: [UNRECOGNIZED DRUG - CODE] PO (15:32)
[2021-12-15] MEDS ORDERED: FURO-125 PO (11:05)
== END 2021-12-16 | disposition home or self-care (01) ==
LOC: CARD 12:30
PROVIDERS: ATTEND Internal Medicine Cardiovascular Disease
DX: I48.0 Paroxysmal atrial fibrillation (principal)

== ENCOUNTER → 2021-11-26 | Outpatient (CLI) | payer MEDICARE ==
[2021-11-26 10:18] LABS: BASOPHILS # (AUTO) 0.1 10^3/uL (0.0-0.1); BASOPHILS % (AUTO) 1 % (0-10); EOSINOPHILS # (AUTO) 0.6 10^3/uL (0.0-0.3); EOSINOPHILS % (AUTO) 7 % (0-10); HEMATOCRIT 27 % (35-52); HEMOGLOBIN 8.8 g/dL (11.5-16.0); LYMPHOCYTES # (AUTO) 1.1 10^3/uL (1.0-4.0); LYMPHOCYTES % (AUTO) 13 % (12-44); MEAN CORPUSCULAR HEMOGLOBIN 31 pg (25-34); MEAN CORPUSCULAR HGB CONC 33 g/dL (32-36); MEAN CORPUSCULAR VOLUME 94 fL (80-99); MEAN PLATELET VOLUME 10.9 fL (9.0-12.2); MONOCYTES # (AUTO) 0.6 10^3/uL (0.0-1.0); MONOCYTES % (AUTO) 6 % (0-12); NEUTROPHILS # (AUTO) 6.3 10^3/uL (1.8-7.8); NEUTROPHILS % (AUTO) 72 % (42-75); PLATELET COUNT 214 10^3/uL (130-400); WHITE BLOOD COUNT 8.7 10^3/uL (4.3-11.0)
[2021-11-26 10:51] LABS: BILIRUBIN,TOTAL 0.4 MG/DL (0.1-1.0); CALCIUM 7.7 MG/DL (8.5-10.1); CREATININE SERUM 1.45 MG/DL (0.60-1.30); POTASSIUM 4.1 MMOL/L (3.6-5.0); TOTAL PROTEIN 6.9 GM/DL (6.4-8.2)
[2021-11-26 10:52] LABS: ALBUMIN 3.1 GM/DL (3.2-4.5)
== END ==
LOC: LAB FS 09:51
PROVIDERS: ATTEND Nurse Practitioner Family
DX: N17.9 Acute kidney failure, unspecified (principal); I25.10 Atherosclerotic heart disease of native coronary artery without angina pectoris; R60.1 Generalized edema
CPT/HCPCS: 36415; 80053; 83880; 85025

== ENCOUNTER 2021-12-11 12:25 | Inpatient (IN) | payer MEDICARE ==
[~2021-12-11] VITALS: Ht 154.9 cm; Wt 69.8 kg
[2021-12-11 12:59] LABS: BASOPHILS % (AUTO) 0 % (0-10); EOSINOPHILS # (AUTO) 0.2 10^3/uL (0.0-0.3); EOSINOPHILS % (AUTO) 3 % (0-10); HEMATOCRIT 34 % (35-52); HEMOGLOBIN 10.5 g/dL (11.5-16.0); INR 1.2 (0.8-1.4); LYMPHOCYTES # (AUTO) 1.2 10^3/uL (1.0-4.0); LYMPHOCYTES % (AUTO) 14 % (12-44); MEAN CORPUSCULAR HEMOGLOBIN 29 pg (25-34); MEAN CORPUSCULAR HGB CONC 31 g/dL (32-36); MEAN CORPUSCULAR VOLUME 96 fL (80-99); MEAN PLATELET VOLUME 11.6 fL (9.0-12.2); MONOCYTES # (AUTO) 0.5 10^3/uL (0.0-1.0); MONOCYTES % (AUTO) 5 % (0-12); NEUTROPHILS # (AUTO) 6.6 10^3/uL (1.8-7.8); NEUTROPHILS % (AUTO) 77 % (42-75); PLATELET COUNT 172 10^3/uL (130-400); PROTHROMBIN TIME PATIENT 15.3 SEC (12.2-14.7); WHITE BLOOD COUNT 8.6 10^3/uL (4.3-11.0)
[2021-12-11] MEDS ORDERED: FUROSEMIDE 40 MG/4 ML INJ (LASIX) IVP ONE ×3 (13:00→15:15)
[2021-12-11] MEDS ORDERED: RT-ALBUTEROL/IPRATROPIUM 3 ML (DUONEB) VIAL INH ONE (13:00)
[2021-12-11 13:08] LABS: BILIRUBIN,TOTAL 0.6 MG/DL (0.1-1.0); CALCIUM 8.4 MG/DL (8.5-10.1); CREATININE SERUM 1.47 MG/DL (0.60-1.30); MAGNESIUM 1.5 MG/DL (1.6-2.4); POTASSIUM 4.9 MMOL/L (3.6-5.0); TOTAL PROTEIN 6.6 GM/DL (6.4-8.2)
[2021-12-11 13:18] LABS: FIBRIN DEGRADATION PRODUCTS 3.85 UG/ML (0.00-0.49)
--- NOTE | 2021-12-11 13:31 | Diagnostic Imaging Report ---
CLINICAL INDICATION: Patient with bilateral lower extremity swelling and shortness of breath. EXAM: Portable chest x-ray, upright view. COMPARISON: Chest x-ray dated 11/19/2021. FINDINGS: Stable cardiomegaly. There is no significant pulmonary vascular congestion which has improved in the interim. There is no pleural effusion or pneumothorax. There are mild patchy airspace opacities involving both lower lung [place] which may represent residual lung infiltrate. Postop changes to the chest with sternotomy wires are again seen. The remainder of this exam shows no significant interval change compared to the prior study of comparison. IMPRESSION: 1: There is interval improved aeration of both lungs with residual mild infiltrate remaining. 2: There is cardiomegaly with no significant pulmonary vascular congestion. These findings have improved in the interim. Dictated by: Dictated on workstation # [id number]
--- NOTE | 2021-12-11 13:38 | ED Respiratory ---
General Chief Complaint: Respiratory Problems Stated Complaint: SOB Nursing Triage Note: Patient presents to the ED with c/o shortness of breath. States symptoms began 30 minutes ago. Has been wearing supplemental oxygen for the last 2 months after having pneumonia. Denies fever or cough. Source: patient, family Exam Limitations: no limitations History of Present Illness Date Seen by Provider: Dec 11, 2021 Time Seen by Provider: 12:40 Initial Comments 76-year-old female patient with history of coronary artery disease status post CABG, diabetes mellitus on insulin injection, hypertension, dyslipidemia, atrial fibrillation, pneumonia brought in POV by her granddaughter with complaining of shortness of breath. Patient states she had pneumonia about 2 months ago and discharged home with supplemental home oxygen at 2 L. Patient stated she had increasing shortness of breath since this morning without chest pain, cough, fever and chills, nausea and vomiting. Patient states she has had left lateral posterior chest wall pain intermittently without new changes recently. Patient also states she has bilateral lower extremity and upper extremity edema for the last 2 months that is gradually getting worse. Patient states she trys to drink plenty of liquid because her kidney problem. Patient hasher first appointment with renal specialis next week. Patient was getting ready for transferring to assisting living home today. Allergies and Home Medications Allergies Coded Allergies: morphine (Verified Adverse Reaction, Intermediate, sedation, 02/28/21) Uncoded Allergies: TETANUS VACCINATION (Adverse Reaction, Intermediate, swelling, 08/21/18) Patient Home Medication List Home Medication List Reviewed: Yes Acetaminophen (Tylenol Extra Strength) 500 Mg Tablet, 1,000 MG PO Q6H PRN for PAIN-MILD, (Reported) Entered as Reported by: HEATHER PEARL on 08/21/18 1633 Aspirin (Aspirin EC) 81 Mg Tablet.dr, 81 MG PO DAILY, (Reported) Entered as Reported by: HEATHER PEARL on 08/21/18 1633 Atorvastatin Calcium (Atorvastatin Calcium) 10 Mg Tablet, 10 MG PO HS, (Reported) Entered as Reported by: AFSANEH REECE on 11/19/21 0828 Brinzolamide/Brimonidine Tart (Simbrinza 1%-0.2% Eye Drops) 8 Ml Drops.susp, 1 DROP OD DAILY, (Reported) Entered as Reported by: SOFIA SMITH on 08/27/19 1153 Carvedilol (Carvedilol) 25 Mg Tablet, 25 MG PO BID, (Reported) Entered as Reported by: HEATHER PEARL on 08/21/18 1633 Diphenhydramine HCl (Benadryl) 25 Mg Capsule, 25 MG PO HS PRN for SLEEP, (Reported) Entered as Reported by: AFSANEH REECE on 11/19/21 0828 Docusate Sodium (Stool Softener) 100 Mg Capsule, 100 MG PO DAILY PRN for CONSTIPATION-1ST LINE, (Reported) Entered as Reported by: AFSAENH REECE on 11/19/21 0828 Famotidine (Famotidine) 40 Mg Tablet, 40 MG PO HS, (Reported) Entered as Reported by: RON SMITH on 03/01/21 1013 Fluticasone Propionate (Flonase Allergy Relief) 9.9 Ml [place].susp, 1 SPRAY NS DAILY PRN for CONGESTION, (Reported) Entered as Reported by: RON SMITH on 03/01/21 1013 Insulin Glargine,Hum.rec.anlog (Basaglar Kwikpen U-100) 100 Unit/Ml (3 Ml) Insuln.pen, 8 UNIT SQ BID Prescribed by: FARIDA BEAN on 11/19/21 1129 Latanoprost/Pf (Latanoprost 0.005% Eye Drop) 7.5 Ml Drops, 1 DROP OD DAILY, (Reported) Entered as Reported by: RON SMITH on 03/01/21 1013 Montelukast Sodium (Montelukast Sodium) 10 Mg Tablet, 10 MG PO HS, (Reported) Entered as Reported by: RON SMITH on 03/01/21 1013 Pen Needle, Diabetic (Advocate Pen Needle) 33 Gauge X 5/32" Dis.needle, EACH MC BID, (DME) Prescribed by: FARIDA BEAN on 11/19/21 1129 Tizanidine HCl (Tizanidine HCl) 2 Mg Tablet, 2 MG PO DAILY PRN for MUSCLE SPASMS, (Reported) Entered as Reported by: RON SMITH on 03/01/21 1013 Review of Systems Review of Systems Constitutional: weakness EENTM: see HPI Respiratory: see HPI Cardiovascular: see HPI Gastrointestinal: no symptoms reported Genitourinary: no symptoms reported Musculoskeletal: see HPI Skin: see HPI Psychiatric/Neurological: No Symptoms Reported Immunological/Allergic: no symptoms reported All Other Systems Reviewed Negative Unless Noted: Yes Past Pluyrlt-Xrdufs-Msukbq Hx Patient Social History Tobacco Use?: No Substance use?: No Alcohol Use?: No Immunizations Up To Date First/Initial COVID19 Vaccinat: August 2020 Second COVID19 Vaccination Dinesh: September 2020 Third COVID19 Vaccination Date: August 2020 Seasonal Allergies Seasonal Allergies: No Past Medical History Surgery/Hospitalization HX: DM, CAD; Triple bypass; Hernia repair with mesh; HTN; High Cholesterol; Cataract removal. 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 6.0oz. 70.027366iw; 27.84 BMI Method:Stated General Appearance: mild distress Eyes: Bilateral Eye Normal Inspection, Bilateral Eye PERRL, Bilateral Eye Conjunctivae Pale HEENT: PERRL/EOMI, normal ENT inspection Neck: non-tender, full range of motion Respiratory: no respiratory distress, decreased breath sounds, rales (Bibasilar) Cardiovascular: tachycardia, systolic murmur Gastrointestinal: normal bowel sounds, non tender, soft Extremities: swelling (3+ bilateral lower and upper extremity edema extending to lower abdominal) Neurologic/Psychiatric: no motor/sensory deficits, alert, oriented x 3 Skin: normal color Focused Exam Lactate Level 12/11/21 12:45: Lactic Acid Level 1.86 Lactic Acid Level Laboratory Tests Test 12/11/21 12:45 Lactic Acid Level 1.86 MMOL/L (0.50-2.00) Progress/Results/Core Measures Suspected Sepsis SIRS Temperature: Pulse: 110 Respiratory Rate: 22 Laboratory Tests 12/11/21 12:45: White Blood Count 8.6 Blood Pressure 127 /87 Mean: 100 12/11/21 12:45: Lactic Acid Level 1.86 Laboratory Tests 12/11/21 12:45: Creatinine 1.47H, INR Comment 1.2, Platelet Count 172, Total Bilirubin 0.6 Results/Orders Lab Results Laboratory Tests Test 12/11/21 12:45 12/11/21 14:18 Range/Units White Blood Count 8.6 4.3-11.0 10^3/uL Red Blood Count 3.60 L 3.80-5.11 10^6/uL Hemoglobin 10.5 L 11.5-16.0 g/dL Hematocrit 34 L 35-52 % Mean Corpuscular Volume 96 80-99 fL Mean Corpuscular Hemoglobin 29 25-34 pg Mean Corpuscular Hemoglobin Concent 31 L 32-36 g/dL Red Cell Distribution Width 16.7 H 10.0-14.5 % Platelet Count 172 130-400 10^3/uL Mean Platelet Volume 11.6 9.0-12.2 fL Immature Granulocyte % (Auto) 0 % Neutrophils (%) (Auto) 77 H 42-75 % Lymphocytes (%) (Auto) 14 12-44 % Monocytes (%) (Auto) 5 0-12 % Eosinophils (%) (Auto) 3 0-10 % Basophils (%) (Auto) 0 0-10 % Neutrophils # (Auto) 6.6 1.8-7.8 10^3/uL Lymphocytes # (Auto) 1.2 1.0-4.0 10^3/uL Monocytes # (Auto) 0.5 0.0-1.0 10^3/uL Eosinophils # (Auto) 0.2 0.0-0.3 10^3/uL Basophils # (Auto) 0.0 0.0-0.1 10^3/uL Immature Granulocyte # (Auto) 0.0 0.0-0.1 10^3/uL Prothrombin Time 15.3 H 12.2-14.7 SEC INR Comment 1.2 0.8-1.4 Activated Partial Thromboplast Time 33 24-35 SEC D-Dimer 3.85 H 0.00-0.49 UG/ML Sodium Level 139 135-145 MMOL/L Potassium Level 4.9 3.6-5.0 MMOL/L Chloride Level 106 98-107 MMOL/L Carbon Dioxide Level 22 21-32 MMOL/L Anion Gap 11 5-14 MMOL/L Blood Urea Nitrogen 27 H 7-18 MG/DL Creatinine 1.47 H 0.60-1.30 MG/DL Estimat Glomerular Filtration Rate 37 BUN/Creatinine Ratio 18 Glucose Level 173 H 70-105 MG/DL Lactic Acid Level 1.86 0.50-2.00 MMOL/L Calcium Level 8.4 L 8.5-10.1 MG/DL Corrected Calcium 9.2 8.5-10.1 MG/DL Magnesium Level 1.5 L 1.6-2.4 MG/DL Total Bilirubin 0.6 0.1-1.0 MG/DL Aspartate Amino Transf (AST/SGOT) 25 5-34 U/L Alanine Aminotransferase (ALT/SGPT) 19 0-55 U/L Alkaline Phosphatase 117 40-136 U/L Pro-B-Type Natriuretic Peptide 37815.0 H <75.0 PG/ML Total Protein 6.6 6.4-8.2 GM/DL Albumin 3.0 L 3.2-4.5 GM/DL Urine Color YELLOW Urine Clarity CLEAR Urine pH 6.0 5-9 Urine Specific Arjay 1.015 L 1.016-1.022 Urine Protein TRACE H NEGATIVE Urine Glucose (UA) NEGATIVE NEGATIVE Urine Ketones NEGATIVE NEGATIVE Urine Nitrite NEGATIVE NEGATIVE Urine Bilirubin NEGATIVE NEGATIVE Urine Urobilinogen 0.2 < = 1.0 MG/DL Urine Leukocyte Esterase 1+ H NEGATIVE Urine RBC (Auto) NEGATIVE NEGATIVE Urine RBC 2-5 H /HPF Urine WBC 25-50 H /HPF Urine Squamous Epithelial Cells 5-10 /HPF Urine Crystals NONE /LPF Urine Bacteria FEW H /HPF Urine Casts PRESENT /LPF Urine Granular Casts 0-2 H /LPF Urine Mucus NEGATIVE /LPF Urine Culture Indicated YES My Orders Orders - TATE BOWERS MD Cbc With Automated Diff (12/11/21 12:51) Comprehensive Metabolic Panel (12/11/21 12:51) Chest 1 View Ap/Pa Only (12/11/21 12:51) Albuterol/Ipra Inhalation Soln (Duoneb I (12/11/21 13:00) Fibrin Degradation Products (12/11/21 12:51) Magnesium (12/11/21 12:51) Ekg Tracing (12/11/21 12:51) O2 (12/11/21 12:51) Ed Iv/Invasive Line Start (12/11/21 12:51) Monitor-Rhythm Ecg Trace Only (12/11/21 12:51) Svn Small Volume Nebulizer (12/11/21 12:51) Urinalysis (12/11/21 12:51) Protime With Inr (12/11/21 12:51) Partial Thromboplastin Time (12/11/21 12:51) Lactic Acid Analyzer (12/11/21 12:51) Furosemide Injection (Lasix Injection) (12/11/21 13:00) Probnp Fs (12/11/21 12:45) Furosemide Injection (Lasix Injection) (12/11/21 14:15) Urine Culture (12/11/21 14:18) Magnesium 1 Gm/100 Ml Ivpb (Magnesium Castillo (12/11/21 15:15) Enoxaparin Injection (Lovenox Injection) (12/11/21 15:15) Furosemide Injection (Lasix Injection) (12/11/21 15:15) Catheter(Urinary) Insert & Ass 03,15 (12/11/21 15:08) Aspirin Chewable Tablet (Baby Aspirin Ch (12/11/21 15:15) Medications Given in ED Current Medications Medications Dose Ordered Sig/[place] Route Start Time Stop Time Status Last Admin Dose Admin Albuterol/ Ipratropium 3 ml ONCE ONCE INH 12/11/21 13:00 12/11/21 13:01 DC 12/11/21 12:58 3 ML Aspirin 324 mg ONCE ONCE PO 12/11/21 15:15 12/11/21 15:21 DC 12/11/21 15:34 324 MG Enoxaparin Sodium 60 mg ONCE ONCE SC 12/11/21 15:15 12/11/21 15:21 DC 12/11/21 15:34 60 MG Furosemide 20 mg ONCE ONCE IVP 12/11/21 13:00 12/11/21 13:01 DC 12/11/21 12:58 20 MG Furosemide 20 mg ONCE ONCE IVP 12/11/21 14:15 12/11/21 14:16 DC 12/11/21 14:22 20 MG Furosemide 40 mg ONCE ONCE IVP 12/11/21 15:15 12/11/21 15:21 DC 12/11/21 15:34 40 MG Vital Signs/I&O 12/11/21 12/11/21 12/11/21 12:30 12:30 18:02 Temp 36.4 36.4 Pulse 110 112 Resp B/P (MAP) 127/87 (100) 131/82 Pulse Ox 95 94 O2 Delivery Room Air Nasal Cannula Nasal Cannula O2 Flow Rate 2.00 2.00 2.00 2.00 Capillary Refill : Less Than 3 Seconds Blood Pressure Mean: 100 Progress Note : Progress Note Evaluation of patient in ER showed 76-year-old female patient with complaining of sudden onset of shortness of breath prior to arrival to ER with history of chronic shortness of breath for the last 2 months with edema. Patient had tachycardia and anasarca edema at arrival to ER and treated with Lasix 20 mg IV x2. Patient had proBNP of almost 20,000. Chest x-ray showed cardiomegaly. Patient had bibasilar rales in exam. Dr. Bean contacted at 1400 for admitting and because of lack of ICU bed she tried to move patient to open the bed. She was contacted at [phone] and 1500 and suggested to check with jackscrew man for approving admission to med telemetry bed. Dr. Peoples contacted at 1508 and he suggested to start Lovenox and aspirin and another dose of 40 mg of Lasix and agreed to admit patient to med telemetry bed. Patient had elevation of D-dimer of 3.5 but because of elevation of BUN/creatinine unable to check for PE, VQ scan is not available. Admitting physician was informed about elevation of D- dimer. Patient had magnesium of 1.5 and magnesium IV was ordered. Patient and her daughter was informed about test results, plan of care and needs for admission and agreed with plan of care. ECG Initial ECG Impression Date: Dec 11, 2021 Initial ECG Impression Time: 13:51 Initial ECG Rhythm: S.Tach Comment EKG interpreted by me. EKG at 1351 showed sinus tachycardia, low voltage QRS, Q waves in anterior leads, Q waves in inferior leads, no acute ST and T wave elevation. Diagnostic Imaging Diagonstic Imaging: Xray (Chest) Comments 1 view chest x-ray interpreted by radiologist and reviewed by me and showed: [facility] [place] NAME: SONIAMAURICIO Rea [facility] REC#: [id number] PT STATUS: REG ER : 1945 PHYSICIAN: TATE BOWERS MD ADMIT DATE: 12/11/21/ER FS Draft Date of Exam:12/11/21 CHEST 1 VIEW AP/PA ONLY CLINICAL INDICATION: Patient with bilateral lower extremity swelling and shortness of breath. EXAM: Portable chest x-ray, upright view. COMPARISON: Chest x-ray dated 11/19/2021. FINDINGS: Stable cardiomegaly. There is no significant pulmonary vascular congestion which has improved in the interim. There is no pleural effusion or pneumothorax. There are mild patchy airspace opacities involving both lower lung davis which may represent residual lung infiltrate. Postop changes to the chest with sternotomy wires are again seen. The remainder of this exam shows no significant interval change compared to the prior study of comparison. IMPRESSION: 1: There is interval improved aeration of both lungs with residual mild infiltrate remaining. 2: There is cardiomegaly with no significant pulmonary vascular congestion. These findings have improved in the interim. Dictated on workstation # [id number] Dict: 12/11/21 1307 Trans: 12/11/21 1331 [id number] Interpreted by: SOTO GALVIN MD Electronically signed by: Critical Care Note Critical Care Start Time: 12:40 Stop Time: 13:25 Departure Communication (Admissions) Time/Spoke to Admitting Phy: 15:15 Dr. Bean Time/Spoke to Consulting Phy: 15:08 Dr Peoples jackscrew man Recommended to give Lovenox, aspirin and another dose of Lasix, insert Hazel catheter, he feels comfortable to admit patient to [facility] telemetry bed. Impression Primary Impression: Acute CHF Qualified Codes: I50.9 - Heart failure, unspecified Additional Impressions: Shortness of breath Anasarca Chronic renal insufficiency Qualified Codes: N18.9 - Chronic kidney disease, unspecified Hypomagnesemia Anemia Qualified Codes: D64.9 - Anemia, unspecified Elevated d-dimer Cardiomegaly Tachycardia Disposition: ADMITTED INPATIENT Condition: Improved Admissions Decision to Admit Reason: Admit from ER (Trauma) Decision to Admit/Date: Dec 11, 2021 Time/Decision to Admit Time: 15:15 Transfer Transfer Reason: Exceeds level of care Time Spoke to Accepting Phy: 15:15 Transfer Facility: [facility] Method of Transfer: EMS Departure-Patient Inst. Referrals: YULY CIFUENTES MD (PCP) Primary Care Physician TATE BOWERS MD Dec 11, 2021 13:38
[2021-12-11 14:21] LABS: BILIRUBIN,URINE NEGATIVE (NEGATIVE); CLARITY,URINE CLEAR; COLOR,URINE YELLOW; GLUCOSE, URINE (UA) NEGATIVE (NEGATIVE); KETONES,URINE NEGATIVE (NEGATIVE); LEUKOCYTE ESTERASE ,URINE 1+ (NEGATIVE); NITRITE,URINE NEGATIVE (NEGATIVE); PROTEIN,URINE TRACE (NEGATIVE)
[2021-12-11 14:26] LABS: BACTERIA,URINE FEW /HPF; GRANULAR CASTS,URINE 0-2 /LPF; WBC,URINE 25-50 /HPF
[2021-12-11] MEDS ORDERED: ENOXAPARIN 60 MG/0.6 ML (LOVENOX) SYR SC ONE (15:15)
[2021-12-11] MEDS ORDERED: ASPIRIN 81 MG CHEW (CHILDREN'S ASA) PO ONE (15:15)
[2021-12-11] MEDS: MAGNESIUM 1 GM/100 ML IVPB 100 ML IV SCH ×2 (15:34→16:40)
[2021-12-11] MEDS ORDERED: ONDANSETRON 4 MG (ZOFRAN) ORAL DISSOLVE TAB PO PRN (18:15)
[2021-12-11] MEDS ORDERED: ANTACID SUSP 30 ML UDC (MYLANTA) PO PRN (18:15)
[2021-12-11] MEDS ORDERED: diphenhydrAMINE 50 MG/ML INJ (BENADRYL) IVP PRN (18:15)
[2021-12-11] MEDS ORDERED: ONDANSETRON 4 MG/2 ML (SDV) Z0FRAN IV PRN (18:15)
[2021-12-11] MEDS ORDERED: polyethylene glycoL POWDER 17 GM (MIRALAX) PACK PO PRN (18:15)
[2021-12-11] MEDS ORDERED: ACETAMINOPHEN 325 MG TABLET PO PRN (18:15)
[2021-12-11] MEDS ORDERED: diphenhydrAMINE 25 MG TAB (BENADRYL) PO PRN (18:15)
[2021-12-11] MEDS ORDERED: MELATONIN 3 MG TABLET PO PRN (18:15)
[2021-12-11] MEDS ORDERED: BISACODYL 10 MG SUPP (DULCOLAX) PR PRN (18:15)
[2021-12-11 20:50] VITALS: BP 128/83
[2021-12-11] MEDS: DOCUSATE SODIUM 100 MG (COLACE) CAP PO SCH (21:32)
[2021-12-11 23:00] VITALS: BP 127/87
[2021-12-11] MEDS ORDERED: RT-ALBUTEROL SULF 2.5 MG/3 ML PRE-MIX VIAL INH PRN (23:15)
[2021-12-12] VITALS (7 sets, daily range): BP systolic 109–143; BP diastolic 69–92
[2021-12-12] MEDS: FUROSEMIDE 40 MG/4 ML INJ (LASIX) IVP SCH ×4 (05:27→16:20)
[2021-12-12 05:36] LABS: BASOPHILS % (AUTO) 0 % (0-10); EOSINOPHILS # (AUTO) 0.4 10^3/uL (0.0-0.3); EOSINOPHILS % (AUTO) 6 % (0-10); HEMATOCRIT 32 % (35-52); HEMOGLOBIN 9.5 g/dL (11.5-16.0); LYMPHOCYTES # (AUTO) 1.2 10^3/uL (1.0-4.0); LYMPHOCYTES % (AUTO) 15 % (12-44); MEAN CORPUSCULAR HEMOGLOBIN 29 pg (25-34); MEAN CORPUSCULAR HGB CONC 29 g/dL (32-36); MEAN CORPUSCULAR VOLUME 99 fL (80-99); MEAN PLATELET VOLUME 11.5 fL (9.0-12.2); MONOCYTES # (AUTO) 0.6 10^3/uL (0.0-1.0); MONOCYTES % (AUTO) 8 % (0-12); NEUTROPHILS # (AUTO) 5.5 10^3/uL (1.8-7.8); NEUTROPHILS % (AUTO) 71 % (42-75); PLATELET COUNT 153 10^3/uL (130-400); WHITE BLOOD COUNT 7.8 10^3/uL (4.3-11.0)
[2021-12-12 05:47] LABS: ALBUMIN 2.6 GM/DL (3.2-4.5); POTASSIUM 4.4 MMOL/L (3.6-5.0)
[2021-12-12 05:48] LABS: CALCIUM 8.1 MG/DL (8.5-10.1)
[2021-12-12 05:50] LABS: TOTAL PROTEIN 6.1 GM/DL (6.4-8.2)
[2021-12-12 05:51] LABS: BILIRUBIN,TOTAL 0.4 MG/DL (0.1-1.0)
[2021-12-12 05:53] LABS: CREATININE SERUM 1.71 MG/DL (0.60-1.30)
--- NOTE | 2021-12-12 07:31 | History & Physical-Hospitalist ---
History of Present Illness HPI/Chief Complaint Chief complaint: Shortness of breath History of present illness: This is a 76-year-old female with history of congest bean heart failure and atrial fibrillation who presents to the ER with weakness and shortness of breath. Patient was found to be in congestive heart failure with volume overload. Elevated D-dimer also prompting Lovenox initiation therapeutic dose. Patient is currently doing much better the atrial fibrillation is rate controlled at 100 and she denies any pain. I did review her medications and laboratory data. Source: patient Exam Limitations: no limitations Date Seen 12/12/21 Time Seen by a Provider: 11:00 Attending Physician Kelsey Mishra MD PCP Admitting Physician: Tiff Bean DO Attending Physician: Tiff Bean DO Referring Physician Date of Admission Dec 11, 2021 at 19:05 Home Medications & Allergies Home Medications Reviewed patient Home Medication Reconciliation performed by pharmacy medication reconciliations highway traffic control technician and/or nursing. Patients Allergies have been reviewed. Allergies Allergies Coded Allergies morphine (Verified Adverse Reaction, Intermediate, sedation, 02/28/21) Uncoded Allergies TETANUS VACCINATION ( Adverse Reaction, Intermediate, swelling, 08/21/18) Past Swazumz-Ecblod-Vjwwej Hx Patient Social History Marrital Status: single Employed/Student: retired Tobacco Use?: No Tobacco type used: Cigarettes Smoking Status: Former Smoker Smokeless Tobacco Frequency: Never a User Use of E-Cig and/or Vaping dev: No Substance use?: No Alcohol Use?: No Pt feels they are or have been: No Immunizations Up To Date Date of Influenza Vaccine: Apr 09, 2019 First/Initial COVID19 Vaccinat: August 2020 Second COVID19 Vaccination Dinesh: September 2020 Date of Pneumonia Vaccine: Apr 23, 2018 Seasonal Allergies Seasonal Allergies: No Current Status Advance Directives: No Communicates: Verbally Primary Language: French Preferred Spoken Language: French Is interpretation needed?: No Sensory deficits: Vision impairment Implanted or Applied Medical D: None Past Medical History Surgeries: Abdominal, CABG, Orthopedic, Tubal Ligation Pneumonia Atrial Fibrillation, Coronary Artery Disease, High Cholesterol, Hypertension RESEARCH TECH History: Menopausal Bladder Infection Abdominal Hernia Arthritis Diabetes, Insulin dep Glaucoma Loss of Vision: Denies Hearing Impairment: Hard of Hearing Blood Disorders: No Family Medical History Heart Disease, Lung Disease, Stroke Review of Systems Constitutional: see HPI, malaise, weakness EENTM: no symptoms reported Respiratory: dyspnea on exertion Cardiovascular: no symptoms reported Gastrointestinal: no symptoms reported Genitourinary: no symptoms reported Musculoskeletal: no symptoms reported Skin: no symptoms reported Psychiatric/Neurological: No Symptoms Reported All Other Systems Reviewed Negative Unless Noted: Yes Physical Exam Physical Exam Vital Signs Vital Signs - First Documented 12/11/21 23:00 FiO2 28 Capillary Refill : Less Than 3 Seconds Height, Weight, BMI Height: 4'11.00" Weight: 156lbs. 6.0oz. 70.157577gy; 28.42 BMI Method:Stated General Appearance: No Apparent Distress, Chronically ill Eyes: Right Eye Normal Inspection, Right Eye PERRL HEENT: PERRL/EOMI, Normal ENT Inspection, Pharynx Normal, Moist Mucous Membranes Neck: Full Range of Motion, Normal Inspection, Non Tender Respiratory: Chest Non Tender, Lungs Clear, Normal Breath Sounds, No Accessory Muscle Use, No Respiratory Distress Cardiovascular: No Edema, No Gallop, No JVD, No Murmur, Normal Peripheral Pulses, Irregularly Irregular Gastrointestinal: Normal Bowel Sounds, No Organomegaly, No Pulsatile Mass, Non Tender, Soft Back: Normal Inspection, No CVA Tenderness, No Vertebral Tenderness Extremity: Normal Capillary Refill, Normal Inspection, Normal Range of Motion, Non Tender, No Calf Tenderness, No Pedal Edema Neurologic/Psychiatric: Alert, Oriented x3, No Motor/Sensory Deficits, Normal Mood/Affect Skin: Normal Color, Warm/Dry Lymphatic: No Adenopathy Results Results/Procedures Labs Laboratory Tests 12/11/21 12:45 12/12/21 05:24 Patient resulted labs reviewed. Assessment/Plan Admission Diagnosis Assessment: Dyspnea Elevated d-dimer CKD AF CHF Plan: Madhu Lam Admission Status: Inpatient Order (span 2 midnights) Reason for Inpatient Admission: chf Diagnosis/Problems Diagnosis/Problems (1) Congestive heart failure Permanent Comment: Echocardiogram 06/2018 at [facility] with EF 50% and grade 2 diastolic dysfunction, moderately dilated right ventricle and mild reduction in right ventricular systolic function. Last Edited By: Elly Monahan on Aug 21, 2018 21:02 (2) Coronary artery disease Status: Chronic Permanent Comment: Stress testing at [facility] 07/19/2018 unremarkable. Last Edited By: Elly Monahan on Aug 21, 2018 21:01 (3) Chronic renal insufficiency Status: Chronic Qualifiers: Chronic kidney disease stage: unspecified stage Qualified Codes: N18.9 - Chronic kidney disease, unspecified (4) History of coronary artery bypass graft (5) Anemia Status: Chronic Qualifiers: Anemia type: unspecified type Qualified Codes: D64.9 - Anemia, unspecified (6) GERD (gastroesophageal reflux disease) Status: Chronic Clinical Quality Measures DVT/VTE Risk/Contraindication: Contraindications-Mechi: Other *list below* Other: poss dvt TIFF BEAN DO Dec 12, 2021 07:31
[2021-12-12] MEDS: RT-ALBUTEROL SULF 2.5 MG/3 ML PRE-MIX VIAL INH SCH ×2 (08:29→22:33)
[2021-12-12] MEDS: cefTRIAXone 1 GM PRE-MIX 50 ML IV SCH (08:53)
[2021-12-12] MEDS: ENOXAPARIN 60 MG/0.6 ML (LOVENOX) SYR SC SCH (08:53)
[2021-12-12] MEDS: ASPIRIN 81 MG CHEW (CHILDREN'S ASA) PO SCH (08:54)
[2021-12-12] MEDS: DOCUSATE SODIUM 100 MG (COLACE) CAP PO SCH ×2 (08:54→20:37)
--- NOTE | 2021-12-12 11:59 | Consultation-Cardiology ---
HPI-Cardiology Cardiology Consultation Date of Consultation 12/12/21 Date of Admission Time Seen by Provider: 11:53 Indication: Shortness of breath HPI 76-year-old lady with history of irregular heartbeat, aortic stenosis, hypertension. Started to have increasing shortness of breath and pedal edema. Came into the emergency room. On my evaluation she is feeling better, reporting improvement in her dyspnea, she is using oxygen, still having some pedal edema. She denied any palpitation, no syncope or near syncopal episodes. No claudications. Home Medications & Allergies Allergies: Coded Allergies: morphine (Verified Adverse Reaction, Intermediate, sedation, 02/28/21) Uncoded Allergies: TETANUS VACCINATION (Adverse Reaction, Intermediate, swelling, 08/21/18) Home Medication List Reviewed: Yes [id number] Hx Patient Social History Employed/Student: retired Smoking Status: Former Smoker Type Used: Cigarettes 2nd Hand Smoke Exposure: No Recent Hopitalizations: No Have you traveled recently?: No Alcohol Use?: No Immunizations Up To Date Date of Pneumonia Vaccine: Apr 23, 2018 Date of Influenza Vaccine: Apr 09, 2019 Past Medical History Discussed below Family Medical History Significant Family History: Heart Disease, Lung Disease, Stroke Family Medical Hx Noncontributory Review of Systems-General Review of Systems Constitutional: see HPI, malaise, weakness EENTM: see HPI, no symptoms reported Respiratory: see HPI, cough, dyspnea on exertion; No hemoptysis; orthopnea; No phlegm; short of breath; No stridor, No wheezing, No other Cardiovascular: see HPI; No chest pain; edema; No Hx of Intervention; palpitations; No syncope, No vascular heart diseas, No other Gastrointestinal: no symptoms reported, see HPI Genitourinary: no symptoms reported, see HPI Musculoskeletal: see HPI Skin: see HPI Psychiatric/Neurological: No Symptoms Reported, See HPI All Other Systems Reviewed Negative Unless Noted: Yes Reviewed Test Results Reviewed Test Results Lab Laboratory Tests Test 12/11/21 12:45 12/11/21 14:18 12/11/21 21:12 12/12/21 05:24 Range/Units White Blood Count 8.6 7.8 4.3-11.0 10^3/uL Red Blood Count 3.60 L 3.26 L 3.80-5.11 10^6/uL Hemoglobin 10.5 L 9.5 L 11.5-16.0 g/dL Hematocrit 34 L 32 L 35-52 % Mean Corpuscular Volume 96 99 80-99 fL Mean Corpuscular Hemoglobin 29 29 25-34 pg Mean Corpuscular Hemoglobin Concent 31 L 29 L 32-36 g/dL Red Cell Distribution Width 16.7 H 16.6 H 10.0-14.5 % Platelet Count 172 153 130-400 10^3/uL Mean Platelet Volume 11.6 11.5 9.0-12.2 fL Immature Granulocyte % (Auto) 0 1 % Neutrophils (%) (Auto) 77 H 71 42-75 % Lymphocytes (%) (Auto) 14 15 12-44 % Monocytes (%) (Auto) 5 8 0-12 % Eosinophils (%) (Auto) 3 6 0-10 % Basophils (%) (Auto) 0 0 0-10 % Neutrophils # (Auto) 6.6 5.5 1.8-7.8 10^3/uL Lymphocytes # (Auto) 1.2 1.2 1.0-4.0 10^3/uL Monocytes # (Auto) 0.5 0.6 0.0-1.0 10^3/uL Eosinophils # (Auto) 0.2 0.4 H 0.0-0.3 10^3/uL Basophils # (Auto) 0.0 0.0 0.0-0.1 10^3/uL Immature Granulocyte # (Auto) 0.0 0.1 0.0-0.1 10^3/uL Prothrombin Time 15.3 H 12.2-14.7 SEC INR Comment 1.2 0.8-1.4 Activated Partial Thromboplast Time 33 24-35 SEC D-Dimer 3.85 H 0.00-0.49 UG/ML Sodium Level 139 138 135-145 MMOL/L Potassium Level 4.9 4.4 3.6-5.0 MMOL/L Chloride Level 106 107 98-107 MMOL/L Carbon Dioxide Level 22 22 21-32 MMOL/L Anion Gap 11 9 5-14 MMOL/L Blood Urea Nitrogen 27 H 27 H 7-18 MG/DL Creatinine 1.47 H 1.71 H 0.60-1.30 MG/DL Estimat Glomerular Filtration Rate 37 31 BUN/Creatinine Ratio 18 16 Glucose Level 173 H 161 H 70-105 MG/DL Lactic Acid Level 1.86 0.50-2.00 MMOL/L Calcium Level 8.4 L 8.1 L 8.5-10.1 MG/DL Corrected Calcium 9.2 9.2 8.5-10.1 MG/DL Magnesium Level 1.5 L 1.6-2.4 MG/DL Total Bilirubin 0.6 0.4 0.1-1.0 MG/DL Aspartate Amino Transf (AST/SGOT) 25 20 5-34 U/L Alanine Aminotransferase (ALT/SGPT) 19 15 0-55 U/L Alkaline Phosphatase 117 106 40-136 U/L Pro-B-Type Natriuretic Peptide 26929.0 H <75.0 PG/ML Total Protein 6.6 6.1 L 6.4-8.2 GM/DL Albumin 3.0 L 2.6 L 3.2-4.5 GM/DL Urine Color YELLOW Urine Clarity CLEAR Urine pH 6.0 5-9 Urine Specific [place] 1.015 L 1.016-1.022 Urine Protein TRACE H NEGATIVE Urine Glucose (UA) NEGATIVE NEGATIVE Urine Ketones NEGATIVE NEGATIVE Urine Nitrite NEGATIVE NEGATIVE Urine Bilirubin NEGATIVE NEGATIVE Urine Urobilinogen 0.2 < = 1.0 MG/DL Urine Leukocyte Esterase 1+ H NEGATIVE Urine RBC (Auto) NEGATIVE NEGATIVE Urine RBC 2-5 H /HPF Urine WBC 25-50 H /HPF Urine Squamous Epithelial Cells 5-10 /HPF Urine Crystals NONE /LPF Urine Bacteria FEW H /HPF Urine Casts PRESENT /LPF Urine Granular Casts 0-2 H /LPF Urine Mucus NEGATIVE /LPF Urine Culture Indicated YES Glucometer 197 H 70-110 MG/DL Test 12/12/21 10:51 Range/Units Glucometer 164 H 70-110 MG/DL Physical Exam Physical Exam Vital Signs Vital Signs - First Documented 12/11/21 23:00 FiO2 28 Capillary Refill : Less Than 3 Seconds Height, Weight, BMI Height: 4'11.00" Weight: 156lbs. 6.0oz. 70.846342ad; 28.42 BMI Method:Stated General Appearance: No Apparent Distress, WD/WN Eyes: Bilateral Eye Normal Inspection, Bilateral Eye PERRL, Bilateral Eye Conjunctivae Pale HEENT: PERRL/EOMI, TMs Normal, Normal ENT Inspection, Pharynx Normal, Moist Mucous Membranes Neck: Full Range of Motion, Normal Inspection, Non Tender, Supple, Carotid Bruit Respiratory: Chest Non Tender, Normal Breath Sounds, No Accessory Muscle Use, No Respiratory Distress, Decreased Breath Sounds Cardiovascular: Regular Rate, Rhythm, No Gallop, No JVD, No Murmur, Normal Peripheral Pulses, Systolic Murmur Gastrointestinal: Normal Bowel Sounds, No Organomegaly, No Pulsatile Mass, Non Tender, Soft Back: Normal Inspection, No CVA Tenderness, No Vertebral Tenderness Extremity: Normal Capillary Refill, Normal Inspection, Normal Range of Motion, Non Tender, No Calf Tenderness, Pedal Edema Neurologic/Psychiatric: Alert, Oriented x3, No Motor/Sensory Deficits, Normal Mood/Affect Skin: Normal Color, Warm/Dry Lymphatic: No Adenopathy A/P-Cardiology Admission Diagnosis Shortness of breath Peripheral edema Acute renal insufficiency Hypertension Assessment/Plan Shortness of breath, has been having worsening pedal edema. Had elevation in B [employer]. Started on Lasix and antibiotics. Reporting improvement today. Will continue and monitor closely Acute on chronic renal insufficiency, monitor renal function while on aggressive diuresis. Coronary artery disease, history of CABG. Has been asymptomatic. Followed and managed with Dr. Colin Valvular heart disease with aortic valve stenosis, mild mitral regurgitation, severe tricuspid regurgitation. Currently asymptomatic. Continue to monitor History of irregular heartbeat and palpitation, did not have any palpitation at this point. Had a Holter monitor done with Dr. Colin which reported as sinus rhythm with atrial and ventricular premature contractions. Hypertension, restarting home medication monitor blood pressure Hyperlipidemia, monitor lipids Diabetes mellitus, followed and managed by primary care physician Clinical Quality Measures DVT/VTE Risk/Contraindication: Contraindications-Mechi: Other *list below* Other: poss dvt ADOLFO FREY MD Dec 12, 2021 11:59
[2021-12-12] MEDS: MICONAZOLE 2% POWDER (DESENEX AF) 90 GM TOP SCH (20:38)
[2021-12-13] VITALS (7 sets, daily range): BP systolic 112–155; BP diastolic 67–99
[2021-12-13] MEDS: FUROSEMIDE 40 MG/4 ML INJ (LASIX) IVP SCH ×4 (03:25→10:05)
--- NOTE | 2021-12-13 06:11 | Progress Note - Hospitalist ---
Subjective HPI/CC On Admission Date Seen by Provider: Dec 13, 2021 Time Seen by Provider: 10:00 Chief complaint: Shortness of breath History of present illness: This is a 76-year-old female with history of congestive heart failure and atrial fibrillation who presents to the ER with weakness and shortness of breath. Patient was found to be in congestive heart failure with volume overload. Elevated D-dimer also prompting Lovenox initiation therapeutic dose. Patient is currently doing much better the atrial fibrillation is rate controlled at 100 and she denies any pain. I did review her medications and laboratory data. Subjective/Events-last exam Patient doing really well Patient appears to be very debilitated Hemoglobin 9.9 Creatinine 1.89 Social work may need to place her Review of Systems General: Fatigue, Malaise Focused Exam Lactate Level 12/11/21 12:45: Lactic Acid Level 1.86 Objective Exam Vital Signs Vital Signs Date Time Temp Pulse Resp B/P (MAP) Pulse Ox O2 Delivery O2 Flow Rate FiO2 12/13/21 20:00 36.0 118 18 155/99 (117) 97 Nasal Cannula 2.00 12/11/21 23:00 28 Capillary Refill : Less Than 3 Seconds General Appearance: No Apparent Distress, WD/WN, Chronically ill Respiratory: Lungs Clear, Normal Breath Sounds Cardiovascular: Irregularly Irregular, Tachycardia Neurologic/Psychiatric: Alert, Oriented x3, No Motor/Sensory Deficits, Normal Mood/Affect Results/Procedures Lab Laboratory Tests 12/13/21 07:12 Patient resulted labs reviewed. Assessment/Plan Assessment and Plan Assess & Plan/Chief Complaint Assessment: Dyspnea Elevated d-dimer CKD AF CHF Plan: Laseric Peoples Lovenox DC Xarelto restart PT OT DC catheter Diagnosis/Problems Diagnosis/Problems (1) Congestive heart failure Permanent Comment: Echocardiogram 06/2018 at [facility] with EF 50% and grade 2 diastolic dysfunction, moderately dilated right ventricle and mild reduction in right ventricular systolic function. Last Edited By: Elly Monahan on Aug 21, 2018 21:02 (2) Coronary artery disease Status: Chronic Permanent Comment: Stress testing at [facility] 07/19/2018 unremarkable. Last Edited By: Elly Monahan on Aug 21, 2018 21:01 (3) Chronic renal insufficiency Status: Chronic Qualifiers: Chronic kidney disease stage: unspecified stage Qualified Codes: N18.9 - Chronic kidney disease, unspecified (4) History of coronary artery bypass graft (5) Anemia Status: Chronic Qualifiers: Anemia type: unspecified type Qualified Codes: D64.9 - Anemia, unspecified (6) GERD (gastroesophageal reflux disease) Status: Chronic Clinical Quality Measures DVT/VTE Risk/Contraindication: Contraindications-Mechi: Other *list below* Other: poss dvt FARIDA BEAN DO Dec 13, 2021 06:11
[2021-12-13 07:23] LABS: BASOPHILS % (AUTO) 0 % (0-10); EOSINOPHILS # (AUTO) 0.7 10^3/uL (0.0-0.3); EOSINOPHILS % (AUTO) 8 % (0-10); HEMATOCRIT 34 % (35-52); HEMOGLOBIN 9.9 g/dL (11.5-16.0); LYMPHOCYTES # (AUTO) 1.6 10^3/uL (1.0-4.0); LYMPHOCYTES % (AUTO) 19 % (12-44); MEAN CORPUSCULAR HEMOGLOBIN 30 pg (25-34); MEAN CORPUSCULAR HGB CONC 29 g/dL (32-36); MEAN CORPUSCULAR VOLUME 101 fL (80-99); MEAN PLATELET VOLUME 11.9 fL (9.0-12.2); MONOCYTES # (AUTO) 0.5 10^3/uL (0.0-1.0); MONOCYTES % (AUTO) 6 % (0-12); NEUTROPHILS # (AUTO) 5.8 10^3/uL (1.8-7.8); NEUTROPHILS % (AUTO) 67 % (42-75); PLATELET COUNT 154 10^3/uL (130-400); WHITE BLOOD COUNT 8.7 10^3/uL (4.3-11.0)
[2021-12-13 07:42] LABS: ALBUMIN 2.8 GM/DL (3.2-4.5); BILIRUBIN,TOTAL 0.4 MG/DL (0.1-1.0); CALCIUM 8.3 MG/DL (8.5-10.1); CREATININE SERUM 1.89 MG/DL (0.60-1.30); MAGNESIUM 1.6 MG/DL (1.6-2.4); POTASSIUM 4.7 MMOL/L (3.6-5.0); TOTAL PROTEIN 6.4 GM/DL (6.4-8.2)
[2021-12-13] MEDS: RT-ALBUTEROL SULF 2.5 MG/3 ML PRE-MIX VIAL INH SCH ×2 (08:22→21:58)
--- NOTE | 2021-12-13 08:44 | Cardiology Progress Note ---
Progress Note-Cardiology Events since last exam Date Seen by Provider: Dec 13, 2021 Time Seen by Provider: 08:40 Events since last exam I am following her due to atrial arrhythmias and heart failure. She also has a history of mitral regurgitation, tricuspid regurgitation and pulmonary hypertension. Contrary to what a previous note from one of my partners said, she does not have aortic stenosis. Her breathing has improved. Her lower extremity has improved but not completely resolved. She denies any chest discomfort. She has chronic, intermittent palpitations with a sensation of rapid heartbeats and this is unchanged. She denies syncope. Certain portions of this document may have been dictated utilizing voice recognition technology. Inherent to this technology, typographical and grammatical errors may exist. As much as I am diligent to identify and correct these mistakes, some errors may remain in the document. Vitals Last set of Vitals Signs Vital Signs 12/11/21 12/13/21 12/13/21 23:00 08:01 08:22 Temp 36.6 Pulse 115 Resp 20 B/P (MAP) 129/89 (102) Pulse Ox 100 O2 Delivery Nasal Cannula O2 Flow Rate 2.00 FiO2 28 Labs Labs Laboratory Tests 12/13/21 07:12 Exam Vital Signs Vital Signs Date Time Temp Pulse Resp B/P (MAP) Pulse Ox O2 Delivery O2 Flow Rate FiO2 12/13/21 08:22 100 Nasal Cannula 2.00 12/13/21 08:01 36.6 115 20 129/89 (102) 12/11/21 23:00 28 Physical Exam General: Alert. No acute distress. She is overweight. Eye: No xanthelasma. HENT: Normocephalic. Neck: Jugular venous pressure does not appear elevated. Respiratory: Lungs are clear to auscultation. Respirations are non-labored. Breath sounds are equal. Symmetrical chest wall expansion. Cardiovascular: Normal rate. Regular rhythm. 2/6 systolic ejection murmur. No gallop. 2+ bilateral pretibial edema. Gastrointestinal: Soft. Normal bowel sounds. Skin: Warm. Dry. Neurologic: Alert and oriented to person, place, time. Cranial nerves 3-11 grossly intact. Psychiatric: Cooperative. Appropriate mood & affect. Labs Laboratory Tests Test 12/12/21 10:51 12/12/21 15:56 12/12/21 20:18 6/27/22 07:12 Range/Units Glucometer 164 H 152 H 178 H 70-110 MG/DL White Blood Count 8.7 4.3-11.0 10^3/uL Red Blood Count 3.34 L 3.80-5.11 10^6/uL Hemoglobin 9.9 L 11.5-16.0 g/dL Hematocrit 34 L 35-52 % Mean Corpuscular Volume 101 H 80-99 fL Mean Corpuscular Hemoglobin 30 25-34 pg Mean Corpuscular Hemoglobin Concent 29 L 32-36 g/dL Red Cell Distribution Width 16.4 H 10.0-14.5 % Platelet Count 154 130-400 10^3/uL Mean Platelet Volume 11.9 9.0-12.2 fL Immature Granulocyte % (Auto) 1 % Neutrophils (%) (Auto) 67 42-75 % Lymphocytes (%) (Auto) 19 12-44 % Monocytes (%) (Auto) 6 0-12 % Eosinophils (%) (Auto) 8 0-10 % Basophils (%) (Auto) 0 0-10 % Neutrophils # (Auto) 5.8 1.8-7.8 10^3/uL Lymphocytes # (Auto) 1.6 1.0-4.0 10^3/uL Monocytes # (Auto) 0.5 0.0-1.0 10^3/uL Eosinophils # (Auto) 0.7 H 0.0-0.3 10^3/uL Basophils # (Auto) 0.0 0.0-0.1 10^3/uL Immature Granulocyte # (Auto) 0.0 0.0-0.1 10^3/uL Sodium Level 139 135-145 MMOL/L Potassium Level 4.7 3.6-5.0 MMOL/L Chloride Level 104 98-107 MMOL/L Carbon Dioxide Level 22 21-32 MMOL/L Anion Gap 13 5-14 MMOL/L Blood Urea Nitrogen 31 H 7-18 MG/DL Creatinine 1.89 H 0.60-1.30 MG/DL Estimat Glomerular Filtration Rate 27 BUN/Creatinine Ratio 16 Glucose Level 114 H 70-105 MG/DL Calcium Level 8.3 L 8.5-10.1 MG/DL Corrected Calcium 9.3 8.5-10.1 MG/DL Magnesium Level 1.6 1.6-2.4 MG/DL Total Bilirubin 0.4 0.1-1.0 MG/DL Aspartate Amino Transf (AST/SGOT) 22 5-34 U/L Alanine Aminotransferase (ALT/SGPT) 19 0-55 U/L Alkaline Phosphatase 104 40-136 U/L Total Protein 6.4 6.4-8.2 GM/DL Albumin 2.8 L 3.2-4.5 GM/DL Radiology ECHOCARDIOGRAM (02/18/2021): 1. Normal left ventricular chamber size and wall thickness. The left ventricular systolic function is at the lower limits of normal with an estimated ejection fraction of 50-55%. 2. The left ventricular diastolic function is indeterminate. 3. The left and right atria are mildly dilated. 4. There is mild mitral regurgitation. 5. There is mild aortic valve sclerosis. 6. There is severe tricuspid regurgitation. 7. There is moderate pulmonic regurgitation. 8. The inferior vena cava is dilated but has normal respiratory variation. 9. The estimated pulmonary artery systolic pressure is 55 mmHg. 24-HOUR HOLTER MONITOR (02/18/2021): 1. This is a 24-hour Holter monitor report. 2. Baseline sinus rhythm with an average heart rate of 64 bpm, ranging from 45- 89 bpm while in sinus rhythm with rare, isolated premature supraventricular complexes and occasional, isolated premature ventricular complexes as well as 2 supraventricular couplets, one ventricular couplet, and one 5 beat run of paroxysmal atrial tachycardia at a heart rate of 141 bpm. 3. No cardiac symptoms were reported in the patient diary. ELECTROCARDIOGRAM (02/03/2021): Sinus rhythm with poor R wave progression. LABS (12/15/2020): Glucose 167. Creatinine 1.43. GFR 36. Potassium 4.3. Liver function tests normal. Hemoglobin 10. Platelets 270,000. Total cholesterol 125. HDL 48. Triglycerides 93. LDL 59. CORONARY ARTERY BYPASS SURGERY (07/26/2012): 1. CABG x3 (in situ SALINAS to LAD. LISS "T" to OMB. SVG from aorta to PDA. 2 arterial, 1 venous graft.) Diagnosis/Problems Diagnosis/Problems (1) Acute on chronic heart failure with preserved ejection fraction (HFpEF) Assessment & Plan: Symptomatically she seems to be improving. Her heart failure is predominantly manifested as lower extremity edema. Her renal function has gotten slightly worse with twice daily dosing of intravenous furosemide. I will cut this back to once a day. She had been on beta-frankie at home but her blood pressure may be somewhat low to resume this. She was also taking amlodipine at home which could be contributing to her peripheral edema. We may want to consider stopping this medication. (2) Atrial tachycardia Assessment & Plan: There was a question of possible atrial fibrillation around the time of her admission although I had done a previous event recorder which showed atrial tachycardia and not any atrial fibrillation. She is being monitored on telemetry. I do not see any strong indication for oral anticoagulation at this time. We may want to consider placing an implantable loop recorder. (3) Coronary artery disease without angina pectoris Assessment & Plan: She had previous bypass surgery. She has not been having any overt angina. We will resume her beta-frankie when her blood pressure will tolerate. She is on aspirin and statin medication. (4) Acute kidney injury superimposed on chronic kidney disease Assessment & Plan: She has been receiving furosemide twice daily. Her renal function is getting worse. I will cut the furosemide back to once daily dosing. (5) Primary hypertension Assessment & Plan: Blood pressure has been running somewhat low and all antihypertensive medication is on hold. (6) Mixed hyperlipidemia Assessment & Plan: I have ordered atorvastatin which she was taking at home. (7) Tricuspid regurgitation Assessment & Plan: This probably contributes to her peripheral edema. This can usually be managed medically. (8) Pulmonary hypertension Assessment & Plan: Most likely due to her chronic heart failure and perhaps some underlying lung disease. COSTA AGUIAR JR, MD Dec 13, 2021 08:44
--- NOTE | 2021-12-13 09:27 | Physical Therapy Evaluation ---
PT Evaluation-General Medical Diagnosis Admission Date Dec 11, 2021 at 19:05 Medical Diagnosis: CHF Onset Date: Dec 11, 2021 Therapy Diagnosis Therapy Diagnosis: debility/weakness Height/Weight Height (Feet): 4 Height (Inches): 11.00 Weight (Pounds): 156 Weight (Ounces): 6.0 Precautions Precautions/Isolations: Standard Precautions Weight Bear Status Right Lower Extremity: Right Weight Bearing/Tolerated Left Lower Extremity: Left Weight Bearing/Tolerated Referral Physician: Lisa Reason for Referral: Evaluation/Treatment Medical History Pertinent Medical History: Atrial Fib, Arthritis, CABG, CAD, DM, HTN, Renal Ins ufficiency Current History ER secondary to SOA x 30 min Reviewed History: Yes Social History Home: Assisted Living Entry Into Home: Level Entry Prior Prior Level of Function SCALE: Activities may be completed with or without assistive devices. 5-Qbkkbwccey-ooamvxn completes the activity by him/herself with no assistance from a helper. 5-Set-up or Clean-up Assistance-helper sets up or cleans up; patient completes activity. [place] assists only prior to or following the activity. 4-Supervision or Touching Assistance-helper provides verbal cues and/or touching/steadying and/or contact guard assistance as patient completes activity. Assistance may be provided throughout the activity or intermittently. 3-Partial/Moderate Assistance-helper does LESS THAN HALF the effort. [place] lifts, holds or supports trunk or limbs, but provides less than half the effort. 2-Substantial/Maximal Assistance-helper does MORE THAN HALF the effort. [place] lifts or holds trunk or limbs and provides more than half the effort. 6-Pihekhhad-dywucc does ALL the effort. Patient does none of the effort to complete the activity. Or, the assistance of 2 or more helpers is required for the patient to complete the activity. If activity was not attempted, code reason: 7-Patient Refused. 9-Not Applicable-not attempted and the patient did not perform the activity before the current illness, exacerbation or injury. 10-Not Attempted due to Environmental Limitations-(lack of equipment, weather restraints, etc.). 88-Not Attempted due to Medical Conditions or Safety Concerns. Bed Mobility: 6 Transfers (B,C,W/C): 6 Gait: 6 Indoor Mobility (Ambulation): Independent Stairs: Not Applicalbe Prior Devices Use: Walker PT Evaluation-Current Subjective Patient agrees to PT. Objective Patient Orientation: Person, Time, Situation Attachments: Oxygen ROM/Strength ROM Lower Extremities bilateral LE WFL Strength Lower Extremities 3/5 grossly bilateral LE Integumentary/Posture Integumentary refer to nursing notes Bladder Incontinence: Hazel Cath Posture WFL Neuromuscular (Tone, Coordination, Reflexes) grossly intact Sensory Hearing: Functional Transfers Lying to Sitting/Side of Bed(Q: 4 Sit to Stand (QC): 4 Chair/Lvy-mt-Dkenj Xfer(QC): 4 Gait Does the Patient Walk?: Yes Mode of Locomotion: Walk Anticipated Mode of Locomotion: Walk Walk 10 feet (QC): 4 Walk 50 ft with 2 Turns(QC): 4 Walk 150 ft (QC): 7 Distance: 50' Gait Assistive Device: FWW Comments/Gait Description slow, steady Balance Sitting Static: Normal Sitting Dynamic: Normal Standing Static: Fair Standing Dynamic: Fair Assessment/Needs Patient reports she uses a FWW at home PLOF. Patient will need to continue to use FWW for safety. Patient limits ambulation due to fatigue. O2 in place Rehab Potential: Fair PT Mcc Goals Mcc Goals PT Mcc Goals Time Frame: Dec 25, 2021 Roll Left & Right (QC): 6 Sit to Lying (QC): 6 Lying-Sitting on Side/Bed(QC): 6 Sit to Stand (QC): 4 Chair/Unv-tm-Vxarr Xfer(QC): 4 Toilet Transfer (QC): 4 Walk 10 feet (QC): 4 Walk 50ft with 2 Turns (QC): 4 Walk 150 ft (QC): 4 PT Plan Problem List Problem List: Activity Tolerance, Functional Strength, Safety, Balance, Gait, Transfer, Bed Mobility Treatment/Plan Treatment Plan: Continue Plan of Care Treatment Plan: Bed Mobility, Education, Functional Activity José Antonio, Functional Strength, Gait, Safety, Therapeutic Exercise, Transfers Treatment Duration: Dec 25, 2021 Frequency: 6 times per week Estimated Hrs Per Day: .25 hour per day Patient and/or Family Agrees t: Yes Time/GCodes Time In: 745 Time Out: 757 Total Billed Treatment Time: 12 Total Billed Treatment 1 visit EVModC 12 min MARIELY CAMACHO PT Dec 13, 2021 09:27
[2021-12-13] MEDS: ENOXAPARIN 60 MG/0.6 ML (LOVENOX) SYR SC SCH (09:52)
[2021-12-13] MEDS: cefTRIAXone 1 GM PRE-MIX 50 ML IV SCH (09:52)
[2021-12-13] MEDS: ASPIRIN 81 MG CHEW (CHILDREN'S ASA) PO SCH (09:52)
[2021-12-13] MEDS: DOCUSATE SODIUM 100 MG (COLACE) CAP PO SCH ×2 (09:53→22:34)
[2021-12-13] MEDS: MICONAZOLE 2% POWDER (DESENEX AF) 90 GM TOP SCH ×2 (09:53→22:35)
[2021-12-13] MEDS ORDERED: ANTACID SUSP 30 ML UDC (MYLANTA) PO PRN (10:00)
[2021-12-13] MEDS ORDERED: ACETAMINOPHEN 325 MG TABLET PO PRN (10:00)
--- NOTE | 2021-12-13 10:01 | Occupational Therapy Eval ---
OT Evaluation-General/PLF Medical Diagnosis Admission Date Dec 11, 2021 at 19:05 Medical Diagnosis: CHF Onset Date: Dec 11, 2021 Therapy Diagnosis Therapy Diagnosis: decreased ADL status Height/Weight Height (Feet): 4 Height (Inches): 11.00 Weight (Pounds): 156 Weight (Ounces): 6.0 Precautions Precautions/Isolations: Standard Precautions Referral Physician: Lisa Referral Reason: Evaluation/Treatment Medical History Pertinent Medical History: Atrial Fib, Arthritis, CABG, CAD, DM, HTN, Renal Insufficiency Additional Medical History CHF, afib, PNA, CABG, CAD, HTN, arthritis, DM, glaucoma Current History ED with weakness and SOB, found to be in CHF with volume overload Social History Home: Assisted Living Entry Into Home: Level Entry ADL-Prior Level of Function SCALE: Activities may be completed with or without assistive devices. 6-Pxauzjqsqi-btbsyuq completes the activity by him/herself with no assistance from a helper. 5-Set-up or Clean-up Assistance-helper sets up or cleans up; patient completes activity. [place] assists only prior to or following the activity. 4-Supervision or Touching Assistance-helper provides verbal cues and/or touching/steadying and/or contact guard assistance as patient completes activity. Assistance may be provided throughout the activity or intermittently. 3-Partial/Moderate Assistance-helper does LESS THAN HALF the effort. Dorris lifts, holds or supports trunk or limbs, but provides less than half the effort. 2-Substantial/Maximal Assistance-helper does MORE THAN HALF the effort. [place]ris lifts or holds trunk or limbs and provides more than half the effort. 4-Qyurgwdzv-bdicau does ALL the effort. Patient does none of the effort to co mplete the activity. Or, the assistance of 2 or more helpers is required for the patient to complete the activity. If activity was not attempted, code reason: 7-Patient Refused. 9-Not Applicable-not attempted and the patient did not perform the activity before the current illness, exacerbation or injury. 10-Not Attempted due to Environmental Limitations-(lack of equipment, weather restraints, etc.). 88-Not Attempted due to Medical Conditions or Safety Concerns. ADL PLOF Comments Pt reports her family just moved her into the [facility] yesterday, while she was in the hospital. She is typically able to manage ADLs, but has some difficulty with LBD and footwear due to difficulty lifting her legs. The showers are not in the room, but down the machuca at [facility], requiring staff assist/supervision with showering. Pt unclear on layout of shower room. Self Care: Needed Some Help Functional Cognition: Independent OT Current Status Subjective Pt in recliner, agreeable to OT Tx. Mental Status/Objective Patient Orientation: Person, Place, Situation Attachments: Hazel Catheter, Oxygen (2L) Current Upper Extremity ROM WFL, BUE shoulder flexion to approx 140 degrees Upper Extremity Coordination WFL Upper Extremity Strength Grossly 3+/5 ADL-Treatment Eating (QC): 6 (Per pt report) Oral Hygiene (QC): 5 (Per clinical judgment.) Toileting Hygiene (QC): 3 (Pt required assistance with posterior hygiene after BM last night per pt report.) Other Treatments Pt in recliner, agreeable to OT evaluation. OT provided information on purpose and benefit of OT, and pt provided information about PLOF and home set up to her ability, as her family just moved her into an [facility] yesterday. Pt pleasantly declined ADLs, but agreeable to BUE exercises in order to increase pulmonary function, strength and activity tolerance. Pt completed x10 reps each of the following, BUE: shoulder flexion, front punch and elbow flex/extension. Post tx, pt in recliner, call light in reach and all needs met. Education OT Patient Education: Correct positioning, Energy conservation, Modified ADL techniques, Progress toward Goal/Update tx plan, Purpose of tx/functional activities, Rehab process Teaching Recipient: Patient Teaching Methods: Demonstration, Discussion Response to Teaching: Verbalize Understanding, Return Demonstration OT [facility] Goals Engineering Psychologist Goals Time Frame: Dec 24, 2021 Eating (QC): 6 Oral Hygiene (QC): 6 Toileting Hygiene (QC): 6 Shower/Bathe Self (QC): 4 Upper Body Dressing (QC): 5 Lower Body Dressing (QC): 3 On/Off Footwear (QC): 3 Additional Goals: 1-Demonstrate ADL Tasks, 2-Verbalize Understanding, 3- ImproveStrength/José Antonio 1=Demonstrate adherence to instructed precautions during ADL tasks. 2=Patient will verbalize/demonstrate understanding of assistive devices/modifications for ADL. 3=Patient will improve strength/tolerance for activity to enable patient to perform ADL's. OT Education/Plan Problem List/Assessment Assessment: Decreased Activ Tolerance, Decreased UE Strength, Impaired Funct Balance, Impaired I ADL's, Impaired Self-Care Skills Discharge Recommendations Plan/Recommendations: Continue POC Treatment Plan/Plan of Care Patient would benefit from OT for education, treatment and training to promote independence in ADL's, mobility, safety and/or upper extremity function for ADL's. Plan of Care: ADL Retraining, Functional Mobility, UE Funct Exercise/Act Treatment Duration: Dec 24, 2021 Frequency: 3 times per week (3-5 times per week) Estimated Hrs Per Day: .25 hour per day Rehab Potential: Fair Time/GCodes Start Time: 09:40 Stop Time: 09:50 Total Time Billed (hr/min): 10 Billed Treatment Time 1, MARKUS SHAFER OT Dec 13, 2021 10:01
[2021-12-13] MEDS ORDERED: diphenhydrAMINE 25 MG TAB (BENADRYL) PO PRN (10:15)
[2021-12-13] MEDS ORDERED: ONDANSETRON 4 MG/2 ML (SDV) Z0FRAN IV PRN (10:15)
[2021-12-13] MEDS ORDERED: polyethylene glycoL POWDER 17 GM (MIRALAX) PACK PO PRN (10:15)
[2021-12-13] MEDS ORDERED: diphenhydrAMINE 50 MG/ML INJ (BENADRYL) IV PRN (10:15)
[2021-12-13] MEDS ORDERED: ONDANSETRON 4 MG (ZOFRAN) ORAL DISSOLVE TAB PO PRN (10:15)
[2021-12-13] MEDS ORDERED: BISACODYL 10 MG SUPP (DULCOLAX) PR PRN (10:15)
[2021-12-13] MEDS ORDERED: INSU100I29 SQ (15:21)
[2021-12-13] MEDS ORDERED: RIVA15TA PO (15:21)
[2021-12-13] MEDS ORDERED: LOSA50TA63 PO (15:22)
[2021-12-13] MEDS ORDERED: HYDR-3923 PO (15:23)
[2021-12-13] MEDS ORDERED: AMLO-251 PO (15:24)
[2021-12-13] MEDS ORDERED: GLUC1VIA18 SQ (15:28)
[2021-12-13] MEDS ORDERED: [UNRECOGNIZED DRUG - CODE] PO (15:32)
[2021-12-13] MEDS: NON-FORMULARY MEDICATION 1 EA EA (Brinzolamide/Brimonidine Tart (Simbrinza 1%-0.2% Eye Dro OD SCH (21:00)
[2021-12-13] MEDS ORDERED: FLUTICASONE NASAL SPRAY (FLONASE) 16 GM BTL NS PRN (22:30)
[2021-12-13] MEDS: AtorvaSTATin TABLET 10 MG TABLET PO SCH (22:34)
[2021-12-13] MEDS: diphenhydrAMINE 25 MG TAB (BENADRYL) PO PRN (22:34)
[2021-12-13] MEDS: FAMOTIDINE 20 MG (PEPCID) TABLET PO SCH (22:34)
[2021-12-13] MEDS: MELATONIN 3 MG TABLET PO PRN (22:34)
[2021-12-13] MEDS: MONTELUKAST 10 MG (SINGULAIR) TAB PO SCH (22:35)
[2021-12-13] MEDS: hydrALAZINE (APRESOLINE) 25 MG TAB PO SCH (22:35)
[2021-12-14] VITALS (8 sets, daily range): BP systolic 96–155; BP diastolic 59–95
[2021-12-14] MEDS ORDERED: PSEUDOEPHEDRINE HCL 30 MG (SUDAFED) TAB PO PRN (01:00)
[2021-12-14] MEDS ORDERED: guaiFENesin (MUCINEX) 600 MG TAB PO PRN (01:00)
--- NOTE | 2021-12-14 05:55 | Progress Note - Hospitalist ---
Subjective HPI/CC On Admission Date Seen by Provider: Dec 14, 2021 Time Seen by Provider: 09:30 Chief complaint: Shortness of breath History of present illness: This is a 76-year-old female with history of congestive heart failure and atrial fibrillation who presents to the ER with weakness and shortness of breath. Patient was found to be in congestive heart failure with volume overload. Elevated D-dimer also prompting Lovenox initiation therapeutic dose. Patient is currently doing much better the atrial fibrillation is rate controlled at 100 and she denies any pain. I did review her medications and laboratory data. Subjective/Events-last exam Patient doing a lot better Patient is a new resident at assisted living She will return back to assisted living when medically stable likely tomorrow Remains on 2 L of oxygen EKG was ordered by cardiology Review of Systems General: Fatigue, Malaise Focused Exam Lactate Level Objective Exam Vital Signs Vital Signs Date Time Temp Pulse Resp B/P (MAP) Pulse Ox O2 Delivery O2 Flow Rate FiO2 12/14/21 20:21 36.2 114 20 101/69 (80) 98 Nasal Cannula 2.00 12/14/21 00:09 28 Capillary Refill : Less Than 3 Seconds General Appearance: No Apparent Distress, WD/WN, Chronically ill Respiratory: Lungs Clear, Normal Breath Sounds Cardiovascular: Irregularly Irregular Neurologic/Psychiatric: Alert, Oriented x3, No Motor/Sensory Deficits, Normal Mood/Affect Results/Procedures Lab Laboratory Tests 12/14/21 05:30 Patient resulted labs reviewed. Assessment/Plan Assessment and Plan Assess & Plan/Chief Complaint Assessment: Dyspnea Elevated d-dimer CKD AF CHF Plan: Lasix Dr Peoples Lovenox DC Xarelto restart PT OT DC catheter Diagnosis/Problems Diagnosis/Problems (1) Congestive heart failure Permanent Comment: Echocardiogram 06/2018 at [facility] with EF 50% and grade 2 ricki stolic dysfunction, moderately dilated right ventricle and mild reduction in right ventricular systolic function. Last Edited By: Elly Monahan on Aug 21, 2018 21:02 (2) Coronary artery disease Status: Chronic Permanent Comment: Stress testing at [facility] 07/19/2018 unremarkable. Last Edited By: Elly Monahan on Aug 21, 2018 21:01 (3) Chronic renal insufficiency Status: Chronic Qualifiers: Chronic kidney disease stage: unspecified stage Qualified Codes: N18.9 - Chronic kidney disease, unspecified (4) History of coronary artery bypass graft (5) Anemia Status: Chronic Qualifiers: Anemia type: unspecified type Qualified Codes: D64.9 - Anemia, unspecified (6) GERD (gastroesophageal reflux disease) Status: Chronic Clinical Quality Measures DVT/VTE Risk/Contraindication: Contraindications-Mechi: Other *list below* Other: poss dvt FARIDA BEAN DO Dec 14, 2021 05:55
[2021-12-14 06:04] LABS: BASOPHILS % (AUTO) 0 % (0-10); EOSINOPHILS # (AUTO) 0.6 10^3/uL (0.0-0.3); EOSINOPHILS % (AUTO) 8 % (0-10); HEMATOCRIT 33 % (35-52); HEMOGLOBIN 10.2 g/dL (11.5-16.0); LYMPHOCYTES # (AUTO) 1.2 10^3/uL (1.0-4.0); LYMPHOCYTES % (AUTO) 16 % (12-44); MEAN CORPUSCULAR HEMOGLOBIN 30 pg (25-34); MEAN CORPUSCULAR HGB CONC 31 g/dL (32-36); MEAN CORPUSCULAR VOLUME 98 fL (80-99); MEAN PLATELET VOLUME 11.7 fL (9.0-12.2); MONOCYTES # (AUTO) 0.6 10^3/uL (0.0-1.0); MONOCYTES % (AUTO) 7 % (0-12); NEUTROPHILS # (AUTO) 5.5 10^3/uL (1.8-7.8); NEUTROPHILS % (AUTO) 69 % (42-75); PLATELET COUNT 151 10^3/uL (130-400); WHITE BLOOD COUNT 7.9 10^3/uL (4.3-11.0)
[2021-12-14 06:16] LABS: ALBUMIN 2.7 GM/DL (3.2-4.5); POTASSIUM 4.1 MMOL/L (3.6-5.0)
[2021-12-14 06:17] LABS: CALCIUM 8.2 MG/DL (8.5-10.1)
[2021-12-14 06:19] LABS: TOTAL PROTEIN 6.3 GM/DL (6.4-8.2)
[2021-12-14 06:20] LABS: BILIRUBIN,TOTAL 0.4 MG/DL (0.1-1.0)
[2021-12-14 06:22] LABS: CREATININE SERUM 1.76 MG/DL (0.60-1.30)
[2021-12-14] MEDS: RT-ALBUTEROL SULF 2.5 MG/3 ML PRE-MIX VIAL INH SCH ×2 (07:00→20:47)
--- NOTE | 2021-12-14 08:30 | Cardiology Progress Note ---
Progress Note-Cardiology Events since last exam Date Seen by Provider: Dec 14, 2021 Time Seen by Provider: 08:26 Events since last exam I am following her due to heart failure and atrial arrhythmias. Her lower e xtremity edema continues to improve. She denies dyspnea at rest. She denies chest pain, palpitations, or syncope. Certain portions of this document may have been dictated utilizing voice recognition technology. Inherent to this technology, typographical and grammatical errors may exist. As much as I am diligent to identify and correct these mistakes, some errors may remain in the document. Vitals Last set of Vitals Signs Vital Signs 12/14/21 12/14/21 00:09 07:56 Temp 35.9 Pulse 113 Resp 18 B/P (MAP) 136/95 (109) Pulse Ox 97 O2 Delivery Nasal Cannula O2 Flow Rate 2.00 FiO2 28 Labs Labs Laboratory Tests 12/14/21 05:30 Exam Vital Signs Vital Signs Date Time Temp Pulse Resp B/P (MAP) Pulse Ox O2 Delivery O2 Flow Rate FiO2 12/14/21 07:56 35.9 113 18 136/95 (109) 97 Nasal Cannula 2.00 12/14/21 00:09 28 Physical Exam General: Alert. No acute distress. Eye: No xanthelasma. HENT: Normocephalic. Neck: Jugular venous pressure does not appear elevated. Respiratory: Lungs are clear to auscultation. Respirations are non-labored. Breath sounds are equal. Symmetrical chest wall expansion. Cardiovascular: Normal rate. Regular rhythm. 2/6 systolic ejection murmur. No gallop. 1+ bilateral pretibial edema without venous stasis changes. Gastrointestinal: Soft. Normal bowel sounds. Skin: Warm. Dry. Neurologic: Alert and oriented to person, place, time. Cranial nerves 3-11 grossly intact. Psychiatric: Cooperative. Appropriate mood & affect. Labs Laboratory Tests Test 12/13/21 10:31 12/13/21 15:12 12/13/21 20:43 12/14/21 05:08 Range/Units Glucometer 191 H 171 H 158 H 121 H 70-110 MG/DL Test 12/14/21 05:30 Range/Units White Blood Count 7.9 4.3-11.0 10^3/uL Red Blood Count 3.39 L 3.80-5.11 10^6/uL Hemoglobin 10.2 L 11.5-16.0 g/dL Hematocrit 33 L 35-52 % Mean Corpuscular Volume 98 80-99 fL Mean Corpuscular Hemoglobin 30 25-34 pg Mean Corpuscular Hemoglobin Concent 31 L 32-36 g/dL Red Cell Distribution Width 16.1 H 10.0-14.5 % Platelet Count 151 130-400 10^3/uL Mean Platelet Volume 11.7 9.0-12.2 fL Immature Granulocyte % (Auto) 0 % Neutrophils (%) (Auto) 69 42-75 % Lymphocytes (%) (Auto) 16 12-44 % Monocytes (%) (Auto) 7 0-12 % Eosinophils (%) (Auto) 8 0-10 % Basophils (%) (Auto) 0 0-10 % Neutrophils # (Auto) 5.5 1.8-7.8 10^3/uL Lymphocytes # (Auto) 1.2 1.0-4.0 10^3/uL Monocytes # (Auto) 0.6 0.0-1.0 10^3/uL Eosinophils # (Auto) 0.6 H 0.0-0.3 10^3/uL Basophils # (Auto) 0.0 0.0-0.1 10^3/uL Immature Granulocyte # (Auto) 0.0 0.0-0.1 10^3/uL Sodium Level 135 135-145 MMOL/L Potassium Level 4.1 3.6-5.0 MMOL/L Chloride Level 101 98-107 MMOL/L Carbon Dioxide Level 25 21-32 MMOL/L Anion Gap 9 5-14 MMOL/L Blood Urea Nitrogen 33 H 7-18 MG/DL Creatinine 1.76 H 0.60-1.30 MG/DL Estimat Glomerular Filtration Rate 30 BUN/Creatinine Ratio 19 Glucose Level 114 H 70-105 MG/DL Calcium Level 8.2 L 8.5-10.1 MG/DL Corrected Calcium 9.2 8.5-10.1 MG/DL Total Bilirubin 0.4 0.1-1.0 MG/DL Aspartate Amino Transf (AST/SGOT) 19 5-34 U/L Alanine Aminotransferase (ALT/SGPT) 15 0-55 U/L Alkaline Phosphatase 100 40-136 U/L Total Protein 6.3 L 6.4-8.2 GM/DL Albumin 2.7 L 3.2-4.5 GM/DL Diagnosis/Problems Diagnosis/Problems (1) Acute on chronic heart failure with preserved ejection fraction (HFpEF) Assessment & Plan: Symptomatically she seems to be improving. Her heart failure is predominantly manifested as lower extremity edema. Her renal functio n has stabilized since decreasing the intravenous furosemide from twice daily to once daily dosing. She had been on beta-frankie at home but her blood pressure may be somewhat low to resume this. She was also taking amlodipine at home which could be contributing to her peripheral edema. We may want to consider stopping this medication. (2) Atrial tachycardia Assessment & Plan: There was a question of possible atrial fibrillation around the time of her admission although I had done a previous event recorder which showed atrial tachycardia and not any atrial fibrillation. She is being monitored on telemetry. I do not see any strong indication for oral anticoagulation at this time however the hospitalist has started rivaroxaban. This is not unreasonable for the time being. We may want to consider placing an implantable loop recorder. I could arrange for this following discharge. (3) Coronary artery disease without angina pectoris Assessment & Plan: She had previous bypass surgery. She has not been having any overt angina. She is on aspirin, beta-frankie and statin medication. (4) Primary hypertension Assessment & Plan: Her blood pressures have improved and she is now on amlodipine and carvedilol. She is not a good candidate for ANKIT inhibitor or ARB due to her poor renal function. (5) Acute kidney injury superimposed on chronic kidney disease Assessment & Plan: She had been receiving furosemide twice daily and her renal function was getting worse. I changed the furosemide to once daily dosing on 12/13 and her renal function seems to be stabilizing. We will continue to monitor. (6) Mixed hyperlipidemia Assessment & Plan: I have ordered atorvastatin which she was taking at home. (7) Tricuspid regurgitation Assessment & Plan: This probably contributes to her peripheral edema. This can usually be managed medically. (8) Pulmonary hypertension Assessment & Plan: Most likely due to her chronic heart failure and perhaps some underlying lung disease. COSTA AGUIAR JR, MD Dec 14, 2021 08:30
[2021-12-14] MEDS: cefTRIAXone 1 GM PRE-MIX 50 ML IV SCH (08:54)
[2021-12-14] MEDS: ASPIRIN 81 MG CHEW (CHILDREN'S ASA) PO SCH (08:54)
[2021-12-14] MEDS: DOCUSATE SODIUM 100 MG (COLACE) CAP PO SCH ×2 (08:54→20:56)
[2021-12-14] MEDS: FUROSEMIDE 40 MG/4 ML INJ (LASIX) IVP SCH (08:54)
[2021-12-14] MEDS: hydrALAZINE (APRESOLINE) 25 MG TAB PO SCH ×2 (08:55→21:00)
[2021-12-14] MEDS: LATANOPROST 0.005% (XALATAN) OPHTH SOLN 2.5 ML OD SCH (08:55)
[2021-12-14] MEDS: amLODIPine 10 MG (NORVASC) TAB PO SCH (08:55)
[2021-12-14] MEDS: RIVAROXABAN 15 MG TABLET (XARELTO) PO SCH (08:55)
[2021-12-14] MEDS: NON-FORMULARY MEDICATION 1 EA EA (Brinzolamide/Brimonidine Tart (Simbrinza 1%-0.2% Eye Dro OD SCH ×3 (08:56→21:00)
[2021-12-14] MEDS: MICONAZOLE 2% POWDER (DESENEX AF) 90 GM TOP SCH ×2 (08:56→20:57)
[2021-12-14] MEDS ORDERED: ENOXAPARIN 60 MG/0.6 ML (LOVENOX) SYR SC SCH (09:00)
[2021-12-14] MEDS ORDERED: ASPIRIN E.C. 81 MG (ECOTRIN) TAB PO SCH (09:00)
--- NOTE | 2021-12-14 09:47 | Physical Therapy Daily Note ---
PT Daily Note-Current Subjective Patient is very agreeable to participate with PT. Mental Status Patient Orientation: Normal For Age Attachments: Oxygen Transfers SCALE: Activities may be completed with or without assistive devices. 6-Tgrjhtpfgz-chskxwh completes the activity by him/herself with no assistance from a helper. 5-Set-up or Clean-up Assistance-helper sets up or cleans up; patient completes activity. [place] assists only prior to or following the activity. 4-Supervision or Touching Assistance-helper provides verbal cues and/or touching/steadying and/or contact guard assistance as patient completes activity. Assistance may be provided throughout the activity or intermittently. 3-Partial/Moderate Assistance-helper does LESS THAN HALF the effort. [place] lifts, holds or supports trunk or limbs, but provides less than half the effort. 2-Substantial/Maximal Assistance-helper does MORE THAN HALF the effort. [place] lifts or holds trunk or limbs and provides more than half the effort. 5-Duqquzwil-brxarv does ALL the effort. Patient does none of the effort to complete the activity. Or, the assistance of 2 or more helpers is required for the patient to complete the activity. If activity was not attempted, code reason: 7-Patient Refused. 9-Not Applicable-not attempted and the patient did not perform the activity before the current illness, exacerbation or injury. 10-Not Attempted due to Environmental Limitations-(lack of equipment, weather restraints, etc.). 88-Not Attempted due to Medical Conditions or Safety Concerns. Lying to Sitting/Side of Bed(Q: 6 Sit to Stand (QC): 4 Chair/Emy-wo-Fzmxf Xfer(QC): 4 Toilet Transfer (QC): 4 (toileted independently) Weight Bearing Right Lower Extremity: Right Weight Bearing/Tolerated Left Lower Extremity: Left Weight Bearing/Tolerated Gait Training Distance: 300' Walk 10 feet (QC): 4 Walk 50 ft with 2 Turns(QC): 4 Walk 150 ft (QC): 4 Gait Assistive Device: FWW steady, functional gait sequence with no deviation Exercises Supine Ex: Ankle pumps, Quad Set, Heel Slides, Straight leg raise Supine Reps: 12 Seated Therapy Exercises: Ankle pumps, Long arc quads Seated Reps: 15 Assessment Patient up in recliner with needs met. Much improved on this date with increase in distance and activity. Call light in situ PT Doctor Of Naprapathic Medicine Goals Doctor Of Naprapathic Medicine Goals PT Snf Goals Time Frame: Dec 25, 2021 Roll Left & Right (QC): 6 Sit to Lying (QC): 6 Lying-Sitting on Side/Bed(QC): 6 Sit to Stand (QC): 4 Chair/Ext-hc-Cyrib Xfer(QC): 4 Toilet Transfer (QC): 4 Walk 10 feet (QC): 4 Walk 50ft with 2 Turns (QC): 4 Walk 150 ft (QC): 4 PT Plan Treatment/Plan Treatment Plan: Continue Plan of Care Treatment Plan: Bed Mobility, Education, Functional Activity José Antonio, Functional Strength, Gait, Safety, Therapeutic Exercise, Transfers Treatment Duration: Dec 25, 2021 Frequency: 6 times per week Estimated Hrs Per Day: .25 hour per day Patient and/or Family Agrees t: Yes Time/GCodes Time In: 810 Time Out: 834 Total Billed Treatment Time: 24 Total Billed Treatment 1 visit FA13 min EX 11 min MARIELY CAMACHO PT Dec 14, 2021 09:47
--- NOTE | 2021-12-14 11:30 | Occupational Ther Daily Note ---
OT Current Status-Daily Note Subjective Pt alert, sitting in recliner. Pt agrees to therapy. Nrsg came into room for midline. Mental Status/Objective Patient Orientation: Person, Place, Time, Situation Attachments: IV, Oxygen ADL-Treatment Pt able to complete oral care independently standing at sink. Pt then ambulated to bed using FWW. EOB to supine independently. Independent with bed mobility. After therapy, pt lying in bed with call light/phone in reach. All needs met in room. Nrsg present in room. Therapy Code Descriptions/Definitions Functional [place] Measure: 0=Not Assessed/NA 4=Minimal Assistance 1=Total Assistance 5=Supervision or Setup 2=Maximal Assistance 6=Modified [place] 3=Moderate Assistance 7=Complete IndependenceSCALE: Activities may be completed with or without assistive devices. 7-Ydizusfaeb-ifeuwyl completes the activity by him/herself with no assistance from a helper. 5-Set-up or Clean-up Assistance-helper sets up or cleans up; patient completes activity. [place] assists only prior to or following the activity. 4-Supervision or Touching Assistance-helper provides verbal cues and/or touching/steadying and/or contact guard assistance as patient completes activity. Assistance may be provided throughout the activity or intermittently. 3-Partial/Moderate Assistance-helper does LESS THAN HALF the effort. [place] lifts, holds or supports trunk or limbs, but provides less than half the effort. 2-Substantial/Maximal Assistance-helper does MORE THAN HALF the effort. [place] lifts or holds trunk or limbs and provides more than half the effort. 1-Hcadyaguf-hmapnp does ALL the effort. Patient does none of the effort to complete the activity. Or, the assistance of 2 or more helpers is required for the patient to complete the activity. If activity was not attempted, code reason: 7-Patient Refused. 9-Not Applicable-not attempted and the patient did not perform the activity before the current illness, exacerbation or injury. 10-Not Attempted due to Environmental Limitations-(lack of equipment, weather restraints, etc.). 88-Not Attempted due to Medical Conditions or Safety Concerns. Oral Hygiene (QC): 6 OT Director Of Market Analysis Goals Director Of Market Analysis Goals Time Frame: Dec 24, 2021 Eating (QC): 6 Oral Hygiene (QC): 6 Toileting Hygiene (QC): 6 Shower/Bathe Self (QC): 4 Upper Body Dressing (QC): 5 Lower Body Dressing (QC): 3 On/Off Footwear (QC): 3 Additional Goals: 1-Demonstrate ADL Tasks, 2-Verbalize Understanding, 3-ImproveStrength/José Antonio 1=Demonstrate adherence to instructed precautions during ADL tasks. 2=Patient will verbalize/demonstrate understanding of assistive devices/modifications for ADL. 3=Patient will improve strength/tolerance for activity to enable patient to perform ADL's. OT Education/Plan Problem List/Assessment Assessment: Decreased Activ Tolerance, Impaired Self-Care Skills Discharge Recommendations Plan/Recommendations: Continue POC Treatment Plan/Plan of Care Patient would benefit from OT for education, treatment and training to promote independence in ADL's, mobility, safety and/or upper extremity function for ADL's. Plan of Care: ADL Retraining, Functional Mobility, UE Funct Exercise/Act Treatment Duration: Dec 24, 2021 Frequency: 3 times per week (3-5 times per week) Estimated Hrs Per Day: .25 hour per day Rehab Potential: Fair Time/GCodes Start Time: 10:53 Stop Time: 11:05 Total Time Billed (hr/min): 12 Billed Treatment Time 1 visit-ADL 1 (12 min) MOY RICO Dec 14, 2021 11:30
[2021-12-14] MEDS: AtorvaSTATin TABLET 10 MG TABLET PO SCH (20:56)
[2021-12-14] MEDS: MONTELUKAST 10 MG (SINGULAIR) TAB PO SCH (20:56)
[2021-12-14] MEDS: MELATONIN 3 MG TABLET PO PRN (20:56)
[2021-12-14] MEDS: FAMOTIDINE 20 MG (PEPCID) TABLET PO SCH (20:56)
[2021-12-14] MEDS: diphenhydrAMINE 25 MG TAB (BENADRYL) PO PRN (20:57)
[2021-12-15 03:20] VITALS: BP 121/82
[2021-12-15 04:26] LABS: BASOPHILS % (AUTO) 0 % (0-10); EOSINOPHILS # (AUTO) 0.6 10^3/uL (0.0-0.3); EOSINOPHILS % (AUTO) 8 % (0-10); HEMATOCRIT 29 % (35-52); LYMPHOCYTES # (AUTO) 1.1 10^3/uL (1.0-4.0); LYMPHOCYTES % (AUTO) 15 % (12-44); MEAN CORPUSCULAR HEMOGLOBIN 30 pg (25-34); MEAN CORPUSCULAR HGB CONC 31 g/dL (32-36); MEAN CORPUSCULAR VOLUME 96 fL (80-99); MEAN PLATELET VOLUME 11.9 fL (9.0-12.2); MONOCYTES # (AUTO) 0.5 10^3/uL (0.0-1.0); MONOCYTES % (AUTO) 7 % (0-12); NEUTROPHILS # (AUTO) 5.5 10^3/uL (1.8-7.8); NEUTROPHILS % (AUTO) 71 % (42-75); PLATELET COUNT 131 10^3/uL (130-400); WHITE BLOOD COUNT 7.7 10^3/uL (4.3-11.0)
[2021-12-15 04:39] LABS: ALBUMIN 2.6 GM/DL (3.2-4.5); BILIRUBIN,TOTAL 0.4 MG/DL (0.1-1.0); CALCIUM 8.1 MG/DL (8.5-10.1); CREATININE SERUM 1.86 MG/DL (0.60-1.30); POTASSIUM 4.7 MMOL/L (3.6-5.0); TOTAL PROTEIN 6.2 GM/DL (6.4-8.2)
--- NOTE | 2021-12-15 06:01 | Progress Note - Hospitalist ---
Subjective HPI/CC On Admission Date Seen by Provider: Dec 15, 2021 Time Seen by Provider: 09:00 Chief complaint: Shortness of breath History of present illness: This is a 76-year-old female with history of congestive heart failure and atrial fibrillation who presents to the ER with weakness and shortness of breath. Patient was found to be in congestive heart failure with volume overload. Elevated D-dimer also prompting Lovenox initiation therapeutic dose. Patient is currently doing much better the atrial fibrillation is rate controlled at 100 and she denies any pain. I did review her medications and laboratory data. Objective Exam Vital Signs Vital Signs Date Time Temp Pulse Resp B/P (MAP) Pulse Ox O2 Delivery O2 Flow Rate FiO2 12/15/21 08:06 36.4 111 18 131/86 (101) 99 Nasal Cannula 2.00 12/14/21 00:09 28 Capillary Refill : Less Than 3 Seconds Results/Procedures Lab Laboratory Tests 12/15/21 04:11 Patient resulted labs reviewed. Assessment/Plan Assessment and Plan Assess & Plan/Chief Complaint Assessment: Dyspnea Elevated d-dimer CKD AF CHF Plan: Lasix Dr Peoples Lovenox DC Xarelto restart PT OT DC catheter Diagnosis/Problems Diagnosis/Problems (1) Congestive heart failure Permanent Comment: Echocardiogram 06/[address] [facility] with EF 50% and grade 2 diastolic dysfunction, moderately dilated right ventricle and mild reduction in right ventricular systolic function. Last Edited By: Elly Monahan on Aug 21, 2018 21:02 (2) Coronary artery disease Status: Chronic Permanent Comment: Stress testing at [facility] 07/19/2018 unremarkable. Last Edited By: Elly Monahan on Aug 21, 2018 21:01 (3) Chronic renal insufficiency Status: Chronic Qualifiers: Chronic kidney disease stage: unspecified stage Qualified Codes: N18.9 - Chronic kidney disease, unspecified (4) History of coronary artery bypass graft (5) Anemia Status: Chronic Qualifiers: Anemia type: unspecified type Qualified Codes: D64.9 - Anemia, unspecified (6) GERD (gastroesophageal reflux disease) Status: Chronic Clinical Quality Measures DVT/VTE Risk/Contraindication: Contraindications-Mechi: Other *list below* Other: poss dvt FARIDA BEAN DO Dec 15, 2021 06:01
[2021-12-15] MEDS: RT-ALBUTEROL SULF 2.5 MG/3 ML PRE-MIX VIAL INH SCH (07:51)
[2021-12-15 08:06] VITALS: BP 131/86
--- NOTE | 2021-12-15 08:40 | Cardiology Progress Note ---
Progress Note-Cardiology Events since last exam Date Seen by Provider: Dec 15, 2021 Time Seen by Provider: 08:38 Events since last exam I am following her due to atrial arrhythmias and heart failure. She was laying flat in bed. She denied chest discomfort, dyspnea at rest, palpitations, or syncope. Her peripheral edema has just about resolved. Certain portions of this document may have been dictated utilizing voice recognition technology. Inherent to this technology, typographical and grammatical errors may exist. As much as I am diligent to identify and correct these mistakes, some errors may remain in the document. Vitals Last set of Vitals Signs Vital Signs 12/14/21 12/15/21 00:09 13:36 Temp 36.3 Pulse 113 Resp 18 B/P (MAP) 103/67 Pulse Ox 90 O2 Delivery Nasal Cannula O2 Flow Rate 1.00 FiO2 28 Labs Labs Laboratory Tests 12/15/21 04:11 Exam Vital Signs Vital Signs Date Time Temp Pulse Resp B/P (MAP) Pulse Ox O2 Delivery O2 Flow Rate FiO2 12/15/21 13:36 36.3 113 18 103/67 90 Nasal Cannula 1.00 12/14/21 00:09 28 Physical Exam General: Alert. No acute distress. Eye: No xanthelasma. HENT: Normocephalic. Neck: Jugular venous pressure does not appear elevated. Respiratory: Lungs are clear to auscultation. Respirations are non-labored. Breath sounds are equal. Symmetrical chest wall expansion. Cardiovascular: Normal rate. Regular rhythm. 2/6 systolic ejection murmur. No gallop. 1+ bilateral pretibial edema without venous stasis changes. Gastrointestinal: Soft. Normal bowel sounds. Skin: Warm. Dry. Neurologic: Alert and oriented to person, place, time. Cranial nerves 3-11 grossly intact. Psychiatric: Cooperative. Appropriate mood & affect. Labs Laboratory Tests Test 12/14/21 20:19 12/15/21 04:11 12/15/21 10:13 Range/Units Glucometer 165 H 231 H 70-110 MG/DL White Blood Count 7.7 4.3-11.0 10^3/uL Red Blood Count 3.03 L 3.80-5.11 10^6/uL Hemoglobin 9.0 L 11.5-16.0 g/dL Hematocrit 29 L 35-52 % Mean Corpuscular Volume 96 80-99 fL Mean Corpuscular Hemoglobin 30 25-34 pg Mean Corpuscular Hemoglobin Concent 31 L 32-36 g/dL Red Cell Distribution Width 16.1 H 10.0-14.5 % Platelet Count 131 130-400 10^3/uL Mean Platelet Volume 11.9 9.0-12.2 fL Immature Granulocyte % (Auto) 1 % Neutrophils (%) (Auto) 71 42-75 % Lymphocytes (%) (Auto) 15 12-44 % Monocytes (%) (Auto) 7 0-12 % Eosinophils (%) (Auto) 8 0-10 % Basophils (%) (Auto) 0 0-10 % Neutrophils # (Auto) 5.5 1.8-7.8 10^3/uL Lymphocytes # (Auto) 1.1 1.0-4.0 10^3/uL Monocytes # (Auto) 0.5 0.0-1.0 10^3/uL Eosinophils # (Auto) 0.6 H 0.0-0.3 10^3/uL Basophils # (Auto) 0.0 0.0-0.1 10^3/uL Immature Granulocyte # (Auto) 0.0 0.0-0.1 10^3/uL Percent Immature Platelet Fraction 6.6 0.0-7.6 % Sodium Level 137 135-145 MMOL/L Potassium Level 4.7 3.6-5.0 MMOL/L Chloride Level 99 98-107 MMOL/L Carbon Dioxide Level 24 21-32 MMOL/L Anion Gap 14 5-14 MMOL/L Blood Urea Nitrogen 35 H 7-18 MG/DL Creatinine 1.86 H 0.60-1.30 MG/DL Estimat Glomerular Filtration Rate 28 BUN/Creatinine Ratio 19 Glucose Level 132 H 70-105 MG/DL Calcium Level 8.1 L 8.5-10.1 MG/DL Corrected Calcium 9.2 8.5-10.1 MG/DL Total Bilirubin 0.4 0.1-1.0 MG/DL Aspartate Amino Transf (AST/SGOT) 24 5-34 U/L Alanine Aminotransferase (ALT/SGPT) 19 0-55 U/L Alkaline Phosphatase 87 40-136 U/L Total Protein 6.2 L 6.4-8.2 GM/DL Albumin 2.6 L 3.2-4.5 GM/DL Diagnosis/Problems Diagnosis/Problems (1) Acute on chronic heart failure with preserved ejection fraction (HFpEF) Assessment & Plan: Symptomatically she seems to be improving. Her heart failure is predominantly manifested as lower extremity edema. Her renal function has stabilized since decreasing the intravenous furosemide from twice daily to once daily dosing. Carvedilol has been restarted. She was also taking amlodipine at home which could be contributing to her peripheral edema. We may want to consider stopping this medication. I have put an order for the staff to schedule her a follow-up appointment with me in the office following discharge. (2) Atrial tachycardia Assessment & Plan: There was a question of possible atrial fibrillation around the time of her admission although I had done a previous event recorder which showed atrial tachycardia and not any atrial fibrillation. She is being monitored on telemetry. I reviewed the previous electrocardiograms and the one from 12/11 was read out as atrial flutter but actually appears to be sinus tachycardia with frequent premature supraventricular complexes. Her electrocardiogram from 12/14 shows similar findings. I do not see any strong indication for oral anticoagulation at this time however the hospitalist has started rivaroxaban. This is not unreasonable for the time being until we definitively determine whether or not she is having atrial fibrillation. We may want to consider placing an implantable loop recorder. I could arrange for this following discharge. (3) Coronary artery disease without angina pectoris Assessment & Plan: She had previous bypass surgery. She has not been having any overt angina. She is on aspirin, beta-frankie and statin medication. (4) Primary hypertension Assessment & Plan: Her blood pressures have improved and she is now on amlodipine and carvedilol. She is not a good candidate for ANKIT inhibitor or ARB due to her poor renal function. (5) Acute kidney injury superimposed on chronic kidney disease Assessment & Plan: She had been receiving furosemide twice daily and her renal function was getting worse. I changed the furosemide to once daily dosing on 12/13 and her renal function seems to be stabilizing. We will continue to monitor while she is in the hospital. (6) Mixed hyperlipidemia Assessment & Plan: I have ordered atorvastatin which she was taking at home. (7) Tricuspid regurgitation Assessment & Plan: This probably contributes to her peripheral edema. This can usually be managed medically. (8) Pulmonary hypertension Assessment & Plan: Most likely due to her chronic heart failure and perhaps some underlying lung disease. COSTA AGUIAR JR, MD Dec 15, 2021 08:40
[2021-12-15] MEDS: ASPIRIN 81 MG CHEW (CHILDREN'S ASA) PO SCH (09:00)
[2021-12-15] MEDS: amLODIPine 10 MG (NORVASC) TAB PO SCH (09:00)
[2021-12-15] MEDS: hydrALAZINE (APRESOLINE) 25 MG TAB PO SCH (09:00)
[2021-12-15] MEDS: RIVAROXABAN 15 MG TABLET (XARELTO) PO SCH (09:00)
[2021-12-15] MEDS: MICONAZOLE 2% POWDER (DESENEX AF) 90 GM TOP SCH (09:01)
[2021-12-15] MEDS: FUROSEMIDE 40 MG/4 ML INJ (LASIX) IVP SCH (09:01)
[2021-12-15] MEDS: LATANOPROST 0.005% (XALATAN) OPHTH SOLN 2.5 ML OD SCH (09:01)
[2021-12-15] MEDS: cefTRIAXone 1 GM PRE-MIX 50 ML IV SCH (09:01)
[2021-12-15] MEDS: NON-FORMULARY MEDICATION 1 EA EA (Brinzolamide/Brimonidine Tart (Simbrinza 1%-0.2% Eye Dro OD SCH ×2 (09:14→13:14)
[2021-12-15] MEDS: DOCUSATE SODIUM 100 MG (COLACE) CAP PO SCH (09:14)
[2021-12-15] MEDS ORDERED: FURO-125 PO (11:05)
--- NOTE | 2021-12-15 11:06 | D/C HH Face to Face Order ---
D/C HH Face to Face Orders Reconcile Patient Problems Problems Reviewed?: Yes Instructions for Patient HH Patient Instructions/FollowUp: PCP 1 week Physician to follow Patient: [facility] Discharge Diet for Home: No Restrictions Patient Problems: CHF AF Patient Data-Allergies,Ht & Wt Patient Allergies: Coded Allergies: morphine (Verified Adverse Reaction, Intermediate, sedation, 02/28/21) Uncoded Allergies: TETANUS VACCINATION (Adverse Reaction, Intermediate, swelling, 08/21/18) Height (Feet): 4 Height (Inches): 11.00 Weight (Pounds): 156 Weight (Ounces): 6.0 Home Health Need/Face to Face Date of Face to Face: Dec 15, 2021 Clinical Findings: Generalized weakness and fatigue, Instability, Muscle weakness, Shortness of breath, Unsteady gait I have seen Pt [id number]: Yes Discharged To: Home Diagnosis/Conditions: Debility Patient is Homebound due to: CognItive deficits, Yo fall risk due to instabilty, Muscle weakness Homebound Status Due to the above stated illness, injury or surgical procedure (medical condition or diagnosis) and associated clinical findings, the patient is homebound because of his/her inability to leave home except with aid of a supportive device and/or person AND leaving the home requires a considerable and taxing effort or is medically contraindicated. Pt req the following assistanc: [facility] Nursing Orders Home Health Services Order: Nursing Services, Refractory Manager-Evaluate & Treat, Physical Therapy-Evaluate & Treat Home Health Infusion Therapy Line Start Date: Dec 14, 2021 Certify Stmt I certify that this patient is under my care and that I, a nurse practitioner or a physician; a clinical trials assistant working with me, had a face to face encounter that - meets the physician face to face encounter requirements with this patient as dated. FARIDA BEAN DO Dec 15, 2021 11:06
--- NOTE | 2021-12-15 11:07 | Discharge Summary ---
Discharge Summary Hospital Course Was the Problem List Reviewed?: Yes Problems/Dx: (1) Acute on chronic heart failure with preserved ejection fraction (HFpEF) (2) Atrial tachycardia (3) Coronary artery disease without angina pectoris (4) Primary hypertension (5) Acute kidney injury superimposed on chronic kidney disease (6) Mixed hyperlipidemia (7) Tricuspid regurgitation (8) Pulmonary hypertension Hospital Course Date of Admission: Dec 11, 2021 at 19:05 Admission Diagnosis : Family Physician/Provider: [facility] Date of Discharge: 12/15/21 Discharge Diagnosis: AECHF, AF, debility Hospital Course: Pt had an uneventful 5 day hospital course when she was admitted for CHF and elevated Creatinine. Elevated D-Dimer was noted. Pt was maintained on Xarelto. Cardiology was consulted. They managed her heart failure with diuretics. Home O2 evaluation was done. She was deemed stable for discharge with PT and OT back to assisted living. Dr. Peoples was appreciated with his skills. Overall poor prognosis given the fact of her very debilitated state. Labs and Pending Lab Test: Laboratory Tests 12/14/21 16:11: Glucometer 194H 12/14/21 20:19: Glucometer 165H 12/15/21 04:11: White Blood Count 7.7, Red Blood Count 3.03L, Hemoglobin 9.0L, Hematocrit 29L, M rebecca Corpuscular Volume 96, Mean Corpuscular Hemoglobin 30, Mean Corpuscular Hemoglobin Concent 31L, Red Cell Distribution Width 16.1H, Platelet Count 131, Mean Platelet Volume 11.9, Immature Granulocyte % (Auto) 1, Neutrophils (%) (Auto) 71, Lymphocytes (%) (Auto) 15, Monocytes (%) (Auto) 7, Eosinophils (%) (Auto) 8, Basophils (%) (Auto) 0, Neutrophils # (Auto) 5.5, Lymphocytes # (Auto) 1.1, Monocytes # (Auto) 0.5, Eosinophils # (Auto) 0.6H, Basophils # (Auto) 0.0, Immature Granulocyte # (Auto) 0.0, Percent Immature Platelet Fraction 6.6, Sodium Level 137, Potassium Level 4.7, Chloride Level 99, Carbon Dioxide Level 24, Anion Gap 14, Blood Urea Nitrogen 35H, Creatinine 1.86H, Estimat Glomerular Filtration Rate 28, BUN/Creatinine Ratio 19, Glucose Level 132H, Calcium Level 8.1L, Corrected Calcium 9.2, Total Bilirubin 0.4, Aspartate Amino Transf (AST/SGOT) 24, Alanine Aminotransferase (ALT/SGPT) 19, Alkaline Phosphatase 87, Total Protein 6.2L, Albumin 2.6L 12/15/21 10:13: Glucometer 231H Microbiology 12/11/21 Urine Culture - Final, Complete See Comments Home Meds Active Lasix (Furosemide) 20 Mg Tablet 20 Mg PO DAILY Reported Guaifenesin-Pse ER 600-60 mg (Guaifenesin/Pseudoephedrne HCl) 600 Mg-60 Mg Tab.er.12h 1 Each PO Q12H PRN Gvoke (Glucagon) 1 Mg/0.2 Ml Vial 1 Mg SQ UD Amlodipine Besylate 10 Mg Tablet 10 Mg PO DAILY Hydralazine HCl 25 Mg Tablet 75 Mg PO BID TAKES 3 (25MG) TABS Losartan Potassium 50 Mg Tablet 50 Mg PO DAILY Xarelto (Rivaroxaban) 15 Mg Tablet 15 Mg PO DAILY Levemir Flextouch (Insulin Detemir) 100 Unit/Ml (3 Ml) Insuln.pen 8 Units SQ BID Benadryl (Diphenhydramine HCl) 25 Mg Capsule 25 Mg PO HS PRN Atorvastatin Calcium 10 Mg Tablet 10 Mg PO HS Tizanidine HCl 2 Mg Tablet 2 Mg PO BID PRN Famotidine 40 Mg Tablet 40 Mg PO HS Montelukast Sodium 10 Mg Tablet 10 Mg PO HS Flonase Allergy Relief (Fluticasone Propionate) 9.9 Ml [place].susp 1 [place] NS BID PRN Latanoprost 0.005% Eye Drop (Latanoprost/Pf) 7.5 Ml Drops 1 Drop OD DAILY Simbrinza 1%-0.2% Eye Drops (Brinzolamide/Brimonidine Tart) 8 Ml Drops.susp 1 Drop OD TID Tylenol Extra Strength (Acetaminophen) 500 Mg Tablet 1,000 Mg PO Q6H PRN TAKES 2 (500MG) TABLETS Aspirin EC (Aspirin) 81 Mg Tablet.dr 81 Mg PO DAILY Carvedilol 25 Mg Tablet 25 Mg PO BID Assessment/Pt Instructions PCP 1 week Discharge Planning: <30 minutes discharge planning Discharge Physical Examination Vital Signs Vital Signs Date Time Temp Pulse Resp B/P (MAP) Pulse Ox O2 Delivery O2 Flow Rate FiO2 12/15/21 08:06 36.4 111 18 131/86 (101) 99 Nasal Cannula 2.00 12/14/21 00:09 28 General Appearance: No Apparent Distress, WD/WN, Chronically ill Respiratory: Lungs Clear, Normal Breath Sounds Allergies: Coded Allergies: morphine (Verified Adverse Reaction, Intermediate, sedation, 02/28/21) Uncoded Allergies: TETANUS VACCINATION (Adverse Reaction, Intermediate, swelling, 08/21/18) Discharge Summary Date of Admission Dec 11, 2021 at 19:05 Date of Discharge Discharge Date: Dec 15, 2021 Admission Diagnosis Assessment: Dyspnea Elevated d-dimer CKD AF CHF Plan: Laseric Lam Discharge Diagnosis Assessment: Dyspnea Elevated d-dimer CKD AF CHF Plan: Madhu Lam DC Xarelto restart PT OT DC catheter (1) Acute on chronic heart failure with preserved ejection fraction (HFpEF) Assessment & Plan: Symptomatically she seems to be improving. Her heart failure is predominantly manifested as lower extremity edema. Her renal function has stabilized since decreasing the intravenous furosemide from twice daily to once daily dosing. She had been on beta-frankie at home but her blood pressure may be somewhat low to resume this. She was also taking amlodipine at home which could be contributing to her peripheral edema. We may want to consider stopping this medication. (2) Atrial tachycardia Assessment & Plan: There was a question of possible atrial fibrillation around the time of her admission although I had done a previous event recorder which showed atrial tachycardia and not any atrial fibrillation. She is being monitored on telemetry. I reviewed the previous electrocardiograms and the one from 12/11 was read out as atrial flutter but actually appears to be sinus tachycardia with frequent premature supraventricular complexes. Her electrocardiogram from 12/14 shows similar findings. I do not see any strong indication for oral anticoagulation at this time however the hospitalist has started rivaroxaban. This is not unreasonable for the time being until we definitively determine whether or not she is having atrial fibrillation. We may want to consider placing an implantable loop recorder. I could arrange for this following discharge. (3) Coronary artery disease without angina pectoris Assessment & Plan: She had previous bypass surgery. She has not been having an y overt angina. She is on aspirin, beta-frankie and statin medication. (4) Primary hypertension Assessment & Plan: Her blood pressures have improved and she is now on amlodipine and carvedilol. She is not a good candidate for ANKIT inhibitor or ARB due to her poor renal function. (5) Acute kidney injury superimposed on chronic kidney disease Assessment & Plan: She had been receiving furosemide twice daily and her renal function was getting worse. I changed the furosemide to once daily dosing on 12/13 and her renal function seems to be stabilizing. We will continue to monitor. (6) Mixed hyperlipidemia Assessment & Plan: I have ordered atorvastatin which she was taking at home. (7) Tricuspid regurgitation Assessment & Plan: This probably contributes to her peripheral edema. This can usually be managed medically. (8) Pulmonary hypertension Assessment & Plan: Most likely due to her chronic heart failure and perhaps some underlying lung disease. Clinical Quality Measures DVT/VTE Risk/Contraindication: Contraindications-Mechi: Other *list below* Other: poss dvt FARIDA BEAN DO Dec 15, 2021 11:07
[2021-12-15 11:28] VITALS: BP 103/67
--- NOTE | 2021-12-15 11:45 | Occupational Ther Daily Note ---
OT Current Status-Daily Note Subjective Pt alert, lying in bed. Pt agrees to therapy. No c/o pain. Mental Status/Objective Patient Orientation: Person, Place, Time, Situation ADL-Treatment Mod A for sit to stand from toilet. CGA to manipulate clothing, sitting for hygiene. Supine to EOB independently. Pt donned socks sitting up in bed by self after set up. Pt stood at sink to complete oral care and grooming indepe ndently. After session, pt left in care of PT. All needs met. Therapy Code Descriptions/Definitions Functional [place] Measure: 0=Not Assessed/NA 4=Minimal Assistance 1=Total Assistance 5=Supervision or Setup 2=Maximal Assistance 6=Modified [place] 3=Moderate Assistance 7=Complete IndependenceSCALE: Activities may be completed with or without assistive devices. 5-Hjyvhqewnh-xasnvlc completes the activity by him/herself with no assistance from a helper. 5-Set-up or Clean-up Assistance-helper sets up or cleans up; patient completes activity. [employer] assists only prior to or following the activity. 4-Supervision or Touching Assistance-helper provides verbal cues and/or touching/steadying and/or contact guard assistance as patient completes activity. Assistance may be provided throughout the activity or intermittently. 3-Partial/Moderate Assistance-helper does LESS THAN HALF the effort. [employer] lifts, holds or supports trunk or limbs, but provides less than half the effort. 2-Substantial/Maximal Assistance-helper does MORE THAN HALF the effort. [employer] lifts or holds trunk or limbs and provides more than half the effort. 3-Dligevlye-mkualc does ALL the effort. Patient does none of the effort to complete the activity. Or, the assistance of 2 or more helpers is required for the patient to complete the activity. If activity was not attempted, code reason: 7-Patient Refused. 9-Not Applicable-not attempted and the patient did not perform the activity before the current illness, exacerbation or injury. 10-Not Attempted due to Environmental Limitations-(lack of equipment, weather restraints, etc.). 88-Not Attempted due to Medical Conditions or Safety Concerns. Oral Hygiene (QC): 6 On/Off Footwear: 5 Toileting Hygiene (QC): 4 OT Weight Calculator Goals Weight Calculator Goals Time Frame: Dec 24, 2021 Eating (QC): 6 Oral Hygiene (QC): 6 Toileting Hygiene (QC): 6 Shower/Bathe Self (QC): 4 Upper Body Dressing (QC): 5 Lower Body Dressing (QC): 3 On/Off Footwear (QC): 3 Additional Goals: 1-Demonstrate ADL Tasks, 2-Verbalize Understanding, 3- ImproveStrength/José Antonio 1=Demonstrate adherence to instructed precautions during ADL tasks. 2=Patient will verbalize/demonstrate understanding of assistive devices/modifications for ADL. 3=Patient will improve strength/tolerance for activity to enable patient to perform ADL's. OT Education/Plan Problem List/Assessment Assessment: Decreased Activ Tolerance, Impaired Self-Care Skills Discharge Recommendations Plan/Recommendations: Continue POC Treatment Plan/Plan of Care Patient would benefit from OT for education, treatment and training to promote independence in ADL's, mobility, safety and/or upper extremity function for ADL's. Plan of Care: ADL Retraining, Functional Mobility, UE Funct Exercise/Act Treatment Duration: Dec 24, 2021 Frequency: 3 times per week (3-5 times per week) Estimated Hrs Per Day: .25 hour per day Rehab Potential: Fair Time/GCodes Start Time: 11:15 Stop Time: 11:30 Total Time Billed (hr/min): 15 Billed Treatment Time 1 visit-ADL 1 (15 min) MOY RICO Dec 15, 2021 11:45
--- NOTE | 2021-12-15 11:46 | Physical Therapy Daily Note ---
PT Daily Note-Current Subjective Patient in bed pre tx, agrees to PT, has no complaints of pain. Appearance Patient in recliner post tx with nurse call, phone, tray, all needs met. Mental Status Patient Orientation: Person, Place, Situation Attachments: Oxygen Transfers SCALE: Activities may be completed with or without assistive devices. 7-Stfxqlttlw-ueuxedj completes the activity by him/herself with no assistance from a helper. 5-Set-up or Clean-up Assistance-helper sets up or cleans up; patient completes activity. [place] assists only prior to or following the activity. 4-Supervision or Touching Assistance-helper provides verbal cues and/or touching/steadying and/or contact guard assistance as patient completes activity. Assistance may be provided throughout the activity or intermittently. 3-Partial/Moderate Assistance-helper does LESS THAN HALF the effort. [place] lifts, holds or supports trunk or limbs, but provides less than half the effort. 2-Substantial/Maximal Assistance-helper does MORE THAN HALF the effort. [place] lifts or holds trunk or limbs and provides more than half the effort. 5-Ckjoctboz-npndvj does ALL the effort. Patient does none of the effort to complete the activity. Or, the assistance of 2 or more helpers is required for the patient to complete the activity. If activity was not attempted, code reason: 7-Patient Refused. 9-Not Applicable-not attempted and the patient did not perform the activity before the current illness, exacerbation or injury. 10-Not Attempted due to Environmental Limitations-(lack of equipment, weather restraints, etc.). 88-Not Attempted due to Medical Conditions or Safety Concerns. Roll Left & Right (QC): 6 Lying to Sitting/Side of Bed(Q: 6 Sit to Stand (QC): 3 Chair/Prv-bq-[place] Xfer(QC): 4 Toilet Transfer (QC): 4 Patient stood from the bed with CGA but needed mod assist to stand from a lower surface (toilet), patient ambulated into the restroom from the bed and used the toilet, was able to clean herself, then went to the sink and washed her hands and brushed her teeth. Weight Bearing Right Lower Extremity: Right Weight Bearing/Tolerated Left Lower Extremity: Left Weight Bearing/Tolerated Gait Training Distance: 250' Walk 10 feet (QC): 4 Walk 50 ft with 2 Turns(QC): 4 Walk 150 ft (QC): 4 Gait Persons Needed: 1 Gait Assistive Device: FWW SBA, slow but steady ambulation, RT tested patient's O2 without oxygen during ambulation and it was 88% so she put patient on 3L of O2 Treatments toileting, ambulation, bed mobility and transfers Assessment Current Status: Fair Progress good progress with functional mobility except for sit to stand from lower surfaces PT Snf Goals Slot Supervisor Goals PT Slot Supervisor Goals Time Frame: Dec 25, 2021 Roll Left & Right (QC): 6 Sit to Lying (QC): 6 Lying-Sitting on Side/Bed(QC): 6 Sit to Stand (QC): 4 Chair/Kls-bf-Rrikk Xfer(QC): 4 Toilet Transfer (QC): 4 Walk 10 feet (QC): 4 Walk 50ft with 2 Turns (QC): 4 Walk 150 ft (QC): 4 PT Plan Problem List Problem List: Activity Tolerance, Functional Strength, Safety, Balance, Gait, Transfer, Bed Mobility, ROM Treatment/Plan Treatment Plan: Continue Plan of Care Treatment Plan: Bed Mobility, Education, Functional Activity José Antonio, Functional Strength, Gait, Safety, Therapeutic Exercise, Transfers Treatment Duration: Dec 25, 2021 Frequency: 6 times per week Estimated Hrs Per Day: .25 hour per day Patient and/or Family Agrees t: Yes Safety Risks/Education Patient Education: Gait Training, Transfer Techniques, Correct Positioning, Safety Issues Teaching Recipient: Patient Teaching Methods: Demonstration, Discussion Response to Teaching: Reinforcement Needed Time/GCodes Time In: 1117 Time Out: 1132 Total Billed Treatment Time: 15 Total Billed Treatment 1 visit FA WILLAM KATZ PT Dec 15, 2021 11:46
[2021-12-15 13:36] VITALS: BP 103/67
== END 2021-12-15 13:36 | DRG 291 ==
LOC: EDUNIT# 12:25 → ER FS 12:26 → 4TH 19:05
PROVIDERS: ADMIT Internal Medicine; ATTEND Internal Medicine
DX: I13.0 Hypertensive heart and chronic kidney disease with heart failure and stage 1 through stage 4 chronic kidney disease, or unspecified chronic kidney disease (principal); I50.33 Acute on chronic diastolic (congestive) heart failure; I47.1 Supraventricular tachycardia; N17.9 Acute kidney failure, unspecified; I25.10 Atherosclerotic heart disease of native coronary artery without angina pectoris; N18.9 Chronic kidney disease, unspecified; E78.2 Mixed hyperlipidemia; I27.20 Pulmonary hypertension, unspecified; D64.9 Anemia, unspecified; K21.9 Gastro-esophageal reflux disease without esophagitis; E78.00 Pure hypercholesterolemia, unspecified; E11.9 Type 2 diabetes mellitus without complications; I08.3 Combined rheumatic disorders of mitral, aortic and tricuspid valves; H54.7 Unspecified visual loss; H91.90 Unspecified hearing loss, unspecified ear; M19.90 Unspecified osteoarthritis, unspecified site; H40.9 Unspecified glaucoma; E83.42 Hypomagnesemia; Z79.01 Long term (current) use of anticoagulants; Z79.899 Other long term (current) drug therapy; Z88.5 Allergy status to narcotic agent; Z88.7 Allergy status to serum and vaccine; Z95.1 Presence of aortocoronary bypass graft; Z87.891 Personal history of nicotine dependence; Z79.4 Long term (current) use of insulin; Z87.01 Personal history of pneumonia (recurrent); Z79.82 Long term (current) use of aspirin; Z99.81 Dependence on supplemental oxygen
CPT/HCPCS: 36410; 36415; 71045; 76937; 80053; 81000; 82947; 83605; 83735; 83880; 85025; 85027; 85379; 85610; 85730; 87088; 93005; 93041; 94640; 94760; 94761; 96372; 96374; 96375; 96376

== ENCOUNTER 2021-12-18 18:09 | Emergency (ER) | payer MEDICARE ==
[~2021-12-18] VITALS: Ht 162 cm; Wt 90.0 kg
[~2021-12-18 18:09] MED LIST changes: +GLUC1VIA18 SQ; +INSU100I29 SQ; +RIVA15TA PO; +[UNRECOGNIZED DRUG - CODE] PO
[2021-12-18] MEDS ORDERED: NOREPINEPHRINE 8 MG/250 ML 250 ML IV ONE (18:33)
[2021-12-18 18:59] LABS: FIBRIN DEGRADATION PRODUCTS 2.2 UG/ML (0.00-0.49); INR 1.9 (0.8-1.4); PROTHROMBIN TIME PATIENT 22.5 SEC (12.2-14.7)
[2021-12-18 19:00] VITALS: BP 0/0
[2021-12-18 19:01] LABS: BUN/CREATININE RATIO 21; CARBON DIOXIDE 25 MMOL/L (21-32); CHLORIDE 92 MMOL/L (98-107); CREATININE SERUM 2.53 MG/DL (0.60-1.30); GFR ESTIMATED 19; POTASSIUM 5.3 MMOL/L (3.6-5.0); SODIUM 130 MMOL/L (135-145)
[2021-12-18 19:02] LABS: ALANINE AMINOTRANSFERASE 19 U/L (0-55); ALBUMIN 3.1 GM/DL (3.2-4.5); ALKALINE PHOSPHATASE 94 U/L (40-136); BILIRUBIN,TOTAL 0.4 MG/DL (0.1-1.0); CALCIUM 8.2 MG/DL (8.5-10.1); GLUCOSE 38 MG/DL (70-105); MAGNESIUM 1.7 MG/DL (1.6-2.4); TOTAL PROTEIN 6.7 GM/DL (6.4-8.2)
[2021-12-18 19:04] LABS: HEMATOCRIT 32 % (35-52); HEMOGLOBIN 9.5 g/dL (11.5-16.0); MEAN CORPUSCULAR HEMOGLOBIN 29 pg (25-34); MEAN CORPUSCULAR HGB CONC 30 g/dL (32-36); MEAN CORPUSCULAR VOLUME 96 fL (80-99); MEAN PLATELET VOLUME 11.9 fL (9.0-12.2); PLATELET COUNT 170 10^3/uL (130-400); WHITE BLOOD COUNT 9.4 10^3/uL (4.3-11.0)
[2021-12-18 19:06] LABS: BASOPHILS % (AUTO) 0 % (0-10); EOSINOPHILS # (AUTO) 0.1 10^3/uL (0.0-0.3); EOSINOPHILS % (AUTO) 1 % (0-10); LYMPHOCYTES # (AUTO) 0.8 X 10^3 (1.0-4.0); LYMPHOCYTES % (AUTO) 9 % (12-44); MONOCYTES # (AUTO) 0.4 X 10^3 (0.0-1.0); MONOCYTES % (AUTO) 5 % (0-12); NEUTROPHILS % (AUTO) 86 % (42-75)
[2021-12-18 19:10] LABS: ABG PH 7.29 (7.37-7.43)
[2021-12-18 19:12] LABS: ABG BASE EXCESS 5.8 MMOL/L (-2.5-2.5); ABG OXYGEN SATURATION 66 % (94-100); ABG PCO2 72 MMHG (35-45); ABG PO2 39 MMHG (79-93); ABG TCO2 36.8 MMOL/L (21.0-31.0)
[2021-12-18 19:13] LABS: INSPIRED O2 100; VENTILATOR YES
--- NOTE | 2021-12-18 19:16 | Diagnostic Imaging Report ---
EXAM: Chest 1 view AP/PA only INDICATION: Cardiac arrest. COMPARISON: 11/21/2021. FINDINGS: ETT midway between the level of the clavicles and lizbet. Sternotomy. Unidentified line overlies the base of the neck, upper mediastinal and right lung. Perihilar interstitial and airspace opacities consistent with pulmonary edema. There is increased airspace opacification on the right, particularly in the right lung base. Probable moderate right pleural effusion. No pneumothorax is identified. Normal heart size. No acute osseous finding. IMPRESSION: 1. Unidentified line overlying the base of the neck, upper mediastinum and right lung may be external to the patient. Conversation with Davion Munguia revealed that the patient does not have an NG tube or any other lines entering the nose or mouth except for the ETT. 2. Bilateral interstitial and airspace opacities with perihilar predominance suggests pulmonary edema. 3. There is also dense airspace consolidation in the right lung more compatible with an infiltrate or hemorrhage. Small right pleural effusion. Findings discussed with Dr. Adarsh Munguia at 7:05 PM on 12/18/2021. Dictated by: Dictated on workstation # [id number]
--- NOTE | 2021-12-18 19:28 | ED CPR ---
HPI-CPR General Chief Complaint: Respiratory Problems Stated Complaint: SOB Nursing Triage Note: PT ARRIVED VIA [facility] FOR REPSIRATORY DEPRESSION. PT ON CPAP BY EMS UPON ARRIVAL. PT HAD PINK, FROTHY FLUID COMING FROM MOUTH. Source of Information: [facility], [facility] Exam Limitations: Other (patient coding) History of Present Illness Date Seen by Provider: Dec 18, 2021 Time Seen by Provider: 18:10 Initial Comments 76-year-old female with past medical history of CHF brought in by EMS from the [place] [facility] due to decreased responsiveness and shortness of breath. EMS stated she was satting 70% on room air and they placed her on 15 L oxygen with some improvement in her oxygenation but decrease in her mental status. By the time they were pulling and she had essentially stopped breathing but still had a pulse. They were able to place an IV but were unable to get a glucose due to the acuity of her condition. Further elements of the history and physical were unable to be obtained because the patient is not responsive, and there is no family immediately available. They are unsure if she is full code at this time. Allergies and Home Medications Allergies Coded Allergies: morphine (Verified Adverse Reaction, Intermediate, sedation, 02/28/21) Uncoded Allergies: TETANUS VACCINATION (Adverse Reaction, Intermediate, swelling, 08/21/18) Patient Home Medication List Home Medication List Reviewed: Yes Acetaminophen (Tylenol Extra Strength) 500 Mg Tablet, 1,000 MG PO Q6H PRN for PAIN-MILD, (Reported) Entered as Reported by: HEATHER PEARL on 08/21/18 1633 Amlodipine Besylate (Amlodipine Besylate) 10 Mg Tablet, 10 MG PO DAILY, (Reported) Entered as Reported by: AFSANEH REECE on 12/13/21 1524 Aspirin (Aspirin EC) 81 Mg Tablet.dr, 81 MG PO DAILY, (Reported) Entered as Reported by: HEATHER PEARL on 08/21/18 1633 Atorvastatin Calcium (Atorvastatin Calcium) 10 Mg Tablet, 10 MG PO HS, (Reported) Entered as Reported by: AFSANEH REECE on 11/19/21 0828 Brinzolamide/Brimonidine Tart (Simbrinza 1%-0.2% Eye Drops) 8 Ml Drops.susp, 1 DROP OD TID, (Reported) Entered as Reported by: SOFIA SMITH on 08/27/19 1153 Carvedilol (Carvedilol) 25 Mg Tablet, 25 MG PO BID, (Reported) Entered as Reported by: HEATHER PEARL on 08/21/18 1633 Diphenhydramine HCl (Benadryl) 25 Mg Capsule, 25 MG PO HS PRN for SLEEP, (Reported) Entered as Reported by: AFSANEH REECE on 11/19/21 0828 Famotidine (Famotidine) 40 Mg Tablet, 40 MG PO HS, (Reported) Entered as Reported by: RON SMITH on 03/01/21 1013 Fluticasone Propionate (Flonase Allergy Relief) 9.9 Ml [place].susp, 1 SPRAY NS BID PRN for CONGESTION, (Reported) Entered as Reported by: RON SMITH on 03/01/21 1013 Furosemide (Lasix) 20 Mg Tablet, 20 MG PO DAILY Prescribed by: FARIDA BEAN on 12/15/21 1105 Glucagon (Gvoke) 1 Mg/0.2 Ml Vial, 1 MG SQ UD, (Reported) Entered as Reported by: AFSANEH REECE on 12/13/21 1528 Guaifenesin/Pseudoephedrne HCl (Guaifenesin-Pse ER 600-60 mg) 600 Mg-60 Mg Tab.er.12h, 1 EACH PO Q12H PRN for CONGESTION, (Reported) Entered as Reported by: AFSANEH REECE on 12/13/21 1532 Hydralazine HCl (Hydralazine HCl) 25 Mg Tablet, 75 MG PO BID, (Reported) Entered as Reported by: AFSANEH REECE on 12/13/21 1523 Insulin Detemir (Levemir Flextouch) 100 Unit/Ml (3 Ml) Insuln.pen, 8 UNITS SQ BID, (Reported) Entered as Reported by: AFSANEH REECE on 12/13/21 1521 Latanoprost/Pf (Latanoprost 0.005% Eye Drop) 7.5 Ml Drops, 1 DROP OD DAILY, (Reported) Entered as Reported by: RON SMITH on 03/01/21 1013 Montelukast Sodium (Montelukast Sodium) 10 Mg Tablet, 10 MG PO HS, (Reported) Entered as Reported by: RON SMITH on 03/01/21 1013 Rivaroxaban (Xarelto) 15 Mg Tablet, 15 MG PO DAILY, (Reported) Entered as Reported by: AFSANEH REECE on 12/13/21 1521 Tizanidine HCl (Tizanidine HCl) 2 Mg Tablet, 2 MG PO BID PRN for MUSCLE SPASMS, (Reported) Entered as Reported by: RON SMITH on 03/01/21 1013 Discontinued Medications Losartan Potassium (Losartan Potassium) 50 Mg Tablet, 50 MG PO DAILY, (Reported) Entered as Reported by: AFSANEH REECE on 12/13/21 1522 Review of Systems Review of Systems Constitutional: no symptoms reported Other Comments Unable to obtain review of systems due to the patient not being responsive. Past Qpqasll-Bpchep-Uefenv Hx Patient Social History Tobacco Use?: No Smoking Status: Unknown if Ever Smoked Smokeless Tobacco Frequency: Unknown if Ever Used Use of E-Cig and/or Vaping dev: Unable to obtain Use of E-Cig and/or Vaping Ministerio: Unknown if Ever Used Substance use?: Unable to obtain Alcohol Use?: Unable to obtain Pt feels they are or have been: Unable to obtain Immunizations Up To Date First/Initial COVID19 Vaccinat: August 2020 Second COVID19 Vaccination Dinesh: September 2020 Third COVID19 Vaccination Date: August 2020 Seasonal Allergies Seasonal Allergies: No Past Medical History Surgery/Hospitalization HX: DM, CAD; Triple bypass; Hernia repair with mesh; HTN; High Cholesterol; Cataract removal. 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 Genitourinary: No Bladder Infection Gastrointestinal: Yes (GALLSTONES NOTED ON CT; KNOWN HERNIA-NO SURGERY; kidney disease) Abdominal Hernia Musculoskeletal: Yes Arthritis Endocrine: Yes Diabetes, Insulin dep HEENT: Yes Glaucoma Loss of Vision: Denies Hearing Impairment: Hard of Hearing Cancer: No Psychosocial: No Integumentary: No Blood Disorders: No Family Medical History Heart Disease, Lung Disease, Stroke Physical Exam Vital Signs Vital Signs - First Documented 12/18/21 12/18/21 18:09 19:00 Temp 35.0 Pulse 42 Resp 6 B/P (MAP) 63/52 (56) Pulse Ox 0 O2 Delivery NIV CPAP O2 Flow Rate 15.00 Capillary Refill : Greater Than 3 Seconds Height, Weight, BMI Height: 4'11.00" Weight: 156lbs. 6.0oz. 70.383487qi; 34.00 BMI Method:Stated General Appearance: Other (Ill-appearing, not responding) HEENT: Other (Pupils sluggish but equally reactive and 2 mm bilaterally, blood coming from the nose as well as oropharynx) Respiratory: Chest Non Tender, Crackles, Decreased Breath Sounds Cardiovascular: Bradycardia, Other (Significant 4+ lower extremity edema) Gastrointestinal: Normal Bowel Sounds, Non Tender, Soft Extremity: Other (Slow capillary refill, lower extremity edema, not moving extremities) Neurologic/Psychiatric: Other (Unresponsive, not moving extremities) Skin: Other (Extremities are cool to the touch and dry) Lymphatic: No Adenopathy Procedures/Interventions Lumen: triple Central Line Procedure: betadine prep, sterile drapes applied Position: femoral (R) Post Position: sutured, good blood return Central line was placed in the right femoral vein under emergent conditions with the patient requiring immediate norepinephrine for low blood pressure Date of ETT Placement: Dec 18, 2021 Time of ETT Placement: 18:30 Intubation Method: orotracheal Tube Size: 6.5 Positive End Tide CO2: Yes (Color change seen) Breath Sounds after Intubation: bilateral-equal Intubation Complications: oral-unsuccessful attempt (Saturation never was above 40% prior to intubating) Post Intubation Xray: Yes (ET tube above the lizbet) Patient was bleeding into her oropharynx which required suctioning and decreased ddpai-gn-adpy, initial 7 and half ET tube would not pass so went down to a 6-1/2 size CPR: Patient was in asystole requiring multiple doses of epinephrine, attempted D50 because her glucose was low and got initial ROSC, but later on she coded again and were unable to resuscitate her Rhythm: Asystole Progress/Results/Core Measures Results/Orders Lab Results Laboratory Tests Test 12/18/21 18:17 12/18/21 18:36 12/18/21 18:52 12/18/21 18:53 Range/Units Glucometer 54 *L 156 H 70-110 MG/DL Blood Gas Puncture Site RIGHT WRIST Blood Gas Patient Temperature NA Arterial Blood pH 7.29 *L 7.37-7.43 Arterial Blood Partial Pressure CO2 72 *H 35-45 MMHG Arterial Blood Partial Pressure O2 39 *L 79-93 MMHG Arterial Blood HCO3 35 H 23-27 MMOL/L Arterial Blood Total CO2 36.8 H 21.0-31.0 MMOL/L Arterial Blood Oxygen Saturation 66 L 94-100 % Arterial Blood Base Excess 5.8 H -2.5-2.5 MMOL/L Rodriguez Test N/A Blood Gas Ventilator Setting YES Blood Gas Inspired Oxygen 100 White Blood Count 9.4 4.3-11.0 10^3/uL Red Blood Count 3.30 L 3.80-5.11 10^6/uL Hemoglobin 9.5 L 11.5-16.0 g/dL Hematocrit 32 L 35-52 % Mean Corpuscular Volume 96 80-99 fL Mean Corpuscular Hemoglobin 29 25-34 pg Mean Corpuscular Hemoglobin Concent 30 L 32-36 g/dL Red Cell Distribution Width 15.8 H 10.0-14.5 % Platelet Count 170 130-400 10^3/uL Mean Platelet Volume 11.9 9.0-12.2 fL Immature Granulocyte % (Auto) 0 % Neutrophils (%) (Auto) 86 H 42-75 % Lymphocytes (%) (Auto) 9 L 12-44 % Monocytes (%) (Auto) 5 0-12 % Eosinophils (%) (Auto) 1 0-10 % Basophils (%) (Auto) 0 0-10 % Neutrophils # (Auto) 8.0 H 1.8-7.8 X 10^3 Lymphocytes # (Auto) 0.8 L 1.0-4.0 X 10^3 Monocytes # (Auto) 0.4 0.0-1.0 X 10^3 Eosinophils # (Auto) 0.1 0.0-0.3 10^3/uL Basophils # (Auto) 0.0 0.0-0.1 10^3/uL Immature Granulocyte # (Auto) 0.0 0.0-0.1 10^3/uL Neutrophils % (Manual) 85 % Lymphocytes % (Manual) 9 % Monocytes % (Manual) 5 % Band Neutrophils 1 % Prothrombin Time 22.5 H 12.2-14.7 SEC INR Comment 1.9 H 0.8-1.4 Activated Partial Thromboplast Time 59 H 24-35 SEC D-Dimer 2.20 H 0.00-0.49 UG/ML Sodium Level 130 L 135-145 MMOL/L Potassium Level 5.3 H 3.6-5.0 MMOL/L Chloride Level 92 L 98-107 MMOL/L Carbon Dioxide Level 25 21-32 MMOL/L Anion Gap 13 5-14 MMOL/L Blood Urea Nitrogen 53 H 7-18 MG/DL Creatinine 2.53 #H 0.60-1.30 MG/DL Estimat Glomerular Filtration Rate 19 BUN/Creatinine Ratio 21 Glucose Level 38 *L 70-105 MG/DL Calcium Level 8.2 L 8.5-10.1 MG/DL Corrected Calcium 8.9 8.5-10.1 MG/DL Magnesium Level 1.7 1.6-2.4 MG/DL Total Bilirubin 0.4 0.1-1.0 MG/DL Aspartate Amino Transf (AST/SGOT) 49 H 5-34 U/L Alanine Aminotransferase (ALT/SGPT) 19 0-55 U/L Alkaline Phosphatase 94 40-136 U/L Troponin I 4.58 *H <0.30 NG/ML C-Reactive Protein 2.83 H <0.50 MG/DL Pro-B-Type Natriuretic Peptide 40236.0 H <75.0 PG/ML Total Protein 6.7 6.4-8.2 GM/DL Albumin 3.1 L 3.2-4.5 GM/DL My Orders Orders - FELICITAS JAIN MD Norepinephrine 8 Mg/250 Ml (Norepinephri (12/18/21 18:33) Acetaminophen (12/18/21 18:52) Alcohol (12/18/21 18:52) Arterial Blood Gas (12/18/21 18:52) Cbc With Automated Diff (12/18/21 18:52) Comprehensive Metabolic Panel (12/18/21 18:52) Fibrin Degradation Products (12/18/21 18:52) Lactic Acid Analyzer (12/18/21 18:52) Magnesium (12/18/21 18:52) Protime With Inr (12/18/21 18:52) Partial Thromboplastin Time (12/18/21 18:52) Ua Culture If Indicated (12/18/21 18:52) Influenza A And B By Pcr (12/18/21 18:52) Probnp Fs (12/18/21 18:52) Crp Fs (12/18/21 18:52) Troponin I Fs (12/18/21 18:52) Chest 1 View Ap/Pa Only (12/18/21 18:52) Covid 19 Inhouse Test (12/18/21 18:52) Comprehensive Metabolic Panel (12/18/21 18:53) Protime With Inr (12/18/21 18:53) Troponin I Fs (12/18/21 18:53) Magnesium (12/18/21 18:53) Manual Differential (12/18/21 18:53) Vital Signs/I&O 12/18/21 12/18/21 12/18/21 18:09 18:09 19:00 Temp 35.0 34.0 Pulse 42 0 Resp 6 0 B/P (MAP) 63/52 (56) 0/0 Pulse Ox 0 O2 Delivery NIV CPAP O2 Flow Rate 15.00 Blood Pressure Mean: 56 Progress Progress Note : Progress Note Patient presented in respiratory distress with oxygen saturations here in the 40s, initially placed on BiPAP while setting up for intubation, she probably lost a pulse and we started CPR. She was intubated, had a bloody airway with difficulty passing the ET tube. Second attempt with size 6-1/2 endotracheal tube was successful. Oxygen saturation never really got above 78%. She required frequent suctioning as the ET tube was filling up with blood. Glucose on arrival was in the 50s so she got an amp of D50. We did get ROSC shortly after that. Blood pressure was low at that time so started norepinephrine drip. Stat femoral line triple lumen was placed (never was used as the patient coded again before placement was fully confirmed). Oxygen saturation would never go up. At that time the troponin came back around 5. We were prepping for an EKG after CPR with initial ROSC and she then lost her pulse again. At this time family was there and I was able to pull them into the room for them to witness the resuscitation. They stated the patient would not want these interventions at this point and they recommended stopping CPR. At this point she had been hypoxic significantly for over an hour and I do believe further attempts were futile to try to resuscitate her. CPR was then stopped. Time of was 7 PM. I believe the patient had a massive [place] as likely the cause of her as well as hypoglycemia. The patient's daughters who are her next of kin were physically present at the time of . I alerted the [facility] physician ebd special education teacher of the . The certificate should go to Dr. Kelsey Cifuentes for signing. Of note, when reviewing her labs, her initial glucose here was in the 50's, she got an amp of D50, and it went up above 100. Blood was drawn on arrival here when she was hypoglycemic, and it was ordered later. The timing on the labs appears like she was hypoglycemic again with a glucose in the 30's later in her resuscitation. This was in fact from the blood drawn on arrival, and timed later only because it was ordered later. Diagnostic Imaging Diagonstic Imaging: Xray Plain Films/CT/US/NM/MRI: chest Comments [facility] [place], [place] NAME: MAURICIO SCOTT I [facility] REC#: [id number] PT STATUS: REG ER : 1945 PHYSICIAN: FELICITAS JAIN MD ADMIT DATE: 12/18/21/ER FS Draft Date of Exam:12/18/21 CHEST 1 VIEW AP/PA ONLY EXAM: Chest 1 view AP/PA only INDICATION: Cardiac arrest. COMPARISON: 11/21/2021. FINDINGS: ETT midway between the level of the clavicles and lizbet. Sternotomy. Unidentified line overlies the base of the neck, upper mediastinal and right lung. Perihilar interstitial and airspace opacities consistent with pulmonary edema. There is increased airspace opacification on the right, particularly in the right lung base. Probable moderate right pleural effusion. No pneumothorax is identified. Normal heart size. No acute osseous finding. IMPRESSION: 1. Unidentified line overlying the base of the neck, upper mediastinum and right lung may be external to the patient. Conversation with Davion Jain revealed that the patient does not have an NG tube or any other lines entering the nose or mouth except for the ETT. 2. Bilateral interstitial and airspace opacities with perihilar predominance suggests pulmonary edema. 3. There is also dense airspace consolidation in the right lung more compatible with an infiltrate or hemorrhage. Small right pleural effusion. Findings discussed with Dr. Felicitas Jain at 7:05 PM on 12/18/2021. Dictated on workstation # [id number] Dict: 12/18/[id number] Trans: 12/18/211913 [facility] [id number] Interpreted by: ANA LUISA JOSEPH MD Electronically signed by: Critical Care Note Critical Care Start Time: 18:10 Stop Time: 18:41 Total Time (minutes) 31 Date of : Dec 18, 2021 Time of : 19:00 Departure Impression Primary Impression: NSTEMI (non-ST elevated myocardial infarction) Additional Impressions: Hypoglycemia Respiratory failure Qualified Codes: J96.01 - Acute respiratory failure with hypoxia Disposition: 20 Condition: Departure-Patient Inst. Referrals: KELSEY CIFUENTES MD (PCP) Primary Care Physician [facility] [place] (Family) Primary Care Physician FELICITAS JAIN MD Dec 18, 2021 19:28
[2021-12-18 19:52] LABS: BAND NEUTROPHILS 1 %; LYMPHOCYTES % (MANUAL) 9 %; MONOCYTES % (MANUAL) 5 %; NEUTROPHILS % (MANUAL) 85 %
[2021-12-18 20:00] LABS: ACETAMINOPHEN 18 UG/ML (10-30)
== END 2021-12-18 20:18 | disposition expired ==
LOC: EDUNIT# 18:09 → ER FS 18:11
DX: J96.01 Acute respiratory failure with hypoxia (principal); I21.4 Non-ST elevation (NSTEMI) myocardial infarction; E11.649 Type 2 diabetes mellitus with hypoglycemia without coma; Z79.4 Long term (current) use of insulin
CPT/HCPCS: 31500; 71045; 80053; 82805; 82947; 83735; 83880; 84484; 85007; 85379; 85610; 85730; 86141; 99285; G0480 ×2; 80320; 80329